=== PATIENT | female | born 1995 | race Caucasian/White ===

== ENCOUNTER 2022-03-20 15:09 | Outpatient (CLI) | payer BC, SELFPAY ==
--- NOTE | 2022-03-20 15:00 | CRLHL7_ITS ---
For Patients: As a result of the Century Cures Act, medical imaging exams and procedure reports are released immediately into your electronic medical record. You may view this report before your referring provider. If you have questions, please contact your health care provider. INDICATION: +Covid in . f/u growth. 31w6d COMPARISON: none TECHNIQUE: Real time rush scale imaging of the fetus was performed. FINDINGS: Sonographic imaging demonstrates a single living intrauterine gestation. Fetus demonstrates a regular cardiac rate of 157 beats per minute. Fetus has a vertex position. The placenta lies anteriorly. Amniotic fluid volume appears normal and there is a single deepest vertical pocket: 6.0 cm. The estimated weight is 1832gm which lies at the 35th %. BPD 50th percentile. HC 52nd percentile. AC 59th percentile. FL 8th percentile. The HC/AC ratio measures 1.07 range (0.96-1.14). IMPRESSION: Sonographic gestational age 32 weeks 0 days and sonographic due date 05/15/2022. Good correlation with dates. Estimated weight 35th percentile. Abdominal circumference 59th percentile. Dictated by Aniceto Barraza MD @ 03/21/2022 10:38:32 AM (Electronically Signed)
== END 2022-03-20 15:10 | disposition home or self-care (01) ==
LOC: US 15:10
PROVIDERS: Visit Provider Advanced Practice Midwife
DX: O98.513 Other viral diseases complicating pregnancy, third trimester (principal); U07.1 COVID-19; Z3A.32 32 weeks gestation of pregnancy
CPT/HCPCS: 76816

== ENCOUNTER 2022-04-16 14:11 | Outpatient (CLI) | payer BC, SELFPAY ==
--- NOTE | 2022-04-16 14:00 | CRLHL7_ITS ---
For Patients: As a result of the Century Cures Act, medical imaging exams and procedure reports are released immediately into your electronic medical record. You may view this report before your referring provider. If you have questions, please contact your health care provider. INDICATION: Third trimester scan, evaluate growth. COMPARISON: 03/1922 TECHNIQUE: Real time rush scale imaging of the fetus was performed as well as color Doppler and spectral Doppler analysis of the umbilical artery. FINDINGS: Sonographic imaging demonstrates a single living intrauterine gestation. Fetus demonstrates a regular cardiac rate of 154 beats per minute. Fetus has a vertex position. The placenta lies anteriorly. Amniotic fluid volume appears normal and there is a single deepest vertical pocket: 4.8 cm. The estimated weight is 2639gm which lies at the 37th %. On the prior OB ultrasound exam dated 03/20/2022 the estimated weight was at the 35th%. BPD 24th percentile. HC 43rd percentile. AC 61st percentile. FL 9th percentile. The HC/AC ratio measures 1.02 range (0.93-1.10). IMPRESSION: Sonographic gestational age 35 weeks 2 days and sonographic due date 05/19/2022. Good correlation with dates. Normal interval growth. Estimated weight 37th percentile. Abdominal circumference 61st percentile. Dictated by Aniceto Barraza MD @ 04/17/2022 9:23:45 AM (Electronically Signed)
== END 2022-04-16 14:12 | disposition home or self-care (01) ==
LOC: US 14:12
PROVIDERS: Visit Provider Registered Nurse
DX: Z34.93 Encounter for supervision of normal pregnancy, unspecified, third trimester (principal); Z3A.35 35 weeks gestation of pregnancy
CPT/HCPCS: 76816

== ENCOUNTER 2022-04-16 16:43 | Outpatient (CLI) | payer BC, SELFPAY ==
[2022-04-18 08:20] LABS: Strep B DNA Probe POSITIVE (Negative)
== END 2022-04-16 16:44 | disposition home or self-care (01) ==
PROVIDERS: Visit Provider Obstetrics & Gynecology
DX: Z34.93 Encounter for supervision of normal pregnancy, unspecified, third trimester (principal)
CPT/HCPCS: 87081; 87653

== ENCOUNTER 2022-04-19 02:01 | Outpatient (CLI) | payer BC, SELFPAY ==
[2022-04-19 02:21] VITALS: BP 116/72; PULSE 90
[2022-04-19 02:22] VITALS: PULSE 85; O2SAT 98
[2022-04-19] MEDS: NIFEdipine 10 MG CAPSULE PO (05:54)
--- NOTE | 2022-04-19 07:28 | PC.OBNST ---
NST Note NST Note Start: 04/19/22 02:04 Freq: ONCE Status: Active Protocol: Document 04/19/22 07:06 JENNIFERSergio (Rec: 04/19/22 07:27 JENNIFERSergio [id number]) NST Note 2 Para (# of births) 1 EDC 05/16/22 Patient Presented with Complaint(s) of Contractions/cramping,Nausea and vomiting Reactive Yes Appropriate for Gestational Age Yes RADHA Lai Date 04/19/22 Reactive Yes Appropriate for Gestational Age Yes RADHA Mcdonald Date 04/19/22 OB NST charge Yes Complete NST Note via Write Note Yes The provider's electronic signature indicates the NST is reactive/appropriate for gestational age. *Note to provider: If an addendum is required, open the patient's chart and click on the note under the Nurse/Allied Health tab.
--- NOTE | 2022-04-19 11:05 | PC.SOCIAL ---
Called [facility] CPS intake on 04/19/22 and completed an verbal report. On 04/19/22 faxed [facility] CPS intake a written CPS report for neglect due to positive THC lab completed on 04/19/22 for Sadie Mart.
== END 2022-04-19 06:00 ==
LOC: OB OUT 02:02 → OB 05:41
PROVIDERS: Visit Provider Advanced Practice Midwife
DX: O47.03 False labor before 37 completed weeks of gestation, third trimester (principal)
CPT/HCPCS: 59025; 80306; 99213; A9270

== ENCOUNTER 2022-05-09 07:50 | Inpatient (IN) | payer BC, SELFPAY ==
[2022-05-09] VITALS (141 sets, daily range): BP systolic 102–134; BP diastolic 53–89; PULSE 64–116; RESP 16; TEMP 36.4–36.9; O2SAT 91–100; BMI 29.7
--- NOTE | 2022-05-09 08:25 | P.OBHP_ITS ---
OB - H&P: HPI Labor/Induction History of Present Illness Time Seen by Provider: 08:27 Date Seen: 05/09/22 Chief complaint: Elective Induction/Pit Narrative: SUBJECTIVE: Sadie is being admitted to Labor and Delivery for elective induction of labor. She is a 26 year old G 2 P 1001 woman at 39 Weeks, 0 Days gestation by LMP consistent with 1st trimester ultrasound, LE 05/16/2022. Her full history and physical was completed by Bere Nichols MD on 04/26/2022. Please see this for details. OB PROBLEM LIST: Spouse: Antoine, Son: Олег. Baby: Girl 1. Varicella non-immune: Recommend immunization. 2. Closely spaced : last delivery by LTCS 03/29/2021 3. Previous cesearean section. Desires TOLAC * Chance of successful 58% * Primary LTCS for NRFHT, arrest of dilation and thick meconium stained fluid: transferred to [facility] from a [facility]. * OP note scanned: double layer uterine closure * TOLAC consent given to the patient on 02/02/22. * TOLAC consent signed: 04/16/2022 * USN for EFW at 36wks: 04/16/2022: Vtx, SDP: 4.8cm. EFW: 2639gm, 5#13oz = 37%. BPD 24%, HC 45%, AC 61%, FL 9%. * She desires 39 week induction of labor 4. THC user + in NOB labs, denies smoking since start of . Is taking THC gu mmies for nausea occasionally +THC 04/19/22 5. Anxiety/Depression/PTSD Sertraline 75 mg, may want to stop in 3rd trimester, recommended against Not currently seeing a therapist 6. Covid in in September 2021 and again 02/05/22. 32wk Growth US-EFW 35%. BPD 50%, HC 52%, AC 59%, FL 8% 36wk Growth- 04/16/2022: Vtx, SDP: 4.8cm. EFW: 2639gm, 5#13oz = 37%. BPD 24%, HC 45%, AC 61%, FL 9%. 7. Hx of PP pre-eclampsia after her 1st delivery. Is taking baby ASA. Flu: last fall 2020 Covid: vaccinated, not boosted. Plans soon Labs: Blood Type: O+ Ab screen: negative Hgb: 1.4 Plts: 276 Rubella: Immune RPR: Non-reactive Hep B: non reactive HIV: Negative Gc/c: negative Urine: no growth Hep C: negative UDS: THC positive Varicella: non-immune: immunization recommended. Last Pap smear: Unsure/no record. Pap smear at 6 week exam. US: 12/28 Normal Anatomy Scan 10/05/2021 CRL 1.65, SIUP, FHR 167 OBJECTIVE: Vitals per EMR Psychiatric: Alert and oriented x3 HEENT: Normocephalic, atraumatic Neck: Supple without adenopathy or thyromegaly Lungs: Clear to auscultation bilaterally Heart: Regular rate and rhythm, no murmur, rub or gallop Abdomen: Soft, nontender, and gravid Extremities: No edema or erythema Pelvic per nursing: SVE: 2 cm/50 %/-2 /ant/soft. Valdes score: 7 Membrane status: Intact presentation: Vertex FHT: Baseline 130s, moderate variability, Decelerations: absent, Accelerations: present, Contractions: 1 every 20+ minutes. Category 1, reactive. [place]: Sporadic, every 20-30 minutes ASSESSMENT: [age] yo G 1 P 0 woman at 39, 0/7 weeks' gestation admitted for elective IOL, TOLAC. PLAN: 1. Admit to Labor and delivery. 2. Start Pitocin per induction protocol. 3. GBS positive: Ampicillin for GBS prophylaxis start now. 4. AROM 2+ hours after ampicillin has been started Meds Home Medications and Allergies Home Medications Medication Instructions Recorded Confirmed Type aspirin 81 mg tablet,delayed 81 mg PO QDAY 02/28/22 05/04/22 History release ferrous sulfate 325 mg (65 mg 325 mg PO QDAY 02/28/22 05/04/22 History iron) tablet prenat.vits,lux,[id number] 1 tab PO QDAY 02/28/22 05/04/22 History Allergies Allergy/AdvReac Type Severity Reaction Status Date / Time metoclopramide [From Reglan] AdvReac Intermediate Anxiety Verified 05/09/22 08:03 OB - H&P: Exam Physical Exam: Vital signs: Temp Pulse BP Pulse Ox 98.1 F 84 133/81 98 09/07/22 08:06 05/09/22 08:06 05/09/22 08:06 05/09/22 08:25
[2022-05-09 08:30] LABS: Amphetamine Screen Urine Negative (Negative); Barbiturate Screen Urine Negative (Negative); Benzodiazepines Screen Urine Negative (Negative); Cannabinoid Screen Urine Negative (Negative); Cocaine Screen Urine Negative (Negative); Methadone Screen Urine Negative (Negative); Methamphetamines Screen Urine Negative (Negative); Opiate Screen Urine Negative (Negative); Oxycodone Screen Urine Negative (Negative); Phencyclidine Screen Urine Negative (Negative); Tricyclic Antidepressant Urine Negative (Negative)
[2022-05-09] MEDS: LACTATED RINGERS 1000 ML 1,000 ML 125 ML IV (09:05)
[2022-05-09 09:23] LABS: Basophils Absolute Auto 0.01 K/uL (0.00-0.30); Basophils Percent Auto 0.1 % (0.0-3.0); Eosinophils Absolute Auto 0.05 K/uL (0.00-0.50); Eosinophils Percent Auto 0.5 % (0.0-7.0); Hematocrit 31.7 % (33.0-51.0); Hemoglobin* 10.8 gm/dL (12.0-16.0); Immature Granulocytes Abs Auto 0.02 K/uL (0.00-0.30); Lymphocytes Absolute Auto 2.37 K/uL (0.90-2.90); Lymphocytes Percent Auto 25.5 % (20-44); Mean Corpuscular HGB Conc 34 gm/dL (32-36); Mean Corpuscular Hemoglobin 30 pg (26-34); Mean Corpuscular Volume 89 fL (80-100); Monocytes Percent Auto 6.1 % (0.0-11.0); Neutrophils Absolute Auto 6.28 K/uL (1.7-7.0); Neutrophils Percent Auto 67.6 % (42.0-72.0); Platelet Count* 148 K/uL (140-440); Red Blood Count 3.56 m/uL (4.00-5.20)
[2022-05-09] MEDS: AMPICILLIN 2 GM in 0.9 % SODIUM CHLORIDE Mini-bag 100 ML IVPB (09:23)
[2022-05-09 09:25] LABS: Slide Review Reflex No
[2022-05-09] MEDS: OXYTOCIN 30 unit/500 ML in NS 30 UNIT/500 ML BAG IVPB ×3 (09:29→10:57)
--- NOTE | 2022-05-09 12:58 | P.OBPN_ITS ---
Pain Control Time Seen by Provider: 12:25 Date Seen: 05/09/22 Comments: Subjective: The patient is tolerating contractions well rating her pain 4/10. Pitocin: 5 milliunits/minute. Verbal consent obtained for artificial rupture membranes. Vital signs: Per electronic medical record. EFM: Baseline 130s, positive accelerations, negative decelerations, moderate variability, reactive. Category 1. [place]: Contractions every 3-5 minutes. After AROM every 2 minutes. SVE: 3 cm/90 %/0. AROM: Clear fluid at 12:26 p.m. Assessment: 26-year-old 2 para 1 at 39 weeks 0 days gestation undergoing induction of labor, elective, TOLAC. Plan: 1. Continue Pitocin per labor induction protocol. 2. Considering epidural for labor analgesia
[2022-05-09] MEDS: AMPICILLIN 1 GM in 0.9 % SODIUM CHLORIDE Mini-bag 100 ML IVPB ×2 (13:37→17:33)
[2022-05-09] MEDS: LACTATED RINGERS 1000 ML 1,000 ML 1125 ML IV ×2 (14:12→15:14)
[2022-05-09] MEDS: LIDOCAINE 2% (PF) 5 ML VIAL EPIDURAL (14:14)
[2022-05-09] MEDS: ROPIVACAINE 0.2% 100 ml 100 ML 10 MG EPIDURAL (14:15)
--- NOTE | 2022-05-09 14:20 | P.ANBPRC_ITS ---
[facility] Medical History (Updated 04/26/22 @ 13:47 by Bere Hernandez MD) Anxiety and depression PTSD (post-traumatic stress disorder) Surgical History (Updated 04/26/22 @ 13:06 by Bere Hernandez MD) History of cholecystectomy (09/21/19) History of low transverse section (03/29/21) Family History (Updated 04/26/22 @ 13:47 by Bere Hernandez MD) Mother Alcohol abuse Drug abuse Depression Maternal Grandmother Ovarian cancer Social History (Updated 04/26/22 @ 13:45 by Bere Hernandez MD) Narrative: Cis-gender, heterosexual, woman Relationship status: Long-term monogamous relationship. 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 Quit 2018. E-cigarettes: No Alcohol: None during Illicit/recreational drugs: Smoked marijuana prior to . Used THC sporadically in the 1st trimester for nausea in her 2nd . Safety concerns at home or work: No Dietary restriction(s): None Exercise: No. Smoking Status: Former smoker Meds Home Medications and Allergies Home Medications Medication Instructions Recorded Confirmed Type aspirin 81 mg tablet,delayed 81 mg PO QDAY 02/28/22 05/09/22 History release ferrous sulfate 325 mg (65 mg 325 mg PO QDAY 02/28/22 05/09/22 History iron) tablet prenat.vits,lux,[id number] 1 tab PO QDAY 02/28/22 05/09/22 History Allergies Allergy/AdvReac Type Severity Reaction Status Date / Time metoclopramide [From Reglan] AdvReac Intermediate Anxiety Verified 05/09/22 08:03 Results Labs Labs: Laboratory Results - last 24 hr 05/09/22 05/09/22 05/09/22 08:09 09:10 09:10 WBC 9.30 RBC 3.56 L Hgb 10.8 L Hct 31.7 L MCV 89 MCH 30 MCHC 34 RDW Coeff of Gisel 13.0 Plt Count 148 Neut % (Auto) 67.6 Lymph % (Auto) 25.5 [place] % (Auto) 6.1 Eos % (Auto) 0.5 Baso % (Auto) 0.1 Neut # (Auto) 6.28 Lymph # (Auto) 2.37 [place] # (Auto) 0.60 Eos # (Auto) 0.05 Baso # (Auto) 0.01 Abs Immat Gran (auto) 0.02 Urine Opiates Screen Negative Ur Oxycodone Screen Negative Urine Methadone Screen Negative Ur Propoxyphene Screen Negative Ur Barbiturates Screen Negative U Tricyclic Antidepress Negative Ur Phencyclidine Scrn Negative Ur Amphetamines Screen Negative U Methamphetamines Scrn Negative U Benzodiazepines Scrn Negative Urine Cocaine Screen Negative U Marijuana (THC) Screen Negative Blood Type O Positive Antibody Screen NEGATIVE Crossmatch (AHG) See Detail Vital Signs Vital Signs: Last Vital Signs Temp 98.1 F 05/09/22 12:28 Pulse 90 05/09/22 14:19 BP 108/59 L 05/09/22 14:19 Pulse Ox 100 05/09/22 14:20 Weight: 69.1 kg Height: 152.4 cm Anesthesia Procedures Epidural Insertion Patient Location: OB Start Time: 14:00 Stop Time: 14:30 Start Date: 05/09/22 Stop Date: 05/09/22 Reason for Block: procedure for pain Patient Position: sitting Performed By: Varinder Causey Preanesthetic Checklist: IV checked, risks and benefits discussed, surgical consent, monitors and equipment checked, pre-op evaluation, timeout performed and anesthesia consent Prep: chlorhexidine gluconate Monitoring: blood pressure monitoring, continuous pulse oximetry and heart rate Approach: midline Vertebral Space: lumbar (1-5) Epidural Technique: ELMER saline Needle Type: Tuohy needle Injection Technique: continuous catheter Needle gauge: 17 Needle Length (cm): 10 cm Needle Insertion Depth (cm): 5 Catheter Type: multi-orifice Catheter at skin depth (cm): 10 Test Dose Result: negative and lidocaine 1.5% with epinephrine 1 to 200,000 Intrathecal Performed By: Varinder Causey
[2022-05-09] MEDS: PHENYLEPHRINE 100 MCG/ML SYRINGE IVP ×3 (14:21→14:32)
[2022-05-09] MEDS: LIDOCAINE 1% MDV 20 ML INJECTION (21:16)
--- NOTE | 2022-05-09 21:52 | PM.OBPRCVD ---
Procedure Delivery date: 05/09/22 Procedure Done: Global Procedure Details: Sadie is a 26 year-old G 2 P 1001 now 2 admitted on 05/09/2022 at 39 weeks 0 days gestation for elective induction of labor.. Cervical exam on admission was 2cm/50 % effaced/-3 station with membranes intact in vertex presentation. Contractions were every 8-20 minutes. heart rate demonstrated baseline 140s bpm with moderate variability, positive accelerations, negative decelerations; a category 1 tracing. AROM occurred at 12:06 p.m. on 05/09/2022 with clear fluid. Labor Analgesia: Epidural Pitocin: Yes, maximum dose 8 milliunits/minute Labor onset: 05/09/2022 at 2:00 p.m.. Complete: 05/09/2022 at 8:34 p.m.. Pushin05/09/2022 at 8:46 p.m.. heart tones during second stage were: Category 2: Late decelerations with most contractions in the last 20 minutes of pushing, moderate variability between contractions. At 9:25 p.m. a viable female infant delivered in vertex direct OA presentation over first-degree right periurethral laceration via spontaneous vaginal delivery. The was placed on maternal abdomen. Cord was clamped and cut after a 60+second delay. Nose and mouth were bulb suctioned. weight pending. 9 at 1 minute and 9 at 5 minutes. Shoulder dystocia: No. Nuchal cord: No Placenta delivered spontaneously complete at 9:33 p.m. with a 3 vessel cord. No evidence of uterine atony after delivery. Utero tonics after delivery: Pitocin. Laceration(s): Right 1st degree periurethral. Repaired using 4-0 Vicryl suture in a running manner. Blood loss: 50 mL. Blood loss measurement type: Quantitative Sponge and needles counts are correct. Specimen: None Mother and infant were stable after delivery. Infant's name: Akil or Alivia Watts The patient is planning on [breast/bottle] feeding. Events: Labor Induction and Covid Infection in Induction method: AROM Delivery monitor: external FHT Route of delivery: Laceration description: Periurethral - 1st Degree Delivery repair: Vicryl Anesthesia type: Epidural Disposition: floor
[2022-05-09] MEDS: IBUPROFEN 600 MG TABLET PO (23:58)
[2022-05-10] MEDS: ACETAMINOPHEN 500 MG TABLET 1000 MG PO ×3 (02:39→19:39)
[2022-05-10 03:47] VITALS: BP 118/76; PULSE 84; RESP 16; TEMP 36.7; O2SAT 97
[2022-05-10 07:36] LABS: Hemoglobin* 10.7 gm/dL (12.0-16.0)
[2022-05-10] MEDS: IBUPROFEN 600 MG TABLET PO ×2 (07:37→15:39)
[2022-05-10 08:15] VITALS: BP 129/88; PULSE 76; RESP 16; TEMP 36.7; O2SAT 97
[2022-05-10] MEDS: SERTRALINE 50 MG TABLET 75 MG PO (09:50)
[2022-05-10] MEDS: DOCUSATE SODIUM 100 MG CAPSULE PO (09:51)
[2022-05-10 11:10] VITALS: BP 124/81; PULSE 78; RESP 16; TEMP 36.4; O2SAT 97
[2022-05-10 15:45] VITALS: BP 129/84; PULSE 74; RESP 16; TEMP 36.5; O2SAT 97
--- NOTE | 2022-05-10 16:16 | PC.SOCIAL ---
Phone call to [facility] intake. Provided information on previous report from 04/19/22 on the positive drug screen for THC for pt. Informed dope and fabric worker that urine screens are negative for both mom and baby today. Informed dope and fabric worker that meconium test was performed and the results are pending. box storage worker stated that they will pass the information along and if the meconium is positive then they would like the information reported.
--- NOTE | 2022-05-10 19:02 | P.DS_ITS ---
DS: Providers Provider Time Seen by Provider: 08:30 Date Seen: 05/10/22 Date of admission: 05/09/22 07:50 Primary care physician: Not a Local Provider Admitting Clinician: Bere Hernandez MD Consults: 05/09/22 08:09 Consult to Elevator Supervisor [CONS] Routine Comment: Reason for Consult:: Substance Abuse Screening Attending Physician on discharge: Prachi Jay CNM Date of Discharge: 05/10/22 DS: Diagnosis Discharge Diagnosis (1) Lactating mother: Status: Acute (2) (vaginal after ): Status: Acute Exam Const: Vital Signs, click to edit/add: Vital Signs - 24 hr 05/09/22 19:04 05/09/22 19:09 05/09/22 19:14 Temperature Pulse Rate 77 Pulse Rate [Blood Pressure Cuff] Respiratory Rate Blood Pressure 108/53 L Blood Pressure [Le ft Arm] Pulse Oximetry 98 98 98 Oxygen Delivery Me od 05/09/22 19:19 05/09/22 19:20 05/09/22 19:24 Temperature Pulse Rate 77 Pulse Rate [Blood Pressure Cuff] Respiratory Rate Blood Pressure 129/73 Blood Pressure [Le ft Arm] Pulse [facility]ximetry 98 98 [facility] 19:29 05/09/22 19:33 05/09/22 19:34 Temperature Pulse Rate 80 Pulse Rate [Blood Pressure Cuff] Respiratory Rate Blood Pressure 129/89 Blood Pressure [Le ft Arm] Pulse Oximetry 98 98 Oxygen Delivery Ok thod 05/09/22 19:39 05/09/22 19:49 05/09/22 19:53 Temperature Pulse Rate 75 Pulse Rate [Blood Pressure Cuff] Respiratory Rate Blood Pressure 117/56 L Blood Pressure [Le ft Arm] Pulse Oximetry 98 98 Oxygen Delivery Me thod 05/09/22 19:58 05/09/22 20:03 05/09/22 20:08 Temperature Pulse Rate 81 Pulse Rate [Blood Pressure Cuff] Respiratory Rate Blood Pressure 115/57 L Blood Pressure [Le ft Arm] Pulse Oximetry 98 98 99 Oxygen Delivery Me thod 05/09/22 20:13 05/09/22 20:18 05/09/22 20:23 Temperature Pulse Rate 76 Pulse Rate [Blood Pressure Cuff] Respiratory Rate Blood Pressure 112/63 Blood Pressure [Le ft Arm] Pulse Oximetry 98 99 98 Oxygen Delivery Ok thod 05/09/22 20:28 05/09/22 20:34 05/09/22 20:34 Temperature Pulse Rate 99 Pulse Rate [Blood Pressure Cuff] Respiratory Rate Blood Pressure 115/76 Blood Pressure [Le ft Arm] Pulse Oximetry 98 98 Oxygen Delivery Ok thod 05/09/22 20:39 05/09/22 20:48 05/09/22 21:06 Temperature Pulse Rate 84 78 Pulse Rate [Blood Pressure Cuff] Respiratory Rate Blood Pressure 117/58 L 118/63 Blood Pressure [Le ft Arm] Pulse Oximetry 98 Oxygen Delivery Ok thod 05/09/22 21:18 05/09/22 21:33 05/09/22 21:54 Temperature Pulse Rate 77 93 Pulse Rate [Blood Pressure Cuff] Respiratory Rate Blood Pressure 130/60 128/62 133/86 Blood Pressure [Le ft Arm] Pulse Oximetry Oxygen Delivery Ok thod 05/09/22 21:54 05/09/22 22:03 05/09/22 22:18 Temperature Pulse Rate 95 88 81 Pulse Rate [Blood Pressure Cuff] Respiratory Rate Blood Pressure 132/69 130/73 Blood Pressure [Le ft Arm] Pulse Oximetry Oxygen Delivery Ok thod 05/09/22 22:33 05/09/22 22:48 05/09/22 23:04 Temperature Pulse Rate 77 72 Pulse Rate [Blood Pressure Cuff] Respiratory Rate Blood Pressure 126/75 131/61 132/70 Blood Pressure [Le ft Arm] Pulse Oximetry Oxygen Delivery Ok thod 05/09/22 23:04 05/09/22 23:18 05/09/22 23:33 Temperature Pulse Rate 72 76 83 Pulse Rate [Blood Pressure Cuff] Respiratory Rate Blood Pressure 134/66 132/65 Blood Pressure [Le ft Arm] Pulse Oximetry Oxygen Delivery Ok thod 05/09/22 19:16 05/09/22 20:07 05/09/22 21:45 Temperature 98.3 F 98.5 F 98.3 F Pulse Rate Pulse Rate [Blood Pressure Cuff] Respiratory Rate 16 16 Blood Pressure Blood Pressure [Le ft Arm] Pulse Oximetry Oxygen Delivery Ok thod 05/09/22 22:00 05/09/22 22:15 05/09/22 22:30 Temperature Pulse Rate Pulse Rate [Blood Pressure Cuff] Respiratory Rate 16 16 16 Blood Pressure Blood Pressure [Le ft Arm] Pulse Oximetry Oxygen Delivery Ok thod 05/09/22 22:45 05/09/22 23:00 05/09/22 23:15 Temperature Pulse Rate Pulse Rate [Blood Pressure Cuff] Respiratory Rate 16 16 16 Blood Pressure Blood Pressure [Le ft Arm] Pulse Oximetry Oxygen Delivery Me thod 05/09/22 23:30 05/10/22 03:47 05/10/22 08:15 Temperature 98.2 F 98.1 F 98.1 F Pulse Rate Pulse Rate [Blood Pressure Cuff] 84 76 Respiratory Rate 16 16 16 Blood Pressure Blood Pressure [Le ft Arm] 118/76 129/88 Pulse Oximetry 97 97 Oxygen Delivery Me thod Room Air Room Air 05/10/22 11:10 05/10/22 15:45 Temperature 97.6 F 97.7 F Pulse Rate Pulse Rate [Blood Pressure Cuff] 78 74 Respiratory Rate 16 16 Blood Pressure Blood Pressure [Le ft Arm] 124/81 129/84 Pulse Oximetry 97 97 Oxygen Delivery Me thod Room Air Room Air Documenting provider has reviewed patient's vital signs: yes Common normals: no apparent distress, oriented x3, healthy appearing, alert and well nourished General appearance: cooperative, well kempt and well developed Orientation/consciousness: Yes awake, Yes oriented to person, Yes oriented to place and Yes oriented to time HENMT: Common normals: normocephalic and external nose normal Head and scalp: normocephalic Nose: external nose normal Eye: General eye: normal appearance of both eyes Neck & C-Spine: Common normals: full ROM and supple General: normal visual inspection Cervical spine: cervical ROM normal Chest: Common normals: inspection of chest normal and palpation of chest normal Chest: symmetrical chest wall rise Resp: Common normals: normal respiratory effort, no retractions, no use of accessory muscles and clear to auscultation bilaterally Effort & inspection: able to speak in complete sentences Auscultation: clear to auscultation bilaterally Cardio: Common normals: regular rate and regular rhythm Rate: regular rate Rhythm: regular rhythm GI: Common normals: Normal to inspection, nondistended, normoactive bowel sounds present and soft to palpation Inspection: normal to inspection Auscultation: normoactive bowel sounds Palpation: soft and tender : Bimanual exam- vagina & uterus: other (Involuting) Uterus: U/2 and firm Lochia: small Uterus palpation: uterus tender Back & Pelvis: Common normals: thoracic and lumbar spine normal to inspection and no thoracic nor lumbar tenderness Thoracic spine/upper back: normal to inspection and thoracic ROM normal Lumbar spine/lower back: normal to inspection and lumbar ROM normal Extremity: Common normals: normal to inspection and full ROM General: normal exam except as noted; no edema Neuro: Common normals: oriented x3 Sensorium/orientation: awake, alert, oriented to person, oriented to place and oriented to time Speech: speech normal Psych: Common normals: mental status grossly normal, thought process normal and speech normal Appearance: grossly normal and well kempt Attitude: calm and engaged Activity/motor behavior: appropriate eye contact Speech: normal speech Thought process: normal thought process Thought content: normal thought content Attention/concentration: attention grossly intact Memory/cognition: memory grossly intact Insight: insight good Judgement: judgment good Skin: Common normals: no rashes or lesions noted General skin exam: no rashes or lesions noted OB - DS: Summary Hospital Course Hospital Course: The patient is a 26 year old G 2 now P 2 at 39 weeks gestation that was admitted to the Center on 05/09/22 for IOL. She had an uncomplicated delivery. She delivered a viable female infant. She is breast feeding. the patient has done well. Peripartum Data Infant delivery method: Laceration description: Periurethral - 1st Degree (4.0 Vicryl) complications: none Gender: Female Infant Discharge Plan: Home Status at Discharge Functional status at discharge: independent ambulation Overall status at discharge: patient is progressing back to baseline Time Spent with Patient Time attestation: Total time spent providing and/or coordinating discharge services: Time spent: Less than 30 minutes Discharge Plan Discharge Disposition: Home, Self-Care Date of Admission: 05/09/22 07:50 Attending Provider on Discharge: Prachi Jay Primary Care Provider: Provider,Not a Local Condition: Stable Anticipated Discharge Date/Time: 05/11/22 21:59 Discharge Medications: New docusate sodium 100 mg Capsule 100 mg PO BID PRN (Reason: constipation) 60 Days Qty: 100 0RF ibuprofen 600 mg Tablet 600 mg PO Q6H PRN14 Days Qty: 30 0RF sertraline 50 mg Tablet 75 mg PO DAILY 365 Days Qty: 90 3RF acetaminophen 500 mg Tablet 1,000 mg PO Q6H PRNQty: 0 0RF Continued prenat.vits,lux,[id number] Tablet 1 tab PO QDAY ferrous sulfate 325 mg (65 mg iron) tablet 325 mg PO QDAY Discontinued aspirin 81 mg tablet,delayed release (DR/EC) 81 mg PO QDAY Discharge Orders: Discharge Order (Routine); Ordered 05/10/22 Ordered By: Prachi Jay Patient Education: Vaginal Delivery (DC) Activity Restrictions/Additional Instructions: Discharge instructions were reviewed with the patient including signs and symptoms of infection and home going medications. Lifting Restrictions: None Off Work or School for 6 weeks. Nothing vaginally for 6 weeks: no tampons or intercourse. Symptoms to report to doctor: -Bleeding that saturates more than one pad per hour ?-Passing clots larger than the size of a golf ball ?-Pain not relieved by prescribed medication ?-Fever above 100.4 degrees Fahrenheit ?-A foul vaginal odor ?-Difficulty in emotions, mood and functions ?-Thoughts of hurting yourself and/or ?-Painful, reddened area in your breast ?-Any drainage, redness or tenderness in your IV/epidural site ?-Severe headache that doesn't improve after taking medications ?-Changes in vision, including temporary loss of vision, blurred vision, and/or light sensitivity ?-Upper abdominal pain (usually under ribs on the right side) ?-Decrease in urination or painful, frequent urinating ?-Chest pain ?-Shortness of breath ?-Tenderness or pain with redness and/swelling in the calf(s) of your leg 2 week visit: discuss control options, screen for anxiety/depression, review care and feeding concerns. 6 week visit for a physical exam. consultation services are available to all mothers and babies for the first year after delivery.? To make an appointment, please call [phone]. Activity Level: Activity as Tolerated Activity Detail: Nothing vaginally for 6 weeks. Discharge Diet: Regular Follow Up Appointments: [facility] [Provider Group] Forms: MyHealth Info Instructions
[2022-05-10 19:25] LABS: SARS PCR* Negative SARS-CoV-2 (Negative)
[2022-05-11 00:43] VITALS: BP 119/72; PULSE 74; RESP 16; TEMP 36.5; O2SAT 97
[2022-05-11] MEDS: IBUPROFEN 600 MG TABLET PO ×2 (02:03→07:50)
[2022-05-11] MEDS: DOCUSATE SODIUM 100 MG CAPSULE PO (07:50)
[2022-05-11] MEDS: SERTRALINE 50 MG TABLET 75 MG PO (07:50)
[2022-05-11 07:54] VITALS: BP 125/84; PULSE 82; RESP 16; TEMP 36.4; O2SAT 97
--- NOTE | 2022-05-11 08:42 | PM.OBDSVD1 ---
DS: Providers Provider Date Seen: 05/11/22 Date of admission: 05/09/22 07:50 Primary care physician: Not a Local Provider Admitting Clinician: Bere Hernandez MD Consults: 05/09/22 08:09 Consult to Registered Nurse Bone Marrow Transplant [CONS] Routine Comment: Reason for Consult:: Substance Abuse Screening Attending Physician on discharge: Bere Hernandez MD Date of Discharge: 05/11/22 Exam Const: Vital Signs, click to edit/add: Vital Signs - 24 hr 05/10/22 11:10 05/10/22 15:45 05/11/22 00:43 Temperature 97.6 F 97.7 F 97.7 F Pulse Rate [Blood Pressure Cuff] 78 74 74 Respiratory Rate 16 16 16 Blood Pressure [Le ft Arm] 124/81 129/84 119/72 Pulse Oximetry 97 97 97 Oxygen Delivery Me thod Room Air Room Air Room Air 05/11/22 07:54 Temperature 97.6 F Pulse Rate [Blood Pressure Cuff] 82 Respiratory Rate 16 Blood Pressure [Le ft Arm] 125/84 Pulse Oximetry 97 Oxygen Delivery Me thod Room Air Documenting provider has reviewed patient's vital signs: yes Common normals: no apparent distress, average body habitus, oriented x3, no limitations, healthy appearing, alert and well nourished HENMT: Common normals: normocephalic, hearing grossly normal bilaterally, external ears normal and external nose normal Head and scalp: normocephalic Face and sinus: normal facial exam Nose: external nose normal External ear: external ears normal Eye: General eye: normal appearance of both eyes Neck & C-Spine: Common normals: full ROM, supple and no JVD General: normal visual inspection Resp: Common normals: normal respiratory effort, no retractions, no use of accessory muscles and clear to auscultation bilaterally Auscultation: clear to auscultation bilaterally Cardio: Common normals: no JVD, regular rate, regular rhythm, S1 normal heart sound, S2 normal heart sound, no gallops, no clicks, no murmurs and no rub Rate: regular rate Rhythm: regular rhythm Heart sounds: S1 normal and S2 normal GI: Common normals: soft to palpation and non-tender Palpation: soft : Uterus: U/2 Lochia: small Extremity: Common normals: full ROM Neuro: Common normals: oriented x3 Sensorium/orientation: alert Psych: Common normals: mental status grossly normal and thought process normal Thought process: normal thought process OB - DS: Summary Hospital Course Hospital Course: The patient is a 26 year old G 2 P 2 at 39.1 weeks gestation that was admitted to the [facility] on 05/09/22 for IOL and TOLAC. She had an uncomplicated vaginal delivery. She delivered a viable female . The patient feels well.? The pain is well controlled with current medications.? She has no new complaints.? Urinary output is adequate and she is voiding without difficulty.? Has a good appetite, is tolerating a general diet, is passing flatus, and has had a bowel movement.? Has?small amount of rubra lochia.? She is ambulating well.?She is breast feeding and denies complications or concerns. the patient has done well. She restarted her Zoloft yesterday and is requesting a dose decrease. She had a lot of jaw clenching. She states that she has had a reaction like this previously when initiating. I will reduce her Zoloft to 50mg and she knows to reach out if she is not doing well on this dose. Peripartum Data delivery method: Vaginal Laceration description: Perineal - 1st Degree Episiotomy description: None complications: none Gender: Female Discharge Plan: Home Status at Discharge Functional status at discharge: independent ambulation Overall status at discharge: patient is progressing back to baseline Time Spent with Patient Time attestation: Total time spent providing and/or coordinating discharge services: Discharge Plan Discharge Disposition: Home, Self-Care Date of Admission: 05/09/22 07:50 Attending Provider on Discharge: Prachi Jay Primary Care Provider: Provider,Not a Local Condition: Stable Anticipated Discharge Date/Time: 05/11/22 21:59 Discharge Medications: New docusate sodium 100 mg Capsule 100 mg PO BID PRN (Reason: constipation) 60 Days Qty: 100 0RF ibuprofen 600 mg Tablet 600 mg PO Q6H PRN14 Days Qty: 30 0RF acetaminophen 500 mg Tablet 1,000 mg PO Q6H PRNQty: 0 0RF sertraline 50 mg Tablet 50 mg PO DAILY Qty: 90 3RF Continued prenat.vits,lux,[id number] Tablet 1 tab PO QDAY ferrous sulfate 325 mg (65 mg iron) tablet 325 mg PO QDAY Discontinued aspirin 81 mg tablet,delayed release (DR/EC) 81 mg PO QDAY Discharge Orders: Discharge Order (Routine); Ordered 05/10/22 Ordered By: Prachi Jay Patient Education: Vaginal Delivery (DC) Activity Restrictions/Additional Instructions: Discharge instructions were reviewed with the patient including signs and symptoms of infection and home going medications. Lifting Restrictions: None Off Work or School for 6 weeks. Nothing vaginally for 6 weeks: no tampons or intercourse. Symptoms to report to doctor: -Bleeding that saturates more than one pad per hour ?-Passing clots larger than the size of a golf ball ?-Pain not relieved by prescribed medication ?-Fever above 100.4 degrees Fahrenheit ?-A foul vaginal odor ?-Difficulty in emotions, mood and functions ?-Thoughts of hurting yourself and/or ?-Painful, reddened area in your breast ?-Any drainage, redness or tenderness in your IV/epidural site ?-Severe headache that doesn't improve after taking medications ?-Changes in vision, including temporary loss of vision, blurred vision, and/or light sensitivity ?-Upper abdominal pain (usually under ribs on the right side) ?-Decrease in urination or painful, frequent urinating ?-Chest pain ?-Shortness of breath ?-Tenderness or pain with redness and/swelling in the calf(s) of your leg 2 week visit: discuss control options, screen for anxiety/depression, review infant care and feeding concerns. 6 week visit for a physical exam. consultation services are available to all mothers and babies for the first year after delivery.? To make an appointment, please call [phone]. Activity Level: No Restrictions and Activity as Tolerated Activity Detail: Nothing vaginally for 6 weeks. Discharge Diet: Regular Follow Up Appointments: [facility] [Provider Group] Forms: MyHealth Info Instructions
--- NOTE | 2022-06-07 14:58 | PC.SOCIAL ---
Phone call to [facility] CPS. Completed a verbal report and completed a written CPS report. Faxed written report to [phone]. Reported meconium test results for , Reyna Mendenhall, which were positive for THC. Provided a copy of the meconium test results.
== END 2022-05-11 11:31 | disposition home or self-care (01) | DRG 560 ==
PROVIDERS: Admitting Provider Obstetrics & Gynecology; Visit Provider Obstetrics & Gynecology
DX: O34.211 Maternal care for low transverse scar from previous cesarean delivery (principal); O70.0 First degree perineal laceration during delivery; O99.824 Streptococcus B carrier state complicating childbirth; F12.90 Cannabis use, unspecified, uncomplicated; O99.344 Other mental disorders complicating childbirth; F41.8 Other specified anxiety disorders; F43.10 Post-traumatic stress disorder, unspecified; Z3A.39 39 weeks gestation of pregnancy; Z37.0 Single live birth
CPT/HCPCS: 1967; 36415; 80306; 85018; 85025; 86850; 86900; 86901; 86922; 87635; A9270; J0290; J2370; J2795; J7120

== ENCOUNTER 2022-06-19 16:09 | Outpatient (CLI) | payer BC, SELFPAY ==
--- OUTSIDE RECORDS SUMMARY | 2022-06-19 16:12 | XMS_ITS | Clinical Summary ---
:1995 Author Organization [facility] Address [address] [place] [address] Care Team Providers Name Role Phone Francisca Cunningham PA-C Primary Care Provider Source Comments You are receiving this document as you are listed as the primary care provider,follow-up provider, or the patient has been referred to you for consultation.This is in compliance with the Medicare and Medicaid EHR Incentive Program,which states Providers who transition their patient to another setting of careor provider of care or refers their patient to another provider of care shouldprovide summarycare record for each transition of care or referral. [facility] Allergies No known active allergies Medications Medication Sig Dispensed Refills Start Date End Date Status traZODone (DESYREL) 50 Take 1-2 Tablets 180 Tablet 3 9 Active MG tabletIndications: by mouth daily Chronic insomnia at bedtime. acetaminophen (TYLENOL) Take 325-650 mg 0 Active 325 MG tablet by mouth every 4 hours as needed for Pain. ALPRAZolam (XANAX) 0.5 Take 1 Tablet by 20 Tablet 0 03/11/2020 Active MG tablet mouth every 6 hours as needed for Anxiety. sertraline (ZOLOFT) 50 Take 1 Tablet by 30 Tablet 5 08/19/2020 Active MG tablet mouth daily. Vit-DSS-Fe 0 Active Cbn-FA ( AD OR) Active Problems Problem Noted Date ASHLEE (generalized anxiety disorder) 06/24/2019 Resolved Problems Problem Noted Date Resolved Date Careplan: [employer] 09/08/2020 11/25/2020 Overview: This patient is enrolled in the [facility] Program. The program provides patients with support, education, referrals and resources during their . Reason for enrollment: +THC, resources Next urine drug screen: 28w For more information, please contact Janis Pyle, Healthy Beginnings Specialist, at [phone]. Encounter for supervision of normal first in first 08/31/2020 11/22/2020 trimester Anxiety disorder affecting , antepartum 08/31/2020 11/22/2020 Nausea and vomiting in 08/31/2020 021 Nausea & vomiting 07/19/2019 08/31/2020 Epigastric pain 07/19/2019 08/31/2020 Immunizations Name Administration Dates Next Due 9vHPV (Gardasil 9) 01/24/2016, 09/30/2015, 07/21/2015 Influenza IIV4 (Quadrivalent) 0.5mL 08/31/2020 (17096) Influenza, Unspecified Formulation 06/10/2019, 05/24/2017, 1 09/08/2015 MCV4 (Menactra) 07/21/2015, 04/24/2012 Tdap 04/24/2012 Varicella 02/14/2016, 01/13/2016 Family History Medical History Relation Name Comments Bipolar Disorder Mother Cancer, Lung Maternal Grandmother Cancer, Ovary Maternal Grandmother Bipolar Disorder Sister Cancer, Ovary Sister Relation Name Status Comments Father Alive Mother Alive Maternal Grandfather Alive Maternal Grandmother Sister Social History Tobacco Use Types Packs/Day Years Used Date Smoking Tobacco: Former Cigarettes Quit : 02/16/2020 Smokeless Tobacco: Never Alcohol Use Standard Drinks/Week Comments Not Currently 0 (1 standard drink = 0.6 oz pure alcoho l) 1-2 drinks a month Sex Assigned at Date Recorded Not on file Last Filed Vital Signs Vital Sign Reading Time Taken Comments Blood Pressure 118/70 08/31/2020 2:43 PM TELEVISION PRODUCTION CLERK Pulse 80 11/10/2019 9:09 AM CDT Temperature 36.7 ??C (98.1 ??F) 08/03/2019 1:00 PM TELEVISION PRODUCTION CLERK Respiratory Rate 16 08/20/2019 11:06 AM TELEVISION PRODUCTION CLERK Oxygen Saturation 98% 07/10/2019 10:00 AM TELEVISION PRODUCTION CLERK Inhaled Oxygen Concentration - - Weight 66.2 kg (146 lb) 08/31/2020 2:43 PM TELEVISION PRODUCTION CLERK Height 152.4 cm (5') 08/31/2020 2:43 PM TELEVISION PRODUCTION CLERK Body Mass Index 28.51 08/31/2020 2:43 PM TELEVISION PRODUCTION CLERK Plan of Treatment Health Maintenance Due Date Last Done Comments Hep C Screening (Preventive 1995 Services) HepB (1) 1995 COVID-19 Vaccine (#1) 1995 Adult Preventive Visit 04/07/2021 04/07/2019 Influenza (#1) 2022 08/31/2020, 06/10/2019, 05/24/2017, Additional history exists Pap 08/31/2023 08/31/2020, 08/08/2017 (Completed) DTaP/Tdap/Td (3 - Tdap) 03/31/2031 03/31/2021, 04/24/2012, 04/24/2012 Zoster/Shingles (1 of 2) 2046 MCV4 Aged Out 07/21/2015, 04/24/2012 No longer eligible based on patient 's age to complete this topic HPV Vaccine Completed 01/24/2016, 09/30/2015, 07/21/2015 Varicella Completed 02/14/2016, 01/13/2016 HIV Screening (Preventive Completed 08/31/2020 Services) HepA Aged Out No longer eligib le based on patient 's age to complete this topic Hib Aged Out No longer eligib le based on patient 's age to complete this topic IPV (Polio) Aged Out No longer eligib le based on patient 's age to complete this topic Pneumococcal Aged Out No longer eligib le based on patient 's age to complete this topic Insurance Payer Benefit Plan / Subscriber ID Effective Dates Phone Addre ss Type Group BCBS BCBS PMAP BLUE [id number] 2019-Present [address] [address] [place] [id number] Sadie Mart Personal/Family Self [address] (Home) [place] [id number] Care Teams Final Canoe Inspector Relationship Specialty Start Date End Date Francisca Cunningham PA-C PCP - General Physician Civil Litigation Attorney 10/05/201884 [place], [place] [id number]
--- OUTSIDE RECORDS SUMMARY | 2022-06-19 16:12 | XMS_ITS | Encounter Summary ---
:1995 Author [facility] Address [address] [address] Care Team Providers Name Role Phone Francisca Cunningham PA-C Primary Care Provider Reason for Visit Reason Comments Félix Fairbanks Revisit Encounter Details Date Type Department Care Team Description 11/25/2020 Telephone [place] [address] [facility] [place] Obg8 [employer] Obstetrics/Gynecolog y Revisit [address] [facility] [place] [address] Social History Tobacco Use Types Packs/Day Years Used Date Smoking Tobacco: Former Cigarettes Quit : 02/16/2020 Smokeless Tobacco: Never Alcohol Use Standard Drinks/Week Comments Not Currently 0 (1 standard drink = 0.6 oz pure alcoho l) 1-2 drinks a month Sex Assigned at Date Recorded Not on file documented as of this encounter Nursing Notes Jennifer Pyle - 11/25/2020 11:56 AM CDT Félix Fairbanks called the pt for a 2nd trimester check in. Pt shares that she is doing well. Rere decided to transfer her call to the [facility] in [place]. Inquired about hermood. Pt shares that it is stable and that she has no immediate mental health needs. All questions answered. Will be closing HB referral as pt has transferred care. documented in this encounter Plan of Treatment Not on filedocumented as of this encounter Visit Diagnoses Not on filedocumented in this encounter Care Teams Poker Supervisor Relationship Specialty Start Date End Date Francisca Cunningham PA-C PCP - General Physician Customer Service Cashier 10/05/201884 [place], [place] [id number] documented as of this encounter
--- OUTSIDE RECORDS SUMMARY | 2022-06-19 16:12 | XMS_ITS | Encounter Summary ---
:1995 Author Organization [facility] Address [address] [address] Care Team Providers Name Role Phone Francisca Cunningham PA-C Primary Care Provider Reason for Visit Reason Comments Clinician Finder Team Encounter Details Date Type Department Care Team Description 10/05/[address] [facility] [address] [facility] Pcp, Clinician Finder Team Family Medicine Assignment [address] [facility] [place] [address] [phone] Social History Tobacco Use Types Packs/Day Years Used Date Smoking Tobacco: Former Cigarettes Quit : 02/16/2020 Smokeless Tobacco: Never Alcohol Use Standard Drinks/Week Comments Not Currently 0 (1 standard drink = 0.6 oz pure alcoho l) 1-2 drinks a month Sex Assigned at Date Recorded Not on file documented as of this encounter Plan of Treatment Not on filedocumented as of this encounter Visit Diagnoses Not on filedocumented in this encounter Care Teams Director Of Partnerships Relationship Specialty Start Date End Date Francisca Cunningham PA-C PCP - General Physician Microsoft Developer 10/05/20 [address] [place] [address] documented as of this encounter
--- OUTSIDE RECORDS SUMMARY | 2022-06-19 16:12 | XMS_ITS | Encounter Summary ---
:1995 Author Organization [facility] Address [address] [facility] [place] [address] Care Team Providers Name Role Phone Francisca Cunningham PA-C Primary Care Provider Reason for Visit Reason Comments Concerns Encounter Details Date Type Department Care Team Description 09/14/2021 Telephone Careline Unassigned, Provider Concerns [address] [place], [place] [address] [address] [place] [address] Social History Tobacco Use Types Packs/Day Years Used Date Smoking Tobacco: Former Cigarettes Quit : 02/16/2020 Smokeless Tobacco: Never Alcohol Use Standard Drinks/Week Comments Not Currently 0 (1 standard drink = 0.6 oz pure alcoho l) 1-2 drinks a month Sex Assigned at Date Recorded Not on file documented as of this encounter Nursing Notes Lisa Young - 09/14/2021 4:44 PM CST Verified patient identity using three identifiers: Yes Caller's relationship to patient: Self Do you get your primary care at a HP or PN clinic: PN Are you calling about a related concern: Yes [facility] Select Member: No Transferred pt to PN [facility] NELER OUTSOLE documented in this encounter Plan of Treatment Not on filedocumented as of this encounter Visit Diagnoses Not on filedocumented in this encounter Care Teams Nutrition Services Aide Relationship Specialty Start Date End Date Francisca Cunningham PA-C PCP - General Physician Document Examiner 10/05/20 [address] [place] [address] documented as of this encounter
--- OUTSIDE RECORDS SUMMARY | 2022-06-19 16:12 | XMS_ITS | Encounter Summary ---
:1995 [facility] Address [address] [place] [address] Care Team Providers Name Role Phone Needs Pcp, Assignment Primary Care Provider Encounter Details Date Type Department Care Team Description 08/31/2020 Lab Visit [facility] Screening for diabetes estela tus; [address] Encounter for blood typing; [place] [address] screening for isoi mmunization; [phone] Screening for b lood disease; Screening exami nation for venereal disease; Screening exami nation for rubella; Encounter for s upervision of normal first in first trimester; Encounter for d rug screening Social History Tobacco Use Types Packs/Day Years Used Date Smoking Tobacco: Former Cigarettes Quit : 02/16/2020 Smokeless Tobacco: Never Alcohol Use Standard Drinks/Week Comments Not Currently 0 (1 standard drink = 0.6 oz pure alcoho l) 1-2 drinks a month Sex Assigned at Date Recorded Not on file documented as of this encounter Plan of Treatment Not on filedocumented as of this encounter Procedures Procedure Name Priority Date/Time Associated Diagnosis Comme nts RUBELLA IMMUNE Routine 08/31/2020 3:27 Screening examination R esults for this STATUS, IGG PM PROOFREADER for rubella procedure are i n the results section. CBC AND DIFFERENTIAL Routine 08/31/2020 3:27 Screening for blo od Results for this PANEL PM PROOFREADER disease procedure are i n the results section. THC (MARIJUANA) Routine 08/31/2020 3:27 Encounter for drug Res ults for this METAB CONFIRM, URINE PM PROOFREADER screening procedu re are in the results section. URINE CULTURE Routine 08/31/2020 3:27 Encounter for Results fo r this PM PROOFREADER supervision of normal proced ure are in first in the resul ts first trimester section. ANTIBODY SCREEN Routine 08/31/2020 3:27 screening fo r Results for this PM PROOFREADER isoimmunization procedure ar e in the results section. TREPONEMA SCREEN Routine 08/31/2020 3:27 Screening examination Results for this PM PROOFREADER for venereal disease procedu re are in the results section. BLOOD TYPE Routine 08/31/2020 3:27 Encounter for blood Resul ts for this PM PROOFREADER typing procedure are i n the results section. RAPID DRUG PANEL, Routine 08/31/2020 3:27 Encounter for drug R esults for this URINE (WITH PM PROOFREADER screening procedure are i n CONFIRMATION) the results section. HIV 1/2 AG/AB 4TH Routine 08/31/2020 3:27 Screening examinatio n Results for this GEN PM PROOFREADER for venereal disease procedu re are in the results section. COMPLETE BLOOD Routine 08/31/2020 3:27 Screening for blood Res ults for this COUNT-W/DIFF PM PROOFREADER disease procedure are i n the results section. UA MICRO IF Routine 08/31/2020 3:27 Encounter for Results for this PM PROOFREADER supervision of normal proced ure are in first in the resul ts first trimester section. HBSAG (HEPATITIS B Routine 08/31/2020 3:27 Screening examinati on Results for this SURFACE AG) PM PROOFREADER for venereal disease procedu re are in the results section. HGB A1C Routine 08/31/2020 3:27 Screening for diabetes Re sults for this PM PROOFREADER mellitus procedure are i n the results section. documented in this encounter Results (ABNORMAL) THC (Marijuana) Metab Confirm, Urine (08/31/2020 3:27 PM PROOFREADER) [facility] Method Time Signature THC Metab Confirmed Not Detected 09/05/2020 [facility] (Cutoff 15 Positive (A) 10:44 AM HOSPITAL ng/mL) PROOFREADER Specimen Anatomical Collection Method Collection Time Receive d Time (Source) Location / / Volume Laterality Urine Non-blood 08/31/2020 3:27 PM 0 3:27 Collection / PROOFREADER PM PROOFREADER Unknown Narrative [facility] - 09/05/2020 10:[address] Analysis by Gas Chromatography/Mass Spectrometry (GC/MS). This test was developed and its performance characteristics validated by [facility]. It has not been cleared nor approved by the FDA. The absence of expected drug(s) and/or d rug metabolite(s) may indicate non- compliance, inappropriate timing of specimen collection relative to drug administration, poor drug absorption, diluted/adultera stanley urine or limitations of testing. The concentration must be greater than or equal to the cutoff concentration to be reported as positive. For medical purposes only: not valid for forensic, legal, or employment use. Jerica Vides MD LAB_1 Performing Organization Address City/State/ZIP Code Phon e Number [facility] [address] [place] [address] (ABNORMAL) Complete Blood Count-W/Diff (08/31/2020 3:27 PM PROOFREADER) [facility] gist Method Time Signature WBC 12.5 (H) 3.5 - 10.5 08/31/2020 [facility] x10(9)/L 3:46 PM [facility] LAB[facility] RBC 4.00 3.90 - 08/31/2020 [facility] 5.03 3:46 PM [facility] x10(12)/L Hemoglobin 12.4 12.0 - 08/31/2020 [facility] 15.5 g/dL 3:46 PM [facility] HCT 35.6 34.9 - 08/31/2020 [facility] 44.5 % 3:46 PM [facility] MCV 89.0 80.0 - 08/31/2020 [facility] 100.0 fL 3:46 PM [facility] MCH 31.0 27.6 - 08/31/2020 [facility] 33.3 pg 3:46 PM [facility] MCHC 34.8 31.5 - 08/31/2020 [facility] 35.2 g/dL 3:46 PM [facility] RDW 12.6 11.9 - 08/31/2020 [facility] 15.5 % 3:46 PM [facility] Platelets 268 150 - 450 08/31/2020 [facility] x10(9)/L 3:46 PM [facility] Neutrophil 8.9 (H) 1.7 - 7.0 08/31/2020 [facility] Absolute 10(9)/L 3:46 PM [facility] Lymphocyte 2.7 1.0 - 4.8 08/31/2020 [facility] Absolute 10(9)/L 3:46 PM [facility] Monocytes 0.8 0.2 - 0.9 08/31/2020 [facility] Absolute 10(9)/L 3:46 PM [facility] Eosinophil 0.1 0.0 - 0.5 08/31/2020 [facility] Absolute 10(9)/L 3:46 PM [facility] Basophil 0.0 0.0 - 0.3 08/31/2020 [facility] Absolute 10(9)/L 3:46 PM [facility] Immature Gran % 0.1 0.0 - 0.5 08/31/2020 [facility] % 3:46 PM [facility] Specimen Anatomical Collection Method / Collection Time Recei denisse Time (Source) Location / Volume Laterality Blood Venipuncture / 08/31/2020 3:27 08/31/2020 3:27 Unknown PM PROOFREADER PM PROOFREADER Jeriac Vides MD LAB_1 Performing Organization Address City/State/ZIP Code Phon e Number [facility] [address] [place] [address] [phone] (ABNORMAL) Drugs of Abuse Screen, Urine, w/ conf (08/31/2020 3:27 PM PROOFREADER) [facility] Method Time Signature Amphetamines Not Detected Not 08/31/2020 [facility] Screen Detected 11:06 PM LABORATORY PROOFREADER Barbiturates Not Detected Not 08/31/2020 [facility] Screen Detected 11:06 PM LABORATORY PROOFREADER Benzodiazepines Not Detected Not 08/31/2020 [facility] Screen Detected 11:06 PM LABORATORY PROOFREADER Buprenorphine Not Detected Not 08/31/2020 [facility] Screen Detected 11:06 PM LABORATORY PROOFREADER Cocaine Metabolite Not Detected Not 08/31/[address] Screen Detected 11:06 PM LABORATORY PROOFREADER Methadone Screen Not Detected Not 08/31/2020 [facility] Detected 11:06 PM LABORATORY PROOFREADER Opiates Screen Not Detected Not 08/31/2020 [facility] Detected 11:06 PM LABORATORY PROOFREADER Oxycodone Screen Not Detected Not 08/31/2020 [facility] Detected 11:06 PM LABORATORY PROOFREADER Phencyclidine Not Detected Not 08/31/2020 [facility] (PCP) Screen Detected 11:06 PM LABORATORY PROOFREADER THC (Marijuana) Presumptive Not 08/31/2020 [facility] Metab Screen Positive (A) Detected 11:06 PM LABORATORY PROOFREADER Creatinine, Urine, 60 >20 mg/dL 08/31/2020 [facility] Random 11:06 PM LABORATORY PROOFREADER Specimen Anatomical Collection Method Collection Time Receive d Time (Source) Location / / Volume Laterality Urine Non-blood 08/31/2020 3:27 PM 0 3:27 Collection / PROOFREADER PM PROOFREADER Unknown Narrative [facility] - 08/31/2020 11:06 PM PROOFREADER The absence of expected drug(s) and/or d rug metabolite(s) may indicate non-compliance, inappropriate timing of specimen collection relative to drug administration, poor drug absorption, di luted/adulterated urine or limitations of testing. The concentration must be great er than or equal to the cutoff concentration to be reported as positive. For medical purposes only: not valid for forensic, legal, or employment use. Jerica Vides MD LAB_1 Performing Organization Address City/[facility]/ZIP [facility] e Number [facility] [address] [place] [address] Urine Culture (08/31/2020 3:27 PM PROOFREADER) [facility] Method [place] Signature Urine Culture Urogenital 09/01/2020 [facility] 7:23 PM [facility] Specimen Anatomical Collection Method Collection Time Receive d Time (Source) Location / / Volume Laterality Urine URINE SPECIMEN Non-blood 08/31/2020 3:27 PM 020 3:27 COLLECTION, CLEAN Collection / PROOFREADER PM PROOFREADER CATCH / Unknown Unknown Jerica Vides MD LAB_1 Performing Organization Address [facility] e Number [address] [address] Urinalysis Routine(Micro If Pos) (08/31/2020 3:27 PM PROOFREADER) [facility] Method Time Signature Urine Color Straw Straw-Yellow 08/31/2020 [facility] 3:44 PM [facility] Urine Clarity Clear Clear 08/31/2020 [facility] 3:44 PM [facility] LAB[facility] Specific 1.015 1.005 - 08/31/2020 [facility] [place], 1.030 3:44 PM [facility] LABORATORY Urine PH Urine 7.5 5.0 - 8.0 08/31/2020 [facility] 3:44 PM [facility] Protein, Negative Neg/Trace 08/31/2020 [facility] Urine Qual 3:44 PM [facility] LAB[facility] (mg/dL) Glucose Urine Negative Negative 08/31/2020 [facility] Qual (mg/dL) 3:44 PM [facility] Ketones, Negative Negative 08/31/2020 [facility] Urine (mg/dL) 3:44 PM [facility] Urobilinogen, 0.2 <2.0 08/31/2020 [facility] Urine (EU/dL) 3:44 PM [facility] Bilirubin Negative Negative 08/31/2020 [facility] Urine 3:44 PM [facility] Blood, Urine Negative Neg/Trace 08/31/2020 [facility] 3:44 PM [facility] Nitrite Urine Negative Negative 08/31/2020 [facility] 3:44 PM [facility] Leukocyte Negative Negative 08/31/2020 [facility] Est. 3:44 PM [facility] LAB[facility] Urine Source Clean Catch 08/31/2020 [facility] 3:44 PM [facility] Specimen Anatomical Collection Method Collection Time Receive d Time (Source) Location / / Volume Laterality Urine URINE SPECIMEN Non-blood 08/31/2020 3:27 PM 020 3:27 COLLECTION, CLEAN Collection / PROOFREADER PM PROOFREADER CATCH / Unknown Unknown Jerica Vides MD LAB_1 Performing Organization Address City/[facility] Phon e Number [facility] [address] [place] [address] Rubella Immune Status, IgG (08/31/2020 3:27 PM PROOFREADER) P athologist Signature Rubella Units 4.09 09/01/2020 [facility] 10:15 AM [facility] Comment: The magnitude of the measured r esult, above the cutoff, is not indicative of the amount of antibody present. Rubella Intepretation Immune Immune 09/01/2020 10: 15 AM PROOFREADER [facility] Specimen Anatomical Collection Method / Collection Time Recei denisse Time (Source) Location / Volume Laterality Blood Venipuncture / 08/31/2020 3:27 08/31/2020 3:27 Unknown PM PROOFREADER PM PROOFREADER Jerica Vides MD LAB_1 Performing Organization Address City/[facility]/ZIP [facility] Phon e Number [facility] [address] [place] [address] Treponema Screen (08/31/2020 3:27 PM PROOFREADER) [facility] Method Time Signature Treponema Screen 0.028 {s_co_ratio 08/31/2020 [facility] Result } 10:21 PM LABORATORY PROOFREADER Treponema Screen Non Non 08/31/2020 [facility] Interpretation Reactive Reactive 10:21 PM LABORATORY PROOFREADER Specimen Anatomical Collection Method / Collection Time Recei denisse Time (Source) Location / Volume Laterality Blood Venipuncture / 08/31/2020 3:27 08/31/2020 3:27 Unknown PM PROOFREADER PM PROOFREADER Jerica Vides MD LAB_1 Performing Organization Address [facility] Phon e Number [facility] [address] [place] [address] HIV 1/2 Ag/Ab 4th Generation (08/31/2020 3:27 PM PROOFREADER) [facility] Signature HIV 1/2 Negative Negative 08/31/2020 [facility] Antigen/Antib (Non (Non 10:16 PM LABORATORY noah (4th Reactive) Reactive) PROOFREADER generation) Comment: HIV-1 p24 Antigen and HIV-1/HIV -2 Antibody not detected Specimen Anatomical Collection Method / Collection Time Recei denisse Time (Source) Location / Volume Laterality Blood Venipuncture / 08/31/2020 3:27 08/31/2020 3:27 Unknown PM PROOFREADER PM PROOFREADER Jerica Vides MD LAB_1 Performing Organization Address [facility] Phon e Number [facility] [address] [place] [address] HEP B SURFACE ANTIGEN, NO REFLEX (08/31/2020 3:27 PM PROOFREADER) [facility] Signature Hepatitis B Negative Negative 08/31/2020 [facility] Surface (Non (Non 10:18 PM LABORATORY Antigen Reactive) Reactive) PROOFREADER Specimen Anatomical Collection Method / Collection Time Recei denisse Time (Source) Location / Volume Laterality Blood Venipuncture / 08/31/2020 3:27 08/31/2020 3:27 Unknown PM PROOFREADER PM PROOFREADER Jerica Vides MD LAB_1 Performing Organization Address [facility] Phon e Number [facility] [address] [place] [address] Antibody Screen (08/31/2020 3:27 PM PROOFREADER) Patholo gist Method Time Signature Antibody Screen Negative 08/31/2020 [facility] Interpretation 10:35 PM [facility] BLOOD BANK Specimen Anatomical Collection Method / Collection Time Recei denisse Time (Source) Location / Volume Laterality Blood Venipuncture / 08/31/2020 3:27 08/31/2020 3:27 Unknown PM PROOFREADER PM PROOFREADER Jerica Vides MD LAB_1 Performing Organization Address [facility] Phon e Number [facility] [address] [place] [address] Blood Group & RH (Blood Type) (08/31/2020 3:27 PM PROOFREADER) P athologist Signature ABO O 08/31/2020 [facility] 10:29 PM PROOF[facility]ER BLOOD BANK RH Positive 08/31/2020 [facility] 10:29 PM [facility]OOF[facility]ER BLOOD BANK Specimen Anatomical Collection Method / Collection Time Recei denisse Time (Source) Location / Volume Laterality Blood Venipuncture / 08/31/2020 3:27 08/31/2020 3:27 Unknown PM PROOFREADER PM PROOFREADER Jerica Vides MD LAB_1 Performing Organization Address [facility] Phon e Number [facility] [address] [place] [address] HGB A1C (08/31/2020 3:27 PM PROOFREADER) [facility] Method Time Signature Hemoglobin A1C 5.3 <=5.6 % 09/01/2020 [facility] 8:14 AM PROOFREADER CENTRAL [facility] Specimen Anatomical Collection Method / Collection Time Recei denisse Time (Source) Location / Volume Laterality Blood Venipuncture / 08/31/2020 3:27 08/31/2020 3:27 Unknown PM PROOFREADER PM PROOFREADER Jerica Vides MD LAB_1 Performing Organization Address [facility] Phon e Number [facility] [address] [address] documented in this encounter Visit Diagnoses Diagnosis Screening for diabetes mellitus Encounter for blood typing screening for isoimmunization Screening for blood disease Screening for unspecified disorder of bl ood and blood-forming organs Screening examination for venereal disea se Screening examination for rubella Encounter for supervision of normal firs t in first trimester Supervision of normal first Encounter for drug screening documented in this encounter Care Teams Ammonia Still Operator Relationship Specialty Start Date End Date Needs Pcp, Assignment PCP - General 07/12/20 10/04/20 [place], [place] [id number] documented as of this encounter
--- OUTSIDE RECORDS SUMMARY | 2022-06-19 16:12 | XMS_ITS | Encounter Summary ---
:1995 Author Organization [facility] Address [address] [place] [address] Care Team Providers Name Role Phone Francisca Cunningham PA-C Primary Care Provider Reason for Visit Reason Comments COVID Encounter Details Date Type Department Care Team Description 09/14/2021 Telephone [place] 1515 Jerica Vides MD COVID Obstetrics/Gynecolog y 1515 [facility] [address] [facility] [address] [place] [address] [place] [address] [phone] (Wo rk) Social History Tobacco Use Types Packs/Day Years Used Date Smoking Tobacco: Former Cigarettes Quit : 02/16/2020 Smokeless Tobacco: Never Alcohol Use Standard Drinks/Week Comments Not Currently 0 (1 standard drink = 0.6 oz pure alcoho l) 1-2 drinks a month Sex Assigned at Date Recorded Not on file documented as of this encounter Nursing Notes Raven Echevarria RN - 09/14/2021 4:59 PM CST Pt calling at ~5 wks GA, just had a positive COVID-19 test and wondering what to do. Reviewed self-care, isolation, hand washing and cleaning. Reviewed warning signs of severe COVID and of concerns, and pt agrees to call or seek care if these occur. Patient verbalizes understanding and has no further questions. E PACKER documented in this encounter Plan of Treatment Not on filedocumented as of this encounter Visit Diagnoses Not on filedocumented in this encounter Care Teams Radio Adjuster Relationship Specialty Start Date End Date Francisca Cunningham PA-C PCP - General Physician Plastic Tile Layer 10/05/[address] [place] [address] documented as of this encounter
--- OUTSIDE RECORDS SUMMARY | 2022-06-19 16:12 | XMS_ITS | Encounter Summary ---
:[address] [facility] [facility] Address [address] [address] Care Team Providers Name Role Phone Needs Pcp, Assignment Primary Care Provider Reason for Visit Reason Comments [facility] Attempted Call Encounter Details Date Type Department Care Team Description 09/08/2020 Telephone [facility] Obstetrics/Gynecolog y Attempted Call [facility] [facility] [place] [address] Social History Tobacco Use Types Packs/Day Years Used Date Smoking Tobacco: Former Cigarettes Quit : 02/16/2020 Smokeless Tobacco: Never Alcohol Use Standard Drinks/Week Comments Not Currently 0 (1 standard drink = 0.6 oz pure alcoho l) 1-2 drinks a month Sex Assigned at Date Recorded Not on file documented as of this encounter Nursing Notes Jennifer Pyle - 09/08/2020 10:28 AM CST Received a [facility] referral from Dr. Vides due to a +THC urine drug screen. Notes indicate that the pt was a regular marijuana user until 1 week before NOB visit. Left general message asking for a call back to [phone]. Will reach out again if no call back is received. MAKER MACHINE documented in this encounter Plan of Treatment Not on filedocumented as of this encounter Visit Diagnoses Not on filedocumented in this encounter Care Teams Ux Visual Designer Relationship Specialty Start Date End Date Needs Pcp, Assignment PCP - General 07/12/20 10/04/20 [place] [address] documented as of this encounter
--- OUTSIDE RECORDS SUMMARY | 2022-06-19 16:12 | XMS_ITS | Encounter Summary ---
:1995 Author Organization [facility] Address [address] [place] [address] Care Team Providers Name Role Phone Needs Pcp, Assignment Primary Care Provider Reason for Visit Reason Comments [facility] Attempted Call Encounter Details Date Type Department Care Team Description 09/12/[address] [facility] Obstetrics/Gynecolog y Attempted Call [facility] [facility] [place], [place] [address] Social History Tobacco Use Types Packs/Day Years Used Date Smoking Tobacco: Former Cigarettes Quit : 02/16/2020 Smokeless Tobacco: Never Alcohol Use Standard Drinks/Week Comments Not Currently 0 (1 standard drink = 0.6 oz pure alcoho l) 1-2 drinks a month Sex Assigned at Date Recorded Not on file documented as of this encounter Nursing Notes Jennifer Pyle - 09/12/2020 10:31 AM CST 2nd attempt to connect with pt for [facility] [employer]. Pt answered but states she is at work right now and cannot stay on the phone. Asks if [facility] can call her tomorrow after 11:30 for intake.Will reach out as requested tomorrow. 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
--- OUTSIDE RECORDS SUMMARY | 2022-06-19 16:12 | XMS_ITS | Encounter Summary ---
:1995 Author Organization Formerly [facility] Address [address], [place] [address] Care Team Providers Name Role Phone Francisca Cunningham PA-C Primary Care Provider Reason for Visit Reason Onset Date Comments No Show 10/18/2020 Encounter Details Date Type Department Care Team Description 10/18/2020 Phone Visit [facility] Ed Ramirez E ncounters for [facility] sara VAUGHN administrative [address] [place] [address] purposes (Primary Dx) [address] [place], [place] [phone] Social History Tobacco Use Types Packs/Day Years Used Date Smoking Tobacco: Former Cigarettes Quit : 02/16/2020 Smokeless Tobacco: Never Alcohol Use Standard Drinks/Week Comments Not Currently 0 (1 standard drink = 0.6 oz pure alcoho l) 1-2 drinks a month Sex Assigned at Date Recorded Not on file documented as of this encounter Progress Notes Ed Ramirez MD - 10/18/2020 8:25 AM CST Patient no-show for clinic visit. Called on phone x2 with no answer. Did leave voicemail to call back to complete visit, or reschedule, if needed. Ed Ramirez MD CTOR [employer]ICAL REVIEW documented in this encounter Plan of Treatment Not on filedocumented as of this encounter Visit Diagnoses Diagnosis Encounters for administrative purposes - Primary Encounters for unspecified administrativ e purpose documented in this encounter Care Teams Equipment Installation Professional Relationship Specialty Start Date End Date Francisca Cunningham PA-C PCP - General Physician Accounting Administrator 10/05/[address] [place] [id number] documented as of this encounter
--- OUTSIDE RECORDS SUMMARY | 2022-06-19 16:12 | XMS_ITS | Encounter Summary ---
:1995 Author Organization [facility] Address [address], [place] [address] Care Team Providers Name Role Phone Francisca Cunningham PA-C Primary Care Provider Reason for Visit Reason Comments Clinician Finder Team Encounter Details Date Type Department Care Team Description 10/05/2020 Telephone [facility] 3850 Francisca Cunningham Cli nician Finder Team Family Medicine NIKHIL [address] [place] [address] [place] [address] [phone] Social History Tobacco Use Types Packs/Day Years [...] on filedocumented in this encounter Care Teams Website Programmer Relationship Specialty Start Date End Date Francisca Cunningham PA-C PCP - General Physician Mangle Catcher 10/05/[address] [id number] documented as of this encounter
--- OUTSIDE RECORDS SUMMARY | 2022-06-19 16:12 | XMS_ITS | Encounter Summary ---
:1995 Author Organization [facility] Address [address] [address] Care Team Providers Name Role Phone Needs Pcp, Assignment Primary Care Provider Encounter Details Date Type Department Care Team Description 09/06/2020 Notes/Orders Yusef [address], [place] Obg8 Obstetrics/Gynecolog y 1515 [facility] . [place] [address] Social History Tobacco Use Types Packs/Day Years [...] on filedocumented in this encounter Care Teams Presiding Judge Relationship Specialty Start Date End Date Needs Pcp, Assignment PCP - General 07/12/20 10/04/20 [place] [address] documented as of this encounter
--- OUTSIDE RECORDS SUMMARY | 2022-06-19 16:12 | XMS_ITS | Clinical Summary ---
:1995 Demographics Address [address] [place] [address] Home Phone Phone Preferred Language Japanese Marital Status Unknown Sabianist Affiliation Does not wish to list Race White Ethnic Group Not or Author Organization [facility] [place] [address] Care Team Providers Name Role Phone Pcp, No Primary Care Provider Unavailable Allergies Active Allergy Reactions Severity Noted Date Comments Metoclopramide Hives 01/17/2022 Medications Medication Sig Dispensed Refills Start Date End Date Status sertraline (ZOLOFT) 50 Take 75 mg by 0 08/02/2020 Active mg tablet mouth once daily. aspirin chewable 81 mg Chew 81 mg by 0 Active chewable tablet mouth once daily. PNV no.95/ferrous Take by mouth. 0 Active fum/folic ac ( ORAL) Active Problems Comments Yes No additional problems on file Social History Tobacco Use Types Packs/Day Years Used Date Former Smoker Smokeless Tobacco: Never Used Alcohol Use Standard Drinks/Week Comments Yes 0 (1 standard drink = 0.6 oz pure alcoho l) 1-2 per month Alcohol Habits Answer Date Recorded How often do you have a drink containing alcohol? Not asked How many drinks containing alcohol do you have on a Not aske d typical day when you are drinking? How often do you have six or more drinks on one occasion? No t asked Comment: 1-2 per month 09/16/2019 Comments Yes Sex Assigned at Date Recorded Not on file Obstetrics History Para Term AB IAB SAB Ectopic Multiple Living Live Births 1 Date Outcome GA Total Labor/2nd/3rd Weight Sex Delivery Anes PTL Leslee A 1 A5 Name Clin Labor Current Last Filed Vital Signs Vital Sign Reading Time Taken Comments Blood Pressure 115/71 01/17/2022 12:37 PM CDT Pulse 85 01/17/2022 12:37 PM CDT Temperature 36.7 ??C (98 ??F) 01/17/2022 11:04 AM CDT Respiratory Rate 16 01/17/2022 11:04 AM CDT Oxygen Saturation 99% 01/17/2022 12:37 PM CDT Inhaled Oxygen Concentration - - Weight 66.7 kg (147 lb) 01/17/2022 11:46 AM CDT Height 152.4 cm (5') 01/17/2022 11:46 AM CDT Body Mass Index 28.71 01/17/2022 11:46 AM CDT Plan of Treatment Health Maintenance Due Date Last Done Comments HPV series for age 9-26 (1 - 2-dose 2007 series) Tdap 2007 Depression screening for age 12+ 2008 BMI (ht and wt on same day) for age 18+ 2014 Tetanus booster 2016 Pap test for age 21-65 2017 COVID-19 vaccine series (3 - Booster for 03/17/2021 021, 12/23/2020 Moderna series) Influenza for age 9-49 05/03/2022 Hepatitis C screening for age 18-79 Completed 11/01/2020 Results Not on filefrom Last 3 Months Insurance Payer Benefit Plan / Subscriber ID Effective Dates Phone Addre ss Type Group [place] [employer] [id number] 2019-Present [address] [address] [place] [address] MEDICA MEDICA CHOICE [id number] 2019-Present [address] [address] [place] [address] [employer] [place] [place] [employer] [id number] 2019-Present [address] [address] [place] [address] [address]) [place] [address] [address] Personal/Family Self 1995 [address]) [place] [id number] Advance Directives Latest Code Status on File Code Status Date Activated Date Inactivated Comments Full Code 09/18/2019 7:09 AM 09/18/2019 1:25 PM Code Status Discussion: Not Discussed Care Teams Artificial Limb Fitter Relationship Specialty Start Date End Date Pcp, No PCP - General 12/13/20 .
--- OUTSIDE RECORDS SUMMARY | 2022-06-19 16:12 | XMS_ITS | Encounter Summary ---
:1995 Author Organization [facility] Address [address] [place] [address] Care Team Providers Name Role Phone Needs Pcp, Assignment Primary Care Provider Reason for Referral Consult/Transfer Care (Routine) - Closed Specialty Diagnoses / Procedures Referred By Contact Refer red To Contact Diagnoses Drug use affecting in first trimester Jerica Vides MD [address] [facility] [address] [place] [address] Referral ID Status Reason Start Date Expiration Date Visits Requ ested Visits Authorized [id number] Closed 09/06/2020 12/06/2021 1 1 Scheduling Instructions If scheduling assistance is needed, imtiaz fagan inquire with the medical office staff upon exiting your appointment or contact the ordering clinic for recommended locations. This recommended service/s may not be co haley by your insurance coverage. To find out your specific benefit coverage, please c all the number on your insurance card. SITION OPERATOR Encounter Details Date Type Department Care Team Description 09/06/2020 Notes/Orders Yusef [address] Jerica Vides, Drug use affecting Obstetrics/Gynecolog y in first [address] trimester (Primary Dx) [place] [address] [place] [phone] Social History Tobacco Use Types Packs/Day Years Used Date Smoking Tobacco: Former Cigarettes Quit : 02/16/2020 Smokeless Tobacco: Never Alcohol Use Standard Drinks/Week Comments Not Currently 0 (1 standard drink = 0.6 oz pure alcoho l) 1-2 drinks a month Sex Assigned at Date Recorded Not on file documented as of this encounter Plan of Treatment Scheduled Referrals Name Type Priority Associated Diagnoses Order S chedule [facility] Order Referral Routine Drug use affecti ng Ordered: 09/06/2020 in first trimester documented as of this encounter Visit Diagnoses Diagnosis Drug use affecting in first tr imester - Primary documented in this encounter Care Teams Packing Machine Pilot Can Router Relationship Specialty Start Date End Date Needs Pcp, Assignment PCP - General 07/12/20 10/04/20 [place] [address] documented as of this encounter
--- OUTSIDE RECORDS SUMMARY | 2022-06-19 16:12 | XMS_ITS | Encounter Summary ---
:1995 Author Organization [facility] Address [address] [place] [address] Care Team Providers Name Role Phone Needs Pcp, Assignment Primary Care Provider Reason for Visit Reason Comments [facility] New Visit Encounter Details Date Type Department Care Team Description 09/13/2020 Telephone Elim Ira [address], [place] Obg8 [facility] New Obstetrics/Gynecolog y Visit 1515 [facility] [place] [address] Social History Tobacco Use Types Packs/Day Years Used Date Smoking Tobacco: Former Cigarettes Quit : 02/16/2020 Smokeless Tobacco: Never Alcohol Use Standard Drinks/Week Comments Not Currently 0 (1 standard drink = 0.6 oz pure alcoho l) 1-2 drinks a month Sex Assigned at Date Recorded Not on file documented as of this encounter Nursing Notes Jennifer Pyle - 09/13/2020 3:24 PM CST Called pt again for intake with [facility] as requested. Pt is 14w. Explained role of [facility] and she welcomes the additional support. The following was discussed: 1. +THC Urine Drug Screen: Pt was anticipating this result as she was a regular marijuana user priorto . Last use was roughly one month ago now. Has not had any difficulty with abstinence at this time but does note she feels her anxiety may be higher as a result of her cessation. Will occasionally think about using THC if experiencing a panic attack but does not act on this. Encouraged continued abstinence during due to no known safe amount. Reviewed restesting in clinic and at L&D. Made pt aware of CPS involvement if positive at time of delivery. In discussing THC, pt shares that she is taking CBD. Reviewed that ultimately CBD is not FDA regulated and actual content of the product may differ from what is reported. For this reason, it is preferable to avoid CBD during . Pt verbalizes understanding. All THC related questions answered. 2. Mental Health: Pt shares that she as a history of depression, anxiety, and panic attacks. She is followed by both therapy and psychiatry. Discussed mood disorders and encouraged pt to reach out as needed for additional support. Also discussed that there are specific intensive outpatient programs should she ever want more support. She also shares that her parent, Antoine, suffersfrom depression. He is also working on his own mental health. Pt would like to received IOP information, [facility] Sending PSI, PPSM, IOP resources. Both having support for moms and dads. Encouraged pt to reschedule with her therapist. She states she was planning on calling today. 3. Resources: Pt shares that she has no emergent financial needs. Is currently living with her parents while an apartment for her and FOB is being renovated. This has been in the works for over one year and she does not know when she will move. Pt is insured through a [facility] PMAP. No barriers to care identified. Pt does have questions about support persons at delivery, touring the hospital. This was discussed with the pt but cautioned her that guidelines are dependent on the current status of the pandemic and very well may change before delivery. Pt was given direct number to reach [facility] for any future unmet needs. She is agreeable to ongoing contact. Next planned check in will be later in 2nd trimester, sooner if needed. TECHNICIAN documented in this encounter Plan of Treatment Not on filedocumented as of this encounter Visit Diagnoses Not on filedocumented in this encounter Care Teams Supervisor Mold Yard Relationship Specialty Start Date End Date Needs Pcp, Assignment PCP - General 07/12/20 10/04/20 [place] [address] documented as of this encounter
--- OUTSIDE RECORDS SUMMARY | 2022-06-19 16:12 | XMS_ITS | Encounter Summary ---
:1995 [facility] Address [address] [place] [address] Care Team Providers Name Role Phone Needs Pcp, Assignment Primary Care Provider Reason for Visit Procedure/Equipment (Routine) - Incomplete Specialty Diagnoses / Procedures Referred By Contact Refer red To Contact Diagnoses Absent menses Jerica Vides MD Procedures US OB < 14 Weeks Single US OB <14 Weeks W EV Single 1515 [facility] [address] [place] [address] Referral ID Status Reason Start Date Expiration Date Visits V isits Requested Authorized [id number] Incomplete 08/11/2020 11/10/2021 1 1 Encounter Details Date Type Department Care Team Description 08/31/2020 Ancillary Procedure Grace Ultrasgenna d Jerica Vides, Absent menses [address] [place] [address] 1515 [facility] [phone] [facility] [address] [place], [place] [address] Social History Tobacco Use Types [...] Name Priority Date/Time Associated Diagnosis Comme nts US OB < 14 WEEKS Routine 08/31/2020 10:07 AM Absent menses Res ults for this SINGLE PATROL MOTHER procedure are i n the results section. documented in this encounter Results US OB < 14 Weeks Single (08/31/2020 10:07 AM PATROL MOTHER) Anatomical Region Laterality Modality Pelvis Ultrasound Specimen (Source) Anatomical Collection Method Collection Time Re ceived Time Location / / Volume Laterality 08/31/2020 9:52 AM PATROL MOTHER Impressions 08/31/2020 10:11 AM PATROL MOTHER COMPARISON: None. TECHNIQUE: ??Transabdominal imaging was performed. ?? FINDINGS: ?? Gestational sac: Unremarkable. [place]-rump length measures 4.4 cm, corre sponding to 11w1d gestational age. ?? LE . ?? Embryonic/ cardiac activity is iden tified with heart rate 167 bpm. ?? Right Ovary: Measures 2.3 x 1.4 x 1.3 cm and appears unremarkable. Left Ovary: Measures 2.2 x 0.8 x 1.0 cm and appears unremarkable. ?? No suspicious adnexal masses. Free Fluid: No significant free fluid. GA by LMP: ??10w4d GA by Prior US: ??n/a GA by today's US: ??11w1d LE by today's US: IMPRESSION: Single live intrauterine ges tation measuring 11 weeks 1 day by crown-rump length. Procedure Note James Farrell MD - 08/31/2020Forma tting of this note might be different from the original. IMPRESSION COMPARISON: None. TECHNIQUE: Transabdominal imaging was pe rformed. FINDINGS: Gestational sac: Unremarkable. [place]-rump length measures 4.4 cm, corre sponding to 11w1d gestational age. LE . Embryonic/ cardiac activity is iden tified with heart rate 167 bpm. Right Ovary: Measures 2.3 x 1.4 x 1.3 cm and appears unremarkable. Left Ovary: Measures 2.2 x 0.8 x 1.0 cm and appears unremarkable. No suspicious adnexal masses. Free Fluid: No significant free fluid. GA by LMP: 10w4d GA by Prior US: n/a GA by today's US: 11w1d LE by today's US: IMPRESSION: Single live intrauterine ges tation measuring 11 weeks 1 day by crown-rump length. Jerica Vdies MD [facility] documented in this encounter Visit Diagnoses Diagnosis Absent menses Absence of menstruation documented in this encounter Care Teams Pressroom Worker Relationship Specialty Start Date End Date Needs Pcp, Assignment PCP - General 07/12/20 10/04/20 [place] [address] documented as of this encounter
--- OUTSIDE RECORDS SUMMARY | 2022-06-19 16:13 | XMS_ITS | Encounter Summary ---
:1995 Author [facility] Address [address], [place] [address] Care Team Providers Name Role Phone Nasrin Houser MD Primary Care Provider Reason for Visit Reason Comments RESULTS, TEST Encounter Details Date Type Department Care Team Description 12/04/2019 Telephone Nasrin Candelaria MD RESULTS, TEST [address] [place] [address] [place] [address] [phone] (Wo rk) Social History Tobacco Use Types Packs/Day Years Used Date Smoking Tobacco: Never Smokeless Tobacco: Never Alcohol Use Standard Drinks/Week Comments Yes 0 (1 standard drink = 0.6 oz pure alcoho l) 1-2 drinks a month Sex Assigned at Date Recorded Not on file documented as of this encounter Nursing Notes Mildred Domingo MA - 12/08/2019 12:58 PM CDT Pt has been informed of the message from Dr Houser Mildred Domingo MA - 12/07/2019 10:11 AM CDT LMTC Nasrin Kevin MD - 12/07/2019 10:06 AM CDT Attempted to call patient back with the results but got voicemail. Faxed over results show a WBC of 14.6 with 58.8% granulocytes, 37.4% lymphocytes, and 3.8% monocytes (read to me the by the nurse who is in clinic). This is only a mild elevation in WBC. Phone note from the weekend shows that she was on steroids recently, which could have caused the elevation in WBC. I would like to have the WBC repeated in about 2 weeks. I will put in a future dated order for this. Please let the patient know that she should make a lab appt to come in and have this drawn sometime after 12/21/2019. Nasrin Houser MD 10:09 AM 12/07/2019 Roxanne Maki, RN - 12/07/2019 9:30 AM CDT Clinician Action: FYI Clinician Next Step: Route to [facility] to follow up Specific Request(s): 1. Shilpa with [facility] returning call from clinic to report that she was unable to locatedany CBC results for pt. She is having coworker, Nalini, check as [facility] However, if clinic doesn't receive results by the end of the day PCP should assume that they do not have results. Forwarded to Padroni in error. Will forward to [place]. Kb Duffy - 12/07/2019 8:59 AM CDT Shilpa from [place] has Questions? Pearl Crabtree RN - 12/04/2019 4:52 PM CDT Clinician Action: Input needed regarding lab results Clinician Next Step: Route to [facility] to follow up and Patient IS expecting a call back fromcare team Specific Request(s): 1. Per pt, Dr Chino Baeza, Orthopoedist, rodrigo labs yesterday and noted WBC to be slightly elevated. Results were faxed to clinic; please review. Sergo Freeman - 12/04/2019 4:46 PM CDT Test Results (Advise caller/patient can view test results in [employer], if enrolled) What test are you calling about? Labs from 12/03/2019 Primary Recreational Resort Manager: Nasrin Houser MD Who ordered the test? (include first & last name) Nasrin Houser MD When and where was the test done? [facility] Additional comments (related to the above concern): If a prescription is needed, patient would like it filled at the pharmacy listed in Meds & Orders. (Verify the pharmacy patient would like to use for this request is highlighted in blue in PharmacySelection under Meds & Orders) Is it okay to leave a detailed message on your voicemail? Yes (Advise caller that the PN call back number will end with [phone] or unknown) Please route to: Triage Pool documented in this encounter Plan of Treatment Not on filedocumented as of this encounter Visit Diagnoses Diagnosis Leukocytosis, unspecified type (HRC) - P rimary documented in this encounter Care Teams Computer Recycling Worker Relationship Specialty Start Date End Date Nasrin Houser MD PCP - General Internal Medicine 06/12/19 07/11/20 [address] [place] [address] documented as of this encounter
--- OUTSIDE RECORDS SUMMARY | 2022-06-19 16:13 | XMS_ITS | Encounter Summary ---
:1995 Author [facility] Address [address], [place] [address] Care Team Providers Name Role Nasrin Vinson MD Primary Care Provider Reason for Visit Reason Comments Preop Exam Dr Aranda 09/18/2019 Encounter Details Date Type Department Care Team Description 09/09/2019 Pre-Op Visit Nasrin Burnett Preoperativ e Nilesh Casillas MD examination (Primary [address]) [place] [address] [place] [address] [phone] Social History Tobacco Use Types Packs/Day Years Used Date Smoking Tobacco: Never Smokeless Tobacco: Never Alcohol Use Standard Drinks/Week Comments Yes 0 (1 standard drink = 0.6 oz pure alcoho l) 1-2 drinks a month Sex Assigned at Date Recorded Not on file documented as of this encounter Last Filed Vital Signs Vital Sign Reading Time Taken Comments Blood Pressure 112/70 09/09/2019 11:21 AM TOWER AIR TRAFFIC CONTROL SPECIALIST Pulse - - Temperature - - Respiratory Rate - - Oxygen Saturation - - Inhaled Oxygen Concentration - - Weight 67.3 kg (148 lb 6.4 oz) 09/09/2019 11:21 AM TOWER AIR TRAFFIC CONTROL SPECIALIST Height 155 cm (5' 1.02) 09/09/2019 11:21 AM TOWER AIR TRAFFIC CONTROL SPECIALIST Body Mass Index 28.02 09/09/2019 11:21 AM TOWER AIR TRAFFIC CONTROL SPECIALIST documented in this encounter Patient Instructions Patient InstructionsNasrin Houser MD - 09/09/2019 11:30 AM CST It is ok to take your control pill the morning of the surgery with a sip of water. Nasrin Houser MD 11:43 AM 09/09/2019 R AIR TRAFFIC CONTROL SPECIALIST documented in this encounter OR Notes H&P - Nasrin Houser MD - 09/09/2019 11:30 AM CST PREOPERATIVE ASSESSMENT Date of Service: 09/09/2019 Date of : 1995 Age: 24 y.o. Sex: female Preoperative Evaluation completed by: Nasrin Houser MD Primary care physician: Nasrin Houser MD [phone] CHIEF COMPLAINT Pre-Operative Evaluation ANTICIPATED PROCEDURE Chief Complaint Patient presents with ??? Preop Exam Dr Aranda 09/18/2019 laparoscopic cholecystectomy HISTORY OF PRESENT ILLNESS Sadie Mart is a 24 y.o. female with a hx of recurrent abdominal pain, nausea, and vomiting with recent HIDA scan showing low ejection fraction who presents for pre-op for lap jordyn. She has continued to have abdominal pain in the epigastric region daily. She is having bloating and nausea as well. She is optimistic that the surgery will fix these problems. She continues to have significant issues with anxiety and depression. She does not want to take anything for this right now as she is concerned that starting a new medication could cause her to be morenauseated. She was on duloxetine when this started. If her abdominal issues resolve with the surgery, she would like to consider going back on duloxetine. She is starting therapy at [facility] on Saturday. Risk Factors/Review of Systems: (Please see flowsheets for details) Cardiovascular risks negative except for: Renal risks negative except for: Neuro risks negative except for: GI risks negative except for: Pulmonary risks negative except for: Endocrine/Nutrition risks negative except for: Hematologic Disease risks negative except for: Musculoskeletal/Skin risks negative except for: Mental Health risks negative except for: Code Status: , Other risk factors negative except for: Complete review of systems is otherwise negative. Patient Active Problem List Diagnosis ??? ASHLEE (generalized anxiety disorder) ? ? Nausea & vomiting ??? Epigastric pain No past medical history on file. No past surgical history on file. Family History Problem Relation Age of Onset ??? Bipolar Disorder Mother ??? Cancer, Ovary Sister ??? Bipolar Disorder Sister ??? Cancer, Ovary Maternal Grandmother Social History Tobacco Use ??? Smoking status: Never Smoker ??? Smokeless tobacco: Never Used Substance Use Topics ??? Alcohol use: Yes Comment: 1-2 drinks a month Current Outpatient Medications Medication Sig Dispense Refill ??? Levonorgestrel-Ethinyl Estrad (AUBRA EQ) 0.1-20 MG-MCG tablet Take 1 Tablet by mouth daily. Confirmed with previous care team patient has been taking Aubra EQ oral control 84 Tablet 3 ??? omeprazole (PRILOSEC) 40 MG capsule Take 1 Capsule by mouth daily for 180 days. Take 1 hour before a meal. (Patient not taking: Reported on 09/01/2019) 90 Capsule 1 ??? ondansetron (ZOFRAN-ODT) 4 MG disintegrating tablet Take 1 Tablet by mouth every 8 hours as needed. 30 Tablet 1 ??? traZODone (DESYREL) 50 MG tablet Take 1-2 Tablets by mouth daily at bedtime. 180 Tablet 3 No current facility-administered medications for this visit. No Known Allergies PHYSICAL EXAMINATION BP: 112/70 (09/09/19 112) Height: 155 cm (5' 1.02) (09/09/19 112) Weight: 67.3 kg (148 lb 6.4 oz) (09/09/19 112) BMI (Calculated): 28.08 (09/09/19 112) General Appearance: Normal HEENT: Normal Neck: Normal Lungs: Normal Heart: Normal Abdomen: Normal Extremities: Normal Skin: Normal Neurologic: Normal TEST RESULTS AND DATE EKG done: No Labs done: Yes UPT - negative Last CBC w/differential result: Lab Results Component Value Date/Time WBC 7.4 09/09/2019 11:52 AM RBC 4.31 09/09/2019 11:52 AM HGB 12.9 09/09/2019 11:52 AM HCT 38.6 09/09/2019 11:52 AM MCV 89.6 09/09/2019 11:52 AM MCH 29.9 09/09/2019 11:52 AM MCHC 33.4 09/09/2019 11:52 AM PLTS 251 09/09/2019 11:52 AM RDW 12.4 09/09/2019 11:52 AM PMN 4.3 09/09/2019 11:52 AM LYMA 2.2 09/09/2019 11:52 AM MONOA 0.7 09/09/2019 11:52 AM EOSA 0.1 09/09/2019 11:52 AM BASA 0.0 09/09/2019 11:52 AM ASSESSMENT 1. Preoperative Assessment: This patient has been examined by me today and has been found to be a suitable candidate for surgery: Yes 2. Chronic abdominal pain with biliary dyskinesis - cholecystectomy for attempted cure. 3. Anxiety and depression - starting counseling Saturday. Will reconsider duloxetine when she follows up with me in 1 month. RECOMMENDATIONS AND PLAN Day of surgery testing: none Medication recommendations including insulin / diabetes: no adjustments needed. Additional screening recommended: no Consult (Cardiology/other): no Additional test results attached: none Recommend RT assessment post op for Oxygenation and ventilation monitoring: no Other: no - Do not eat anything after midnight the evening before your surgery. - It is OK to drink water or Gatorade up to 4 hours before your surgery. - You may take medicines before surgery with a small sip of water ABOVE RECOMMENDATIONS WERE REVIEWED WITH PATIENT: yes Nasrin Houser MD 09/09/2019 R AIR TRAFFIC CONTROL SPECIALIST documented in this encounter Plan of Treatment Not on filedocumented as of this encounter Results Test Screen Urine (09/09/2019 12:00 PM TOWER AIR TRAFFIC CONTROL SPECIALIST) P athologist Signature HCG, Urine Negative Negative 09/09/2019 [facility] 12:00 PM TOWER AIR TRAFFIC CONTROL SPECIALIST [facility] ([facility]) Specimen Anatomical Collection Method Collection Time Receive d Time (Source) Location / / Volume Laterality Urine URINE SPECIMEN Non-blood 09/09/2019 12:00 0 COLLECTION, CLEAN Collection / PM TOWER AIR TRAFFIC CONTROL SPECIALIST 12:[address] CATCH / Unknown Unknown Nasrin Houser MD LAB_1 Performing Organization Address City/State/ZIP Code Phon e Number [facility] ([facility]) [address] [place] [phone] documented in this encounter Visit Diagnoses Diagnosis Preoperative examination - Primary Preoperative examination, unspecified documented in this encounter Care Teams Copy Editor Relationship Specialty Start Date End Date Nasrin Houser MD PCP - General Internal Medicine 06/12/19 07/11/[address] [place] [address] documented as of this encounter
--- OUTSIDE RECORDS SUMMARY | 2022-06-19 16:13 | XMS_ITS | Encounter Summary ---
:1995 Author Organization [facility] Address [address] [address] Care Team Providers Name Role Phone Foster Marin MD Primary Care Provider Reason for Visit Reason Onset Date Comments Refill 02/09/2020 levonorgestrel-ethin yl estrad (AUBRA EQ) 0.1-20 MG-MCG tablet Encounter Details Date Type Department Care Team Description 02/09/2020 Refill Foster Candelaria, Refill [address] MD ([place] [address] [address] (AUBRA EQ) 0.1-20 [place] [address] MG-MCG tablet) [phone] (Wo rk) Social History Tobacco Use Types Packs/Day Years Used Date Smoking Tobacco: Never Smokeless Tobacco: Never Alcohol Use Standard Drinks/Week Comments Yes 0 (1 standard drink = 0.6 oz pure alcoho l) 1-2 drinks a month Sex Assigned at Date Recorded Not on file documented as of this encounter Nursing Notes Yandy John RN - 02/11/2020 11:40 AM CDT Further Assistance Needed on Refill from Clinician RN reviewed. Signed order needed. Medication previously signed by Viv Cunningham PA-C. Last qualifying visit: 11/10/2019 (with FOSTER MARIN) Next scheduled visit: None Review pended order for accuracy and sign if appropriate and Close encounter Requested Prescriptions Pending Prescriptions Disp Refills ??? levonorgestrel-ethinyl estrad (AUBRA EQ) 0.1-20 MG-MCG tablet 84 Tablet 2 Sig: Take 1 Tablet by mouth daily. Interface, Out Surescripts Prov Query - 02/09/2020 1:39 PM CDT levonorgestrel-ethinyl estrad (AUBRA EQ) 0.1-20 MG-MCG tablet Medication started: 04/07/2019 Last ordered by VIV CUNNINGHAM J: 07/06/2019 (218 days ago) QTY: 84, Refills: 3, Sig: take 1 tabletby mouth daily. confirmed with previous care team patient has been taking aubra eq oral control (unchanged) -> The patient is requesting a renewal from a different pharmacy. -> Unable to determine if patient is due for a renewal, please review. -> Refill x 9 months (until due for an office visit) -> Calculate the quantity and number of refills manually. Last qualifying visit: 11/10/2019 (with FOSTER MARIN) Next scheduled visit: None SBP: 120 mm Hg on 11/10/2019 DBP: 80 mm Hg on 11/10/2019 Powered by [employer], Reference: [id number], 02/09/2020 1:39:15 PM CDT, Pool: PN REFILL WIZARD ADMIN ([id number]) documented in this encounter Plan of Treatment Not on filedocumented as of this encounter Visit Diagnoses Diagnosis control counseling General counseling for initiation of oth er contraceptive measures OCP (oral contraceptive pills) initiatio n General counseling for prescription of o ral contraceptives documented in this encounter Care Teams Elementary Reading Specialist Relationship Specialty Start Date End Date Foster Marin MD PCP - General Internal Medicine 06/12/19 07/11/20 [address] [place] [address] documented as of this encounter
--- OUTSIDE RECORDS SUMMARY | 2022-06-19 16:13 | XMS_ITS | Encounter Summary ---
:1995 Author Organization [facility] Address [address], [place] [address] Care Team Providers Name Role Phone Nasrin Houser MD Primary Care Provider Reason for Visit Reason Comments Routine Post-op Call Encounter Details Date Type Department Care Team Description 09/21/2019 Telephone [place] [address] General Carmen Baker R outine Post-op Call Surgery RN [address] [facility] [place] [address] Social History Tobacco Use Types Packs/Day Years Used Date Smoking Tobacco: Never Smokeless Tobacco: Never Alcohol Use Standard Drinks/Week Comments Yes 0 (1 standard drink = 0.6 oz pure alcoho l) 1-2 drinks a month Sex Assigned at Date Recorded Not on file documented as of this encounter Nursing Notes Carmen Baker, RN - 09/21/2019 9:28 AM CST Post-Operative General Surgery Phone Calls Date of Surgery: 09-18-19 Type of Surgery: Laparoscopic cholecystectomy. w/ICG Other: reminded of post op visit in message left along with # [phone] if questions or concerns. ARYNGOLOGY SURGEON documented in this encounter Plan of Treatment Not on filedocumented as of this encounter Visit Diagnoses Not on filedocumented in this encounter Care Teams Mass Spec Relationship Specialty Start Date End Date Nasrin Houser MD PCP - General Internal Medicine 06/12/19 07/11/20 [address] [place] [address] documented as of this encounter
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
--- OUTSIDE RECORDS SUMMARY | 2022-06-19 16:13 | XMS_ITS | Encounter Summary ---
:1995 Author Organization [facility] Address [address], [place] [address] Care Team Providers Name Role Phone Nasrin Houser MD Primary Care Provider Reason for Visit Reason Comments Medication Questions Encounter Details Date Type Department Care Team Description 11/04/2019 Nurse Triage [place] [facility] Nasrin Houser, Medication Questions [address] [place] [address] [address] [phone] [place] [id number] Social History Tobacco Use Types Packs/Day Years Used Date Smoking Tobacco: Never Smokeless Tobacco: Never Alcohol Use Standard Drinks/Week Comments Yes 0 (1 standard drink = 0.6 oz pure alcoho l) 1-2 drinks a month Sex Assigned at Date Recorded Not on file documented as of this encounter Nursing Notes Minoo Hill RN - 11/04/2019 11:43 AM CST Pt calling, recently started buspirone TID for anxiety and depression, feels that the medication hasworsened her sx, is having a lot of racing thoughts and intermittent panic attacks. Pt has fleeting thoughts of making everything go away, has no intent to harm herself or others. Pt hyperventilates during panic attacks, is able to calm herself down by counting things or stretching, panic attacks last for up to 2 hours, pt was vomiting yesterday due to her panic. Pt has no current panic sx, just feels anxious in general. Pt agreeable to an appt today in the clinic. Pt given phone numbers for 4 different crisis/mental health lines. Problem list reviewed as related to this call. Reason for Disposition ??? Patient sounds very upset or troubled to the triager Protocols used: ANXIETY AND PANIC REDAKU-LPOIZ-EZ BLAST EQUIPMENT OPERATOR Bere Lawler - 11/04/2019 11:33 AM CST Medications - Med Change / Question Is this a medication change or a general question? Med Question What is your question or concern? Pt has questions about her medication. Please advise. What is the name and dose of the medication? busPIRone (BUSPAR) 5 MG tablet How often do you take it? daily Who prescribed it? Nasrin Houser MD If a prescription is needed, patient would [...] or unknown) Please route to: Triage Pool BLAST EQUIPMENT OPERATOR documented in this encounter Plan of Treatment Not on filedocumented as of this encounter Visit Diagnoses Not on filedocumented in this encounter Care Teams Floor Steward/Stewardess Relationship Specialty Start Date End Date Nasrin Houser MD PCP - General Internal Medicine 06/12/19 07/11/20 [address] [place] [address] documented as of this encounter
--- OUTSIDE RECORDS SUMMARY | 2022-06-19 16:13 | XMS_ITS | Encounter Summary ---
:1995 Author Organization [employer] Address [address] [address] Care Team Providers Name Role Phone Nasrin Houser MD Primary Care Provider Reason for Visit Reason Comments FOLLOW-UP, TEST RESULTS Encounter Details Date Type Department Care Team Description 12/07/2019 Telephone Chel Amador, FOLLOW -UP, TEST RESULTS Medicine [address] [place] [address] [place] [phone] Social History Tobacco Use Types Packs/Day Years Used Date Smoking Tobacco: Never Smokeless Tobacco: Never Alcohol Use Standard Drinks/Week Comments Yes 0 (1 standard drink = 0.6 oz pure alcoho l) 1-2 drinks a month Sex Assigned at Date Recorded Not on file documented as of this encounter Nursing Notes Anne Mayen LPN - 12/07/2019 12:33 PM CDT CBC results received from [facility]. Dr. Tijerina reports that the WBC is slightly elevated and could have been caused by the recent prednisone use. She would like to have the patient repeat a CBC with diff in 2 weeks. The patient was informed. She stated she consulted with her PCP and they stated the same thing. Theyhave placed orders for her to repeat the CBC in 2 weeks. She will follow up with her PCP at this time and will call if any questions. FYI sent to provider. documented in this encounter Plan of Treatment Not on filedocumented as of this encounter Visit Diagnoses Diagnosis Leukocytosis, unspecified type (HRC) - P rimary documented in this encounter Care Teams Service Order Dispatcher Relationship Specialty Start Date End Date Nasrin Houser MD PCP - General Internal Medicine 06/12/19 07/11/20 [address] [place] [address] documented as of this encounter
--- OUTSIDE RECORDS SUMMARY | 2022-06-19 16:13 | XMS_ITS | Encounter Summary ---
:1995 Author Organization [facility] Address [address], [place] [address] Care Team Providers Name Role Phone Nasrin Houser MD Primary Care Provider Reason for Visit Reason Comments Other Encounter Details Date Type Department Care Team Description 02/09/2020 Telephone Nasrin Candelaria MD Other [address] [place] [address] [place] [address] [phone] (Wo rk) Social History Tobacco Use Types [...] on filedocumented in this encounter Care Teams Color Straining Bag Washer Relationship Specialty Start Date End Date Nasrin Houser MD PCP - General Internal Medicine 06/12/19 07/11/[address] [place] [address] documented as of this encounter
--- OUTSIDE RECORDS SUMMARY | 2022-06-19 16:13 | XMS_ITS | Encounter Summary ---
:1995 Author Organization [facility] Address [address] [address] Care Team Providers Name Role Phone Nasrin Houser MD Primary Care Provider Encounter Details Date Type Department Care Team Description 11/24/2019 [facility] Ed Vasquez MD [address] [place] [address], [place] [address] [address] [place], [place] [address] [phone] Social History Tobacco Use Types Packs/Day Years Used Date Smoking Tobacco: Never Smokeless Tobacco: Never Alcohol Use Standard Drinks/Week Comments Yes 0 (1 standard drink = 0.6 oz pure alcoho l) 1-2 drinks a month Sex Assigned at Date Recorded Not on file documented as of this encounter Nursing Notes Stephy Sher LPN - 11/25/2019 11:07 AM CDT Noted. Closing encounter. Stephy Sher LPN Ed Ramirez MD - 11/25/2019 9:53 AM CDT I reached out to patient and have set up telemedicine intake appointment for today (11/25/2019) at 4:10pm. Routed to nursing for FYI. Ed Ramirez MD Nela Alonso RN - 11/24/2019 3:22 PM CDT Received message that patient had called to inform us that she had contact with someone who is beingtested for Covid-19 within the past 2 weeks and has an in person appt with provider tomorrow. Wants to know if there is another means to do the appt because it already got postponed once due to her being scheduled with a therapist rather than psychiatry. She feels like it is really important to speak with provider, wonders about meeting via face time. Patient denies any symptoms herself. Routing to provider for recommendations. Nela Alonso RN documented in this encounter Plan of Treatment Not on filedocumented as of this encounter Visit Diagnoses Not on filedocumented in this encounter Care Teams Master Merchandiser Relationship Specialty Start Date End Date Nasrin Houser MD PCP - General Internal Medicine 06/12/19 07/11/20 [address], [place] [address] documented as of this encounter
--- OUTSIDE RECORDS SUMMARY | 2022-06-19 16:13 | XMS_ITS | Encounter Summary ---
:1995 Author Organization [facility] Address [address], [place] [address] Care Team Providers Name Role Phone Needs Pcp, Assignment Primary Care Provider Reason for Visit Reason Comments James /sertraline question Encounter Details Date Type Department Care Team Description 08/08/2020 Replaced by [facility] Abel Ramirez MD [address] (/sertraline [address] [place] [address] stion) [address] [address] [place], [place] [address] [phone] Social History Tobacco Use Types Packs/Day Years Used Date Smoking Tobacco: Never Smokeless Tobacco: Never Alcohol Use Standard Drinks/Week Comments Yes 0 (1 standard drink = 0.6 oz pure alcoho l) 1-2 drinks a month Sex Assigned at Date Recorded Not on file documented as of this encounter Nursing Notes Trudy Walker RN - 08/09/2020 1:34 PM CST Called patient and reviewed MD recommendation. She expressed understanding and would only use if shehas a severe panic attack. States she flushed the hydroxyzine a long time ago. Patient expressed understanding and gratitude for prompt response. Trudy Walker RN TECHNICIAN Ed Ramirez MD - 08/09/2020 12:52 PM CST Xanax is typically not a first-line choice for panic attacks in . It is associated with possibly slightly higher chances of negative effects on the fetus. However, this is more related to regular use of Xanax, not rare use. If she does have a severe panic attack, consider taking half tablet of Xanax. Hydroxyzine is contraindicated in early . Ed Ramirez MD TECHNICIAN Nela Alonso RN - 08/09/2020 8:54 AM CST Called patient back and advised of providers response. She expressed an understanding and will discuss more at upcoming appt 08/19/20. Patient said she hasn't necessarily been having panic attacks lately but wants to know if using Xanax if she did have a panic attack would be advised. Patient states the Hydroxyzine RX was used very infrequently because it makes her too sedated and tired. Routing to provider for recommendations re: use of Xanax. Nela Alonso RN TECHNICIAN Ed Ramirez MD - 08/09/2020 8:21 AM CST The use of various psychotropic medications in is made on a case by case basis weighing the different risks and benefits. Of importance, there is also potential risks of untreated depression and anxiety in . From the data we have, sertraline is actually considered one of the safest medications to take in to help manage mood and anxiety. It is likely the most common antidepressant taken in . From the data we have, it does not appear that sertraline increases risk of miscarriage or defects. It is possible the antidepressants in general can be associated with a small increased chance of premature her lower weight, but this is minimal. Antidepressants can also slightly increased chance of the baby will have some mild withdrawal symptoms after , which is transient. This can include some altered sleep, more crying, and low bit hard time feeding. This is not life thre atening and his time limited. Overall, I would recommend continuing Zoloft at this time, particularly given her report that anxiety has been ???bad.?? She can also schedule follow-up visit to discuss these matters more in depth. Ed Ramirez MD TECHNICIAN Trudy Walker RN - 08/09/2020 8:04 AM CST Patient is concerned that sertraline is not safe in . Stopped med on Saturday and anxiety is bad. Patient is wondering if there is a safer alternative. Routed to provider for recommendation. Trudy Walker RN TECHNICIAN Darien Tenorio - 08/08/2020 4:30 PM CST Medications - Med Change / Question Is this a medication change or a general question? Med Question What is your question or concern? IS THE SERTRALINE SAFE TO TAKE DURING ? STOPPED TAKING THIS ON Saturday08/05/2020, ANXIETY ISBAD, IS THERE A SAFE ALTERNATIVE TO TAKE DURING IF IT IS NOT SAFE. Name and Dose of current medication: SERTRALINE 50MG TABLET How often do you take it? ONCE DAILY Who prescribed it? Ed Ramirez MD Is it okay to leave a detailed message on your voicemail? Yes For this medication, patient would like it filled at the pharmacy listed in Meds & Orders. [[facility]: Verify the pharmacy patient would like to use for this request is highlighted in blue in Pharmacy Selection under Meds & Orders] Darien Tenorio TECHNICIAN documented in this encounter Plan of Treatment Not on filedocumented as of this encounter Visit Diagnoses Not on filedocumented in this encounter Care Teams Software Testing Specialist Relationship Specialty Start Date End Date Needs Pcp, Assignment PCP - General 07/12/20 10/04/20 [place] [address] documented as of this encounter
--- OUTSIDE RECORDS SUMMARY | 2022-06-19 16:13 | XMS_ITS | Encounter Summary ---
:1995 Author Organization [facility] Address [address] [address] Care Team Providers Name Role Phone Nasrin Houser MD Primary Care Provider Encounter Details Date Type Department Care Team Description 06/30/2020 [facility] Abel Ramirez MD PTSD (post-traumatic stress disorder); [address] ASHLEE (generalized anxiety disorder); [facility] d episode of recurrent major depressive disorder (HRC) [address] [address] [place], [place] [address] [phone] Social History Tobacco Use Types Packs/Day Years Used Date Smoking Tobacco: Never Smokeless Tobacco: Never Alcohol Use Standard Drinks/Week Comments Yes 0 (1 standard drink = 0.6 oz pure alcoho l) 1-2 drinks a month Sex Assigned at Date Recorded Not on file documented as of this encounter Progress Notes Ed Ramierz MD - 06/30/2020 8:25 AM CDT PSYCHIATRY CLINIC PROGRESS NOTE (SCHEDULED TELEPHONE VISIT) CARE TEAM: PCP- Nasrin Houser MD Therapist- Patria Ko PsyD Date of initial diagnostic assessment is 11/25/2019. INTERIM HISTORY Last seen on 03/25/2020 at which time Effexor XR was increased to 150 mg daily. The patient reports good treatment adherence. History was provided by the patient who was a good historian. Since last visit: Patient reports that she has been ???really struggling?? over the last month. Reports that she broke up with her boyfriend last week and this has caused significant distress. She is still living with him and he has been a ???friend?? , but she will be moving out soon to stay with her sister. However, her sister currently is COVID-19 and has 4 more days of quarantine. She states she has been feeling more depressed. She has a has a lot of ongoing anxiety, although has not had much panic attacks lately. She does feel like her pain level is better lately. She stopped taking Effexor XR approximately 2 months ago because she was feeling sick after she increase in dose. She has continued taking Xanax asneeded, but is only taking it a few times the last couple weeks. She states she has been feeling tearful. Acknowledges having some fluctuating passive suicidal thoughts, but denies any active plan or intent. She does feel safe at this time. Is currently feeling supported by her ex-boyfriend. She has continued working and has work today. RECENT SUBSTANCE USE: Alcohol - occasional Tobacco - occasional Caffeine - none Opioids - none Cannabis - daily Other Illicit Drugs - none ?? CURRENT SOCIAL HISTORY: Financial Support - working at a [employer] Children - none Living Situation - Live with boyfriend, his aunt also lives in the [facility]. ?? MEDICAL ROS: A 10 point review [...] 0.5 mg as needed for acute anxiety. 03/25/2020: Increased Effexor XR to 150 mg daily. However, patient later stopped taking Effexor XR because it was making her feel ???sick.?? 06/30/2020: Started Zoloft 50 mg daily. PAST PSYCH MED TRIALS 1. Cymbalta (nausea) 2. Hydroxyzine 3. Trazodone 4. BuSpar (felt like it caused suicidal ideation) 5. Celexa (weight gain) 6. Ativan (ineffective) 7. Effexor XR (made her feel sick at 150 mg daily dose) MEDICAL / SURGICAL HISTORY Neurologic Hx - none No past medical history on file. ALLERGY No Known Allergies MEDICATIONS Current Outpatient Medications Medication Sig Dispense Refill ??? acetaminophen (TYLENOL) 325 MG tablet Take 325-650 mg by mouth every 4 hours as needed for Pain. ??? ALPRAZolam (XANAX) 0.5 MG tablet Take 1 Tablet by mouth every 6 hours as needed for Anxiety. 20 Tablet 0 ??? cyclobenzaprine (FLEXERIL) 10 MG tablet Take [...] Apply topically daily. 60 g 11 ??? levonorgestrel-ethinyl estrad (AUBRA EQ) 0.1-20 MG-MCG tablet Take 1 Tablet by mouth daily. 84 Tablet 2 ??? ondansetron (ZOFRAN-ODT) 4 MG disintegrating tablet Take 1 Tablet by mouth every 8 hours as needed. 30 Tablet 1 ??? predniSONE (DELTASONE) 10 MG tablet ??? traZODone (DESYREL) 50 MG tablet Take 1-2 Tablets by mouth daily at bedtime. 180 Tablet 3 ??? venlafaxine (EFFEXORXR) 150 MG 24 hour release capsule Take 1 Capsule by mouth daily. 30 Capsule3 No current facility-administered medications for this visit. MENTAL STATUS EXAM Behavior: cooperative, engaged Speech: normal in rate and loudness Language: intact Mood: depressed Thought process: logical and goal-directed Thought content: without delusions or hallucinations. Does report fluctuating passive suicidal thoughts, but denies any active plan or intent. Insight: intact Judgement: intact Orientation x3: intact Attention: intact Memory: intact, although no formal testing done Other aspects of MSE were unable to be obtained due to limitations of a phone visit LABS and DATA PHQ9 TODAY = not completed today DIAGNOSIS 1. Major depressive disorder, recurrent, mild 2. Generalized anxiety disorder 3. Posttraumatic stress disorder ASSESSMENT TODAY: Patient with history of depression, anxiety, and trauma who presents for follow-up visit. Reports overall increased problems with depressive symptoms in recent weeks in the context of increased stressors, primarily related to break- up with boyfriend. She also did not tolerate recent increase inEffexor XR dose because it made her feel ???sick?? , so she stopped taking it approximately 2 monthsago. She is feeling more down and having a hard time functioning. Does report having some passive suicidal thoughts, but denies any active plan or intent. She does feel safe at this time. Does feel supported by her ex- boyfriend, who she is still living with. She also plans to move in with her sister in approximately 4 days. Did discuss with her that if suicidal thoughts worsen, or she starts to feel unsafe, that she can call 911 or go to the emergency room. She agreed to the plan. She also elected to start trial of Zoloft to help target depression and anxiety symptoms. She is planning to continue with therapy. PLAN 1) PSYCHOTROPIC MEDICATIONS: - Start Zoloft 25 mg daily x4 days, then increase to 50 mg daily - Continue Xanax 0.5 mg every 6 hours as needed for panic attack (use on a limited basis) ?? 2) THERAPY: Continue ?? 3) NEXT DUE: Labs- none EKG- none Rating Scales- none 4) REFERRALS: none ?? 5) RTC: 2 weeks TREATMENT RISK STATEMENT: The risks, benefits, [...] made today. This visit was conducted via telephone. Location of clinician clinic. Location of patient home. Billing based on: Complexity 15 minutes spent on the phone with the patient, with greater than 50% in counseling and coordination of care. PROVIDER: Ed Ramirez MD documented in this encounter Plan of Treatment Not on filedocumented as of this encounter Visit Diagnoses Diagnosis PTSD (post-traumatic stress disorder) (H RC) Posttraumatic stress disorder ASHLEE (generalized anxiety disorder) (HRC) Generalized anxiety disorder Mild episode of recurrent major depressi ve disorder (HRC) documented in this encounter Care Teams Customs Consultant Relationship Specialty Start Date End Date Nasrin Houser MD PCP - General Internal Medicine 06/12/19 07/11/20 [address], [place] [address] documented as of this encounter
--- OUTSIDE RECORDS SUMMARY | 2022-06-19 16:13 | XMS_ITS | Encounter Summary ---
:1995 [facility] Address [address] [place] [address] Care Team Providers Name Role Nasrin Vinson MD Primary Care Provider Reason for Visit Reason Comments Post-Op Check Encounter Details Date Type Department Care Team Description 10/01/2019 Office Visit [facility] [address], S/P lapar oscopic General Surgery cholecystectomy (Primary [address]) [place] [address] [place] [phone] [address] Social History Tobacco Use Types Packs/Day Years Used Date Smoking Tobacco: Never Smokeless Tobacco: Never Alcohol Use Standard Drinks/Week Comments Yes 0 (1 standard drink = 0.6 oz pure alcoho l) 1-2 drinks a month Sex Assigned at Date Recorded Not on file documented as of this encounter Progress Notes Bang Dodson MD - 10/01/2019 9:00 AM CST No c/o. Pain on the right abdomen, similar to pain prior to surgery. No postprandial pain or nausea like she had prior to surgery. [place] PO. Normal bowel function. No fevers or nausea. On exam her abdomen is soft, NT/ND. Wound: healing well without erythema. A/P: s/p single site lap jordyn, doing well. No lifting >20 pounds for 2 more weeks. RUQ pain, would give this some time yet and see if it resolves. Other activities as tolerated. Follow up with me as needed. Bang Dodson MD 9:37 AM 10/01/2019 TRUCTION MANAGEMENT ASSISTANT documented in this encounter Plan of Treatment Not on filedocumented as of this encounter Visit Diagnoses Diagnosis S/P laparoscopic cholecystectomy - Prima ry Other postprocedural status documented in this encounter Care Teams Coffee Taster Relationship Specialty Start Date End Date Nasrin Houser MD PCP - General Internal Medicine 06/12/19 07/11/20 [address], [place] [address] documented as of this encounter
--- OUTSIDE RECORDS SUMMARY | 2022-06-19 16:13 | XMS_ITS | Encounter Summary ---
:1995 Author Organization [facility] Address [address] [facility] [place] [address] Care Team Providers Name Role Phone Nasrin Houser MD Primary Care Provider Reason for Visit Reason Comments DEPRESSION ANXIETY Encounter Details Date Type Department Care Team Description 11/04/2019 Office Visit [place] [facility] Bere Nicole, ASHLEE ( generalized anxiety disorder) (Primary Dx); Medicine DO Screen for STD (sexually transmitted dis ease) [address] [place] [address] [place], [place] [phone] (Wo rk) Social History Tobacco Use Types Packs/Day Years Used Date Smoking Tobacco: Never Smokeless Tobacco: Never Alcohol Use Standard Drinks/Week Comments Yes 0 (1 standard drink = 0.6 oz pure alcoho l) 1-2 drinks a month Sex Assigned at Date Recorded Not on file documented as of this encounter Last Filed Vital Signs Vital Sign Reading Time Taken Comments Blood Pressure 138/88 11/04/2019 2:51 PM RESEARCH BIOSTATISTICIAN Pulse 114 11/04/2019 2:51 PM RESEARCH BIOSTATISTICIAN Temperature - - Respiratory Rate - - Oxygen Saturation - - Inhaled Oxygen Concentration - - Weight 71.2 kg (157 lb) 11/04/2019 2:51 PM RESEARCH BIOSTATISTICIAN Height - - Body Mass Index 29.64 09/09/2019 11:21 AM RESEARCH BIOSTATISTICIAN documented in this encounter Progress Notes Bere Nicole, DO - 11/04/2019 2:45 PM CST Subjective: Chief Complaint Patient presents with ??? DEPRESSION ??? ANXIETY Sadie Mart is here today for anxiety. She says she has been having increased racing thoughts and panic attacks. Did have some throughts briefly for suicidal thoughts. It went by quickly and she does not feel thisway now. She says the racing thoughts are the worse. Most of it have to do with her relationship. Trying to be in the moment more but still hard. Beginning of the month she was started on buspirone. Depression is present but right now the anxiety is worse. She has not been working because of a back injury. She does like to walk - not much lately. Not sleeping well. Family is very supportive.. She is 1 of 11. She is very close with them and her Boyfriends. She is in a good relationship. She does like to do crafts when her anxiety is worse. She has some breathing tools to help in panic episodes. Reviewed patient Past medical history, medications, allergies and Social/Family history. Updated in [employer]. Pertinent ROS as above. Objective: BP 138/88 (BP Location: Right Arm, BP Cuff Size: Large) Pulse (!) 114 Wt 157 lb (71.2 kg) BMI 29.64 kg/m?? Physical Exam Nursing note and vitals reviewed. Constitutional: Oriented to person, place, and time. Appears well-developed and well-nourished. No distress. HENT: Head: Normocephalic and atraumatic. Eyes: EOM are normal. Pupils are equal, round, and reactive to light. Cardiovascular: Normal rate, regular rhythm, normal heart sounds and intact distal pulses. Pulmonary/Chest: Effort normal and breath sounds normal. Neurological: Alert and oriented to person, place, and time. Skin: Skin is warm and dry. Not diaphoretic. Psychiatric: Normal mood and affect. Behavior is normal. Assessment/Plan: 1. ASHLEE (generalized anxiety disorder) Patient was given some hydroxyzine to use for acute panic epsides while her medication starts to kick in. She has planned follow up with her PCP and they can address if there is a need to increase or change her meds further. She does have resources for crisis help if needed. - hydrOXYzine pamoate (VISTARIL) 25 MG capsule; Take 1 Capsule by mouth three times a day as needed for Anxiety. Dispense: 30 Capsule; Refill: 0 2. Screen for STD (sexually transmitted disease) - Chlamydia and GC, Urine STD; Future Bere Nicole DO documented in this encounter Plan of Treatment Not on filedocumented as of this encounter Results Chlamydia and GC, Urine STD (11/04/2019 3:20 PM RESEARCH BIOSTATISTICIAN) [facility] Method Time Signature Chlamydia Not Not 11/05/2019 [facility] Trachomatis Detected Detected 2:38 PM RESEARCH BIOSTATISTICIAN [facility] STD N. gonorrhoeae Not Not 11/05/2019 [facility] STD Detected Detected 2:38 PM RESEARCH BIOSTATISTICIAN [facility] Specimen Anatomical Collection Method Collection Time Receive d Time (Source) Location / / Volume Laterality Urine STD (Urine Non-blood 11/04/2019 3:20 PM 11/03 4:23 for STD) Collection / RESEARCH BIOSTATISTICIAN PM RESEARCH BIOSTATISTICIAN Unknown Narrative [facility] - 11/05/2019 2:38 PM RESEARCH BIOSTATISTICIAN Test performed by Molecular Detection Urine Volume submitted was greater than 30 ml. Excess collection volume may decrease test sensitivity. Bere Nicole DO LAB_1 Performing Organization Address City/State/ZIP Code Phon e Number [facility] [address] [place] [address] [phone] documented in this encounter Visit Diagnoses Diagnosis ASHLEE (generalized anxiety disorder) - Ale rm Generalized anxiety disorder Screen for STD (sexually transmitted dis ease) Screening examination for venereal disea se documented in this encounter Care Teams Rental Clerk Tool And Equipment Relationship Specialty Start Date End Date Nasrin Houser MD PCP - General Internal Medicine 06/12/19 07/11/[address] [place] [address] [id number] documented as of this encounter
--- OUTSIDE RECORDS SUMMARY | 2022-06-19 16:13 | XMS_ITS | Encounter Summary ---
:1995 Author Organization [employer] Address [address] [place] [address] Care Team Providers Name Role Phone Nasrin Houser MD Primary Care Provider Reason for Visit Reason Onset Date Comments Phone Visit 12/05/2019 Encounter Details Date Type Department Care Team Description 12/05/2019 [facility], unspecified headache type (Primary Dx); [place] Leukocytosis, unspecified ty pe [address] [place], [place] [address] Social History Tobacco Use Types Packs/Day Years Used Date Smoking Tobacco: Never Smokeless Tobacco: Never Alcohol Use Standard Drinks/Week Comments Yes 0 (1 standard drink = 0.6 oz pure alcoho l) 1-2 drinks a month Sex Assigned at Date Recorded Not on file documented as of this encounter Progress Notes Chel Garnett MD - 12/05/2019 8:00 AM CDT Subjective: Today's visit with Sadie Mart was conducted as a scheduled telephone visit. She had labs done yesterday by her ortho MD. They called and told her her WBC was slightly elevated,she does not know the exact number. The blood work was done at [place]. She has had a BROWNE the past 5 days which is usually for her, mild. Has been having a lot of med changes recently with her antidepressants. Having her usual allergy sx of runny nose and sneezing, flonase helps this. 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 No f/s/c, cough, body aches, n/v. Objective: Health Maintenance Due Topic Date Due ??? HIV Screening (Preventive Services) 2012 BP Readings from Last 1 Encounters: 11/10/19 120/80 Assessment/Plan: Sadie was seen today for phone visit. Diagnoses and all orders for this visit: Acute nonintractable headache, unspecified headache type Leukocytosis, unspecified type (HRC) Was told mild over the phone Discussed that an isolated headache is unlikely to be indicative of covid. In terms of her white blood cell count, I will have my department of mathematics chair obtain the lab results on Saturday and will make a plan from there, will likely recheck in a few weeks but I will update patient when I get the results. She was on steroids few weeks ago which could be because of the elevation. 15 total time spent on the phone with the patient, with 10 in counseling and coordination of care. This phone visit is a scheduled telephone visit. documented in this encounter Plan of Treatment Not on filedocumented as of this encounter Visit Diagnoses Diagnosis Acute nonintractable headache, unspecifi ed headache type - Primary Leukocytosis, unspecified type (HRC) documented in this encounter Care Teams Brine Tank Operator Relationship Specialty Start Date End Date Nasrin Houser MD PCP - General Internal Medicine 06/12/19 07/11/20 [address] [place] [address] documented as of this encounter
--- OUTSIDE RECORDS SUMMARY | 2022-06-19 16:13 | XMS_ITS | Encounter Summary ---
:1995 Author Organization [facility] Address [address] [place] [address] Care Team Providers Name Role Phone Francisca Cunningham PA-C Primary Care Provider Reason for Referral Procedure/Equipment (Routine) - Incomplete Specialty Diagnoses / Procedures Referred By Contact Refer red To Contact Diagnoses Absent mensJerica Rizo MD Procedures US OB < 14 Weeks Single US OB <14 Weeks W EV Single [address] [facility] [address] [place] [address] Referral ID Status Reason Start Date Expiration Date Visits V isits Requested Authorized [id number] Incomplete 08/11/2020 11/10/2021 1 1 OON SANDER Encounter Details Date Type Department Care Team Description 08/11/2020 Notes/Orders [place] [address] Jerica Vides, David wood (Primary Obstetrics/Gynecolog y MD Dx) [address] [facility] . [address] [place] [address] [facility] [address] [place] [address] Social History Tobacco Use Types Packs/Day Years Used Date Smoking Tobacco: Never Smokeless Tobacco: Never Alcohol Use Standard Drinks/Week Comments Yes 0 (1 standard drink = 0.6 oz pure alcoho l) 1-2 drinks a month Sex Assigned at Date Recorded Not on file documented as of this encounter Plan of Treatment Not on filedocumented as of this encounter Results US OB < 14 Weeks Single (08/31/2020 10:07 AM BALLOON SANDER) Anatomical Region Laterality Modality Pelvis Ultrasound Specimen (Source) Anatomical Collection Method Collection Time Re ceived Time Location / / Volume Laterality 08/31/2020 9:52 AM BALLOON SANDER Impressions 08/31/2020 10:11 AM BALLOON SANDER COMPARISON: None. TECHNIQUE: ??Transabdominal imaging was performed. ?? FINDINGS: ?? Gestational sac: Unremarkable. Parchment-rump length measures 4.4 cm, corre sponding to [...] was pe rformed. FINDINGS: Gestational sac: Unremarkable. Parchment-rump length measures 4.4 cm, corre sponding to [...] weeks 1 day by crown-rump length. Jerica Vides MD RAD US documented in this encounter Visit Diagnoses Diagnosis Absent menses - Primary Absence of menstruation Absent menses Absence of menstruation documented in this encounter Care Teams Roaster Helper Relationship Specialty Start Date End Date Francisca Cunningham PAAnanthC PCP - General Physician Mva Reactor Operator Head 10/05/20 [address], [place] [address] documented as of this encounter
--- OUTSIDE RECORDS SUMMARY | 2022-06-19 16:13 | XMS_ITS | Encounter Summary ---
:1995 Author Organization [facility] Address [address], [place] [address] Care Team Providers Name Role Nasrin Vinson MD Primary Care Provider Reason for Visit Reason Comments MEDICATION CHECK Encounter Details Date Type Department Care Team Description 11/10/2019 Office Visit Nasrin Burnett, ASHLEE (gen eralized anxiety disorder) (Primary Dx); Medicine MD [address] [place] [address] [place] [address] [phone] Social History Tobacco Use Types Packs/Day Years Used Date Smoking Tobacco: Never Smokeless Tobacco: Never Alcohol Use Standard Drinks/Week Comments Yes 0 (1 standard drink = 0.6 oz pure alcoho l) 1-2 drinks a month Sex Assigned at Date Recorded Not on file documented as of this encounter Last Filed Vital Signs Vital Sign Reading Time Taken Comments Blood Pressure 120/80 11/10/2019 9:09 AM CDT Pulse 80 11/10/2019 9:09 AM CDT Temperature - - Respiratory Rate - - Oxygen Saturation - - Inhaled Oxygen Concentration - - Weight 71.6 kg (157 lb 12.8 oz) 11/10/2019 9:09 AM CDT Height - - Body Mass Index 29.79 09/09/2019 11:21 AM UNDERWRITING SUPPORT SPECIALIST documented in this encounter Patient Instructions Patient InstructionsNasrin Houser MD - 11/10/2019 9:00 AM CDT Start taking the citalopram daily and follow up with psychiatry in 2 weeks. Use the cream twice a day for 2 weeks. Nasrin Houser MD 9:31 AM 11/10/2019 documented in this encounter Progress Notes Nasrin Houser MD - 11/10/2019 9:00 AM CDT Chief Complaint Patient presents with ??? MEDICATION CHECK SUBJECTIVE: Sadie Mart is a 24 y.o. female with a hx of ASHLEE who presents for f/u. At our last visit on 10/13,we started buspirone for her anxiety. She had been on duloxetine in the past but had significant nausea, so it was stopped. She ended up having a lap jordyn for biliary dyskinesia. Her nausea and abdominal pain has totally resolved. She does not feel that the Buspar has helped at all with her anxiety. She called in to the nurse line a few days after starting the Buspar because she felt suicidal. She was seen by a family med physician in [place] and was prescribed hydroxyzine for anxiety. She finds this makes her too sleepy. She is wondering if there is something else she can take for panic attacks. She does have an upcoming appt with Psychiatry on 11/24. She has been off work for almost 2 months. Initially for her lap jordyn and subsequently injured her back at work. She has been going to [facility] for the back issue and is supposed to be having an MRI. She was given Flexeril and [place] for this. PHQ-9 = 22 and ASHLEE-7 = 18 today. ROS: no nausea or abdominal pain. No current suicidal ideation. She has noticed some dry scaly skin on her neck (putting lotion on without improvement) OBJECTIVE: Vital Signs: BP 120/80 (BP Location: Right Arm, BP Cuff Size: Regular) Pulse 80 Wt 71.6 kg (157 lb 12.8 oz) BMI 29.79 kg/m?? Gen: pleasant F, NAD Skin: on the anterior neck, there is hyperpigmentation with fine scale in an irregular distribution CV: RRR, no m/r/g Psych: full range of affect, thought processes are not tangential ASSESSMENT AND PLAN: Sadie was seen today for medication check. Diagnoses and all orders for this visit: ASHLEE (generalized anxiety disorder) - discussed at length with Sadie and her significant other. She was hoping for a medication for the panic attacks. She states that she is having these every day. I advised her that I am not comfortable trying benzodiazepines due to the addictive potential of these me dications. She is open to a trial of citalopram. She has f/u with Psychiatry scheduled in a little over 2 weeks. - citalopram (CELEXA) 10 MG tablet; Take 1 Tablet by mouth daily. Tinea versicolor - on anterior neck. Advised to use ketoconazole twice a day for 2 weeks. - ketoconazole (NIZORAL) 2 % cream; Apply topically daily. Follow up - with Psychiatry for her ASHLEE as above Nasrin Houser MD 12:38 PM 11/10/2019 documented in this encounter Plan of Treatment Not on filedocumented as of this encounter Visit Diagnoses Diagnosis ASHLEE (generalized anxiety disorder) - [facility] Generalized anxiety disorder Tinea versicolor Pityriasis versicolor documented in this encounter Care Teams Street Light Lamp Cleaner Relationship Specialty Start Date End Date Nasrin Houser MD PCP - General Internal Medicine 06/12/19 07/11/20 [address] [place], [place] [address] documented as of this encounter
--- OUTSIDE RECORDS SUMMARY | 2022-06-19 16:13 | XMS_ITS | Encounter Summary ---
:1995 Author Organization [facility] Address [address] [place] [address] Care Team Providers Name Role Phone Nasrin Houser MD Primary Care Provider Reason for Visit Reason Comments RESULTS, TEST Encounter Details Date Type Department Care Team Description 06/10/2020 Nurse Triage Careline Unknown, RESULTS, TEST [address] Physician [place], [place] [address] [phone] [place], [place] [id number] Social History Tobacco Use Types Packs/Day Years Used Date Smoking Tobacco: Never Smokeless Tobacco: Never Alcohol Use Standard Drinks/Week Comments Yes 0 (1 standard drink = 0.6 oz pure alcoho l) 1-2 drinks a month Sex Assigned at Date Recorded Not on file documented as of this encounter Nursing Notes Yandy Orozco RN - 06/10/2020 7:56 PM CDT Verified patient identity: Yes Situation/Background (brief explanation of current symptoms/situation): Pt states she took two tests today. One was positive and one was negative. LMP 1.5 months ago. She took the first test at 3pm and took the second test at 5PM. PMH: Patient Active Problem List Diagnosis ??? ASHLEE (generalized anxiety disorder) ? ? Nausea & vomiting ??? Epigastric pain MEDICATIONS: Current Outpatient Medications Medication Sig Dispense Refill [...] No current facility-administered medications for this visit. ALLERGIES: Patient has no known allergies. HOME TREATMENT: When its early in , use the first morning urine to perform the test, when the HCG hormone in the urine is most concentrated. If you test in the afternoon, the urine may be diluted and unable to detect the HCG. Try another test with your first morning urine t omorrow. If positive, contact your clinic. Pt agrees with this plan. Yandy Orozco RN Reason for Disposition ??? Health Information question, no triage required and triager able to answer question Protocols used: INFORMATION ONLY CALL - NO [id number] Jolynn Cardenas - 06/10/2020 6:19 PM CDT Verified patient identity using three identifiers: Yes Caller's relationship to patient: Self At which care system or clinic is the patient normally seen? [facility] Clinics Symptoms Describe the reason for call/symptoms (include location and duration if applicable): Pt has taken two different tests and results were different. Pt is wondering where to go from here. Plan:The current callback time to speak with a nurse is 1 hour. If your symptoms change or worsen, or if you have not received a call back in the stated timeframe, please call us back documented in this encounter Plan of Treatment Not on filedocumented as of this encounter Visit Diagnoses Not on filedocumented in this encounter Care Teams Nurse Recruiter Relationship Specialty Start Date End Date Nasrin Houser MD PCP - General Internal Medicine 06/12/19 07/11/20 [address] [place] [address] documented as of this encounter
--- OUTSIDE RECORDS SUMMARY | 2022-06-19 16:13 | XMS_ITS | Encounter Summary ---
:1995 Author Organization [facility] Address [address] [place] [address] Care Team Providers Name Role Phone Nasrin Houser MD Primary Care Provider Reason for Visit Reason Comments LAB RESULTS Encounter Details Date Type Department Care Team Description 12/04/2019 Telephone Careline Unknown, Physician LAB RESULTS [address] [place], [place] [address] [place] [address] [phone] (Wo rk) Social History Tobacco Use Types Packs/Day Years Used Date Smoking Tobacco: Never Smokeless Tobacco: Never Alcohol Use Standard Drinks/Week Comments Yes 0 (1 standard drink = 0.6 oz pure alcoho l) 1-2 drinks a month Sex Assigned at Date Recorded Not on file documented as of this encounter Nursing Notes Jennifer Gruber RN - 12/05/2019 3:17 PM CDT Patient/medicare coordinator request: Input needed lab results Specific Request: pt called to say WBC 14.6 Clinician route to Flag for care team/Care team pool as patient is expecting a call back. Verified patient identity : Yes Situation/Background (brief explanation of current symptoms/situation): Pt states WBC 14.6 Reviewed with patient pertinent medical history(as it related to the call): Yes Reviewed with patient pertinent medications (as they relate to call): Yes Reviewed with patient pertinent allergies (as they relate to call.) Pt just wanted to update chart that was WBC 14.6. Pt asked if that changes whether she can work tomorrow Went over MD notes with pt. Advised pt to call her employer and ask if they want her to work. From MD notes, not covid 19. Pt verbalized understanding The Careline is open 25/03. Call back with any questions or concerns. Eleonora Gomez - 12/05/2019 10:15 AM CDT Patient spoke to a Careline nurse yesterday and is having concerns about her white blood cell count and how it may be related to COVID-19. She would like to speak to a nurse again regarding her lab results and questions. Cindy Solis RN - 12/04/2019 7:35 PM CDT Verified patient identity using three identifiers: Yes Situation/Background (brief explanation of current symptoms/situation): Patient calling and reports she had some blood drawn yesterday by her orthopedic doctor due to her elevated white blood cell count. Patient was seen by Chino BLAIR at [facility] provider. Patient reports a headache aria runny nose for the last couple of days. 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 Patient reports a headache on the top left side. Also reports a runny nose which she believes is allergies. Patient reports normally having seasonal allergies. Headache is mild. Patient declines to discuss. EMR reviewed and RN able to see the note regarding WBC but not able to see the results. RN advised itis the providers role to interpet lab results and make recommendations. Patient advised her provider[facility] Dr[facility]. 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 RN unsure if patient qualifies to be tested for COVID 19. Reviewed with patient pertinent medical history(as it related to the call): Yes Reviewed with patient pertinent medications (as they relate to call): Yes Reviewed with patient pertinent allergies (as they relate to call). Initial Screening: Patient information Best Number to contact patient: [phone] Assessment: Current Symptoms: other runny nose and a headache Onset: Four or five days ago Progression: Stayed the same. Severe/Stat Evaluation for the following symptoms: ??? Severe dyspnea or cyanosis ??? Severe wheezing or severe stridor ??? Excessive drooling/unable to swallow liquids or secretions ??? Acting confused or disoriented ??? Chest pain not associated with coughing or taking a deep breath ??? 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 Home isolation guidelines: Patient should be advised to self-quarantine in their homes until: *At least 3 days (72 hrs) have passed since resolution of fever without the use of fever-reducing medications, AND * They have improvement in respiratory symptoms (e.g. cough, shortness of breath) * AND at least 7 days have passed since symptoms first appeared. * Remind patients to call us back if symptoms worsen! * Household and intimate contacts of these individuals should limit their activities in public for 14 days after incorporating precautions in the home, and monitor for symptoms. Disposition: Within 24 hours Video Visit The next priority is to relieve your discomfort while watching for any worsening symptoms. Because COVID-19 is a viral infection, an antibiotic won't soothe or treat the virus. The following advice mayhelp reduce some of your symptoms. For a fever or a sore throat: * Use acetaminophen to help relieve pain and to reduce any fever. * Follow the package instructions and avoid stomach upset by taking with food or milk. * For adults - Over the counter throat lozenges or antiseptic sprays can also provide pain relief (this is not recommended for children). * For younger children and babies - Acetaminophen can reduce aches and pains. Honey for children ages 1 yr and older can help soothe coughs as well. For a bothersome cough: For older children and adults: * A cough expectorant will thin mucus in your chest to make it easier to cough up. * It's important to allow your body to cough up mucus to get better. * Use over the counter cough medications that contains guaifenesin. A common brand is Mucinex??. * Use a cough suppressant only when you need a rest or break from your cough. Use an over the counter cough medication which contains dextromethorphan such as Delsym ??.) For younger children and babies: * The FDA recommends no over the counter cough and cold medications for children ages 4 yrs old and under. A simple bulb syringe and saline nasal spray can be used to clear stuffy noses. Plenty of liquids and rest also help children feel better. For sinus congestion or pain: * Use acetaminophen to help relieve pain and to reduce any fever. * Follow the package instructions and avoid stomach upset by taking with food or milk. For Adults: (not recommend for children) * Take an expectorant where guaifenesin is the only active ingredient for 3 days. * Follow package instructions to thin mucus and promote drainage. A common brand is Mucinex??. Avoid multi-symptom versions (those with letters) like Mucinex DM??.) General: * Get plenty of rest * Stay hydrated - While you're sick, it's important to stay hydrated. Drinking water can help to thin mucus and reduce congestion. * For adults and adolescents - A general rule of thumb is to drink 8 eight ounce glasses of water per day and look for your urine to be clear to light yellow - dark yellow means drink more water. 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 RN advised patient she should do a video visit with a provider in the next 24 hours. Patient verbalized understanding and agreed with the plan. Advised patient/caller to call back CareLine if there are further questions, concerns, or to be seenif symptoms change or worsen. The CareLine is available 25/03. Cindy Solis RN 12/04/2019, 7:57 PM Radha Perdomo - 12/04/2019 7:07 PM CDT Verified patient identity using three identifiers: Yes Caller's relationship to patient: Self At which care system or clinic is the patient normally seen? [facility] Test Results Caller is requesting: Laboratory Name of test: WBC - low count Facility where test was performed[facility] Date test was done: 12/03/19 Any current symptoms that you would like to speak to a nurse about? No pt states she called her clinic to talk to her doctor, needs to know if she shouldn't go to work tomorrow, starts her shift at 8amand is requesting a call back from a careline nurse. Plan: The current call back time to speak with a nurse is 2hrs. If your symptoms change or worsen orif you have not received a callback in the stated timeframe, please call us back. documented in this encounter Plan of Treatment Not on filedocumented as of this encounter Visit Diagnoses Not on filedocumented in this encounter Care Teams Equal Opportunity Officer Relationship Specialty Start Date End Date Nasrin Houser MD PCP - General Internal Medicine 06/12/19 07/11/20 [address] [place], [place] [address] documented as of this encounter
--- OUTSIDE RECORDS SUMMARY | 2022-06-19 16:13 | XMS_ITS | Encounter Summary ---
:1995 Author Organization [facility] Address [address] [place] [address] Care Team Providers Name Role Phone Nasrin Houser MD Primary Care Provider Reason for Visit Reason Onset Date Comments James 03/11/2020 Refill 03/11/2020 Encounter Details Date Type Department Care Team Description 03/11/2020 Refill [facility] Ed Vasquez MD Jose; [facility] Psychiatry [address] [place] [address] [place] [address], [place] [address] [address] [place], [place] [phone] Social History Tobacco Use Types Packs/Day Years Used Date Smoking Tobacco: Never Smokeless Tobacco: Never Alcohol Use Standard Drinks/Week Comments Yes 0 (1 standard drink = 0.6 oz pure alcoho l) 1-2 drinks a month Sex Assigned at Date Recorded Not on file documented as of this encounter Nursing Notes Ed Ramirez MD - 03/11/2020 4:32 PM CDT Refill approved. Ed Ramirez MD Cheri Horn RN - 03/11/2020 2:58 PM CDT Per [facility] Alprazolam 0.5mg #20 was last filled 01/04/20. Future appt is scheduled. Request is within appropriate time parameters. Prescription prepared for Dr. Ramirez to send electronically Cheri Horn, RN documented in this encounter Plan of Treatment Not on filedocumented as of this encounter Visit Diagnoses Not on filedocumented in this encounter Care Teams Media Services Director Relationship Specialty Start Date End Date Nasrin Houser MD PCP - General Internal Medicine 06/12/19 07/11/20 [address] [place] [address] documented as of this encounter
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
--- OUTSIDE RECORDS SUMMARY | 2022-06-19 16:13 | XMS_ITS | Encounter Summary ---
:1995 Author Organization [facility] Address [address], [place] [address] Care Team Providers Name Role Phone Needs Pcp, Assignment Primary Care Provider Encounter Details Date Type Department Care Team Description 08/19/2020 Phone Visit [facility] Abel Ramirez MD PTSD (post-traumatic stress disorder); [facility] [address] ASHLEE (generalized anxiety disorder); [facility] d episode of recurrent major depressive disorder (HRC) [address] [address] [place], [place] [address] [phone] Social History Tobacco Use Types Packs/Day Years Used Date Smoking Tobacco: Never Smokeless Tobacco: Never Alcohol Use Standard Drinks/Week Comments Yes 0 (1 standard drink = 0.6 oz pure alcoho l) 1-2 drinks a month Sex Assigned at Date Recorded Not on file documented as of this encounter Progress Notes Ed Ramirez MD - 08/19/2020 8:25 AM CST PSYCHIATRY CLINIC PROGRESS NOTE (SCHEDULED TELEPHONE VISIT) CARE TEAM: PCP- Assignment Needs PCP Therapist- Patria Ko PsyD Date of initial diagnostic assessment is 11/25/2019. INTERIM HISTORY Last seen on 07/11/2020 at which time no changes were made. The patient reports good treatment adherence. History was provided by the patient who was a good historian. Since last visit: - Patient previously contacted Clinic stating that she was . Discussed the considerations ofthe use of Zoloft and Xanax in the setting of . She elected to continue with Zoloft. - Reports she is about 9 weeks now. Trying to work things out with her boyfriend, who is the father of the baby. Feeling okay about the situation. Having some morning sickness and feeling really tired. - Still living with parents, which is a source of good support. - Still can feel anxious. It fluctuates. Thinks possibly overall a little bit better lately. Has had a couple panic attack in the last month. - Trying to use more coping skills. - Has stopped smoking marijuana. - Mood has been mostly good, Can have some fluctuating depressive symptoms. At times can feel overwhelmed and start have negative thinking. - Has not seen her therapist for a little while. Has not set up IOP yet. - Taking Zoloft consistently and denies any side effects. RECENT SUBSTANCE USE: Alcohol - occasional Tobacco - occasional Caffeine - none Opioids - none Cannabis - none Other Illicit Drugs - none ?? 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 MEDICAL ROS: A 10 point review [...] ??? predniSONE (DELTASONE) 10 MG tablet ??? sertraline (ZOLOFT) 50 MG tablet Start 25 mg (1/2 tab) x 4 days, then increase to 50 mg (1 tab) daily 30 Tablet 3 ??? traZODone (DESYREL) 50 MG tablet Take 1-2 Tablets by mouth daily at bedtime. 180 Tablet 3 No current facility-administered medications for this visit. MENTAL STATUS EXAM Behavior: cooperative, engaged Speech: normal in rate and loudness Language: intact Mood: good Thought process: logical and goal-directed Thought content: without delusions or hallucinations. Denies any recent suicidal ideation. Insight: intact Judgement: intact Orientation x3: intact [...] who presents for follow-up visit. Reports overall improvement in mood and anxiety symptoms in recent months in the context of moving in with her parents and starting Zoloft. She does still have some challenges with depression and anxiety, but symptoms have been more manageable. She has not had any recent suicidal ideation. She is currently 9 weeks . We have discussed the risks and benefits of continuing Zoloft in the setting of . She has elected to continue on Zoloft. Taking Zoloft consistently and denies any side effects. Will not make any medication changes today. PLAN 1) PSYCHOTROPIC MEDICATIONS: - Continue Zoloft 50 mg daily - Continue Xanax 0.5 mg every 6 hours as needed for panic attack (for very limited use-have discussed the considerations of its use in the setting of ) ?? 2) THERAPY: Continue ?? 3) NEXT DUE: Labs- none EKG- none Rating Scales- none 4) REFERRALS: none ?? 5) RTC: 8 weeks TREATMENT RISK STATEMENT: The risks, benefits, [...] of patient home. Billing based on: Complexity 11 minutes spent on the phone with the patient, with greater than 50% in counseling and coordination of care. PROVIDER: Ed Ramirez MD URING MACHINE TENDER documented in this encounter Plan of Treatment Not on filedocumented as of this encounter Visit Diagnoses Diagnosis PTSD (post-traumatic stress disorder) (H RC) Posttraumatic stress disorder ASHLEE (generalized anxiety disorder) (HRC) Generalized anxiety disorder Mild episode of recurrent major depressi ve disorder (HRC) documented in this encounter Care Teams Teen Counselor Relationship Specialty Start Date End Date Needs Pcp, Assignment PCP - General 07/12/20 10/04/20 [place] [address] documented as of this encounter
--- OUTSIDE RECORDS SUMMARY | 2022-06-19 16:13 | XMS_ITS | Encounter Summary ---
:1995 [facility] Address [address], [place] [address] Care Team Providers Name Role Phone Nasrin Houser MD Primary Care Provider Reason for Visit Reason Comments Follow-up depression Return To Work Encounter Details Date Type Department Care Team Description 10/13/2019 Office Visit Nasrin Burnett ASHLEE (genera lized anxiety disorder) (Primary Dx); Nilesh Casillas MD Status post cholecystectomy [address] [place] [address] [address] [address] [phone] Social History Tobacco Use Types Packs/Day Years Used Date Smoking Tobacco: Never Smokeless Tobacco: Never Alcohol Use Standard Drinks/Week Comments Yes 0 (1 standard drink = 0.6 oz pure alcoho l) 1-2 drinks a month Sex Assigned at Date Recorded Not on file documented as of this encounter Last Filed Vital Signs Vital Sign Reading Time Taken Comments Blood Pressure 118/72 10/13/2019 10:01 AM FLATWARE MAKER Pulse 80 10/13/2019 10:01 AM FLATWARE MAKER Temperature - - Respiratory Rate - - Oxygen Saturation - - Inhaled Oxygen Concentration - - Weight 68 kg (150 lb) 10/13/2019 10:01 AM FLATWARE MAKER Height - - Body Mass Index 28.32 09/09/2019 11:21 AM FLATWARE MAKER documented in this encounter Progress Notes Nasrin Houser MD - 10/13/2019 10:00 AM CST Chief Complaint Patient presents with ??? Follow-up depression ??? Return To Work SUBJECTIVE: Sadie Mart is a 24 y.o. female with a hx of anxiety and depression who presents for f/u after a recent laparoscopic cholecystectomy for biliary dyskinesis. She had the surgery on 09/18. Her nausea has completely resolved. 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 She also hurt her back in that incident. Her surgeon wanted her to have a 20 pound lifting restriction until 10/16. She is requesting a note lifting the 20 pound weight restriction from the surgery starting on 10/17. Now that her nausea and abdominal pain has resolved, she would like to try to address her anxiety again. We tried to start her on duloxetine last fall but she had nausea and vomiting. She has been researching medications and is wondering about trying buspirone. She does not want anything that is addictive. She does feel like her mood is a little depressed but feels the anxiety is the major problem. ROS: positive for low back pain. Denies suicidal ideation. OBJECTIVE: Vital Signs: BP 118/72 (BP Location: Right Arm, BP Cuff Size: Regular) Pulse 80 Wt 68 kg (150 lb) BMI 28.32 kg/m?? Gen: pleasant F, NAD HEENT: NCAT, no scleral icterus Chest: CTAB CV: RRR, no m/r/g Abd: +BS, soft, NT/ND, surgical sites from laparoscopy healing well with just mild erythema and no induration Psych: normal range of affect today (actually quite a bright affect), thought processes are organized ASSESSMENT AND PLAN: Sadie was seen today for follow-up and return to work. Diagnoses and all orders for this visit: ASHLEE (generalized anxiety disorder) - she does have some depressive symptoms as well. She would like to try Buspar, which is certainly reasonable. We discussed trying this and returning in 3 weeks to let me know how things are going. If the anxiety is improved but she has persistent depressive symptoms, we discussed trying buproprion for depression with the Buspar. Can also increase the Buspar dose ifnecessary. - busPIRone (BUSPAR) 5 MG tablet; Take 1 Tablet by mouth three times a day. Status post cholecystectomy - has had complete resolution of her nausea since the surgery. Gave her a letter that she should no longer have a lifting restriction related to the surgery as of 10/17/2019.She is currently on lifting restrictions related to the current work-related back injury and will beseeing TCO for this. Follow up - 3 weeks for f/u of anxiety and depression. Nasrin Houser MD 10:36 AM 10/13/2019 WARE MAKER documented in this encounter Plan of Treatment Not on filedocumented as of this encounter Visit Diagnoses Diagnosis ASHLEE (generalized anxiety disorder) - Ale rm Generalized anxiety disorder Status post cholecystectomy Other acquired absence of organ documented in this encounter Care Teams Sonography Technician Relationship Specialty Start Date End Date Nasrin Houser MD PCP - General Internal Medicine 06/12/19 07/11/[address] [place] [id number] documented as of this encounter
--- OUTSIDE RECORDS SUMMARY | 2022-06-19 16:13 | XMS_ITS | Encounter Summary ---
:1995 Author Organization [facility] Address [address], [place] [address] Care Team Providers Name Role Phone Nasrin Houser MD Primary Care Provider Reason for Visit Reason Comments Post-Op Problem REMOVAL, REMOVE, SUTURES, NOS Encounter Details Date Type Department Care Team Description 09/20/2019 Nurse Triage [facility] Nasrin Houser, Post-Op Problem; [address] [facility] REMOVAL, REMOVE, [address], [place] [address] [place] [address] [phone] Social History Tobacco Use Types Packs/Day Years Used Date Smoking Tobacco: Never Smokeless Tobacco: Never Alcohol Use Standard Drinks/Week Comments Yes 0 (1 standard drink = 0.6 oz pure alcoho l) 1-2 drinks a month Sex Assigned at Date Recorded Not on file documented as of this encounter Nursing Notes Trang Cruz RN - 09/20/2019 11:19 AM CST Pt called and said she had her a laparoscopic cholecystectomy using icg fluorescence imaging system on 09/18/19, by Bang Dodson MD. Pt wanted to know if she should pull off the steri-strips or let them fall off on their own. Nurse advised not to pull the steri-strips off. No fever, no redness or drainage at incision site, no increased pain. Pt said she did not have paperwork discussing the steri-strips. Reviewed when to call back. Reason for Disposition ??? Skin tape (e.g., Steri-strips) removal, questions about Protocols used: POST-OP INCISION [id number] MANAGER documented in this encounter Plan of Treatment Not on filedocumented as of this encounter Visit Diagnoses Not on filedocumented in this encounter Care Teams Top Edge Beveler Relationship Specialty Start Date End Date Nasrin Houser MD PCP - General Internal Medicine 06/12/19 07/11/20 [address] [place] [address] documented as of this encounter
--- OUTSIDE RECORDS SUMMARY | 2022-06-19 16:13 | XMS_ITS | Encounter Summary ---
:1995 Author Organization [facility] Address [address] [place] [id number] Care Team Providers Name Role Nasrin Vinson MD Primary Care Provider Reason for Visit Reason Comments COVID Screening Encounter Details Date Type Department Care Team Description 12/30/2019 [facility] Scre[facility] [address] [address] [address] [place] [id number] [phone] Social History Tobacco Use Types Packs/Day Years Used Date Smoking Tobacco: Never Smokeless Tobacco: Never Alcohol Use Standard Drinks/Week Comments Yes 0 (1 standard drink = 0.6 oz pure alcoho l) 1-2 drinks a month Sex Assigned at Date Recorded Not on file documented as of this encounter Nursing Notes Misael Jules - 12/30/2019 4:07 PM CDT Initial Screening: Patient information Best number to contact patient: [phone] In the last 14 days have you had close contact with a person known to have COVID-19 or been instructed to self-isolate? No Does patient have respiratory symptoms (e.g., fever greater than 100, cough, shortness of breath, sore throat, new loss of smell, or new loss of taste)? No - follow normal workflow documented in this encounter Plan of Treatment Not on filedocumented as of this encounter Visit Diagnoses Not on filedocumented in this encounter Care Teams Bonbon Cream Warmer Relationship Specialty Start Date End Date Nasrin Houser MD PCP - General Internal Medicine 06/12/19 07/11/20 [address] [place] [address] documented as of this encounter
--- OUTSIDE RECORDS SUMMARY | 2022-06-19 16:13 | XMS_ITS | Encounter Summary ---
:1995 Author Organization [facility] Address [address] [address] Care Team Providers Name Role Phone Nasrin Houser MD Primary Care Provider Encounter Details Date Type Department Care Team Description 12/15/2019 Orders Only Initial Department Provider, [address] JOSE MIGUEL RICE MD [place], [place] [address] Interface provider [phone] [place] [id number] Social History Tobacco Use Types Packs/Day Years [...] Name Priority Date/Time Associated Diagnosis Comme nts LABORATORY REPORT 12/15/2019 Results fo r this procedure are in the resu lts section. documented in this encounter Results LABORATORY REPORT (12/15/2019) Narrative This result has an attachment that is no t available. Interface Provider DUMMY/OTHER/AR documented in this encounter Visit Diagnoses Not on filedocumented in this encounter Care Teams Pharmacist Helper Relationship Specialty Start Date End Date Nasrin Houser MD PCP - General Internal Medicine 06/12/19 07/11/20 [address] [place] [id number] documented as of this encounter
--- OUTSIDE RECORDS SUMMARY | 2022-06-19 16:13 | XMS_ITS | Encounter Summary ---
:1995 Author Organization [facility] Address [address] [address] Care Team Providers Name Role Phone Nasrin Houser MD Primary Care Provider Encounter Details Date Type Department Care Team Description 03/25/2020 [facility] Abel Ramirez MD ASHLEE (generalized anxiety disorder) (Prim agus Dx); [facility] [address] [place] [address] PTSD (post-traumatic stress disorder); [facility] [place], [place] Rec urrent major depressive disorder, in partial remission ([facility]) [address] [address] [place], [place] [address] [phone] Social History Tobacco Use Types Packs/Day Years Used Date Smoking Tobacco: Never Smokeless Tobacco: Never Alcohol Use Standard Drinks/Week Comments Yes 0 (1 standard drink = 0.6 oz pure alcoho l) 1-2 drinks a month Sex Assigned at Date Recorded Not on file documented as of this encounter Progress Notes Ed Ramirez MD - 03/25/2020 2:25 PM CDT PSYCHIATRY CLINIC PROGRESS NOTE (TELEMEDICINE / VIDEO SESSION) CARE TEAM: PCP- Nasrin Houser MD Therapist- Patria Ko PsyD Date of initial diagnostic assessment is 11/25/2019. INTERIM HISTORY Last seen on 01/04/2020 at which time Ativan was discontinued, Xanax as needed was started, Celexa was discontinued, and Effexor XR 75 mg daily was started. The patient reports good treatment adherence.History was provided by the patient who was a good historian. Since last visit: - Reports she has been feeling a lot better. Not feeling depressed. - However, still having a lot anxiety, which feels about the same. Has a lot difficulty leaving her home. - Ongoing trauma related symptoms. Has a lot of ???fear?? and concerns about her safety. - Sleeping better lately. - Having some ongoing pain issues. Will be starting a new physical therapy program. - Has found Xanax more beneficial for panic attacks compared to Ativan. Still having some panic attacks (1-2x a week), but overall this is better. They have decreased in severity and intensity. - Has continued in therapy, but unfortunately missed a couple appointments. 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 Feels it is going well. - Taking Effexor XR consistently and denies any side effects. RECENT SUBSTANCE USE: Alcohol - occasional Tobacco - occasional Caffeine - none Opioids - none Cannabis - daily Other Illicit Drugs - none ?? 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 ?? MEDICAL ROS: A 10 point review [...] Increased Effexor XR to 150 mg daily. PAST PSYCH MED TRIALS 1. [...] needed for Anxiety. 20 Tablet 0 ??? citalopram (CELEXA) 20 MG tablet Take [...] bedtime. 180 Tablet 3 ??? venlafaxine (EFFEXORXR) 37.5 MG 24 hour release capsule Take 37.5 mg (1 cap) x 4 days, THEN increase to 75 mg (2 caps) daily 60 Capsule 2 No current facility-administered medications for this visit. MENTAL STATUS EXAM Appearance: alert, casually groomed Behavior: cooperative, engaged Speech: normal in rate and loudness Language: intact Psychomotor: normal Mood: anxious Affect: neutral Thought process: logical and goal-directed Thought content: without delusions, hallucinations or suicidal ideation Insight: intact Judgement: intact Orientation x3: intact Attention: intact Memory: intact, although no formal testing done Gait and Station: seated LABS and DATA PHQ9 TODAY = not completed today DIAGNOSIS 1. Major depressive disorder, recurrent, in partial remission 2. Generalized anxiety disorder 3. Posttraumatic stress disorder ASSESSMENT TODAY: Patient with history of depression, anxiety, and trauma who presents for telemedicine follow-up visit. Reports overall improvement in mood and sleep since last clinic visit in the context of recent medication changes and starting a new job. However, still experiencing a lot of problems with anxiety and trauma related symptoms. She has had less panic attacks and feels that Xanax has been more beneficial compared to Ativan. Taking Effexor XR consistently and denies any side effects. Given her report of ongoing problems with anxiety and good tolerability to her medication, recommended increasing Effexor XR dose to further target symptoms. She agreed to the plan. She plans to continue with therapy. PLAN 1) PSYCHOTROPIC MEDICATIONS: - Increase Effexor XR to 150 mg daily - Continue Xanax 0.5 mg every 6 hours as needed for panic attack (use on a limited basis) ?? 2) THERAPY: Continue ?? 3) NEXT DUE: Labs- none EKG- none Rating Scales- none 4) REFERRALS: none ?? 5) RTC: 6 weeks TREATMENT RISK STATEMENT: The risks, benefits, [...] based on: Complexity PROVIDER: Ed Ramirez MD documented in this encounter Plan of Treatment Not on filedocumented as of this encounter Visit Diagnoses Diagnosis ASHLEE (generalized anxiety disorder) ([facility]) - Primary Generalized anxiety disorder PTSD (post-traumatic stress disorder) (H RC) Posttraumatic stress disorder Recurrent major depressive disorder, in partial remission ([facility]) documented in this encounter Care Teams Mold Dresser Relationship Specialty Start Date End Date Nasrin Houser MD PCP - General Internal Medicine 06/12/19 07/11/20 [address] [place] [address] documented as of this encounter
--- OUTSIDE RECORDS SUMMARY | 2022-06-19 16:13 | XMS_ITS | Encounter Summary ---
:1995 Author Organization [facility] Address [address], [place] [address] Care Team Providers Name Role Phone Nasrin Houser MD Primary Care Provider Encounter Details Date Type Department Care Team Description 07/11/2020 [facility] Abel Ramirez MD PTSD (post-traumatic stress disorder); [address] ASHLEE (generalized anxiety disorder); [facility] d episode of recurrent major depressive disorder ([facility]) [address] [address] [place], [place] [address] [phone] Social History Tobacco Use Types Packs/Day Years Used Date Smoking Tobacco: Never Smokeless Tobacco: Never Alcohol Use Standard Drinks/Week Comments Yes 0 (1 standard drink = 0.6 oz pure alcoho l) 1-2 drinks a month Sex Assigned at Date Recorded Not on file documented as of this encounter Progress Notes Ed Ramirez MD - 07/11/2020 4:05 PM CST PSYCHIATRY CLINIC PROGRESS NOTE (SCHEDULED TELEPHONE VISIT) CARE TEAM: PCP- Nasrin Houser MD Therapist- Patria Ko PsyD Date of initial diagnostic assessment is 11/25/2019. INTERIM HISTORY Last seen on 06/30/2020 at which time Zoloft was started with plan to titrate dose to 50 mg daily. The patient reports good treatment adherence. History was provided by the patient who was a good historian. Since last visit: - She moved in with her parents. - She is not talking with her ex-boyfriend. - Has noticed improvement in overall mood. I'm feeling more happy. Does struggle with feeling alone and some depressive symptoms, but not having any recent suicidal thoughts. - Still having anxiety. Can have intrusive thoughts. - Trying to use more coping skills. - Has continued in therapy. She is planning to look into an IOP. Will call insurance to look into options. - Taking Zoloft consistently and denies any side effects. Rarely using Xanax as needed. RECENT SUBSTANCE USE: Alcohol - occasional Tobacco [...] in rate and loudness Language: intact Mood: ???better?? Thought process: logical and goal-directed Thought content: [...] overall improvement in mood and anxiety symptoms since last clinic visit in the context of moving in with her parents, no longer talking to her ex-boyfriend, and starting Zoloft. She does still have some remaining challenges with depression and anxiety, but symptoms have been more manageable. She has not had any recent suicidal ideation. Taking Zoloft consistently and denies any side effects. Given she has only been on Zoloft for last couple of weeks, she elected to continue on current dose for now and give it time to hopefully have more effect. PLAN 1) PSYCHOTROPIC MEDICATIONS: - Continue Zoloft [...] coordination of care. PROVIDER: Ed Ramirez MD [employer] documented in this encounter Plan of Treatment Not on filedocumented as of this encounter Visit Diagnoses Diagnosis PTSD (post-traumatic stress disorder) (H RC) Posttraumatic stress disorder ASHLEE (generalized anxiety disorder) ([facility]) Generalized anxiety disorder Mild episode of recurrent major depressi ve disorder ([facility]) documented in this encounter Care Teams Manager Compensation Relationship Specialty Start Date End Date Nasrin Houser MD PCP - General Internal Medicine 06/12/19 07/11/20 [address] [place] [address] documented as of this encounter
--- OUTSIDE RECORDS SUMMARY | 2022-06-19 16:13 | XMS_ITS | Encounter Summary ---
:1995 Author Organization [facility] Address [address] [place] [address] Care Team Providers Name Role Phone Nasrin Houser MD Primary Care Provider Reason for Visit Reason Comments Post-Op Problem Encounter Details Date Type Department Care Team Description 09/26/2019 Nurse Triage Careline Unassigned, Provider Post-Op Problem [address] [place] [address] [address] [place] [address] Social History Tobacco Use Types Packs/Day Years Used Date Smoking Tobacco: Never Smokeless Tobacco: Never Alcohol Use Standard Drinks/Week Comments Yes 0 (1 standard drink = 0.6 oz pure alcoho l) 1-2 drinks a month Sex Assigned at Date Recorded Not on file documented as of this encounter Nursing Notes Selene Torre RN - 09/26/2019 12:18 PM CST Reason for Disposition ??? [1] MILD-MODERATE post-op pain (e.g., pain scale 1-7) AND [2] not controlled with pain medications Protocols used: POST-OP SYMPTOMS AND [id number] COMPLIANCE OFFICER Selene Torre RN - 09/26/2019 12:02 PM CST Verified patient identity using three identifiers: Yes Situation/Background (brief explanation of current symptoms/situation): Pt is 8 days post-op status Laparoscopic Cholecystectomy, on 09/18/19, per Dr Dodson, at [facility]. Pt c/o I still have a lot of pain, presently a 5/10, located RUQ. 2 hrs ago her pain was a 7/10. Pain radiates from RUQ, where her Gall Bladder was located straight thru to her back, (similar to the pain she had prior to the surgery) Before today pt still had Oxycodone, and took her last dose of Oxycodone at 10:30 AM and that took her pain down to a 3/10 and she had been taking either Ibuprofen 600 mg or 1000 mg of Tylenol q 6 hr while on the Oxycodone.. Also c/o ongoing BROWNE, now it is a 3/10, located right side of head a nd c/o nausea that has been helped by Anton. Reviewed with patient pertinent medical history(as it related to the call): Yes healthy otherwise Reviewed with patient pertinent medications (as they relate to call):yes has been taking Ibuprofen 600 mg q 6-8 hrs last taken at 10 AM, And has been alternating with Tylenol 1000 mg q 6 hrs, so she istaking one or the other q 3 hrs prn pain. Reviewed with patient pertinent allergies (as they relate to call).Patient has no known allergies. Pharmacy: [facility] Plan: Gladys GARCIA advised pt that the on-call surgeon will be called for his recommendation, howeveradvised pt it is unlikely that she will be able to get a RF over the phone, and pt stated she is notnecessarily looking for a RF< just what else she can do for her sxs. Gladys GARCIA consulted with Dr Gurrola. He is not able to RF narcotic over the phone, (and this has already been told to pt by Gladys GARCIA, to which pt has stated that she was just looking for what else she could be doing). Dr Gurrola offered to talk with pt, therefore Gladys GARCIA got pt on the line and did a warm transfer of pt to Dr Gurrola. Katie Lainez - 09/26/2019 11:59 AM CST Verified patient identity using three identifiers: Yes Caller's relationship to patient: Self At which care system or clinic is the patient normally seen? [facility] ([facility]) Clinics Symptoms Describe the reason for call/symptoms (include location and duration if applicable): Pt states she had her gallbladder removed on 09/18, is now having sharp right sided abdominal pain, soreness -- states it feels like it did prior to surgery Plan:Caller transferred directly to CareLine nurse. COMPLIANCE OFFICER documented in this encounter Plan of Treatment Not on filedocumented as of this encounter Visit Diagnoses Not on filedocumented in this encounter Care Teams Mill Operator Relationship Specialty Start Date End Date Nasrin Houser MD PCP - General Internal Medicine 06/12/19 07/11/[address] [place] [address] documented as of this encounter
--- OUTSIDE RECORDS SUMMARY | 2022-06-19 16:13 | XMS_ITS | Encounter Summary ---
:1995 Author [facility] Address [address], [place] [address] Care Team Providers Name Role Phone Nasrin Houser MD Primary Care Provider Reason for Visit Reason Comments Post-Op Problem Encounter Details Date Type Department Care Team Description 09/26/2019 Telephone [facility] Nasrin Houser MD Post-Op Problem [address] [facility] [address] [place] [address] [place] [address] [phone] Social History Tobacco Use Types Packs/Day Years Used Date Smoking Tobacco: Never Smokeless Tobacco: Never Alcohol Use Standard Drinks/Week Comments Yes 0 (1 standard drink = 0.6 oz pure alcoho l) 1-2 drinks a month Sex Assigned at Date Recorded Not on file documented as of this encounter Nursing Notes Ninfa Arambula, RN - 09/26/2019 11:49 AM CST Pt calling, had gall bladder removed 09/18 & is calling to see what to take for pain, warm transferred to [facility]. IC LICENSED PRACTICAL NURSE documented in this encounter Plan of Treatment Not on filedocumented as of this encounter Visit Diagnoses Not on filedocumented in this encounter Care Teams Coach Driver Relationship Specialty Start Date End Date Nasrin Houser MD PCP - General Internal Medicine 06/12/19 07/11/20 [address] [place] [address] documented as of this encounter
--- OUTSIDE RECORDS SUMMARY | 2022-06-19 16:13 | XMS_ITS | Encounter Summary ---
:1995 Author Organization [facility] Address [address] [place] [address] Care Team Providers Name Role Phone Nasrin Houser MD Primary Care Provider Encounter Details Date Type Department Care Team Description 11/04/2019 [facility] examination in [facility] survey (Primary Dx); [address] Screen for STD (sexually tra nsmitted disease) [place] [address] Social History Tobacco Use Types Packs/Day Years [...] Name Priority Date/Time Associated Diagnosis Comme nts CONTAINER TEST Routine 11/04/2019 3:20 PM Health examination R esults for this KNOT BORER in population survey procedu re are in the results section. CHLAMYDIA & GC, Routine 11/04/2019 3:20 PM Screen for STD Resu lts for this URINE (14 YEARS AND KNOT BORER (sexually procedur e are in OLDER) transmitted disease) the res ults section. documented in this encounter Results Chlamydia and GC, Urine STD (11/04/2019 3:20 PM KNOT BORER) [facility] Method Time Signature Chlamydia Not Not 11/05/2019 [facility] Trachomatis Detected Detected 2:38 PM [facility] C[facility]AL [facility] STD N. gonorrhoeae Not Not 11/05/2019 [facility] STD Detected Detected 2:38 PM [facility] Specimen Anatomical Collection Method Collection Time Receive d Time (Source) Location / / Volume Laterality Urine STD (Urine Non-blood 11/04/2019 3:20 PM 11/03 4:23 for STD) Collection / KNOT BORER PM KNOT BORER Unknown Narrative [facility] - 11/05/2019 2:38 PM KNOT BORER Test performed by Molecular Detection Urine Volume submitted was greater than 30 ml. Excess collection volume may decrease test sensitivity. Bere Nicole DO LAB_1 Performing Organization Address City/[facility]/ZIP Code Phon e Number [facility] [address] [address] CONTAINER TEST (11/04/2019 3:20 PM KNOT BORER) athologist Signature Container Done 11/04/2019 [facility] Given 5:01 PM [facility] Specimen Anatomical Collection Method Collection Time Receive d Time (Source) Location / / Volume Laterality Other Specimen 11/04/2019 3:20 PM 020 3:55 Type KNOT BORER PM KNOT BORER Bere Nicole LAB_1 Performing Organization Address City/[facility]/ZIP Code Phon e Number [facility] [address] [place], [place] [address] documented in this encounter Visit Diagnoses Diagnosis Health examination in population survey - Primary Screen for STD (sexually transmitted dis ease) Screening examination for venereal disea se documented in this encounter Care Teams Dermatology Physician Relationship Specialty Start Date End Date Nasrin Houser MD PCP - General Internal Medicine 06/12/19 07/11/20 [address] [place], [place] [id number] documented as of this encounter
--- OUTSIDE RECORDS SUMMARY | 2022-06-19 16:13 | XMS_ITS | Encounter Summary ---
:1995 Author Organization [facility] Address [address] [place] [address] Care Team Providers Name Role Phone Nasrin Houser MD Primary Care Provider Reason for Visit Reason Comments ERRONEOUS ENTRY Encounter Details Date Type Department Care Team Description 12/05/2019 Telephone Careline Unknown, Physician ERRONEOUS ENTRY [address] [place], [place] [address] [place] [address] [phone] (Wo rk) Social History Tobacco Use Types [...] on filedocumented in this encounter Care Teams Modern Greek Studies Professor Relationship Specialty Start Date End Date Nasrin Houser MD PCP - General Internal Medicine 06/12/19 07/11/[address] [id number] documented as of this encounter
--- OUTSIDE RECORDS SUMMARY | 2022-06-19 16:13 | XMS_ITS | Encounter Summary ---
:1996 [facility] Address [address], [place] [address] Care Team Providers Name Role Phone Francisca Cunningham PA-C Primary Care Provider Reason for Visit Reason Comments VAGINAL BLEEDING Possibly Encounter Details Date Type Department Care Team Description 08/05/2020 Telephone [facility] Pcp, VAGINAL BLEEDING [address] Assignment (Possibly ) [address] [address] [facility] [phone] [place], [place] [address] Social History Tobacco Use Types Packs/Day Years Used Date Smoking Tobacco: Never Smokeless Tobacco: Never Alcohol Use Standard Drinks/Week Comments Yes 0 (1 standard drink = 0.6 oz pure alcoho l) 1-2 drinks a month Sex Assigned at Date Recorded Not on file documented as of this encounter Nursing Notes Maya Novoa - 08/05/2020 7:27 AM CST SIT MANAGER documented in this encounter Plan of Treatment Not on filedocumented as of this encounter Visit Diagnoses Not on filedocumented in this encounter Care Teams Schedule Analyst Relationship Specialty Start Date End Date Francisca Cunningham PA-C PCP - General Physician Motor Equipment Sergeant 10/05/[address] [id number] documented as of this encounter
--- OUTSIDE RECORDS SUMMARY | 2022-06-19 16:13 | XMS_ITS | Encounter Summary ---
:1996 Author Organization [facility] Address [address], [place] [address] Care Team Providers Name Role Phone Nasrin Houser MD Primary Care Provider Encounter Details Date Type Department Care Team Description 09/09/2019 Lab Visit [facility] Preoperative examination [address] [place] [address] Social History Tobacco Use Types Packs/Day Years [...] Name Priority Date/Time Associated Diagnosis Comme nts TEST Routine 09/09/2019 12:00 Preoperative Results f or this (URINE) PM ORNAMENTAL METAL ERECTOR APPRENTICE examination procedure are i n the results section. CBC AND DIFFERENTIAL Routine 09/09/2019 11:52 Preoperative Res ults for this PANEL AM ORNAMENTAL METAL ERECTOR APPRENTICE examination procedure are i n the results section. COMPLETE BLOOD Routine 09/09/2019 11:52 Preoperative Results f or this COUNT-W/DIFF AM ORNAMENTAL METAL ERECTOR APPRENTICE examination procedure are i n the results section. documented in this encounter Results Test Screen Urine (09/09/2019 12:00 PM ORNAMENTAL METAL ERECTOR APPRENTICE) P athologist Signature HCG, Urine Negative Negative 09/09/2019 [facility] 12:00 PM ORNAMENTAL METAL ERECTOR APPRENTICE LAB[facility]ORY ([facility]) Specimen Anatomical Collection Method Collection Time Receive d Time (Source) Location / / Volume Laterality Urine URINE SPECIMEN Non-blood 09/09/2019 12:00 0 COLLECTION, CLEAN Collection / PM ORNAMENTAL METAL ERECTOR APPRENTICE 12:[address] CATCH / Unknown Unknown Nasrin Houser MD LAB_1 Performing Organization Address City/State/ZIP Code Phon e Number [facility] ([facility]) [address] [phone] Complete Blood Count-W/Diff (09/09/2019 11:52 AM ORNAMENTAL METAL ERECTOR APPRENTICE) P athologist Signature WBC 7.4 3.5 - 10.5 09/09/2019 [facility] x10(9)/L 11:57 AM ORNAMENTAL METAL ERECTOR APPRENTICE LABORATORY (PN) RBC 4.31 3.90 - 09/09/2019 [facility] 5.03 11:57 AM ORNAMENTAL METAL ERECTOR APPRENTICE LABORATORY (PN) x10(12)/L Hemoglobin 12.9 12.0 - 09/09/2019 [facility] 15.5 g/dL 11:57 AM ORNAMENTAL METAL ERECTOR APPRENTICE LAB[facility]ORY (PN) HCT 38.6 34.9 - 09/09/2019 [facility] 44.5 % 11:57 AM ORNAMENTAL METAL ERECTOR APPRENTICE [facility] (PN) MCV 89.6 80.0 - 09/09/2019 [facility] 100.0 fL 11:57 AM ORNAMENTAL METAL ERECTOR APPRENTICE LAB[facility]ORY (PN) MCH 29.9 27.6 - 09/09/2019 [facility] 33.3 pg 11:57 AM ORNAMENTAL METAL ERECTOR APPRENTICE LAB[facility]ORY (PN) MCHC 33.4 31.5 - 09/09/2019 [facility] 35.2 g/dL 11:57 AM ORNAMENTAL METAL ERECTOR APPRENTICE LABOR[facility]ORY (PN) RDW 12.4 11.9 - 09/09/2019 [facility] 15.5 % 11:57 AM ORNAMENTAL METAL ERECTOR APPRENTICE LAB[facility]ORY (PN) Platelets 251 150 - 450 09/09/2019 [facility] x10(9)/L 11:57 AM ORNAMENTAL METAL ERECTOR APPRENTICE LAB[facility]ORY (PN) Neutrophil 4.3 1.7 - 7.0 09/09/2019 [facility] Absolute 10(9)/L 11:57 AM ORNAMENTAL METAL ERECTOR APPRENTICE LABOR[facility]ORY (PN) Lymphocyte 2.2 1.0 - 4.8 09/09/2019 [facility] Absolute 10(9)/L 11:57 AM ORNAMENTAL METAL ERECTOR APPRENTICE LAB[facility]ORY (PN) Monocytes 0.7 0.2 - 0.9 09/09/2019 [facility] Absolute 10(9)/L 11:57 AM ORNAMENTAL METAL ERECTOR APPRENTICE LAB[facility]ORY (PN) Eosinophil 0.1 0.0 - 0.5 09/09/2019 [facility] Absolute 10(9)/L 11:57 AM ORNAMENTAL METAL ERECTOR APPRENTICE LAB[facility]ORY (PN) Basophil 0.0 0.0 - 0.3 09/09/2019 [facility] Absolute 10(9)/L 11:57 AM ORNAMENTAL METAL ERECTOR APPRENTICE LAB[facility]ORY (PN) Specimen Anatomical Collection Method / Collection Time Recei denisse Time (Source) Location / Volume Laterality Blood Venipuncture / 09/09/2019 11:52 0 Unknown AM ORNAMENTAL METAL ERECTOR APPRENTICE 11:52 AM ORNAMENTAL METAL ERECTOR APPRENTICE Nasrin Houser MD LAB_1 Performing Organization Address City/State/ZIP Code Phon e Number [facility] ([place]) [address] [phone] documented in this encounter Visit Diagnoses Diagnosis Preoperative examination Preoperative examination, unspecified documented in this encounter Care Teams Entry Specialist Relationship Specialty Start Date End Date Nasrin Houser MD PCP - General Internal Medicine 06/12/19 07/11/[address] [place] [address] documented as of this encounter
--- OUTSIDE RECORDS SUMMARY | 2022-06-19 16:13 | XMS_ITS | Encounter Summary ---
:1995 Author Organization [facility] Address [address] [address] Care Team Providers Name Role Phone Nasrin Houser MD Primary Care Provider Encounter Details Date Type Department Care Team Description 12/12/2019 Orders Only Initial Department Provider, [address] JOSE MIGUEL RICE MD [place], [place] [address] Interface provider [phone] [place] [address] Social History Tobacco Use Types Packs/Day Years [...] Date/Time Associated Diagnosis Comme nts LABORATORY REPORT 12/12/2019 Results fo r this procedure are in the resu lts section. documented in this encounter Results LABORATORY REPORT (12/12/2019) Narrative This result has an attachment that is no t available. Interface Provider DUMMY/OTHER/AR documented in this encounter Visit Diagnoses Not on filedocumented in this encounter Care Teams Attache Relationship Specialty Start Date End Date Nasrin Houser MD PCP - General Internal Medicine 06/12/19 07/11/20 [address] [place] [id number] documented as of this encounter
--- OUTSIDE RECORDS SUMMARY | 2022-06-19 16:13 | XMS_ITS | Encounter Summary ---
:1995 Author Organization [facility] Address [address] [place] [address] Care Team Providers Name Role Phone Needs Pcp, Assignment Primary Care Provider Reason for Visit Reason Comments INITIAL VISIT Encounter Details Date Type Department Care Team Description 08/31/2020 Initial [place] [address]15 Jerica Vides INITIAL Obstetrics/Gynecolog MD Gaurav VISIT y 1515 [facility] [address] [place] [phone] Social History Tobacco Use Types Packs/Day Years [...] Comments Blood Pressure 118/70 08/31/2020 2:43 PM HEAD STILL OPERATOR Pulse - - Temperature - - Respiratory Rate - - Oxygen Saturation - - Inhaled Oxygen Concentration - - Weight 66.2 kg (146 lb) 08/31/2020 2:43 PM HEAD STILL OPERATOR Height 152.4 cm (5') 08/31/2020 2:43 PM HEAD STILL OPERATOR Body Mass Index 28.51 08/31/2020 2:43 PM HEAD STILL OPERATOR documented in this encounter Progress Notes Jerica Vides MD - 08/31/2020 2:30 PM CST New OB visit Chief Complaint: new OB visit HISTORY OF PRESENT ILLNESS:New OB visit. Patient's last menstrual period was 06/18/2020 (exact date).. 25 y.o. at 11w1d presents for NOB visit. Unplanned but father of the baby and her excited. She has an extensive history of anxiety depression and does have a psychiatrist and a therapist. She is now on Zoloft 50 mg daily and is using trazodone and Xanax on occasion. Past Medical History: Past Medical History: Diagnosis Date ??? Depression (HRC) Past Surgical History: Past Surgical History: Procedure Laterality Date ??? LAP CHOLECYSTECTOMY 09/18/2019 ??? WISDOM TEETH EXTRACTION Family History Problem Relation Age of Onset ??? Bipolar Disorder Mother ??? Cancer, Ovary Sister ??? Bipolar Disorder Sister ??? Cancer, Ovary Maternal Grandmother ??? Cancer, Lung Maternal Grandmother OB History Para Term AB Living 1 0 0 0 0 0 SAB TAB Ectopic Multiple Live Births 0 0 0 0 0 # Outcome Date GA Lbr Filemon/2nd Weight Sex Delivery Anes PTL Lv 1 Current Current Medications: Outpatient Medications Prior to Visit Medication Sig Dispense Refill ??? acetaminophen (TYLENOL) 325 MG tablet Take 325-650 mg by mouth every 4 hours as needed for Pain. ??? ALPRAZolam (XANAX) 0.5 MG tablet Take 1 Tablet by mouth every 6 hours as needed for Anxiety. 20 Tablet 0 ??? Vit-DSS-Fe Cbn-FA ( AD OR) ??? sertraline (ZOLOFT) 50 MG tablet Take 1 Tablet by mouth daily. 30 Tablet 5 ??? traZODone (DESYREL) 50 MG tablet Take 1-2 Tablets by mouth daily at bedtime. 180 Tablet 3 ??? cyclobenzaprine (FLEXERIL) 10 MG [...] 1 ??? predniSONE (DELTASONE) 10 MG tablet No facility-administered medications prior to visit. 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 She was using marijuana up until 1 week ago. Review of Systems: Breast tenderness With the exception of any items noted above, the remainder of the complete ROS is negative. Please Epic also. OBJECTIVE: BP 118/70 (BP Location: Right Arm, BP Cuff Size: Regular) Ht 5' (1.524 m) Wt 146 lb (66.2 kg) LMP 06/18/2020 (Exact Date) No BMI 28.51 kg/m?? Vital Signs: Vital Signs taken today were reviewed on the flowsheet in Epic General: Patient is alert and oriented x 3 with appropriate mood and affect. NAD. HEENT: Head is normocephalic. Oral mucosa is pink and moist. Neck: Supple, with no thyromegaly appreciated. Heart: regular rate and rhythm Lungs: Clear to auscultation bilaterally Breasts: Symmetric with no masses, skin dimpling, nipple discharge,erythema,or adenopathy appreciated. Abdomen: Soft, non-tender, with no masses appreciated : External genitalia, urethral meatus, perineum appear normal. Speculum exam showed normal vaginalepithelium and cervix. Pap and STD probe collected. Labs: labs ordered, Pap and STD Ob ultrasound today FINDINGS: Gestational sac: Unremarkable. ?? Streetman-rump length measures 4.4 cm, corresponding to 11w1d gestational age. ?? LE . ?? Embryonic/ cardiac activity is identified with heart rate 167 bpm. ?? Right Ovary: Measures 2.3 x 1.4 x 1.3 cm and appears unremarkable. ?? Left Ovary: Measures 2.2 x 0.8 x 1.0 cm and appears unremarkable. ?? No suspicious adnexal masses. ?? Free Fluid: No significant free fluid. ?? GA by LMP: 10w4d GA by Prior US: n/a GA by today's US: 11w1d LE by today's US: ?? IMPRESSION: Single live intrauterine gestation measuring 11 weeks 1 day by crown-rump length ASSESSMENT: 25 y.o. at 11w1d , Estimated Date of Delivery: 03/21/21, new OB visit ICD-10-CM 1. Encounter for supervision of normal first in first trimester Z34.01 Urinalysis Routine(Micro If Pos) Urine Culture 2. Anxiety disorder affecting , antepartum O99.340 F41.9 3. Nausea and vomiting in O21.9 4. Screening for diabetes mellitus Z13.1 HGB A1C 5. Encounter for blood typing Z01.83 Blood Group & RH (Blood Type) 6. screening for isoimmunization Z36.5 Antibody Screen 7. Screening for blood disease Z13.0 HEMOGRAM/PLTS/DIFF 8. Screening examination for venereal disease Z11.3 HEP B SURFACE ANTIGEN, NO REFLEX HIV 1/2 Ag/Ab 4th Generation Treponema Screen CHLAMYDIA & GC 9. Screening examination for rubella Z11.59 Rubella Immune Status, IgG 10. Encounter for drug screening Z02.83 Drugs of Abuse Screen, Urine, w/ conf 11. Screening for malignant neoplasm of cervix Z12.4 Scr Pap Smer; Obtain Prep&Convy-Lab PAP Test PLAN: Reviewed provider guidelines which include counseling on genetic screening, diet and nutrition, physical and sexual activity, childbirth classes, labor and delivery coverage, seat belt use, breast-feeding, and schedule of appointments. She states she is able to discontinue marijuana without diffi culty. Discussed increasing her Zoloft as her a PDS was 17 today. She will talk with her psychiatrist regarding this. Recommend vitamin B6 and Unisom for nausea. labs ordered. Will follow up in 4 weeks and as needed. Please see Epic episode also. All questions answered. Total time 30 minutes, counseling time 20 minutes STILL OPERATOR documented in this encounter Plan of Treatment Not on filedocumented as of this encounter Procedures Procedure Name Priority Date/Time Associated Diagnosis Comme nts PAP TEST Routine 08/31/2020 3:27 PM Screening for Results for this HEAD STILL OPERATOR malignant neoplasm procedure are in of cervix the results section. CHLAMYDIA & GC (14 Routine 08/31/2020 3:27 PM Screening Res ults for this YEARS AND OLDER) HEAD STILL OPERATOR examination for procedur e are in venereal disease the results section. documented in this encounter Results CHLAMYDIA & GC (08/31/2020 3:27 PM HEAD STILL OPERATOR) [facility] Method Time Signature Chlamydia Not Not 09/01/2020 [facility] Trachomatis Detected Detected 12:14 PM CENTRAL LAB STD HEAD STILL OPERATOR N. gonorrhoeae Not Not 09/01/2020 [facility] STD Detected Detected 12:14 PM CENTRAL LAB HEAD STILL OPERATOR Specimen Anatomical Collection Method Collection Time Receive d Time (Source) Location / / Volume Laterality Swab STD ENTIRE ENDOCERVIX Non-blood 08/31/2020 3:27 PM 08/04 4:29 / Unknown Collection / HEAD STILL OPERATOR PM HEAD STILL OPERATOR Unknown Narrative [facility] - 09/01/2020 12:14 PM HEAD STILL OPERATOR Test performed by Molecular Detection Jerica Vides MD LAB_1 Performing Organization Address City/State/ZIP Code Phon e Number [facility] [address] [place] [id number] PAP Test (08/31/2020 3:27 PM HEAD STILL OPERATOR) Component Value Ref Test Analysis Performed At [facility] Range Method Time Signature Case Report Pap ? Case: [id number] ? 09/05/2020 [facility] Authorizing Provider: ??Phill on, Jerica Nolasco MD ?Collected: ? 08/31/2020 1527 ? 2:39 PM LABORAT ORY Ordering Location: ? [facility] [place] [address] ?Received: ?08/31/2020 1629 ? HEAD STILL OPERATOR ? Obstetrics/Gynecology ? First Screen: ? Maryann Gomez, CT ? (ASCP) ? Specimen: ?Pap Test, Rou kirstie, Cervix/Endocervix ? Pap Specimen Satisfactory for 09/05/2020 [facility] Adequacy evaluation, 2:39 PM LABORATORY endocervical/brown HEAD STILL OPERATOR sformation zone component present. Pap Negative for 09/05/2020 [facility] Electr onically Interpretation intraepithelial 2:39 PM LABORATOR Y signed by lesion or HEAD STILL OPERATOR Juany Gomez D, CT ( CP) on ([facility]). 09/05/2020 a t 2:39 PM Pap Disclaimer The Pap test is a 09/05/2020 METHOD IST screening test 2:39 PM LABORATORY designed to aid HEAD STILL OPERATOR in the detection of cervical cancer and its precursor lesions. It is not a diagnostic procedure and should not be used as the sole means of detecting cervical cancer. Both false-positive and false-negative results may occur. Gross The specimen is 09/05/2020 [facility] Description received in 2:39 PM LABORATORY [employer] fixative HEAD STILL OPERATOR and properly labeled. 1 Pap-stained [employer] slide is prepared. Embedded Images 09/05/2020 [facility] 2:39 PM LABORATORY HEAD STILL OPERATOR Specimen Anatomical Collection Method Collection Time Receive d Time (Source) Location / / Volume Laterality Other Specimen ENTIRE ENDOCERVIX 08/31/2020 3:27 PM 4:29 Type / Unknown HEAD STILL OPERATOR PM HEAD STILL OPERATOR Comment: LMP: Patient's last menstrual p eriod was 06/18/2020 (exact date). Jerica Vides MD LAB PATHOLOGY Performing Organization Address City/State/ZIP Code Phon e Number [facility] [address] [place] [address] (ABNORMAL) Drugs of Abuse Screen, Urine, w/ conf (08/31/2020 3:27 PM HEAD STILL OPERATOR) [facility] Method Time Signature Amphetamines Not Detected Not 08/31/2020 [facility] Screen Detected 11:06 PM LABORATORY HEAD STILL OPERATOR Barbiturates Not Detected Not 08/31/2020 [facility] Screen Detected 11:06 PM LABORATORY HEAD STILL OPERATOR Benzodiazepines Not Detected Not 08/31/2020 [facility] Screen Detected 11:06 PM LABORATORY HEAD STILL OPERATOR Buprenorphine Not Detected Not 08/31/2020 [facility] Screen Detected 11:06 PM LABORATORY HEAD STILL OPERATOR Cocaine Metabolite Not Detected Not 08/31/[address] Screen Detected 11:06 PM LABORATORY HEAD STILL OPERATOR Methadone Screen Not Detected Not 08/31/2020 [facility] Detected 11:06 PM LABORATORY HEAD STILL OPERATOR Opiates Screen Not Detected Not 08/31/2020 [facility] Detected 11:06 PM LABORATORY HEAD STILL OPERATOR Oxycodone Screen Not Detected Not 08/31/2020 [facility] Detected 11:06 PM LABORATORY HEAD STILL OPERATOR Phencyclidine Not Detected Not 08/31/2020 [facility] (PCP) Screen Detected 11:06 PM LABORATORY HEAD STILL OPERATOR THC (Marijuana) Presumptive Not 08/31/2020 [facility] Metab Screen Positive (A) Detected 11:06 PM LABORATORY HEAD STILL OPERATOR Creatinine, Urine, 60 >20 mg/dL 08/31/2020 [facility] Random 11:06 PM LABORATORY HEAD STILL OPERATOR Specimen Anatomical Collection Method Collection Time Receive d Time (Source) Location / / Volume Laterality Urine Non-blood 08/31/2020 3:27 PM 0 3:27 Collection / HEAD STILL OPERATOR PM HEAD STILL OPERATOR Unknown Narrative [facility] - 08/31/2020 11:06 PM HEAD STILL OPERATOR The absence of expected drug(s) and/or d [...] Organization Address City/State/ZIP Code Phon e Number [facility] [address] [place] [address] Urine Culture (08/31/2020 3:27 PM HEAD STILL OPERATOR) [facility] Method Time Signature Urine Culture Urogenital 09/01/2020 [facility] 7:23 PM HEAD STILL OPERATOR HOSPITAL Specimen Anatomical Collection Method Collection Time Receive d Time (Source) Location / / Volume Laterality Urine URINE SPECIMEN Non-blood 08/31/2020 3:27 PM 020 3:27 COLLECTION, CLEAN Collection / HEAD STILL OPERATOR PM HEAD STILL OPERATOR CATCH / Unknown Unknown Jerica Vides MD LAB_1 Performing Organization Address City/[facility] Phon e Number [address] [address] Urinalysis Routine(Micro If Pos) (08/31/2020 3:27 PM HEAD STILL OPERATOR) [facility] gist Method Time Signature Urine Color Straw Straw-Yellow 08/31/2020 [place] 3:44 PM HEAD STILL OPERATOR LABORATORY Urine Clarity Clear Clear 08/31/2020 [place] 3:44 PM HEAD STILL OPERATOR LABORATORY Specific 1.015 1.005 - 08/31/2020 [place], 1.030 3:44 PM HEAD STILL OPERATOR LABORATORY Urine PH Urine 7.5 5.0 - 8.0 08/31/2020 [place] 3:44 PM HEAD STILL OPERATOR LABORATORY Protein, Negative Neg/Trace 08/31/2020 [place] Urine Qual 3:44 PM HEAD STILL OPERATOR LABORATORY (mg/dL) Glucose Urine Negative Negative 08/31/2020 [place] Qual (mg/dL) 3:44 PM HEAD STILL OPERATOR LABORATORY Ketones, Negative Negative 08/31/2020 [place] Urine (mg/dL) 3:44 PM HEAD STILL OPERATOR LABORATORY Urobilinogen, 0.2 <2.0 08/31/2020 [place] Urine (EU/dL) 3:44 PM HEAD STILL OPERATOR LABORATORY Bilirubin Negative Negative 08/31/2020 [place] Urine 3:44 PM HEAD STILL OPERATOR LABORATORY Blood, Urine Negative Neg/Trace 08/31/2020 [place] 3:44 PM HEAD STILL OPERATOR LABORATORY Nitrite Urine Negative Negative 08/31/2020 [place] 3:44 PM HEAD STILL OPERATOR LABORATORY Leukocyte Negative Negative 08/31/2020 [place] Est. 3:44 PM HEAD STILL OPERATOR LABORATORY Urine Source Clean Catch 08/31/2020 [place] 3:44 PM HEAD STILL OPERATOR LABORATORY Specimen Anatomical Collection Method Collection Time Receive d Time (Source) Location / / Volume Laterality Urine URINE SPECIMEN Non-blood 08/31/2020 3:27 PM 020 3:27 COLLECTION, CLEAN Collection / HEAD STILL OPERATOR PM HEAD STILL OPERATOR CATCH / Unknown Unknown Jerica Vides MD LAB_1 Performing Organization Address [facility] Phon e Number [facility] [address] [place] [phone] Rubella Immune Status, IgG (08/31/2020 3:27 PM HEAD STILL OPERATOR) athologist Signature Rubella Units 4.09 09/01/2020 [facility] 10:15 AM HEAD STILL OPERATOR LABORATORY Comment: The magnitude of the measured r esult, above the cutoff, is not indicative of the amount of antibody present. Rubella Intepretation Immune Immune 09/01/2020 10: 15 AM HEAD STILL OPERATOR [facility] Specimen Anatomical Collection Method / Collection Time Recei denisse Time (Source) Location / Volume Laterality Blood Venipuncture / 08/31/2020 3:27 08/31/2020 3:27 Unknown PM HEAD STILL OPERATOR PM HEAD STILL OPERATOR Jerica Vides MD LAB_1 Performing Organization Address City/[facility] Phon e Number [facility] [address] [place] [address] Treponema Screen (08/31/2020 3:27 PM HEAD STILL OPERATOR) [facility] gist Method Time Signature Treponema Screen 0.028 {s_co_ratio 08/31/2020 [facility] Result } 10:21 PM LABORATORY HEAD STILL OPERATOR Treponema Screen Non Non 08/31/2020 [facility] Interpretation Reactive Reactive 10:21 PM LABORATORY HEAD STILL OPERATOR Specimen Anatomical Collection Method / Collection Time Recei denisse Time (Source) Location / Volume Laterality Blood Venipuncture / 08/31/2020 3:27 08/31/2020 3:27 Unknown PM HEAD STILL OPERATOR PM HEAD STILL OPERATOR Jerica Vides MD LAB_1 Performing Organization Address [facility] Phon e Number [facility] [address] [place] [address] HIV 1/2 Ag/Ab 4th Generation (08/31/2020 3:27 PM HEAD STILL OPERATOR) [facility] Method Time Signature HIV 1/2 Negative Negative 08/31/2020 [facility] Antigen/Antib (Non (Non 10:16 PM LABORATORY noah (4th Reactive) Reactive) HEAD STILL OPERATOR generation) Comment: HIV-1 p24 Antigen and HIV-1/HIV -2 Antibody not detected Specimen Anatomical Collection Method / Collection Time Recei denisse Time (Source) Location / Volume Laterality Blood Venipuncture / 08/31/2020 3:27 08/31/2020 3:27 Unknown PM HEAD STILL OPERATOR PM HEAD STILL OPERATOR Jerica Vides MD LAB_1 Performing Organization Address [facility] Phon e Number [facility] [address] [place] [address] HEP B SURFACE ANTIGEN, NO REFLEX (08/31/2020 3:27 PM HEAD STILL OPERATOR) [facility] Method Time Signature Hepatitis B Negative Negative 08/31/2020 [facility] Surface (Non (Non 10:18 PM LABORATORY Antigen Reactive) Reactive) HEAD STILL OPERATOR Specimen Anatomical Collection Method / Collection Time Recei denisse Time (Source) Location / Volume Laterality Blood Venipuncture / 08/31/2020 3:27 08/31/2020 3:27 Unknown PM HEAD STILL OPERATOR PM HEAD STILL OPERATOR Jerica Vides MD LAB_1 Performing Organization Address [facility] Phon e Number [facility] [address] [place] [address] Antibody Screen (08/31/2020 3:27 PM HEAD STILL OPERATOR) [facility] Method [place] Signature Antibody Screen Negative 08/31/2020 [facility] Interpretation 10:35 PM HEAD STILL OPERATOR BLOOD BANK Specimen Anatomical Collection Method / Collection Time Recei denisse Time (Source) Location / Volume Laterality Blood Venipuncture / 08/31/2020 3:27 08/31/2020 3:27 Unknown PM HEAD STILL OPERATOR PM HEAD STILL OPERATOR Jerica Vides MD LAB_1 Performing Organization Address [facility]/ZIP Code Phon e Number [facility] [address] [place] [address] Blood Group & RH (Blood Type) (08/31/2020 3:27 PM HEAD STILL OPERATOR) P athologist Signature ABO O 08/31/2020 [facility] 10:29 PM HEAD STILL OPERATOR BLOOD BANK RH Positive 08/31/2020 [facility] 10:29 PM HEAD STILL OPERATOR BLOOD BANK Specimen Anatomical Collection Method / Collection Time Recei denisse Time (Source) Location / Volume Laterality Blood Venipuncture / 08/31/2020 3:27 08/31/2020 3:27 Unknown PM HEAD STILL OPERATOR PM HEAD STILL OPERATOR Jerica Vides MD LAB_1 Performing Organization Address [facility] Phon e Number [facility] [address] [place] [address] HGB A1C (08/31/2020 3:27 PM HEAD STILL OPERATOR) [facility] Method Time Signature Hemoglobin A1C 5.3 <=5.6 % 09/01/2020 [employer] 8:14 AM HEAD STILL OPERATOR CENTRAL LAB Specimen Anatomical Collection Method / Collection Time Recei denisse Time (Source) Location / Volume Laterality Blood Venipuncture / 08/31/2020 3:27 08/31/2020 3:27 Unknown PM HEAD STILL OPERATOR PM HEAD STILL OPERATOR Jerica Vides MD LAB_1 Performing Organization Address [facility] Phon e Number [employer] CENTRAL LAB [address] [phone] documented in this encounter Visit Diagnoses Diagnosis Encounter for supervision of normal firs t in first trimester - Primary Supervision of normal first Anxiety disorder affecting , an tepartum (HRC) Nausea and vomiting in Unspecified vomiting of , unspe cified as to episode of care Screening for diabetes mellitus Encounter for blood typing screening for isoimmunization Screening for blood disease Screening for unspecified disorder of bl ood and blood-forming organs Screening examination for venereal disea se Screening examination for rubella Encounter for drug screening Screening for malignant neoplasm of cerv ix Screening for malignant neoplasm of the cervix documented in this encounter Care Teams [employer] Relationship Specialty Start Date End Date Needs Pcp, Assignment PCP - General 07/12/20 10/04/20 [place] [address] documented as of this encounter
--- OUTSIDE RECORDS SUMMARY | 2022-06-19 16:13 | XMS_ITS | Encounter Summary ---
:1995 Author Organization [facility] Address [address] [address] Care Team Providers Name Role Phone Nasirn Houser MD Primary Care Provider Encounter Details Date Type Department Care Team Description 04/29/2020 Partner ED Initial Department [facility] [address] MD 04/25/2020 [place], [place] [address] Interface [phone] [place] [address] Social History Tobacco Use Types Packs/Day Years [...] on filedocumented in this encounter Care Teams News Photographer Relationship Specialty Start Date End Date Nasrin Houser MD PCP - General Internal Medicine 06/12/19 07/11/20 [address] [place] [id number] documented as of this encounter
--- OUTSIDE RECORDS SUMMARY | 2022-06-19 16:13 | XMS_ITS | Encounter Summary ---
:1995 Author Organization [facility] Address [address] [place] [id number] Care Team Providers Name Role Phone Nasrin Houser MD Primary Care Provider Reason for Visit Reason Comments James Medication Questions Encounter Details Date Type Department Care Team Description 12/03/2019 Telephone [facility] Abel Ramirez MD Jose; Medication [facility] [address] [place] [address] DR Questions [facility] [place], [place] [id number] [place] [address] [phone] Social History Tobacco Use Types Packs/Day Years Used Date Smoking Tobacco: Never Smokeless Tobacco: Never Alcohol Use Standard Drinks/Week Comments Yes 0 (1 standard drink = 0.6 oz pure alcoho l) 1-2 drinks a month Sex Assigned at Date Recorded Not on file documented as of this encounter Nursing Notes Dasia Desouza LPN - 12/08/2019 10:33 AM CDT Spoke with pt. Provider recommendations given. Discussed relaxation and meditation techniques. Use of ice packs, deep breathing. She understands it will take time to determine efficacy of increase in Citalopram. Pt will limit her alcohol intake. Pt will call clinic back with any questions or concerns. Dasia Desouza LPN Ed Ramirez MD - 12/08/2019 10:09 AM CDT I recommend patient try to limit alcohol usage as alcohol as it has a propensity to exacerbate overall anxiety symptoms. Although alcohol can momentarily have a ???calming effect?? , once alcohol starts to leave the body it can cause a rebound anxiety. If patient experiences an anxiety attack after drinking alcohol, recommend first trying to use behavioral interventions, such as slow paced breathing,ice packs to the face, going for a walk, etc to help manage symptoms. If she has consumed only minimal alcohol, then it is probably okay to take Ativan, as long as it is from the alcohol consumption by approximately 90 minutes. Of note, there are not too many available as needed medications used for acute anxiety. There is gabapentin, but I would recommend just being prescribed one medication be used as needed for anxiety (currently Ativan). As reminder for patient, the increased dose of Celexa is meant to be the main medication to help with overall anxiety symptoms. It was just increased on 11/25/2019, so it still can takeanother couple weeks or so to have full affect. There is also still room to increase the dose further, if needed. Ed Ramirez MD Cheri Horn RN - 12/07/2019 2:36 PM CDT Spoke with pt, she was agreeable to trying to increase the lorazepam to see if the higher dose wouldbe more effective. However, pt states she will drink 1-2 glasses of wine in the evenings, not all the time but with consistency. She is aware that she should not drink and take the lorazepam, but she says that evenings can be more difficult and if she has had wine and then the anxiety starts she does not know what to do. Pt has tried hydroxyzine in the past, feels it is somewhat helpful but it causesher to be very tired and she can not use it during the day at all because it puts her to sleep. Willroute to Dr. Ramirez to consult, will then call back. Ok to leave a detailed message. Cheri Horn RN Opal Mccrary - 12/07/2019 11:50 AM CDT Returning nurse Michelle's call. Please call again. Ok to leave a detailed message on voicemail. Michelle Singh RN - 12/07/2019 9:10 AM CDT Left message x2 to call back RN in clinic Michelle Singh RN Michelle Singh RN - 12/04/2019 2:05 PM CDT Left message to call back RN in clinic- if RN not available, clinic assist please ask pt if OK to leave detailed message with recommendation on voicemail when RN calls back Michelle Singh RN Opal Mccrary - 12/04/2019 1:06 PM CDT Returning nurse Michelle's call. Please call again. Michelle Singh RN - 12/04/2019 8:52 AM CDT Left message x2 to call back RN in clinic Michelle Singh RN Nela Alonso RN - 12/03/2019 2:45 PM CDT Left message for a return call to discuss providers recommendations. Nela Alonso RN Ed Ramirez MD - 12/03/2019 2:33 PM CDT If she did not notice any effect with taking one tablet of Ativan 0.5 mg, then I recommend she try doubling up the dose to Ativan 1 mg (I.e. 2 tablets) to see if that has effect for anxiety/panic symptoms. If that dose is found to be helpful, then we can update her prescription to Ativan 1 mg tab every 6 hours as needed for anxiety, once she is due for refill. Ed Ramirez MD Nela Alonso RN - 12/03/2019 1:55 PM CDT PLAN 11/25/19 office visit note: ?? 1) PSYCHOTROPIC MEDICATIONS: - Increase Celexa to 20 mg daily - Start Ativan 0.5 mg Q6H prn anxiety (15 tab per month) Called patient back, she said she had a significant anxiety attack yesterday and she tried taking the Lorazepam 0.5 MG and it didn't do anything. Asked her if it took the edge off and she said it didn't feel like she had taken anything. Routing to provider for recommendations. Nela Alonso RN Raven Page - 12/03/2019 1:25 PM CDT Patient returned call. Yanira Marcial RN - 12/03/2019 1:04 PM CDT RN called and left message for patient to call back re: needing recommendations as to what next stepis, as the recently prescribed Ativan is not working for her panic attacks. Per providers notes from last clinic appointment dated 11/25/19: TODAY: Patient with history of depression, anxiety, and trauma seen for telemedicine psychiatric intake. Patient reports ongoing challenges with with mental health symptoms that have felt more problematic since the Summer in the context of moving to the [facility] and being closer to the [...] Also encouraged her to continue with therapy. Prescribed medications per EMR: 1. Citalopram 20 m tab daily 2. Lorazepam 0.5 m tab q6h PRN anxiety Last appt: 11/25/19 RTC: 01/2020 Yanira Marcial RN Valdez Lange - 12/03/2019 12:06 PM CDT Medications - Med Change / Question Name of medication(s): LORazepam (ATIVAN) 0.5 MG tablet What is your question or concern? Patient states that it didn't work for panic attack, so she would like to know what to do. Is it okay to leave a detailed message on your voicemail? Yes [Access Rn: If the pt is calling after 3:30pm, was the caller reminded that their call may not be returned until the following day: Yes] If a prescription is needed, may we fill it at a [facility] pharmacy? No: [facility] [Access Rn: Please add the requested pharmacy to 'Meds & Orders' ] Is there anything else I can help you with today? no Valdez Lange documented in this encounter Plan of Treatment Not on filedocumented as of this encounter Visit Diagnoses Not on filedocumented in this encounter Care Teams Optical Instrument Assembler Relationship Specialty Start Date End Date Nasrin Houser MD PCP - General Internal Medicine 06/12/19 07/11/20 [address] [place] [address] documented as of this encounter
--- OUTSIDE RECORDS SUMMARY | 2022-06-19 16:14 | XMS_ITS | Encounter Summary ---
:1995 [facility] Address [address] [place] [address] Care Team Providers Name Role Phone Nasrin Houser MD Primary Care Provider Encounter Details Date Type Department Care Team Description 07/10/2019 Lab Visit [facility] Nausea and vomiting, intract ability of vomiting not specified, unspecified vomiting type; [id number] [facility] Epigastric pain [place], [place] [id number] Social History Tobacco Use Types Packs/Day Years Used Date Smoking Tobacco: Never Smokeless Tobacco: Never Alcohol Use Standard Drinks/Week Comments Not Currently 3 (1 standard drink = 0.6 oz pure alcoho l) rare Sex Assigned at Date Recorded Not on file documented as of this encounter Plan of Treatment Not on filedocumented as of this encounter Procedures Procedure Name Priority Date/Time Associated Diagnosis Comme nts H. PYLORI ANTIGEN, Routine 07/09/2019 8:32 AM Nausea and vomit ing, Results for this STOOL [facility] intractability of procedure are in vomiting not specified, the results unspecified vomiting section . type Epigastric pain documented in this encounter Results H. Pylori Antigen, Stool (07/09/2019 8:32 AM [facility]) [facility] Method Time Signature H Pylori Ag, Negative Negative 07/13/[address] [facility] [address] 2:19 PM [facility] Specimen Anatomical Collection Method Collection Time Receive d Time (Source) Location / / Volume Laterality Stool 07/09/2019 8:32 AM 9 8:32 [facility] AM [facility] Sherry Anders PA-C LAB_1 Performing Organization Address City/State/ZIP Code Phon e Number [facility] [address] [place] [address] documented in this encounter Visit Diagnoses Diagnosis Nausea and vomiting, intractability of v omiting not specified, unspecified vomiting type Epigastric pain Abdominal pain, epigastric documented in this encounter Care Teams Publications Inspector Relationship Specialty Start Date End Date Nasrin Houser MD PCP - General Internal Medicine 06/12/19 07/11/20 [address] [place] [id number] documented as of this encounter
--- OUTSIDE RECORDS SUMMARY | 2022-06-19 16:14 | XMS_ITS | Encounter Summary ---
:1995 Author Organization [facility] Address [address], [place] [address] Care Team Providers Name Role Phone Nasrin Houser MD Primary Care Provider Reason for Visit Reason Comments CONSULT Nausea/Vomiting; Epigastric Pain Consult/Transfer Care (Routine) - Closed Specialty Diagnoses / Procedures Referred By Contact Refer red To Contact Diagnoses Nausea and vomiting, intractability of vomiting not specified, unspecified vomiting type Epigastric pain Sherry Anders, PAAntonio [address] [place] [address] Referral ID Status Reason Start Date Expiration Date Visits Requ ested Visits Authorized [id number] Closed 07/08/2019 10/06/2020 1 1 Encounter Details Date Type Department Care Team Description 07/16/2019 Office Visit Kaitlin Church L, Nausea an d vomiting, intractability of vomiting not specified, unspecified vomiting type (Primary Dx); Gastroenterology ELDER COUNSELOR, FENCE MANUFACTURE SUPERVISOR Epigastric pain [id number] [facility] [address] [place] [address] [facility] [phone] [place], [place] [id number] Social History Tobacco Use Types Packs/Day Years Used Date Smoking Tobacco: Never Smokeless Tobacco: Never Alcohol Use Standard Drinks/Week Comments Yes 0 (1 standard drink = 0.6 oz pure alcoho l) 1-2 drinks a month Sex Assigned at Date Recorded Not on file documented as of this encounter Last Filed Vital Signs Vital Sign Reading Time Taken Comments Blood Pressure 116/72 07/16/2019 2:10 PM DENTAL LABORATORY TECHNICIAN APPRENTICE Pulse 87 07/16/2019 2:10 PM DENTAL LABORATORY TECHNICIAN APPRENTICE Temperature - - Respiratory Rate 16 07/16/2019 2:10 PM DENTAL LABORATORY TECHNICIAN APPRENTICE Oxygen Saturation - - Inhaled Oxygen Concentration - - Weight 66.2 kg (146 lb) 07/16/2019 2:10 PM DENTAL LABORATORY TECHNICIAN APPRENTICE Height - - Body Mass Index 28.51 07/10/2019 8:45 AM DENTAL LABORATORY TECHNICIAN APPRENTICE documented in this encounter Patient Instructions Patient InstructionsKaitlin Abraham APRN, CNP - 07/16/2019 2:10 PM DENTAL LABORATORY TECHNICIAN APPRENTICE Today you were evaluated for nausea and vomiting and abdominal pain. It is suspected the abdominal pain may be due to abdominal wall pain as the Carnett's sign was positive, which makes the pain more likely to be musculoskeletal. You are to restart the Omeprazole 20 mg twice daily for one month and then decrease to Omeprazole 20 mg daily. Start eating a low fat, low residue, BRAT-like (Bananas, Rice,Applesauce, [place]) and advance diet as tolerated. You can continue to take the Reglan as needed withmeals up to three times a day. You will call with an update in one week. You will return to the GI clinic in one month. Plan: 1. Start taking the Omeprazole 20 mg twice daily for one month and then decrease to Omeprazole 20 mgdaily. 2. Eat a low fat, low residue, BRAT type diet, and advance as tolerated. 3. Continue the Reglan three times daily with meals as needed. 4. Call with an update in one week. 5. Follow up in the GI Clinic in one month. AL LABORATORY TECHNICIAN APPRENTICE documented in this encounter Progress Notes Kaitlin Abraham APRN, CNP - 07/16/2019 2:10 PM CST GI Clinic Progress Note Name: Sadie Mart CSN: [id number] : 1995 Date of Visit: 07/16/19 REASON FOR VISIT: Nausea/Vomiting; Epigastric Pain HISTORY OF PRESENT ILLNESS: Sadie Mart is a 24 y.o. female referred to the GI clinic by Sherry Anders PA-C for the above complaint. States her symptoms started about 2 weeks ago after a Nexplanon implant was placed for control. Her symptoms then worsened when she was started on Cymbalta. Symptoms have been ongoing and on Saturday she went to the emergency department and was started on Reglan 10 mg 4 times a day. She has found the Reglan has helped decrease the vomiting, although she still feels nauseous. She has no history of eating disorder or diabetes mellitus. Epigastric pain is described as a stabbing pain located on the right side of the rib, can radiate slightly, is intermittent but can be constant, worse with movement, and rated a 5-6/10. Appetite has been decreased, weight has been stable. Per chart check she has lost about 1 lb. Vomiting tends to occur 30-40 minutes after eating. No complaints of abdominal pain. No change in bowel habit. She takes NSAIDs only as needed. She is a nonsmoker. She drinks 1 glass of wine a month. No previous abdominal surgeries. Pleases note: - EGD (07/10/19) completed for nausea with vomiting. Per report, normal esophagus. Nonbleeding erosive gastropathy. Normal examined duodenum. Biopsies were negative for H pylori but noted changes suggestive of mild reactive gastropathy. She was advised to start Prilosec 20 mg daily and discontinue any a spirin. - Labs (07/08/19) CBC, lipase, H pylori antigen, and LFT were all normal. - 07/03/19 She was last seen in clinic for an evaluation of ongoing issues with nausea, vomiting, abdominal pain. It was noted the vomiting had been occurring every 5-10 minutes during of 4 hour period of time. Usually occurs about 40 minutes after eating. No nocturnal emesis when she took trazodone and went to bed. Symptoms did not wake her during the night. Nausea was constant. She was drinking a lot of water, Gatorade, Sprite without difficulty. Had been able to have bland foods such as crackers and applesauce without emesis. She felt like there was fullness in her upper abdomen and pressure after eating. - 07/06/19 Nexplanon removed without difficulty - 07/01/19 Continued to have nausea and vomiting, only able to tolerate applesauce and Jai crackers. Up to 5 episodes of vomiting per day, able to keep liquids down. Zofran ineffective, hydroxyzine made her too drowsy. Urine testing and UPT were negative. CT scan with stone protocol was negative for stones. It was recommended the Nexplanon implant be removed, to see if it was the cause of symptoms. - 06/26/19 Seen at ED in [place], [place], through [facility]. Notes indicate approximately 1 week of vomiting, 5-6 emesis per day with new epigastric pain. Small amount of blood in emesis. No fevers, chills,chest pain, dyspnea, urinary or vaginal symptoms. RUQ US was normal. Cymbalta was stopped. - 06/26/19 sent [employer] message indicating new symptoms of significant abdominal pain starting 06/25/19 that was periumbilical and severe. Advised to go to ER because of significance of pain. - 06/24/19: Follow up with Dr. Houser. Note reviewed in Epic. CBC, LFTs, BMP were normal. Cymbalta dose was adjusted. - 06/24/19: [facility] due to 5-7 days of vomiting, hot flashes, feeling more emotional. She had hadunprotected intercourse after Nexplanon was placed. testing was negative. She was given Zofran which was not helpful. - 06/12/19: Saw Dr. Houser in to discuss Mental Health. Duloxetine was started. She had some nausea and upset stomach with starting the medication but then felt better after several days, symptoms returned with increasing the dose. - 06/10/19:Nexplanon was placed in clinic for control. Current medications, allergies, medical problems, family and social histories reviewed and updated as indicated. O: Review of Systems - Negative except as given in the HPI. PMH: History reviewed. No pertinent past medical history. PSH: History reviewed. No pertinent surgical history. Outpatient Meds: Outpatient Medications Prior to Visit Medication Sig Dispense Refill ??? diphenhydrAMINE (BENADRYL) 25 MG capsule Take 25 mg by mouth every 6 hours as needed for Itching. ??? hydrOXYzine pamoate (VISTARIL) 25 MG capsule 0 ??? Levonorgestrel-Ethinyl Estrad (AUBRA EQ) 0.1-20 MG-MCG tablet Take 1 Tablet by mouth daily. Confirmed with previous care team patient has been taking Aubra EQ oral control 84 Tablet 3 ??? traZODone (DESYREL) 50 MG tablet Take 1-2 Tablets by mouth daily at bedtime. 180 Tablet 3 ??? metoclopramide (REGLAN) 5 MG tablet Take 10 mg by mouth 4 times daily before meals and at bedtime. ??? omeprazole (PRILOSEC) 20 MG capsule Take 1 hour before a meal. Take twice daily x 1 week then once daily 30 Capsule 0 ??? prochlorperazine (COMPAZINE) 10 MG tablet Take 1 Tablet by mouth every 6 hours as needed for Nausea or Vomiting. 30 Tablet 0 Facility-Administered Medications Prior to Visit Medication Dose Route Frequency Provider Last Rate Last Dose ??? benzocaine (HURRICAINE) 20 % oral spray 1 Each 1 [place] Mouth/Throat PRSusy Solis MD 1 Each at109/09/18 0934 ??? fentaNYL (SUBLIMAZE) injection 25-100 mcg 25-100 mcg Intravenous PRSusy Solis MD 100 mcg at 07/10/19 0935 ??? midazolam (VERSED) injection 0.5-2 mg 0.5-2 mg Intravenous PRSusy Solis MD 2 mg at 07/10/19 0935 ??? ondansetron (ZOFRAN) injection 4 mg 4 mg Intravenous Q6H PRSusy Solis MD 4 mg at 07/10/19 0938 ??? sodium chloride 0.9% injection 10-60 mL 10-60 mL Intravenous PRSusy Solis MD 10 mL at 07/10/19 0936 Family History Problem Relation Age of Onset ??? Bipolar Disorder Mother ??? Cancer, Ovary Sister ??? Bipolar Disorder Sister ??? Cancer, Ovary Maternal Grandmother Social History Tobacco Use ??? Smoking status: Never Smoker ??? Smokeless tobacco: Never Used Substance Use Topics ??? Alcohol use: Yes Comment: 1-2 drinks a month ??? Drug use: Not on file PE: Vitals: 07/16/19 1410 BP: 116/72 Pulse: 87 Resp: 16 Weight: 146 lb (66.2 kg) General appearance: alert, cooperative, no distress, appears stated age, Eyes: conjunctivae/corneas clear. Abdomen: soft, non-tender; bowel sounds normal; Skin: Warm, dry and Neurologic: Grossly normal LABS: Lab Results Component Value Date WBC 8.0 07/08/2019 Hemoglobin 12.5 07/08/2019 HCT 37.2 07/08/2019 MCV 88.8 07/08/2019 Platelets 262 07/08/2019 Lab Results Component Value Date Alkaline Phosphatase 54 07/08/2019 Bilirubin, Total 0.3 07/08/2019 Bilirubin, Direct 0.1 07/08/2019 Protein, Total 6.7 07/08/2019 Albumin 4.0 07/08/2019 AST (SGOT) 15 07/08/2019 ALT (SGPT) 14 07/08/2019 Lab Results Component Value Date Sodium 140 06/24/2019 Potassium 4.2 06/24/2019 Chloride 109 06/24/2019 CO2 22 06/24/2019 Lab Results Component Value Date Creatinine 0.80 06/24/2019 IMAGING 07/03/19 CT ever. Under Abd Pelvis WO IV Cont Stone COMPARISON: None.?? TECHNIQUE: Images were obtained through the abdomen and pelvis without contrast using a renal stone protocol.?? FINDINGS:?? LUNG BASES: Unremarkable.?? LIVER: Unremarkable.?? GALLBLADDER AND BILIARY TREE: Unremarkable. No intrahepatic or extrahepatic biliary ductal dilation.?? PANCREAS: Unremarkable.?? SPLEEN: Unremarkable.?? ADRENALS: Unremarkable.?? KIDNEYS AND URETERS: There are a few punctate calyceal tip calcifications measuring less than 1 mm. No jordan stone. No hydronephrosis.?? VESSELS: No abdominal aortic aneurysm.?? BOWEL: Unremarkable. No inflammatory changes or obstruction. Normal appendix.?? BLADDER: Unremarkable.?? REPRODUCTIVE ORGANS: No pelvic masses. ?? MESENTERY/PERITONEUM: No enlarged mesenteric lymph nodes. No ascites or free air. No focal fluid collection. ?? RETROPERITONEUM: No adenopathy. ?? ABDOMINAL WALL/SOFT TISSUES: Unremarkable.?? BONES: Unremarkable.?? IMPRESSON: There are a few punctate calyceal tip calcifications measuring less than 1 mm without jordan stone identified. No hydronephrosis or hydroureter. No ureteral or bladder stone. 06/26/19 US Abd Limited RUQ - [facility] INDICATION: Vomiting TECHNIQUE: Ultrasound abdomen limited. Sonographic images of the right upper quadrant were obtained using rush-scale and color Doppler images. COMPARISON: FINDINGS: Liver: Normal in size and echotexture. No masses. No intrahepatic biliary dilatation. Gallbladder: No stones or sludge. Normal wall thickness. No pericholecystic fluid. Common bile duct: 2 mm. Pancreas: Head unremarkable. Body and tail not visualized Right kidney: 10.3 x 3.9 x 4.1 cm. Normal echotexture and cortex. No masses, stones, or hydronephrosis. Vasculature: Proximal abdominal aorta and IVC are normal. IMPRESSION: No gallstones or biliary dilatation. IMPRESSION/PLAN 24-year-old female seen in clinic today for further evaluation regarding ongoing nausea vomiting, and epigastric pain. Symptoms started a few weeks after having a Nexplanon implant for control, and worsened after she was started on Cymbalta. Implant was removed on the , Cymbalta has also beenstopped. She has noticed some improvement with vomiting with use of Reglan. She is still eating a BRAT like diet. RUQ US, Abd Stone Protocol CT, and CBC, lipase, H pylori antigen, and LFT were all normal. EGD noted nonerosive gastropathy and was otherwise normal. Vomiting usually occurs 30-40 minutes after eating, epigastric pain is located on the right side, can radiate slightly, described as stabbing, is intermittent, but can be constant, rated a 5-6/10, and can be worse with movement. Weight has been stable. No change in bowel habit. No melena or hematochezia. Intermittent hematemesis with long episodes of emesis Nausea/Vomiting Suspect may be hormonal and medication induced or due to onset occurring shortly after receiving Nexplanon implant for control, or and worsening with start of Cymbalta. She is finding some reliefwith Reglan. 1. Will have her increase omeprazole 20 mg 2 twice daily for 1 month, then will decreased to omeprazole 20 mg daily. 2. She can continue the Reglan 3 times daily with meals as needed. She is aware of the adverse effects that can be caused by Reglan and was advised to stop the medication should any of these occur. 3. She was advised to eat a low-fat, low residue, BRAT type diet and advance as tolerated. 4. She is to call with an update in 1 week. Epigastric pain Differential diagnosis could include muscle strain, abdominal wall pain, or GERD. 1. Suspected may be musculoskeletal in nature as Carnett sign was positive. This was discussed and if no improvement may consider a referral to Physical Medicine and Rehabilitation. 2. For now, Sadie will continue to monitor symptoms to see if they improve with use of omeprazole, Reglan (decreased vomiting), and with improved diet intake. PLAN: 1. Start taking the Omeprazole 20 mg twice daily for one month and then decrease to Omeprazole 20 mgdaily. 2. Eat a low fat, low residue, BRAT type diet, and advance as tolerated. 3. Continue the Reglan three times daily with meals as needed. 4. Call with an update in one week. 5. Follow up in the GI Clinic in one month. Patient is agreeable to the plan of care, and is aware to contact the GI Clinic or their primary provider if symptoms change or worsen significantly. Treatment plan and follow up discussed with the patient and documented in the AVS. Total time spent with patient was 25 minutes, of which 20 minutes were spent consulting patient on condition, treatment, and plan of care. AL LABORATORY TECHNICIAN APPRENTICE documented in this encounter Plan of Treatment Not on filedocumented as of this encounter Visit Diagnoses Diagnosis Nausea and vomiting, intractability of v omiting not specified, unspecified vomiting type - Primary Epigastric pain Abdominal pain, epigastric documented in this encounter Care Teams Metal Cleaner Relationship Specialty Start Date End Date Nasrin Houser MD PCP - General Internal Medicine 06/12/19 07/11/20 [address] [place] [address] documented as of this encounter
--- OUTSIDE RECORDS SUMMARY | 2022-06-19 16:14 | XMS_ITS | Encounter Summary ---
:1995 Author Organization [facility] Address [address] [place] [address] Care Team Providers Name Role Phone Nasrin Houser MD Primary Care Provider Reason for Visit Reason Comments CONSULT epigastric pain Consult/Transfer Care (Routine) - Closed Specialty Diagnoses / Procedures Referred By Contact Refer red To Contact Diagnoses Nausea and vomiting, intractability of vomiting not specified, unspecified vomiting type Epigastric pain Kaitlin Abraham L, DRIVE IN THEATER ATTENDANT, MATLAB DEVELOPER [address] [place] [address] Referral ID Status Reason Start Date Expiration Date Visits Requ ested Visits Authorized [id number] Closed 08/20/2019 11/18/2020 1 1 Encounter Details Date Type Department Care Team Description 09/01/2019 Office Visit Yusef [facility] [facility] Bang Dodson B iliary dyskinesia Surgery (Primary Dx) [address] [place] [address] [address] [phone] [place], [place] [address] Social History Tobacco Use Types Packs/Day Years Used Date Smoking Tobacco: Never Smokeless Tobacco: Never Alcohol Use Standard Drinks/Week Comments Yes 0 (1 standard drink = 0.6 oz pure alcoho l) 1-2 drinks a month Sex Assigned at Date Recorded Not on file documented as of this encounter Last Filed Vital Signs Vital Sign Reading Time Taken Comments Blood Pressure 119/85 09/01/2019 9:28 AM PROCESS AREA SUPERVISOR Pulse 82 09/01/2019 9:28 AM PROCESS AREA SUPERVISOR Temperature - - Respiratory Rate - - Oxygen Saturation - - Inhaled Oxygen Concentration - - Weight 65.8 kg (145 lb) 09/01/2019 9:28 AM PROCESS AREA SUPERVISOR Height 152.4 cm (5') 09/01/2019 9:28 AM PROCESS AREA SUPERVISOR Body Mass Index 28.32 09/01/2019 9:28 AM PROCESS AREA SUPERVISOR documented in this encounter Patient Instructions Patient InstructionsCarmen Baker RN - 09/01/2019 9:40 AM CST BEFORE SURGERY: Reviewed and gave the patient [facility] surgical packet. 1. Stop Aspirin and Ibuprofen products 5 days before surgery. 2. Instructed about 2 separate showers with Hibiclens: pm, then am. 3. Follow the surgical packet for eating and drinking instructions. Reviewed and gave patient postoperative instructions for Laparoscopic Cholecystectomy. Reviewed lifting restrictions, wound care and when to call the surgeon's office (phone numbers provided) [phone]. Patient verbalized understanding. ESS AREA SUPERVISOR documented in this encounter Progress Notes Bang Dodson MD - 09/01/2019 9:40 AM CST Chief Complaint Patient presents with ??? CONSULT epigastric pain History obtained from: Patient HPI: 24 yo female with abd pain. Has had this a few months. RUQ. Associated with nausea. Worse aftereating a big meal. No fevers. Location: RUQ Quality: sharp Severity: severe Duration: months Timing: chronic Context: out of the blue Modifying factors: eating a big meal hurts Associated signs and/or symptoms: nausea, back pain Comorbid conditions: none Review of Systems - CV: no CP Resp: no SOB GI: n ochange in bowels Heme: no bleeding tendencies or easy bruising. Remainder of complete ROS negative other than HPI and above. 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 Levonorgestrel-Ethinyl Estrad [...] daily at bedtime. 180 Tablet 3 ??? meclizine (ANTIVERT) 25 MG tablet Take 25 mg by mouth three times a day as needed. 0 No facility-administered medications prior to visit. History reviewed. No pertinent past medical history. Physical Exam: Vitals: 09/01/19 0928 BP: 119/85 Pulse: 82 Weight: 145 lb (08909 g) Head: normocephalic and atraumatic. Eyes: PERRL. EOMI. No icterus. Neck: Neck is soft, Trachea midline. Mouth: Oropharynx is moist and pink. Neuro: Cranial Nerves II-XII grossly intact. Motor and sensation are grossly intact. Psych: A&Ox3 Skin: No jaundice or rash. CV: RRR Lungs: CTAB GI: Normal Abdomen: Soft, nontender, nondisteded. Musculoskeletal: normal Lymphatic: normal Extremities: No cyanosis or edema. Special Education Preschool Teacher: Labs: LFT's normal Imaging: RUQ US normal. HIDA showed a low EF and she had reproduction of symptoms with injection of CCK. Old Records: Previous visit to PCP, history, medications and allergies reviewed prior to seeing the patient. ASSESSMENT: Sadie Mart is a 24 y.o. female with New Problem: Biliary dyskinesia Established Problem: none Medical problems contributing to surgical risk: none Patient Active Problem List Diagnosis ??? ASHLEE (generalized anxiety disorder) ? ? Nausea & vomiting ??? Epigastric pain PLAN: New Problem: I talked to her about doing a single site lap jordyn in the OR as a same day surgery with a general anesthesia. She should plan to be off work for 4-5 days. No lifting >20 pounds for 4 weeks. Other activities as tolerated. The risks, benefits and alternatives, including bleeding, infection, chronic diarrhea, bile duct leak, bile duct injury, ongoing pain and retained stone were explained to the patient. She understands and wishes to proceed. She can schedule at her convenience. Established Problem: Bang Dodson MD 9:56 AM 09/01/2019 ESS AREA SUPERVISOR documented in this encounter Plan of Treatment Scheduled Referrals Name Type Priority Associated Diagnoses Order S chedule Surgery Referral Routine Nausea and vomiting, Ordered : 08/20/2019 Consult-Adults intractability of vomiting not specified, unspecified vomiting type Epigastric pain documented as of this encounter Visit Diagnoses Diagnosis Biliary dyskinesia - Primary Other specified disorder of gallbladder documented in this encounter Care Teams Ruby On Rails Software Developer Relationship Specialty Start Date End Date Nasrin Houser MD PCP - General Internal Medicine 06/12/19 07/11/20 [address] [place], [place] [address] documented as of this encounter
--- OUTSIDE RECORDS SUMMARY | 2022-06-19 16:14 | XMS_ITS | Encounter Summary ---
:1995 Author [facility] Address [address], [place] [address] Care Team Providers Name Role Phone Nasrin Houser MD Primary Care Provider Reason for Visit Reason Comments VERTIGO Encounter Details Date Type Department Care Team Description 08/21/2019 Nurse Triage [place] [facility] Nasrin Houser MD V[facility]IG[facility] [address] [place] [address] [place] [address] [phone] (Wo rk) Social History Tobacco Use Types Packs/Day Years Used Date Smoking Tobacco: Never Smokeless Tobacco: Never Alcohol Use Standard Drinks/Week Comments Yes 0 (1 standard drink = 0.6 oz pure alcoho l) 1-2 drinks a month Sex Assigned at Date Recorded Not on file documented as of this encounter Nursing Notes Sabra Thomson RN - 08/21/2019 10:14 AM CST Spoke with pt. Pt at work now. The last 2 days anytime moves have to stop and get balance. Some nausea. Sx worse when laying in bed. Spinning sensation, no headache, vomiting. She has fallen a few times but doesn't feel like right now she is unable to stand/walk without support. Pt declined to be evaluated sooner stating unable to leave work. She will have someone drive her to after work or soonerif sx do worsen. Problem list reviewed as related to this call. Reason for Disposition ??? Spinning or tilting sensation (vertigo) present now Protocols used: [id number] 400 DEVELOPER Latoya Gibson - 08/21/2019 9:25 AM CST Symptoms Describe your symptoms (if pain, include location): Vertigo When did they start? Few days ago Additional comments (related to the above concern): If a prescription is needed, patient would like it filled at the pharmacy listed in Meds & Orders. (Verify the pharmacy patient would like to use for this request is highlighted in blue in PharmacySelection under Meds & Orders) Is it okay to leave a detailed message on your voicemail? No (Advise caller that the PN call back number will end with [phone] or unknown) For urgent symptoms: Please route and transfer to: Triage Pool (high priority) For routine symptoms: Please route to: Triage Pool (only transfer if caller insists) 400 DEVELOPER documented in this encounter Plan of Treatment Not on filedocumented as of this encounter Visit Diagnoses Not on filedocumented in this encounter Care Teams Director Summer Sessions Relationship Specialty Start Date End Date Nasrin Houser MD PCP - General Internal Medicine 06/12/19 07/11/20 [address] [place] [address] documented as of this encounter
--- OUTSIDE RECORDS SUMMARY | 2022-06-19 16:14 | XMS_ITS | Encounter Summary ---
:1995 Author Organization [facility] Address [address] [address] Care Team Providers Name Role Phone Nasrin Houser MD Primary Care Provider Reason for Referral Consult/Transfer Care (Routine) - Closed Specialty Diagnoses / Procedures Referred By Contact Refer red To Contact Diagnoses Nausea and vomiting, intractability of vomiting not specified, unspecified vomiting type Epigastric pain Kaitlin Abraham APRN, CNP [address] [place] [address] Referral ID Status Reason Start Date Expiration Date Visits Requ ested Visits Authorized [id number] Closed 08/20/2019 11/18/2020 1 1 Scheduling Instructions Your provider has recommended an appoint ment with [facility]. You may call [phone] to schedule your a ppointment. If you do not schedule an appointment within the next 1 to 3 busin days, we will call you to help arrange your appointment. We suggest you call [employer] about your coverage and benefits for this appointme nt. [facility] Reason for Visit Reason Comments Follow-up N/V; Epigastric Pain Encounter Details Date Type Department Care Team Description 08/20/2019 Office Visit Kaitlin Church, Nausea an d vomiting, intractability of vomiting not specified, unspecified vomiting type (Primary Dx); Gastroenterology [facility]ACE[facility] WILKINS Epigastric pain [address] [place] [address] [facility] [phone] [place] [address] Social History Tobacco Use Types Packs/Day Years Used Date Smoking Tobacco: Never Smokeless Tobacco: Never Alcohol Use Standard Drinks/Week Comments Yes 0 (1 standard drink = 0.6 oz pure alcoho l) 1-2 drinks a month Sex Assigned at Date Recorded Not on file documented as of this encounter Last Filed Vital Signs Vital Sign Reading Time Taken Comments Blood Pressure 126/75 08/20/2019 11:06 AM [facility] Pulse 89 08/20/2019 11:06 AM [facility] Temperature - - Respiratory Rate 16 08/20/2019 11:06 AM [facility] Oxygen Saturation - - Inhaled Oxygen Concentration - - Weight 67.1 kg (148 lb) 08/20/2019 11:06 AM [facility] Height - - Body Mass Index 28.9 07/10/2019 8:45 AM [facility] documented in this encounter Patient Instructions Patient InstructionsKaitlin Abraham APRN, CNP - 08/20/2019 11:10 AM [facility] Today you were seen to discuss the results of the HIDA scan and ongoing symptoms of N/V and epigastric pain, which typically occurs after eating. A referral has been sent to General Surgery as you would like to discuss a possible cholecystectomy. You will follow up as needed. Plan: 1. A referral has been sent to General Surgery. The department will call to schedule the appointment. 2. You will follow up in the GI Clinic as needed. [facility] documented in this encounter Progress Notes Kaitlin Abraham APRN, CNP - 08/20/2019 11:10 AM CST GI Clinic Progress Note Name: Sadie Mart CSN: [id number] : 1995 Date of Visit: 08/20/19 REASON FOR VISIT: N/V; Epigastric Pain HISTORY OF PRESENT ILLNESS: Sadie Mart is a 24 y.o. female seen in clinic today for follow-up regarding the above complaint.She notes she was seen in the [facility] ER on 07/31/2019, for an exacerbation of RUQ abdominal pain. It was suspected she may have biliary dyskinesia and she was to follow up with her primary for further evaluation. She followed up with her PCP on 08/03/19. HIDA scan was ordered and results noted an EF of 26. She follows up in clinic today to discuss these results. Sadie states she her appetite is still decreased, weight has been stable. She has only vomited oncesince last seen in clinic. She is currently working on the FODMAP diet. Reglan seems to be effectivein decreasing the nausea. No current complaints of epigastric pain, which is more likely recur aftereating. No change in bowel habit. Please note: - HIDA Scan (08/03/19) noted slightly decreased gallbladder ejection fraction of 26%. - Labs (07/31/19) CBC, BMP, LFT, Lipase, and CRP were all normal. - EGD (07/10/19) completed for nausea with [...] such as crackers and applesauce without emesis. ??She felt like there was fullness in her upper abdomen and pressure after eating. - 07/06/19?Nexplanon removed without difficulty - 07/01/19??Continued to have nausea and vomiting, only able to tolerate applesauce and Jai crackers. ??Up to 5 episodes of vomiting per day, able to keep liquids down. Zofran ineffective, hydroxyzine made her too drowsy.??Urine testing and UPT were negative. ??CT scan with stone protocol was negative for stones. It was recommended the Nexplanon implant be removed, to see if it was the cause of symptoms. - 06/26/19?Seen at ED in [place],??[place], through [facility].?Notes indicate approximately 1 week of vomiting, 5-6 emesis per day with new epigastric pain. ??Small amount of blood in emesis. ??No fevers, chills, chest pain, dyspnea, urinary or vaginal symptoms. ??RUQ US was normal. Cymbalta was stopped. - 06/26/19 sent [employer] message indicating new symptoms of significant abdominal pain starting 06/25/19??that was periumbilical and severe. ??Advised to go to ER because of significance of pain. - 06/24/19: Follow up with Dr. Houser. Note reviewed in [facility]. CBC, LFTs, BMP were normal. Cymbalta dose was adjusted. - 06/24/19: [facility]??due to 5-7 days of vomiting, hot flashes, feeling more emotional. ??She had had unprotected intercourse after Nexplanon was placed. testing was negative. She was givenZofran which was not helpful.?? - 06/12/19: ??Saw Dr. Houser in IM??to discuss Mental Health. ??Duloxetine was started. ??She had some nausea and upset stomach with starting the medication but then felt better after several days, symptoms returned with increasing the dose. - 06/10/19:Nexplanon was placed??in clinic for control. Current medications, allergies, medical problems, family and social histories reviewed and updated as indicated. O: Review of Systems - Negative except as given in the HPI. PMH: No past medical history on file. PSH: No past surgical history on file. Outpatient Meds: Outpatient Medications Prior to Visit Medication Sig Dispense Refill ??? Levonorgestrel-Ethinyl Estrad (AUBRA EQ) 0.1-20 MG-MCG tablet Take 1 Tablet by mouth daily. Confirmed with previous care team patient has been taking Aubra EQ oral control 84 Tablet 3 ??? omeprazole (PRILOSEC) 40 MG capsule Take 1 Capsule by mouth daily for 180 days. Take 1 hour before a meal. 90 Capsule 1 ??? ondansetron (ZOFRAN-ODT) 4 MG disintegrating tablet Take 1 Tablet by mouth every 8 hours as needed. 30 Tablet 1 ??? traZODone (DESYREL) 50 MG tablet Take 1-2 Tablets by mouth daily at bedtime. 180 Tablet 3 No facility-administered medications prior to visit. Family History Problem Relation Age of Onset ??? Bipolar Disorder Mother ??? Cancer, Ovary Sister ??? Bipolar Disorder Sister ??? Cancer, Ovary Maternal Grandmother Social History Tobacco Use ??? Smoking status: Never Smoker ??? Smokeless tobacco: Never Used Substance Use Topics ??? Alcohol use: Yes Comment: 1-2 drinks a month ??? Drug use: Never PE: Vitals: 08/20/19 1106 BP: 126/75 Pulse: 89 Resp: 16 Weight: 148 lb (67.1 kg) General appearance: alert, cooperative, no distress, [...] Component Value Date Creatinine 0.80 06/24/2019 IMAGING 08/06/19 NM Hepatobiliary With Ejection Fraction COMPARISON: None.?? TECHNIQUE: Following the administration of 7.4 mCi mCi technetium 99m mebrofenin a hepatobiliary scan with gallbladder ejection fraction was performed. ?? FINDINGS: There is prompt visualization of the liver and bile ducts. There is normal gallbladder filling and excretion into the small bowel. Following the administration of 1.3 mcg Kinevac IV over a slow infusion of 30 minutes gallbladder ejection fraction is calculated at 26%, with normal being greater than 35%. ?? IMPRESSION: Slightly decreased gallbladder ejection fraction of 26%. 07/03/19 CT Abd Pelvis WO IV Cont Stone COMPARISON: ??None.?? TECHNIQUE: ??Images were obtained through the abdomen and pelvis [...] ABDOMINAL WALL/SOFT TISSUES: Unremarkable.?? BONES: Unremarkable.?? IMPRESSON: ?? There are a few punctate calyceal tip calcifications measuring less than 1 mm without jordan stone identified. No hydronephrosis or hydroureter. No ureteral or bladder stone. ?? 06/26/19 US Abd Limited RUQ - [facility] [...] normal. IMPRESSION: No gallstones or biliary dilatation. ?? IMPRESSION/PLAN Reviewed prior workup including labs, CT scan, right upper quadrant ultrasound RUQ US, EGD, and HIDAscan results. It was initially thought nausea vomiting was due to her control but symptoms have not improved since this was stopped. She also had a positive Carnett sign which could make the epigastric pain musculoskeletal in nature. Nausea/Vomiting, Etiology Unknown 1. She will continue the omeprazole 20 mg daily. 2. She is to continue the Reglan 3 times daily with meals as needed. She is aware of the adverse effects that can be caused by Reglan and was advised to stop the medication should any of these occur. 3. She is to continue to eat a low-fat diet. Epigastric pain Differential diagnosis could include but is not limited to abdominal wall pain, GERD, or gallbladderdysfunction. 1. Per patient request she will have a referral sent to general surgery to discuss her symptoms and HIDA scan results to see if cholecystectomy is recommended. PLAN: 1. A referral has been sent to General Surgery. The department will call to schedule the appointment. 2. You will follow up in the GI Clinic as needed. Patient is agreeable to the plan of care, and is aware to contact the GI Clinic or their primary provider if symptoms change or worsen significantly. Treatment plan and follow up discussed with the patient and documented in the AVS. Total time spent with patient was 25 minutes, of which 20 minutes were spent consulting patient on condition, treatment, and plan of care. [facility] documented in this encounter Plan of Treatment [...] epigastric documented in this encounter Care Teams Blanket Folder Relationship Specialty Start Date End Date Nasrin Houser MD PCP - General Internal Medicine 06/12/19 07/11/20 [address]39 [address], [place] [id number] documented as of this encounter
--- OUTSIDE RECORDS SUMMARY | 2022-06-19 16:14 | XMS_ITS | Encounter Summary ---
:1995 [facility] Address [address] [address] Care Team Providers Name Role Phone Nasrin Houser MD Primary Care Provider Encounter Details Date Type Department Care Team Description 08/28/2019 Notes/Orders [facility] [place] [address] [facility] [address] [place] [address] [place] [address] [phone] Social History Tobacco Use Types Packs/Day Years Used Date Smoking Tobacco: Never Smokeless Tobacco: Never Alcohol Use Standard Drinks/Week Comments Yes 0 (1 standard drink = 0.6 oz pure alcoho l) 1-2 drinks a month Sex Assigned at Date Recorded Not on file documented as of this encounter Progress Notes Travis Smith PT - 08/28/2019 11:59 PM CST [facility] Physical Therapy Discharge Summary Sadie Mart has not attended therapy since last documented visit. There are no further visits scheduled at this time and Sadie is currently considered discharged from therapy. Unable to assess current level of function and goals due to unplanned discharge. PT - Discharge Total Visits: 1 Reason for discharge: Patient has not been consistent with attendance and/or failed to schedule appointments as planned. Please see previous visit documentation of status at last treatment. Travis Smith PT LEAD documented in this encounter Plan of Treatment Not on filedocumented as of this encounter Visit Diagnoses Not on filedocumented in this encounter Care Teams Nuclear Reactor Operator Relationship Specialty Start Date End Date Nasrin Houser MD PCP - General Internal Medicine 06/12/19 07/11/201884 IM[place], [place] [id number] documented as of this encounter
--- OUTSIDE RECORDS SUMMARY | 2022-06-19 16:14 | XMS_ITS | Encounter Summary ---
:1995 Author Organization Formerly [facility], later [facility] Address [address] [address] Care Team Providers Name Role Phone Nasrin Houser MD Primary Care Provider Reason for Referral (Routine) - Closed Specialty Diagnoses / Procedures Referred By Contact Refer red To Contact Diagnoses Nausea and vomiting, intractability of vomiting not specified, unspecified vomiting type Epigastric pain Sherry Anders PA-C Procedures EGD [address] [place] [address] Referral ID Status Reason Start Date Expiration Date Visits Requ ested Visits Authorized [id number] Closed 07/08/2019 10/06/2020 1 1 T PULLER Reason for Visit (Routine) - Closed Specialty Diagnoses / Procedures Referred By Contact Refer red To Contact Diagnoses Nausea and vomiting, intractability of vomiting not specified, unspecified vomiting type Epigastric pain Sherry Anders PA-C Procedures EGD [address] [place] [address] Referral ID Status Reason Start Date Expiration Date Visits Requ ested Visits Authorized [id number] Closed 07/08/2019 10/06/2020 1 1 Encounter Details Date Type Department Care Team Description [facility] Nausea and vom iting, intractability of vomiting not specified, unspecified vomiting type (Primary Dx); Encounter Gastroenterology MD Epigastric pain Endoscopy Procedures [address] [address] [place] [address] [place] [address] Social History Tobacco Use Types Packs/Day Years Used Date Smoking Tobacco: Never Smokeless Tobacco: Never Alcohol Use Standard Drinks/Week Comments Not Currently 3 (1 standard drink = 0.6 oz pure alcoho l) rare Sex Assigned at Date Recorded Not on file documented as of this encounter Last Filed Vital Signs Vital Sign Reading Time Taken Comments Blood Pressure 94/79 07/10/2019 10:00 AM PLANT PULLER Pulse 69 07/10/2019 10:00 AM PLANT PULLER Temperature - - Respiratory Rate 16 07/10/2019 10:00 AM PLANT PULLER Oxygen Saturation 98% 07/10/2019 10:00 AM PLANT PULLER Inhaled Oxygen Concentration - - Weight 64.9 kg (143 lb) 07/10/2019 8:45 AM PLANT PULLER Height 152.4 cm (5') 07/10/2019 8:45 AM PLANT PULLER Body Mass Index 27.93 07/10/2019 8:45 AM PLANT PULLER documented in this encounter Medications at Time of Discharge Medication Sig Dispensed Refills Start Date End Date hydrOXYzine pamoate 0 06/26/201908/03 (VISTARIL) 25 MG capsule Levonorgestrel-Ethinyl Take 1 Tablet by 84 Tablet 3 019 02/09/2020 Estrad (AUBRA EQ) 0.1-20 mouth daily. MG-MCG tabletIndications: Confirmed with control counseling, previous care team OCP (oral contraceptive patient has been pills) initiation taking Aubra EQ oral control omeprazole (PRILOSEC) 20 Take 1 hour before 30 Capsule 0 01/201907/16/2019 MG capsule a meal. Take twice daily x 1 week then once daily prochlorperazine Take 1 Tablet by 30 Tablet 0 07/01/2019 (COMPAZINE) 10 MG mouth every 6 tabletIndications: hours as needed Intractable vomiting with for Nausea or nausea, unspecified Vomiting. vomiting type traZODone (DESYREL) 50 MG Take 1-2 Tablets 180 Tablet 3 05/201908/25/2019 tablet by mouth daily at bedtime. documented as of this encounter Progress Notes Laron Deluca RN - 07/10/2019 9:20 AM CST Pt states she had test on 07/01/19 and changed birthcontrol. Pt verbalized she has stoppedsexual activity and is not be . T PULLER Komal Aiken RN - 07/10/2019 9:20 AM CST Vitals charted per department protocol.Patient tolerated procedure. Oxygen used for the procedure 2-5 liters T PULLER Marie Guy RN - 07/10/2019 9:20 AM CST Patient alert, oriented. Denies pain at this time. Tolerating liquids. Discussed discharge teaching.Patient/family given handouts. Verbalized understanding. T PULLER documented in this encounter Procedure Notes Susy Toussaint MD - 07/10/2019 9:10 AM CST Patient Name: Sadie Mart Procedure Date: 07/10/2019 9:10 AM Date of : 1995 Admit Type: Outpatient Age: 24 Note Status: Finalized Attending MD: Susy Toussaint MD Procedure: Upper GI endoscopy Indications: Nausea with vomiting Providers: Susy Toussaint MD, Komal Aiken RN Referring MD: Sherry Anders MD Medicines: Midazolam 2 mg IV, Fentanyl 100 micrograms IV, Benzocaine spray Complications: No immediate complications. Estimated blood loss: Minimal. Procedure: After obtaining informed consent, the endoscope was passed under direct vision. Throughout the procedure, the patient's blood pressure, pulse, and oxygen saturations were monitored continuously. The flexible [id number] was introduced through the mouth, and advanced to the second part of duodenum. The upper GI endoscopy was accomplished without difficulty. The patient tolerated the procedure well. Findings: The esophagus was normal. A few dispersed, 2 mm non-bleeding erosions were found in the gastric antrum. There were no stigmata of recent bleeding. Biopsies were taken with a cold forceps for histology. Verification of patient identification for the specimen was done by the physician and nurse using the patient's name and date. Estimated blood loss was minimal. The exam of the stomach was otherwise normal. The examined duodenum was normal. Moderate Sedation: Moderate (conscious) sedation was administered by the endoscopy nurse and supervised by the endoscopist. The following parameters were monitored: oxygen saturation, heart rate, blood pressure, and response to care. Total physician intraservice time was 12 minutes. Impression: - Normal esophagus. - Non-bleeding erosive gastropathy. Biopsied. - Normal examined duodenum. Recommendation: - Await pathology results. - Use Prilosec (omeprazole) 20 mg PO daily. - Return to GI clinic as previously scheduled. - Discontinue aspirin and NSAIDs. Procedure Code(s): --- Professional --- 41007, Esophagogastroduodenoscopy, flexible, transoral; with biopsy, single or multiple G0500, Moderate sedation services provided by the same physician or other qualified health rn progressive care unit performing a gastrointestinal endoscopic service that sedation supports, requiring the presence of an independent trained observer to assist in the monitoring of the patient's level of consciousness and physiological status; initial 15 minutes of intra-service time; patient age 5 years or older (additional time may be reported with 42456, as appropriate) Diagnosis Code(s): --- Professional --- R11.2, Nausea with vomiting, unspecified K31.89, Other diseases of stomach and duodenum CPT copyright 2018 [employer]. All rights reserved. The codes documented in this report are preliminary and upon sequins stringer review may be revised to meet current compliance requirements. Susy Toussaint MD 07/10/2019 9:33:23 AM This document has been electronically signed. Number of Addenda: 0 Note Initiated On: 07/10/2019 9:10 AM Endoscopy Report T PULLER documented in this encounter Plan of Treatment Not on filedocumented as of this encounter Procedures Procedure Name Priority Date/Time Associated Comments Diagnosis SURGICAL PATHOLOGY, GI Routine 07/10/2019 Nausea and Resul ts for 9:30 AM PLANT PULLER vomiting, this intractability of procedure are vomiting not in the specified, results unspecified section. vomiting type ENDO ESOPHAGOGASTRODUODENOSCOPY Routine 07/10/2019 Nausea an d Results for (EGD) 9:10 AM PLANT PULLER vomiting, this intractability of procedure are vomiting not in the specified, results unspecified section. vomiting type Epigastric pain documented in this encounter Results Surgical Path - GI (07/10/2019 9:30 AM PLANT PULLER) Component Value Ref Test Analysis Performed At [facility] gist Range Method Time Signature Case Report Surgical Pathology ?Case: [id number] ? 07/17/2019 [facility] Authorizing Provider: ??Susy Esparza MD ? Collected: ? 07/10/2019 09:30 AM ? 4:22 PM LABORA TORDominic Ordering Location: ? [place] ? Received: ?07/10/2019 05:01 PM ? PLANT PULLER ? Gastroenterology Endoscopy ? Procedures ? Pathologist: ? Adrián Wilde, JAMEL ? Specimen: ?Stomach, antr um ? FINAL A. Stomach, antrum, biopsy: 07/17/2019 M ETHODIST Electronically DIAGNOSIS ?? Negative for Helicobacter pylori 4:22 PM LABORATORY signed by Andry, ?? Changes suggestive of mild reactive gastropathy PLANT PULLER JAMEL Sampson on 07/17/2019 at 4:22 PM Gross A. The specimen is received in formalin and labeled with the patient's name and Stomach, antrum.?? The specimen consists of multiple araujo-white irregular soft tissue fragments, averaging 0.3 cm.?? The 07/17/2019 [facility] Description specimen was collected and p laced in formalin at 9:30 AM, 07/10/2019. The specimen is filtered and entirely submitted in one cassette. KG 4:22 PM LABORATORY PLANT PULLER The specimen is fixed in for gianna for a minimum of 6 hours, and not longer than 72 hours. Clinical Other (type-in)[nausea/vomiting 07/17/20 19 [facility] Information 4:22 PM LABORATORY PLANT PULLER Microscopic Microscopic 07/17/2019 [facility] Description examination is 4:22 PM LABORATORY performed. PLANT PULLER Embedded 07/17/2019 [facility] Images 4:22 PM LABORATORY PLANT PULLER Specimen Anatomical Collection Method Collection Time Receive d Time (Source) Location / / Volume Laterality Tissue (Stomach, 07/10/2019 9:30 AM 07/10 5:01 antrum) PLANT PULLER PM PLANT PULLER Susy Toussaint MD LAB PATHOLOGY Performing Organization Address City/State/ZIP Code Phon e Number [facility] [address] [place] [address] EGD (07/10/2019 9:10 AM PLANT PULLER) Specimen (Source) Anatomical Collection Method Collection Time Re ceived Time Location / / Volume Laterality 07/10/2019 9:10 AM PLANT PULLER Narrative GI ([facility]) - 07/10/2019 9:10 AM PLANT PULLER Patient Name: Sadie Mart Procedure Date: 07/10/2019 9:10 AM Date of : 1995 Admit Type: Outpatient Age: 24 Note Status: Finalized Attending MD: Susy Toussaint MD Procedure: ? Upper GI endos copy Indications: ? Nausea with vom iting Providers: ? Susy Toussaint MD, Komal Aiken RN Referring MD: ?Sherry kim MD Medicines: ? Midazolam 2 mg IV, Fentanyl 100 ? microgram s IV, Benzocaine spray Complications: ? No immediate com plications. Estimated ? blood los s: Minimal. Procedure: ? After obtainin g informed consent, the ? endoscope was passed under direct ? vision. T hroughout the procedure, the ? patient's blood pressure, pulse, and ? oxygen sa turations were monitored ? continuou sly. The flexible ? [id number] -[id number] was introduced through ? the mouth , and advanced to the second ? part of d uodenum. The upper GI ? endoscopy was accomplished without ? difficult y. The patient tolerated the ? procedure well. Findings: ? The esophagus was normal. ? A few dispersed, 2 mm non-bleedin g erosions were ? found in the gastric antrum. Ther e were no stigmata ? of recent bleeding. Biopsies were taken with a cold ? forceps for histology. Verificati on of patient ? identification for the specimen w as done by the ? physician and nurse using the yeni cedeno's name and ? date. Estimated blood loss was minimal. ? The exam of the stomach was other mcclure normal. ? The examined duodenum was normal. Moderate Sedation: ? Moderate (conscious) sedation was administered by the ? endoscopy nurse and supervised by the endoscopist. ? The following parameters were mon itored: oxygen ? saturation, heart rate, blood pre ssure, and response ? to care. Total physician intraser vice time was 12 ? minutes. Impression: ?- Normal esoph vinod. ? - Non-ble eding erosive gastropathy. ? Biopsied. ? - Normal examined duodenum. Recommendation: ?- Await patholog y results. ? - Use Ale losec (omeprazole) 20 mg PO ? daily. ? - Return to GI clinic as previously ? scheduled . ? - Discont inue aspirin and NSAIDs. Procedure Code(s): ?? --- Professional - -- ? 10573, Es ophagogastroduodenoscopy, ? flexible, transoral; with biopsy, ? single or multiple ? G0500, Mo derate sedation services ? provided by the same physician or ? other [facility] ? professio nal performing a ? gastroint estinal endoscopic service ? that fernanda tion supports, requiring the ? presence of an independent trained ? observer to assist in the monitoring ? of the laverne gill's level of ? conscious ness and physiological ? status; i nitial 15 minutes of ? intra-ser vice time; patient age 5 ? years or older (additional time may ? be report ed with 22469, as ? appropria te) Diagnosis Code(s): ?? --- Professional - -- ? R11.2, Na usea with vomiting, ? unspecifi ed ? K31.89, O ther diseases of stomach and ? duodenum CPT copyright 2018 [employer]. All rights reserved. The codes documented in this report are preliminary and upon sequins stringer review may be revised to meet current compliance requirements. Susy Toussaint MD 07/10/2019 9:33:23 AM This document has been electronically si gned. Number of Addenda: 0 Note Initiated On: 07/10/2019 9:10 AM ? Endoscopy Report Procedure Note Susy Toussaint MD - 07/10/2019 Patient Name: Sadie Matr Procedure Date: 07/10/2019 9:10 AM Date of : 1995 Admit Type: Outpatient Age: 24 Note Status: Finalized Attending MD: Susy Toussaint MD Procedure: Upper GI endoscopy Indications: Nausea with vomiting Providers: Susy Toussaint MD, Komal murillo RN Referring MD: Sherry Anders MD Medicines: Midazolam 2 mg IV, Fentanyl 1 00 micrograms IV, Benzocaine spray Complications: No immediate complication s. Estimated blood loss: Minimal. Procedure: After obtaining informed cons ent, the endoscope was passed under direct vision. Throughout the procedure, the patient's blood pressure, pulse, and oxygen saturations were monitored continuously. The flexible [id number] was introduced through the mouth, and advanced to the second part of duodenum. The upper GI endoscopy was accomplished without difficulty. The patient tolerated the procedure well. Findings: The esophagus was normal. A few dispersed, 2 mm non-bleeding eros ions were found in the gastric antrum. There were no stigmata of recent bleeding. Biopsies were taken with a cold forceps for histology. Verification of patient identification for the specimen was don e by the physician and nurse using the patient's name and date. Estimated blood loss was mi nimal. The exam of the stomach was otherwise n ormal. The examined duodenum was normal. Moderate Sedation: Moderate (conscious) sedation was admin istered by the endoscopy nurse and supervised by the e ndoscopist. The following parameters were monitored : oxygen saturation, heart rate, blood pressure, and response to care. Total physician intraservice t carol was 12 minutes. Impression: - Normal esophagus. - Non-bleeding erosive gastropathy. Biopsied. - Normal examined duodenum. Recommendation: - Await pathology result s. - Use Prilosec (omeprazole) 20 mg PO daily. - Return to GI clinic as previously scheduled. - Discontinue aspirin and NSAIDs. Procedure Code(s): --- Professional --- 71611, Esophagogastroduodenoscopy, flexible, transoral; with biopsy, single or multiple G0500, Moderate sedation services provided by the same physician or other qualified health rn progressive care unit performing a gastrointestinal endoscopic service that sedation supports, requiring the presence of an independent trained observer to assist in the monitoring of the patient's level of consciousness and physiological status; initial 15 minutes of intra-service time; patient age 5 years or older (additional time may be reported with 65349, as appropriate) Diagnosis Code(s): --- Professional --- R11.2, Nausea with vomiting, unspecified K31.89, Other diseases of stomach and duodenum CPT copyright 2018 [employer]. All rights reserved. The codes documented in this report are preliminary and upon sequins stringer review may be revised to meet current compliance requirements. Susy Toussaint MD 07/10/2019 9:33:23 AM This document has been electronically si gned. Number of Addenda: 0 Note Initiated On: 07/10/2019 9:10 AM Endoscopy Report Sherry Anders PA-C PN GI PROCEDURE ORDERABLES Performing Organization Address City/State/ZIP Code Phon e Number [facility] ([facility]) [facility] ([facility]) [place], [place] documented in this encounter Visit Diagnoses Diagnosis Nausea and vomiting, intractability of v omiting not specified, unspecified vomiting type - Primary Epigastric pain Abdominal pain, epigastric documented in this encounter Administered Medications Inactive Administered Medications - up to 3 most recent administrations Medication Order MAR Action Action Date Dose Rate Site benzocaine (HURRICAINE) 20 % oral Given 07/10/2019 9:34 AM PLANT PULLER 1 Each spray 1 Each 1 Each (1 [place]), Mouth/Throat, PRN, Pain, Starting on Sat07/10/19 at 0742, Hazardous waste disposal required. fentaNYL (SUBLIMAZE) injection 25-100 mc g Given 07/10/2019 9:35 AM PLANT PULLER 100 mcg 25-100 mcg, Intravenous, PRN, Pain, moderate sedation, Starting on Sat07/10/19 at 0742, Until Sat07/31/19 at 0204, Administer in 25-100 mcg increments as directed by endoscopy procedure MD up to a total of 200 mcg midazolam (VERSED) injection 0.5-2 mg Given 07/10/2019 9:35 AM PLANT PULLER 2 mg 0.5-2 mg, Intravenous, PRN, Sedation, Starting on Sat07/10/19 at 0742, Until Sat07/31/19 at 0204, Administer in 0.5 - 2 mg increments as directed by endoscopy procedure MD up to a total of 6 mg ondansetron (ZOFRAN) injection 4 mg Given 07/10/2019 9:38 AM PLANT PULLER 4 mg 4 mg, Intravenous, Q6H PRN, Nausea, Vomiting, Starting on Sat07/10/19 at 0938, Until Sat07/31/19 at 0204 sodium chloride 0.9% injection 10-60 mL Given 07/10/2019 9:36 AM PLANT PULLER 10 mL 10-60 mL, Intravenous, PRN, Line Patency, Line Care, Starting on Sat07/10/19 at 0742, Until Sat07/31/19 at 0204 documented in this encounter Care Teams Animal Shelter Manager Relationship Specialty Start Date End Date Nasrin Houser MD PCP - General Internal Medicine 06/12/19 07/11/20 [address] [place] [address] documented as of this encounter
--- OUTSIDE RECORDS SUMMARY | 2022-06-19 16:14 | XMS_ITS | Encounter Summary ---
:1995 Author Organization Formerly [facility] Address [address] [address] Care Team Providers Name Role Phone Nasrin Houser MD Primary Care Provider Encounter Details Date Type Department Care Team Description 07/16/2019 Notes/Orders [place] Kaitlin Abraham, FACILITY MANAGER, Gastroenterology [facility] [address] [place] [address] [facility] [place] [phone] (Wo rk) Social History Tobacco Use Types [...] on filedocumented in this encounter Care Teams Route Salesman And Driver Relationship Specialty Start Date End Date Nasrin Houser MD PCP - General Internal Medicine 06/12/19 07/11/20 [address] [place] [id number] documented as of this encounter
--- OUTSIDE RECORDS SUMMARY | 2022-06-19 16:14 | XMS_ITS | Encounter Summary ---
:1995 Author Organization [facility] Address [address] [place] [address] Care Team Providers Name Role Phone Nasrin Houser MD Primary Care Provider Reason for Visit Reason Comments Prior Authorization Request DOS 09/18/19 Encounter Details Date Type Department Care Team Description 09/01/2019 Telephone [place] [address] [facility] P rior Authorization Surgery MD Request (DOS 09/18/19) [address] [place] [address] [address] [phone] [place], [place] [address] Social History Tobacco Use Types Packs/Day Years Used Date Smoking Tobacco: Never Smokeless Tobacco: Never Alcohol Use Standard Drinks/Week Comments Yes 0 (1 standard drink = 0.6 oz pure alcoho l) 1-2 drinks a month Sex Assigned at Date Recorded Not on file documented as of this encounter Nursing Notes Nathalie Izquierdo MA - 09/01/2019 1:40 PM CST Prior Authorization Results Prior Authorization Needed No Denied/Approved N/A Reference Number [id number] Notes No PA required per automated system Ana Luisa Uribe - 09/01/2019 12:21 PM CST Prior Authorization What prior authorization is needed? 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
--- OUTSIDE RECORDS SUMMARY | 2022-06-19 16:14 | XMS_ITS | Encounter Summary ---
:1995 Author Organization [facility] Address [address], [place] [address] Care Team Providers Name Role Phone Nasrin Houser MD Primary Care Provider Reason for Referral Procedure/Equipment (Routine) - Incomplete Specialty Diagnoses / Procedures Referred By Contact Refer red To Contact Diagnoses Epigastric pain Rey Foley MD Procedures NM Hepatobiliary With Ejection Fraction [address] [place] [address] Referral ID Status Reason Start Date Expiration Date Visits V isits Requested Authorized [id number] Incomplete 08/03/2019 11/01/2020 6 6 CLUB ASSEMBLER Reason for Visit Auth/Cert Specialty Diagnoses / Procedures Referred By Contact Refer red To Contact Referral ID Status Reason Start Date Expiration Date Visits Requ ested Visits Authorized [id number] 1 1 Encounter Details Date Type Department Care Team Description 08/06/2019 Hospital Encounter Catholic Rey Maldonado sea and vomiting, intractability of vomiting not specified, unspecified vomiting type (Primary Dx); Nilesh Miller MD Epigastric pain [address] [facility] [address] [place] [address] [phone] Social History Tobacco Use Types Packs/Day Years Used Date Smoking Tobacco: Never Smokeless Tobacco: Never Alcohol Use Standard Drinks/Week Comments Yes 0 (1 standard drink = 0.6 oz pure alcoho l) 1-2 drinks a month Sex Assigned at Date Recorded Not on file documented as of this encounter Last Filed Vital Signs Vital Sign Reading Time Taken Comments Blood Pressure - - Pulse - - Temperature - - Respiratory Rate - - Oxygen Saturation - - Inhaled Oxygen Concentration - - Weight 66.4 kg (146 lb 6.2 oz) 08/06/2019 2:00 PM GOLF CLUB ASSEMBLER Height - - Body Mass Index 28.59 07/10/2019 8:45 AM GOLF CLUB ASSEMBLER documented in this encounter Medications at Time of Discharge Medication Sig Dispensed Refills Start Date End Date Levonorgestrel-Ethinyl Take 1 Tablet by 84 Tablet 3 019 02/09/2020 Estrad (AUBRA EQ) 0.1-20 mouth daily. MG-MCG tabletIndications: Confirmed with control counseling, previous care team OCP (oral contraceptive patient has been pills) initiation taking Aubra EQ oral control omeprazole (PRILOSEC) 40 Take 1 Capsule by 90 Capsule 1 10/201809/09/2019 MG capsuleIndications: mouth daily for 180 Epigastric pain days. Take 1 hour before a meal. ondansetron (ZOFRAN-ODT) Take 1 Tablet by 30 Tablet 1 08/0308/31/2020 4 MG disintegrating mouth every 8 hours tabletIndications: as needed. Non-intractable vomiting with nausea, unspecified vomiting type traZODone (DESYREL) 50 MG Take 1-2 Tablets by 180 Tablet 3 1 08/25/2019 tablet mouth daily at bedtime. documented as of this encounter Plan of Treatment Not on filedocumented as of this encounter Procedures Procedure Name Priority Date/Time Associated Comments Diagnosis NM HEPATOBILIARY WITH Routine 08/06/2019 3:36 PM Epigastric pa in Results for this EJECTION FRACTION GOLF [employer] ASSEMBLER procedure are in the results section. documented in this encounter Results NM Hepatobiliary With Ejection Fraction (08/06/2019 3:36 PM GOLF CLUB ASSEMBLER) Anatomical Region Laterality Modality Abdomen Nuclear Medicine Specimen (Source) Anatomical Collection Method Collection Time Re ceived Time Location / / Volume Laterality 08/06/2019 1:40 PM GOLF CLUB ASSEMBLER Impressions 08/06/2019 3:44 PM GOLF CLUB ASSEMBLER COMPARISON: ??None. TECHNIQUE: Following the administration of 7.4 mCi mCi technetium 99m mebrofenin a hepatobiliary scan with gallbladder ejection fraction was performed. FINDINGS: There is prompt visualization of the liver and bile ducts. There is normal gallbladder filling and excretion into the small bowel. Following the administration of 1.3 mcg Kinevac IV over a slo w infusion of 30 minutes gallbladder eje ction fraction is calculated at 26%, with normal being greater than 35%. IMPRESSION: ??Slightly decreased gallbla dder ejection fraction of 26%. Procedure Note Vargas Tsai MD - 08/06/2019 IMPRESSION COMPARISON: None. TECHNIQUE: Following the administration of 7.4 mCi mCi technetium 99m mebrofenin a hepatobiliary scan with gallbladder ejection fraction was performed. FINDINGS: There is prompt visualization of the liver and bile ducts. There is normal gallbladder filling and excretion into the small bowel. Following the administration of 1.3 mcg Kinevac IV over a slow infusion of 30 minutes gallbladder ejection fraction is calculated at 26%, with normal being greater than 35%. IMPRESSION: Slightly decreased gallbladd er ejection fraction of 26%. Rey Foley MD RAD NM documented in this encounter Visit Diagnoses Diagnosis Nausea and vomiting, intractability of v omiting not specified, unspecified vomiting type - Primary Epigastric pain Abdominal pain, epigastric documented in this encounter Administered Medications Inactive Administered Medications - up to 3 most recent administrations Medication Order MAR Action Action Date Dose Rate Site sincalide (KINEVAC) 1.3 mcg in Started 08/06/2019 1:52 PM GOLF [employer]UB ASSEMBLER 1.3 mcg sodium chloride 0.9 % 100 mL IVPB 1.3 mcg (rounded from 1.328 mcg = 0.02 mcg/kg ? 66.4 kg), Intravenous, Administer over 30 Minutes, ONCE, On Jen 08/06/19 at 1430, For 1 dose, Radiology sodium chloride 0.9% injection 30 mL Given 08/06/2019 1:55 PM GOLF [employer]UB ASSEMBLER 30 mL 30 mL, Intravenous, ONCE, On Jen 08/06/19 at 1430, For 1 dose, For line care., Radiology technetium TC-99M mebrofenin Given 08/06/2019 1:55 PM GOLF CLUB ASSEMBLER 7.4 mi llicuries (CHOLETEC) injection kit 7.4 millicurie 7.4 millicurie, Intravenous, ONCE, On Jen 08/06/19 at 1430, For 1 dose, Radiology documented in this encounter Care Teams Vision Rehabilitation Therapist Relationship Specialty Start Date End Date Nasrin Houser MD PCP - General Internal Medicine 06/12/19 07/11/20 [address] [place] [address] documented as of this encounter
--- OUTSIDE RECORDS SUMMARY | 2022-06-19 16:14 | XMS_ITS | Encounter Summary ---
:1995 [facility] Address [address] [address] Care Team Providers Name Role Phone Nasrin Houser MD Primary Care Provider Reason for Referral Therapies (Routine) - Closed Specialty Diagnoses / Procedures Referred By Contact Refer red To Contact Diagnoses Benign paroxysmal positional vertigo, unspecified laterality Nasrin Houser MD [address] [place] [address] Referral ID Status Reason Start Date Expiration Date Visits Requ ested Visits Authorized [id number] Closed 08/25/2019 10/24/2019 1 1 Scheduling Instructions Your provider has recommended an appoint ment with [facility]. You may call [phone] to schedule your a ppointment. If you do not schedule an appointment within the next 1 to 3 busin ess days, we will call you to help arrange your appointment. We suggest you call [employer] about your coverage and benefits for this appointme nt. RPILLAR TRACTOR OPERATOR Reason for Visit Reason Comments VERTIGO Encounter Details Date Type Department Care Team Description 08/25/2019 Office Visit Nasrin Burnett, Benign p aroxysmal positional vertigo, unspecified laterality (Primary Dx); Medicine Chronic insomnia; [address] Epigastric pain; [address] [address] ASHLEE (generalized anxiety disorder) [phone] Social History Tobacco Use Types Packs/Day Years Used Date Smoking Tobacco: Never Smokeless Tobacco: Never Alcohol Use Standard Drinks/Week Comments Yes 0 (1 standard drink = 0.6 oz pure alcoho l) 1-2 drinks a month Sex Assigned at Date Recorded Not on file documented as of this encounter Last Filed Vital Signs Vital Sign Reading Time Taken Comments Blood Pressure 120/81 08/25/2019 10:24 AM CATERPILLAR TRACTOR OPERATOR Pulse 88 08/25/2019 10:24 AM CATERPILLAR TRACTOR OPERATOR Temperature - - Respiratory Rate - - Oxygen Saturation - - Inhaled Oxygen Concentration - - Weight 66.1 kg (145 lb 12.8 oz) 08/25/2019 10:24 AM CATERPILLAR TRACTOR OPERATOR Height - - Body Mass Index 28.47 07/10/2019 8:45 AM CATERPILLAR TRACTOR OPERATOR documented in this encounter Progress Notes Nasrin Houser MD - 08/25/2019 10:30 AM CST Chief Complaint Patient presents with ??? VERTIGO SUBJECTIVE: Sadie Mart is a 24 y.o. female with a history of epigastric pain, nausea, and vomiting over the past several months who presents with new onset vertigo for the past week. Started 1 week ago with a brief episode of room spinning after turning over in bed. She had vomiting every day last week and then started to develop more severe room spinning dizziness. She was seen at a clinic in [place] and given an rx for meclizine which is somewhat helpful. She is still having the dizziness when she moves her head quickly. ROS: no recent URI symptoms. Continues to have daily epigastric pain whenever she eats. Decreased appetite. Some mild headaches. Continues to be depressed and anxious but is nervous about starting medication when she is still having her abdominal symptoms. OBJECTIVE: Vital Signs: BP 120/81 Pulse 88 Wt 66.1 kg (145 lb 12.8 oz) BMI 28.47 kg/m?? Gen: pleasant F, NAD HEENT: NCAT, PERRL, sclera anicteric, EOMI without nystagmus, nasal turbinates without significant erythema/edema, TMs clear with brisk LR bilaterally Chest: CTAB CV: RRR, no m/r/g ASSESSMENT AND PLAN: Sadie was seen today for vertigo. Diagnoses and all orders for this visit: Benign paroxysmal positional vertigo, unspecified laterality - her symptoms are stereotypical for BPPV. She is having some relief with meclizine. Discussed the etiology of this issue and how we manage it. I am referring her to physical therapy for evaluation and treatment. - Physical Therapy Chronic insomnia - requesting refills of trazodone, which were provided. - traZODone (DESYREL) 50 MG tablet; Take 1-2 Tablets by mouth daily at bedtime. Epigastric pain - this has been going on for several months, and she has had extensive workup. She did have a HIDA scan with a mildly decreased gallbladder ejection fraction. 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 She recently followed up with GI and wanted to see surgery to discuss possible cholecystectomy. She has an appt with them coming up. Generalized anxiety disorder - she is not currently on anything because she thought that the duloxetine that she was previously started on may have been the etiology of her epigastric pain. She would like to discuss trying medication again after she has achieved control of the epigastric pain. Follow up - with me after her surgery appt Nasrin Houser MD 10:55 AM 08/25/2019 RPILLAR TRACTOR OPERATOR documented in this encounter Plan of Treatment Scheduled Referrals Name Type Priority Associated Diagnoses Order S [facility] Physical Therapy Referral Routine Benign paroxysmal positi onal Ordered: 08/25/2019 vertigo, unspecified laterality documented as of this encounter Visit Diagnoses Diagnosis Benign paroxysmal positional vertigo, un specified laterality - Primary Chronic insomnia Insomnia, unspecified Epigastric pain Abdominal pain, epigastric ASHLEE (generalized anxiety disorder) Generalized anxiety disorder documented in this encounter Care Teams Optical Advisor Relationship Specialty Start Date End Date Nasrin Houser MD PCP - General Internal Medicine 06/12/19 07/11/20 [address] [place] [address] documented as of this encounter
--- OUTSIDE RECORDS SUMMARY | 2022-06-19 16:14 | XMS_ITS | Encounter Summary ---
:1995 Author Organization [facility] Address [address], [place] [address] Care Team Providers Name Role Phone Nasrin Houser MD Primary Care Provider Reason for Referral Procedure/Equipment (Routine) - Incomplete Specialty Diagnoses / Procedures Referred By Contact Refer red To Contact Diagnoses Epigastric pain Mark Foley MD Procedures NM Hepatobiliary With Ejection Fraction [address] [place] [address] Referral ID Status Reason Start Date Expiration Date Visits V isits Requested Authorized [id number] Incomplete 08/03/2019 11/01/2020 6 6 RICT MANAGER PRIMARY CARE SALES Reason for Visit Reason Comments Follow-up ER visit- abd pain Encounter Details Date Type Department Care Team Description 08/03/2019 Office Visit [facility] Mark Foley, Non-intra ctable vomiting with nausea, unspecified vomiting type (Primary Dx); Medicine Epigastric pain; [address] (generalized anxiety disorder) [address] [address] [phone] Social History Tobacco Use Types Packs/Day Years Used Date Smoking Tobacco: Never Smokeless Tobacco: Never Alcohol Use Standard Drinks/Week Comments Yes 0 (1 standard drink = 0.6 oz pure alcoho l) 1-2 drinks a month Sex Assigned at Date Recorded Not on file documented as of this encounter Last Filed Vital Signs Vital Sign Reading Time Taken Comments Blood Pressure 102/52 08/03/2019 1:00 PM DISTRICT MANAGER PRIMARY CARE SALES Pulse 96 08/03/2019 1:00 PM DISTRICT MANAGER PRIMARY CARE SALES Temperature 36.7 ??C (98.1 ??F) 08/03/2019 1:00 PM DISTRICT MANAGER PRIMARY CARE SALES Respiratory Rate - - Oxygen Saturation - - Inhaled Oxygen Concentration - - Weight 67.1 kg (148 lb) 08/03/2019 1:00 PM DISTRICT MANAGER PRIMARY CARE SALES Height - - Body Mass Index 28.9 07/10/2019 8:45 AM DISTRICT MANAGER PRIMARY CARE SALES documented in this encounter Progress Notes Mark Foley MD - 08/03/2019 1:00 PM DISTRICT MANAGER PRIMARY CARE SALES Addended by: MARK FOLEY on: 08/04/2019 04:43 PM Modules accepted: Orders RICT MANAGER PRIMARY CARE SALES Mark Foley MD - 08/03/2019 1:00 PM CST Subjective Chief Complaint Patient presents with ??? Follow-up ER visit- abd pain Sadie Mart is a 24 y.o. female under the regular care of Nasrin Houser MD. SH: Single. 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 Steady BF. FH: Bipolar disorder in her mother and sister. Ovarian cancer in her sister and MGMA. Type of visit & current concerns Scheduled ER follow-up. Seen at [facility] on 07/31/19, 3 days ago, for nonspecific abdominal pain. At that time, her symptoms had been ongoing for 1.5 months. She is under the regular care of Nasrin Houser MD, and has had 3 encounters with her PCP throughout the month of June. The patient has followed with specialists in the past but the etiology of her abdominal pain is not entirely clear. Symptoms started after she had a Nexplanon implant placed for control on 06/10/19. Symptoms were sent with the initiation of Cymbalta therapy on 06/12/19. After a month of symptoms, her Nexplanon was removed on 07/06/19. 06/26/19 RUQ U/S normal. 07/03/19 CT abdomen and pelvis: There are a few punctate calyceal tip calcifications measuring less than 1 mm without jordan stone identified. No hydronephrosis or hydroureter. No ureteral or bladder stone. - EGD (07/10/19) completed for nausea with vomiting. Per report, normal esophagus. Nonbleeding erosive gastropathy. Normal examined duodenum. Biopsies were negative for H pylori but noted changes suggestive of mild reactive gastropathy. She was advised to start Prilosec 20 mg daily and discontinue any aspirin. For her abdominal pain, the patient was seen in consultation by gastroenterology Kaitlin Abraham APRN, MACEY on 07/16/19. 07/31/19 ED visit at [facility] with extensive laboratory workup which was again negative. The ED provider asked the patient to follow up with primary care to get a HIDA scan ordered. The current working diagnosis is biliary dyskinesia, suspected as all the lab testing has come back negative. In the meanwhile, she is unable to work in full capacity. 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 This causes acute worsening of her abdominal pain. She has previously received work restrictions by provider here at the [facility] and they ran out on 07/31/19. She does not have a form available but we updated her most recent form which was amended by this provider. Sadie reports that she is currently managed with Reglan, omeprazole, and hydroxyzine. PMH/PSH/SH/FH - reviewed in [facility] # Anxiety on Vistaril 25 mg tablets 1-2 every 8 hours as needed off duloxetine 30 mg q.day # contraceptive management. Health Maintenance Reviewed Review of Systems As noted above. Appetite has been diminished. Weight is stable. Vomiting tends to occur 30-40 minutes after eating. No change in bowel habits. Rare alcohol use. No previous abdominal surgeries. Medications & Allergies - reviewed and reconciled in [facility] Current Outpatient Medications Medication Sig ??? Levonorgestrel-Ethinyl Estrad (AUBRA EQ) 0.1-20 MG-MCG tablet Take 1 Tablet by mouth daily. Confirmed with previous care team patient has been taking Aubra EQ oral control ??? omeprazole (PRILOSEC) 20 MG capsule Take 1 Capsule by mouth two times a day for 180 days. Take 1hour before a meal. ??? ondansetron (ZOFRAN-ODT) 4 MG disintegrating tablet Take 1 Tablet by mouth every 8 hours as needed. ??? traZODone (DESYREL) 50 MG tablet Take 1-2 Tablets by mouth daily at bedtime. Objective Vital Signs: BP 102/52 (BP Location: Right Arm, BP Cuff Size: Large) Pulse 96 Temp 36.7 ??C (98.1 ??F) (Oral) Wt 67.1 kg (148 lb) BMI 28.90 kg/m?? General appearance: Pleasant female, alert, in NAD. HEENT: PERRLA, EOMI, no conjunctival injection. Ear canals, TMs, & oropharynx clear. Neck: No JVD, LAD, thyromegaly, or bruit. Heart: RRR, S1, S2, no MRG. Lungs: CTA B/L, no rales, rhonchi, wheezing Abdomen: Soft, moderate right upper quadrant tenderness without HSM or palpable masses. Lower Extremities: No edema or deformity. Palpable DP/PT pulses. Neuro: CN II-XII intact. No focal motor or sensory deficit. DTRs symmetric. Psychiatric: Alert & oriented with normal affect and insight. Skin: No abnormal rashes or suspicious lesions for skin cancer. Labs/Imaging - none Assessment (ICD-10-CM) & Orders ICD-10-CM 1. Non-intractable vomiting with nausea, unspecified vomiting type R11.2 ondansetron (ZOFRAN-ODT) 4 MG disintegrating tablet 2. Epigastric pain R10.13 NM Hepatobiliary With Ejection Fraction omeprazole (PRILOSEC) 20 MG capsule 3. ASHLEE (generalized anxiety disorder) F41.1 Discussion & Plan Sadie is a 24-year-old female, seen today for an ER follow-up for abdominal pain. She was seen at [facility] on 07/31/19, 3 days ago By that time she has had symptoms for 1.5 months which started after Nexplanon implantation on 06/10/19. After being seen by multiple providers including gastroenterology subspecialty consultation the Nexplanon has been removed on 07/06/19. The previous working diagnosis so far has been hormonal side effect and possibly adverse effect of the Cymbalta therapy initiated in June by her PCP. Her most recent provider entertained a diagnosis of biliary dyskinesia. The patient's workup so far has been unrevealing which is apparently often the case with biliary dyskinesia. A HIDA scan may provide additional information. This was ordered today. Work excuse and restrictions extended. I wrote her a separate letter for light duty. Medications refilled. Physical exam - findings noted above. Her weight has been stable. Chronic conditions # Anxiety # Contraceptive management # PMI ^ Counseling for all vaccinations administered today. Benefits and risks discussed. Sadie was agreeable with the plan of care. After Visit Summary provided. Follow-up PRN in clinic for acute problems Mark Foley MD Internal Medicine, [facility] [place] RICT MANAGER PRIMARY CARE SALES documented in this encounter Nursing Notes Dia Richard MA - 08/03/2019 1:00 PM CST OMEPRAZOLE 20mg is denied for BID dosing. Dosing desired can be achieved with a higher strength tab/cap while still meeting the quantity limit guidelines. Plan covers 30/30 days. To Appeal 1. Click Appeal under the more button on the toolbar 2. Enter any relevant/helpful information in the Note to Payer box 3. Click Accept To change medication 1. Click Change Med under the more button on the toolbar 2. Order new medication 3. Click ePA Assistance Quick Action to document 4. Select Provider Changed Med option 5. Route to: your site DA If you want the patient to Pay [id number]-uf-Dckgyu 1. Click ePA Assistance Quick Action to document 2. Select Out of Pocket option 3. Route to: your site ELAYNE Richard MA RICT MANAGER PRIMARY CARE SALES documented in this encounter Plan of Treatment Not on filedocumented as of this encounter Results NM Hepatobiliary With Ejection Fraction (08/06/2019 3:36 PM DISTRICT MANAGER PRIMARY CARE SALES) Anatomical Region Laterality Modality Abdomen Nuclear Medicine Specimen (Source) Anatomical Collection Method Collection Time Re ceived Time Location / / Volume Laterality 08/06/2019 1:40 PM DISTRICT MANAGER PRIMARY CARE SALES Impressions 08/06/2019 3:44 PM DISTRICT MANAGER PRIMARY CARE SALES COMPARISON: ??None. TECHNIQUE: Following the administration of [...] decreased gallbladd er ejection fraction of 26%. Mark Foley MD RAD NM documented in this encounter Visit Diagnoses Diagnosis Non-intractable vomiting with nausea, un specified vomiting type - Primary Epigastric pain Abdominal pain, epigastric ASHLEE (generalized anxiety disorder) Generalized anxiety disorder Nausea and vomiting, intractability of v omiting not specified, unspecified vomiting type - Primary Epigastric pain Abdominal pain, epigastric documented in this encounter Care Teams Dolly Pusher Relationship Specialty Start Date End Date Nasrin Houser MD PCP - General Internal Medicine 06/12/19 07/11/20 [address] [place] [address] documented as of this encounter
--- OUTSIDE RECORDS SUMMARY | 2022-06-19 16:14 | XMS_ITS | Encounter Summary ---
:1996 Author Organization [facility] Address [address], [place] [address] Care Team Providers Name Role Phone Nasrin Houser MD Primary Care Provider Reason for Visit Reason Comments ABNORMAL, TEST RESULT Encounter Details Date Type Department Care Team Description 08/07/2019 Telephone [place] Nasrin Shine, ABNORMAL, TEST RESULT [address] [place] [address] [address] [phone] [address] [id number] Social History Tobacco Use Types Packs/Day Years Used Date Smoking Tobacco: Never Smokeless Tobacco: Never Alcohol Use Standard Drinks/Week Comments Yes 0 (1 standard drink = 0.6 oz pure alcoho l) 1-2 drinks a month Sex Assigned at Date Recorded Not on file documented as of this encounter Nursing Notes Nasrin Houser MD - 08/07/2019 9:31 AM CST Called patient to discuss results of HIDA scan. This showed slightly diminished GB ejection fraction. Advised that she follow up with GI to discuss management. May eventually need cholecystectomy but there is no guarantee that this will cure her symptoms. She asked what she should be using for pain. Advised continuing omeprazole and Tylenol for abdominal pain. Both NSAIDs (due to risk of PUD/gastritis) and opiates (due to risk of constipation) can cause increased abdominal pain so I would not adviseeither of these. Nasrin Houser MD 9:34 AM 08/07/2019 ADJUSTER documented in this encounter Plan of Treatment Not on filedocumented as of this encounter Visit Diagnoses Not on filedocumented in this encounter Care Teams Skoog Machine Operator Relationship Specialty Start Date End Date Nasrin Houser MD PCP - General Internal Medicine 06/12/19 07/11/20 [address] [place] [address] documented as of this encounter
--- OUTSIDE RECORDS SUMMARY | 2022-06-19 16:14 | XMS_ITS | Encounter Summary ---
:1995 Author Organization [facility] Address [address], [place] [address] Care Team Providers Name Role Phone Nasrin Houser MD Primary Care Provider Reason for Visit Reason Comments Symptoms 1 week f/u Encounter Details Date Type Department Care Team Description 07/23/2019 [facility]phone [facility] [address], Symptoms (1 week f/u) Gastroenterology SHADOWGRAPH SCALE OPERATOR, [place] [address] [place] [phone] (Wo rk) Social History Tobacco Use Types Packs/Day Years Used Date Smoking Tobacco: Never Smokeless Tobacco: Never Alcohol Use Standard Drinks/Week Comments Yes 0 (1 standard drink = 0.6 oz pure alcoho l) 1-2 drinks a month Sex Assigned at Date Recorded Not on file documented as of this encounter Nursing Notes Antoinette Seymour RN - 08/05/2019 8:45 AM CST Spoke with patient, she is disappointed she has not been called back sooner. She has her HIDA schedule for tomorrow and was warm transferred to gi schedulers to make a f/u appointment with a new provider. ULTANT DIETITIAN Kaitlin Abraham, MACEY WILKINS - 08/05/2019 7:12 AM CST 1. See that Sadie was seen by ER, and then a follow up was completed with PCP. Working diagnosis was noted to be biliary dyskinesia. 2. HIDA scan has been ordered. 3. If pain continues, and HIDA scan normal, she may need to follow up in the GI Clinic for further evaluation. Suspect pain could be functional or musculoskeletal. Electronically signed by Kaitlin Abraham, SHADOWGRAPH SCALE OPERATOR, SURGICAL PHYSICIAN ASSISTANT at 08/05/2019 7:16 AM CONSULTANT DIETITIAN Yaritza Arredondo RN - 07/31/2019 4:52 PM CST Pt calling again states she was hoping to hear back before end of the day. Pt became tearful and frustrated as she has not heard back. Classified Copy Control Clerk attempted to comfort patient and advised pt again to be seen in UC/ER if symptoms continue/worsen over weekend. ULTANT DIETITIAN Simi Williamson RN - 07/31/2019 9:00 AM CST Pt calling, states that her doctor's note for work has ran out. She needs to go back to work but sheis not able to as she is in so much pain. States that she is looking for further input from CONTRACT MANAGER. States that she is not sure if she needs to start physical therapy or what she should be doing to helpwith the pain. Pt was notified that TH CONTRACT MANAGER was REAGAN and will be checking her notes today. Advised to be seen in UC/ER if her symptoms continue through the weekend and she does not hear back from GI nurses before the end of the day. Stated understanding but very frustrated that she has not heard back from provider. Ashkan Flaherty RN - 07/29/2019 11:17 AM CST Patient calling again. Informed of message below, verbalized understanding. Is currently on the FODMAP diet. 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 Patient adamant to receive further input/thoughts from Dara Abraham on Zeyad upon her return to office. ULTANT DIETITIAN Alonzo Higginbotham MD - 07/28/2019 12:35 PM CST I have reviewed her chart. It is clear that her case is complex. I suspect that there is not a magicpill that will help with her situation. I am afraid that without knowing her getting involved may push us in the wrong direction. I can offer a low FODMAPs diet to see if that helps, if she has not already tried that. I know that there is also concern that this could be musculoskeletal in origin. I recommend to stop any core exercises that she may be doing. I hope that helps until CONTRACT MANAGER Mayankcarmen can comment further. She may have further thoughts. Thanks. ULTANT DIETITIAN Anayeli Tellez RN - 07/28/2019 9:31 AM CST Pt calling back again; again voicing her frustration with lack of communication from GI provider. Pt states her pain prevents her from performing her job duties and she does not have any time off ora note with any restrictions. Pt has vomited 3x/day for past two days. Denies fever, but states she feels light-headed. Pain located in upper abdomen, slightly to the right. Lying down, heat, and Tylenol reduce pain slightly. Pt states pain last night was 8/10 and currently 5/10; pain increase throughout day. Pt looking for recommendations for plan of care. Routing to on-call provider per pt's request to have response and Dara Abraham, who is out of office until 07/31, as FYI. Please review and advise, thankyou. Zeenat Sharma RN - 07/24/2019 9:55 AM CST Pt called, very frustrated that she hasn't heard back from anyone yet regarding her ongoing pain. States she can't continue like this as it is affecting not only her job but her life. Asking this be made high priority for when you return to office on Saturday. ULTANT DIETITIAN Marie Guy RN - 07/23/2019 10:21 AM CST Pt calling with one week update following clinic visit 07/16. States her vomiting has improved. For the last couple of days she is only vomiting 2x/day, down from 5x. She is taking her Reglan BID, omeprazole, and following recommended low fat, low residue diet. 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 Pt said it was dicussed at OV that PT may be recommended for her if pain continues. Please advise. ULTANT DIETITIAN documented in this encounter Plan of Treatment Not on filedocumented as of this encounter Visit Diagnoses Not on filedocumented in this encounter Care Teams Tire Sorter Relationship Specialty Start Date End Date Nasrin Houser MD PCP - General Internal Medicine 06/12/19 07/11/20 [address] [place] [address] documented as of this encounter
--- OUTSIDE RECORDS SUMMARY | 2022-06-19 16:14 | XMS_ITS | Encounter Summary ---
:1995 Author Organization [facility] Address [address], [place] [address] Care Team Providers Name Role Phone Nasrin Houser MD Primary Care Provider Reason for Visit Reason Comments Vestibular Therapies (Routine) - Closed Specialty Diagnoses / Procedures Referred By Contact Refer red To Contact Diagnoses Benign paroxysmal positional vertigo, unspecified laterality Nasrin Houser MD [address] [place] [address] Referral ID Status Reason Start Date Expiration Date Visits Requ ested Visits Authorized [id number] Closed 08/25/2019 10/24/2019 1 1 Encounter Details Date Type Department Care Team Description 08/28/2019 Office Visit [facility] Nasrin Houser MD [address] [place] [address] Dizziness ([place] [address] [place], [place] [id number] Dx) Therapy [address] [place], [place] [phone] Social History Tobacco Use Types Packs/Day Years Used Date Smoking Tobacco: Never Smokeless Tobacco: Never Alcohol Use Standard Drinks/Week Comments Yes 0 (1 standard drink = 0.6 oz pure alcoho l) 1-2 drinks a month Sex Assigned at Date Recorded Not on file documented as of this encounter Progress Notes Travis Smith, PT - 08/28/2019 11:30 AM CST [facility] Physical Therapy - Vestibular Evaluation/Plan of Care Initial Certification Period: 08/28/2019 to 10/12/19 Referring Provider: Nasrin Houser Visit Diagnosis: 1. Dizziness Precautions: None Orders: Evaluate and treat Onset/Referral Date: 08/18/19 SUBJECTIVE Reason for Visit: First onset of the dizziness was last Saturday, where she felt a little dizzy. She notes that things were really bad Saturday morning, noting she had the spins and vomited. She notes that things were really bad that entire day. Patient notes that she will have dizziness 4-5 times per day, last about one minute each time. Notesthat bending forward will seem to set off the dizziness, like picking something up from the floor. Notes that the dizziness was really bad first thing in the morning, but this has improved since being on the meclizine. Taking ~2 per day since 08/21/19. Notes that she will feel a little lightheaded when she first gets up in the morning at this point, feeling a little weak. Notes no dizziness with lying down at night. Notes that she has a history of migraines, and she has had some strong headaches with this but not what she would consider migraines. No neck pain. No history of TMJ dysfunction. Notes that she is a bit stressed, noting that the restrictions she has had at work due to the gallbladder pain, as they are pressuring her to work more, and she is not going to quit. Also limited with what she can do at home. Notes that she walks for exercise a couple times per week. History of Falls: Not asked Patient Therapy Goals: eliminate dizziness and self management of symptoms Past Medical History: Past medical history, medication, and allergies were reviewed in the electronic medical record. History pertinent to therapy includes anxiety, nausea and vomiting. Recently Experienced (Red Flags): Dizziness, Increased headaches, Loss of balance, and Sweats in themorning Previous Treatment: medications: meclizine Benefited from previous treatment: yes Pain Details: None related to dizziness Symptoms: disequilibrium (unsteady), lightheaded, nausea, spinning, vomiting, tilting, and headache Ear Symptoms: tinnitus - notes this has been more present than usual, mostly in L. 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 Does mall walking for exercise. Patient History: High Complexity: 3 or more personal factors and/or comorbidities that impact plan of care: Chronic nausea and vomiting, hx of migraines, anxiety OBJECTIVE General: Mood, orientation and behavior were appropriate. Patient was alert and oriented. Oculomotor examination: Spontaneous Nystagmus: Normal Eye Movement Range: Normal Vergence: Normal. Smooth Pursuit Eye Movement: normal Saccadic Eye Movement: dizziness: Spinning in both orientations, with patient searching for end points in vertical orientation HINTS: (3/3 positive; + LR 6.19) Negative Head Impulse/Thrust Test: saccadic correction: Slightly with thrust to R, with patient noting lightheadedness Gaze Holding Nystagmus: Impaired - perhaps slight nystagmus to R with gaze-hold to R Test of Skew: normal Vestibular ocular reflex (VOR) Cancellation: lightheaded Vestibular ocular reflex (VOR) Observed: lightheaded in horizontal motion, pain at base of neck, as well as spinning in vertical motion Static and Dynamic Visual Acuity (at 2 hz. 3 lines or more = positive): Dizziness. Cervical Artery Screen: Hypertension NO Recent Trauma - NO Acute onset of pain (unlike any other) - NO Vertebral Artery Test: Negative CROM: CROM: Within normal limits throughout, although notes some blurry vision with cervical rotation bilaterally, as well as some ringing in the ears. Balance: Sitting with Eyes Closed: Positive-reproduces symptoms, and patient does start to wobble slightly Rhomberg (arms folded across chest/heels together): Eyes open: 30 seconds. Eyes closed: 30 seconds with increased wobble. Sharpened Rhomberg (tandem stance): Eyes open: 30 seconds with increased wobble. Eyes closed: 30 seconds with increased wobble. Test Performed with Fixation Blocked: Spontaneous Nystagmus: Normal Gaze holding Nystagmus: Impaired - possible nystagmus to R Head shaking Nystagmus (3-4 hz x 10 seconds, head tilt >30 degrees, >3 beats = positive): Normal but dizziness Blow out through closed nostrils and Tullio Phenomenon: Nystagmus negative, Drift of eyes negative, dizziness Henebert's Sign (tragus pressure): Normal but dizziness Hyperventilation Test (deep breaths x 1 minute): some vertical upbeating of eyes with inhalation andexhalation, dizziness noted Positional Tests: Test performed with fixation blocked (frenzel goggles on): Right hallpike: positive for dizziness and negative nystagmus Left hallpike: positive for dizziness and negative nystagmus Right roll test: positive for dizziness and negative nystagmus Left roll test: positive for dizziness and negative nystagmus Dynamic Balance and Gait Tests: Not tested Outcome(s): PT - Vestibular Dizziness Handicap Inventroy (DHI) (0-100, 0 being best): 48 Clinical Examination: Moderate Complexity: Addressed 3 elements from body structures and functions (see above), and/or functional limitations as noted below. Today's Intervention: Physical Therapy Evaluation was completed and the patient was educated on the condition, planned therapy intervention and expectations from treatment. Neuromuscular re-education x 8 minutes: 1. Educated patient in gaze stabilization exercise, standing position, support PRN. Recommended target on wall, perform for 30 seconds. Slow head down as needed to keep target stationary and in focus. 2. Explained how meclizine can stunt vestibular system. 3. Explained importance of continuing to move head and neck normally to avoid increasing sensitivityto movement. 4. Advised daily walks for patient to help maintain activity tolerance, being that she is limited with her activities at work. Access Code: [email or web address] Exercises Standing Gaze Stabilization with Head Rotation - 2-5x daily Standing Gaze Stabilization with Head Nod - 2-5x daily Timed Code Treatment Minutes: 8 minutes Total Treatment Minutes: 50 minutes ASSESSMENT Therapist Impression/Summary: Appears to be BPPV that has resolved, with ongoing dizziness at this point. PT Clinical Presentation: Moderate Complexity: Evolving Clinical Presentation with changing clinical characteristics Clinical Decision Making: Moderate Complexity Significant Impairments: Vertigo, imbalance, dizziness Functional Limitations: difficulty with balance, difficulty with bending over, difficulty with cervical extension, difficulty with rolling and difficulty meeting work demands. Goals/Functional Outcomes: DHI score will improve by at least 18 points in 4-6 week(s). Patient will no longer have dizziness with bending in 4-6 week(s). Barriers to Goal Achievement or Learning: none Prognosis: Good PLAN Planned Intervention/Education: Canalith repositioning procedure, Education, Neuromuscular Re-education Frequency: 1 x week Duration: 45 days Discharge Plan: Patient will be discharged from therapy when goals are achieved or patient plateaus in progress. Informed Consent: Patient and/or family in agreement with the care plan. Plan for Next Treatment: Review gaze stabilization and progress as tolerated, relaxation techniques The mandrel puller is completed by the therapist and the referring clinician's electronic signature certifies medical necessity for the plan above. NARY MANAGER documented in this encounter Plan of Treatment Scheduled Referrals Name Type Priority Associated Diagnoses Order [facility] Physical Therapy Referral Routine Benign paroxysmal positi onal Ordered: 08/25/2019 vertigo, unspecified laterality documented as of this encounter Visit Diagnoses Diagnosis Dizziness - Primary Dizziness and giddiness documented in this encounter Care Teams Underwriting Director Relationship Specialty Start Date End Date Nasrin Houser MD PCP - General Internal Medicine 06/12/19 07/11/[address] [place] [address] documented as of this encounter
--- OUTSIDE RECORDS SUMMARY | 2022-06-19 16:14 | XMS_ITS | Encounter Summary ---
:1995 Author Organization [facility] Address [address], [place] [address] Care Team Providers Name Role Phone Nasrin Houser MD Primary Care Provider Reason for Visit Reason Comments ABDOMINAL PAIN Encounter Details Date Type Department Care Team Description 07/31/2019 Nurse Triage [place] [facility] Nasrin Houser MD ABDOMINAL PAIN [address] [place] [address] [place] [address] [phone] (Wo rk) Social History Tobacco Use Types Packs/Day Years Used Date Smoking Tobacco: Never Smokeless Tobacco: Never Alcohol Use Standard Drinks/Week Comments Yes 0 (1 standard drink = 0.6 oz pure alcoho l) 1-2 drinks a month Sex Assigned at Date Recorded Not on file documented as of this encounter Nursing Notes Nasrin Pineda LPN - 07/31/2019 4:53 PM CST Patient has been having severe abdominal pain for 1 week. She was in to see GI 07/16/19 for this issue. She was told to call with update in 1 week. She has left messages for GI but has not heard back. She is crying during the call due to pain. She is unable to go to work. She is getting in trouble from work regarding this. Advised she should go to ER now to be seen. She will have someone take her. Problem list reviewed as related to this call. Reason for Disposition ??? SEVERE abdominal pain (e.g., excruciating) Protocols used: ABDOMINAL PAIN - [id number] RMATION CLERK CASHIER documented in this encounter Plan of Treatment Not on filedocumented as of this encounter Visit Diagnoses Not on filedocumented in this encounter Care Teams Furnace Loader Relationship Specialty Start Date End Date Nasrin Houser MD PCP - General Internal Medicine 06/12/19 07/11/20 [address] [place] [address] documented as of this encounter
--- OUTSIDE RECORDS SUMMARY | 2022-06-19 16:14 | XMS_ITS | Encounter Summary ---
:[address] [facility] Address [address], [place] [address] Care Team Providers Name Role Phone Nasrin Houser MD Primary Care Provider Reason for Visit Reason Comments QUESTIONS, GENERAL Encounter Details Date Type Department Care Team Description 07/31/2019 Telephone Specialty Center [address], QUESTIONS, GENERAL Gastroenterology SCRUM COACH, SUPERVISOR SAWMILL [address] [facility] [place] [phone] (Wo rk) Social History Tobacco Use Types Packs/Day Years Used Date Smoking Tobacco: Never Smokeless Tobacco: Never Alcohol Use Standard Drinks/Week Comments Yes 0 (1 standard drink = 0.6 oz pure alcoho l) 1-2 drinks a month Sex Assigned at Date Recorded Not on file documented as of this encounter Nursing Notes Simi Williamson RN - 07/31/2019 8:57 AM CST Opened in error D CREW CHIEF documented in this encounter Plan of Treatment Not on filedocumented as of this encounter Visit Diagnoses Not on filedocumented in this encounter Care Teams Auto Travel Counselor Relationship Specialty Start Date End Date Nasrin Houser MD PCP - General Internal Medicine 06/12/19 07/11/20 [address] [place] [address] documented as of this encounter
--- OUTSIDE RECORDS SUMMARY | 2022-06-19 16:15 | XMS_ITS ---
:1995 External Reference #:[id number] Author Care Team Providers Name Role Phone Margoth Newell Primary Care Provider Unavailable Allergies Code Code System Name Reaction Severity Status Onset NKDA ? Medications Name Status Start Date Stop Date ? ? alprazolam 0.5 mg tablet Completed ? 021 ampicillin 1 gram intravenous solution Active ? Not available 2g loading dose, 1g every 4 hours after biotin Active ? Not available buspirone 5 mg tablet Completed ? 11/02/2020 cannabidiol (CBD) oral oil Active ? Not a vailable Take by oral route. celecoxib 200 mg capsule Completed ? 021 citalopram 10 mg tablet Completed ? 11/03/19 21 citalopram 20 mg tablet Completed ? 11/03/19 21 cyclobenzaprine 10 mg tablet Completed ? 10/2020 hydrocodone 5 mg-acetaminophen 325 mg tablet Completed ? 11/02/2020 TAKE 1 2 TABLETS BY MOUTH EVERY 4 6 HOURS NEEDED FOR PAIN. hydroxyzine pamoate 25 mg capsule Completed ? 11/02/2020 ketoconazole 2 % topical cream Completed ? 0 11/02/2020 lorazepam 0.5 mg tablet Completed ? 11/03/19 21 nitrofurantoin monohydrate/macrocrystals 100 mg capsule Complete d ? 11/02/2020 prednisone 10 mg tablet Completed ? 11/03/19 21 Active ? Not available sertraline 50 mg tablet Completed ? 11/03/19 21 trazodone 50 mg tablet Completed ? venlafaxine ER 150 mg capsule,extended release 24 hr Completed ? 11/02/2020 venlafaxine ER 37.5 mg capsule,extended release 24 hr Completed ? 11/02/2020 venlafaxine ER 75 mg capsule,extended release 24 hr Completed ? 11/02/2020 Vienva 0.1 mg-20 mcg tablet Completed ? 0310/2020 Problems Name Status Onset Date Source ? Unknown 10/11/2020 ? Procedures Date Name Performed by ? 09/02/2017 Cholecystectomy Information not avai lable 10/25/2020 US, Obstetric, 2Nd Trimester [facility] [address] [place], [place] [address] (Work [address]) 02/20/2021 US, Obstetric, 3Rd Trimester [facility] [address] [place] [address] (Work [address]) 03/27/2021 US, Obstetric, Biophysical Profile + [facility] Non-stress Test [address] [place] [address] (Work [address]) Results Lab Results Date Name Specimen Result Interpretation Description Value Range Status Address ? 02/20/2021 Streptococcus Group B ? No observation ? ? ? Ag, Vaginal recorded. 02/20/2021 CBC W/ Diff ? No observation ? ? ? [facility] recorded. Hospita l: [address] [facility] 12/13/2020 Treponema Pallidum ? No observation ? ? ? [facility] Ab, Serum recorded. Lab: [address] [facility] 12/13/2020 CBC W/ Diff ? No observation ? ? ? [facility] recorded. Hospita l: [address] [facility] 11/01/2020 CT + NG DNA, PCR, ? No observation ? ? ? Urine recorded. 11/01/2020 Treponema Pallidum ? No observation ? ? ? [facility] Ab, Serum recorded. Lab: [address] [facility] 11/01/2020 Abo Group + Rh Type, ? No observation ? ? ? [facility] Blood recorded. Hospita l: [address] [facility] 11/01/2020 HIV (1+2) Ab Screen, ? No observation ? ? ? [facility] Serum recorded. Hospita l Lab: [address] [facility] 11/01/2020 Urinalysis, Reflex ? No observation ? ? ? [facility] Culture recorded. Hospit al Lab: [address] [facility] 11/01/2020 CBC W/ Diff ? No observation ? ? ? [facility] recorded. [facility]ita [facility] Lab: [address] [facility] Past Encounters 03/29/2021 Normal ; Single Live ; Group B Streptococcus Carrier Margoth Osiris CPM, LM: [address] [place] [address], Ph. 03/27/2021 Routine Care; Gestation Period , 41 Weeks Margothcrystal Newell CPM, LM: [address] [place] [address], Ph. 03/20/2021 Routine Care; Post-term Pregna ncy of 40 to 42 Weeks Margoth Hazel, CPM, LM: [address] [place] [address], Ph. 03/13/2021 Routine Care Margoth Newell CPM, LM: [address] [place] [address], Ph. 03/07/2021 Routine Care Margoth Newell CPM, LM: [address] [place] [address], Ph. 02/20/2021 Routine Care; Normal Margoth Hazel, CPM, LM: [address] [place] [address], Ph. 02/07/2021 Routine Care; Normal Margoth Hazel, CPM, LM: [address] [place] [address], Ph. 01/19/2021 Routine Care Margoth Hazel, CPM, LM: [address] [place] [address], Ph. Social History Tobacco Smoking Status Former Smoker (1 pack per week) Note s: quit in April Vaccine List None recorded. Plan of Care Patient Instructions Give [facility] a call to schedule biophysical profile we discussed today for , March 30. Schedule your final ultrasound with [facility] to confirm baby's position prior to the Give [facility] a call to schedule yo ur lab appointment for about 30-45 minutes after your next visit with me on the January at 4:30pm check out [email or web address] for mor e info on monitoring your baby's movements Reminders Provider Appointments None recorded. ? ? Lab None recorded. ? ? Referral None recorded. ? ? Procedures None recorded. ? ? Surgeries None recorded. ? ? Imaging None recorded. ? ? Vitals 03/27/2021 02:45PM Office OB vist/image/proc Height Blood Pressure 5 ft 129/79 mm[Hg] 03/20/2021 03:00PM Office OB vist/image/proc Height Blood Pressure 5 ft 126/78 mm[Hg] 03/13/2021 04:30PM Office OB vist/image/proc Blood Pressure 118/74 mm[Hg] 03/07/2021 11:00AM Office OB vist/image/proc Height Blood Pressure 5 ft (1) 142/83 mm[Hg] (2) 132/78 mm[Hg] 02/20/2021 04:30PM Office OB vist/image/proc Height Blood Pressure 5 ft 128/73 mm[Hg] 02/07/2021 04:30PM Office OB vist/image/proc Height Blood Pressure 5 ft 122/60 mm[Hg] 01/19/2021 10:00AM Office OB vist/image/proc Height Blood Pressure 5 ft 116/65 mm[Hg] 12/13/2020 10:00AM Office OB vist/image/proc Height Weight BMI Blood Pressure 5 ft 147 lbs 28.7 kg/m2 125/64 mm[Hg] 11/02/2020 10:00AM Office OB vist/image/proc Height Weight BMI Blood Pressure 5 ft 142 lbs 27.7 kg/m2 128/72 mm[Hg] 10/11/2020 02:00PM Virtual Initial Height Weight BMI 5 ft 140 lbs 27.3 kg/m2
--- OUTSIDE RECORDS SUMMARY | 2022-06-19 16:15 | XMS_ITS | Encounter Summary ---
:1995 Author Organization [facility] Address [address], [place] [address] Care Team Providers Name Role Phone Davis Lozano MD Primary Care Provider Encounter Details Date Type Department Care Team Description 06/10/2019 Lab Visit [facility] Encounter for contraceptive [address] management, unspecified type [place] [id number] Social History Tobacco Use Types Packs/Day Years Used Date Smoking Tobacco: Never Smokeless Tobacco: Never Alcohol Use Standard Drinks/Week Comments Not Asked 3 (1 standard drink = 0.6 oz pure alcoho l) Sex Assigned at Date Recorded Not on file documented as of this encounter Plan of Treatment Not on filedocumented as of this encounter Procedures Procedure Name Priority Date/Time Associated Diagnosis Comme nts TEST STAT 06/10/2019 9:53 AM Encounter for Result s for this (URINE) CDT contraceptive procedure are in management, the results unspecified type section. documented in this encounter Results Test Screen Urine (06/10/2019 9:53 AM CDT) P athologist Signature HCG, Urine Negative Negative 06/10/2019 [facility] 9:53 AM CDT LABORATORY (PN) Specimen Anatomical Collection Method Collection Time Receive d Time (Source) Location / / Volume Laterality Urine URINE SPECIMEN Non-blood 06/10/2019 9:53 AM 019 9:53 COLLECTION, CLEAN Collection / CDT AM CDT CATCH / Unknown Unknown Davis Lozano MD LAB_1 Performing Organization Address City/State/ZIP Code Phon e Number [facility] ([facility]) [address] [place] [phone] documented in this encounter Visit Diagnoses Diagnosis Encounter for contraceptive management, unspecified type documented in this encounter Care Teams Mammalogy Teacher Relationship Specialty Start Date End Date Davis Lozano MD PCP - General Family Practice 03/23/19 06/11/[address] [place] [address] [address] documented as of this encounter
--- OUTSIDE RECORDS SUMMARY | 2022-06-19 16:15 | XMS_ITS | Encounter Summary ---
:1995 Author Organization [facility] Address [address] [place] [id number] Care Team Providers Name Role Phone [facility] Lopez Primary Care Provider Encounter Details Date Type Department Care Team Description 07/14/2019 Travel Social History Tobacco Use Types Packs/Day Years Used Date Smoking Tobacco: Never Assessed Sex Assigned at Date Recorded Not on file documented as of this encounter Plan of Treatment Not on filedocumented as of this encounter Visit Diagnoses Not on filedocumented in this encounter Care Teams Autopsy Pathologist Relationship Specialty Start Date End Date Winnie Lopez PCP - General Family Practice 07/14/19 07/06/20 documented as of this encounter
--- OUTSIDE RECORDS SUMMARY | 2022-06-19 16:15 | XMS_ITS | Encounter Summary ---
:1995 Author Organization [facility] Address [address], [place] [address] Care Team Providers Name Role Phone Nasrin Houser MD Primary Care Provider Reason for Referral Procedure/Equipment (Routine) - Closed Specialty Diagnoses / Procedures Referred By Contact Refer red To Contact Diagnoses Intractable vomiting with nausea, unspecified vomiting type Nasrin Huoser MD Procedures CT Abd Pelvis WO IV Cont Stone [address] [place] [address] Referral ID Status Reason Start Date Expiration Date Visits Requ ested Visits Authorized [id number] Closed 07/01/2019 09/29/2020 1 1 Reason for Visit Reason Comments Follow-up still vomiting, dizzy Encounter Details Date Type Department Care Team Description 07/01/2019 Office Visit Nasrin Burnett, Intracta ble vomiting Medicine MD with nausea, [address] unspecified vomiting [place] [address] [place] [address] type (Primary Dx) [phone] Social History Tobacco Use Types Packs/Day Years Used Date Smoking Tobacco: Never Smokeless Tobacco: Never Alcohol Use Standard Drinks/Week Comments Yes 3 (1 standard drink = 0.6 oz pure alcoho l) rare Sex Assigned at Date Recorded Not on file documented as of this encounter Last Filed Vital Signs Vital Sign Reading Time Taken Comments Blood Pressure 110/80 07/01/2019 3:38 PM CDT Pulse - - Temperature 36.8 ??C (98.3 ??F) 07/01/2019 3:38 PM CDT Respiratory Rate - - Oxygen Saturation - - Inhaled Oxygen Concentration - - Weight 66.2 kg (146 lb) 07/01/2019 3:38 PM CDT Height 152.4 cm (5') 07/01/2019 3:38 PM CDT Body Mass Index 28.51 07/01/2019 3:38 PM CDT documented in this encounter Patient Instructions Patient InstructionsNasrin Houser MD - 07/01/2019 3:30 PM CDT We will help you schedule the CT scan for Saturday to r/o kidney stone. Use compazine every 6 hours as needed for nausea. Nasrin Houser MD 4:39 PM 07/01/2019 documented in this encounter Progress Notes Nasrin Houser MD - 07/01/2019 3:30 PM CDT Chief Complaint Patient presents with ??? Follow-up still vomiting, dizzy SUBJECTIVE: Sadie Mart is a 24 y.o. female with a hx of ASHLEE who presents with ongoing vomiting. I initially saw her for ASHLEE on 06/12/2019. Two days prior to that, she had her Mirena removed and had a Nexplanonplaced. When I saw her, she was interested in starting a medication for her anxiety. We decided uponCymbalta because she thought it had the most favorable side effect profile. She had an episode of vomiting after she took it the following day. She had taken it on an empty stomach and thought this wasthe cause. For the first week, she took 30mg daily. After 1 week, she increased to 60mg daily. She developed nausea and vomiting after the increase in dose. I saw her in clinic on 06/24 and did labs, including a CBC, BMP, and LFTs, all of which were normal. She had persistent vomiting and went to an [facility] ED on 06/26. An abdominal US, CBC, LFTs, BMP, and lipase were done, all of which were normal. She stopped taking her Cymbalta as of that day. She has not taken it for 5 days now. She is continuingto have nausea and vomiting. She can only tolerate applesauce and cameron crackers. She had a test on 06/10 that was negative. She took a home test on 06/22 that was also negative. She has been having some RUQ and epigastric pain since 06/26 (this was why she had the ultrasound int ED). She is having up to 5 episodes of vomiting a day now. Able to keep liquids down. Zofran hasnot helped with the nausea or vomiting. Hydroxyzine causes her to be too sleepy so she can't take itwhen she needs to work. ROS: denies f/c. No hematuria/dysuria.. Had a few episodes of diarrhea at the beginning of the vomiting but that has resolved. OBJECTIVE: Vital Signs: BP 110/80 (BP Location: Right Arm, BP Cuff Size: Regular) Temp 36.8 ??C (98.3 ??F) (Oral) Ht 1.524 m (5') Wt 66.2 kg (146 lb) BMI 28.51 kg/m?? Gen: pleasant F, somewhat tearful HEENT: NCAT, no scleral icterus Chest: CTAB CV: RRR, no m/r/g Abd: +BS, soft, TTP in the epigastrium, no significant RUQ tenderness, no gisell/guarding Urine - negative UA - Last UA w/microscopic results: Lab Results Component Value Date/Time UCOL Yellow 07/01/2019 04:20 PM URAP Clear 07/01/2019 04:20 PM SPGU 1.015 07/01/2019 04:20 PM PHUR 7.0 07/01/2019 04:20 PM PROU Negative 07/01/2019 04:20 PM GLUUC Negative 07/01/2019 04:20 PM KETU Negative 07/01/2019 04:20 PM UBGQ 0.2 07/01/2019 04:20 PM BILIU Negative 07/01/2019 04:20 PM BLDU Trace 07/01/2019 04:20 PM NITRU Negative 07/01/2019 04:20 PM LEUKU Negative 07/01/2019 04:20 PM ASSESSMENT AND PLAN: Sadie was seen today for follow-up. Diagnoses and all orders for this visit: Intractable vomiting with nausea, unspecified vomiting type - she has had fairly extensive workup atthis point that has been negative. Repeat UPT today was again negative. Urine today did show trace blood. She has not had kidney stone ruled out. Will get CT stone protocol. Try compazine for nausea. If CT stone protocol is negative, my only remaining thought is that this could be from the Nexplanon. There are post marketing reports of this. - Test Screen Urine; Future - Urinalysis Routine, Micro/Culture if Pos; Future - prochlorperazine (COMPAZINE) 10 MG tablet; Take 1 Tablet by mouth every 6 hours as needed for Nausea or Vomiting. - CT Abd Pelvis WO IV Cont Stone; Future Follow up - will depend upon CT result (she wants to get this Saturday) Nasrin Houser MD 4:50 PM 07/01/2019 documented in this encounter Plan of Treatment Not on filedocumented as of this encounter Results CT Abd Pelvis WO IV Cont Stone (07/03/2019 8:26 AM CDT) Anatomical Region Laterality Modality Abdomen, Pelvis Computed Tomography Specimen (Source) Anatomical Collection Method Collection Time Re ceived Time Location / / Volume Laterality 07/03/2019 8:21 AM CDT Impressions 07/03/2019 8:43 AM CDT COMPARISON: ??None. TECHNIQUE: ??Images were obtained throug h the abdomen and pelvis without contrast using a renal stone protocol. FINDINGS: LUNG BASES: Unremarkable. LIVER: Unremarkable. GALLBLADDER AND BILIARY TREE: Unremarkab le. No intrahepatic or extrahepatic biliary ductal dilation. PANCREAS: Unremarkable. SPLEEN: Unremarkable. ADRENALS: Unremarkable. KIDNEYS AND URETERS: There are a few pun ctate calyceal tip calcifications measuring less than 1 mm. No jordan stone. No hydronephrosis. VESSELS: No abdominal aortic aneurysm. BOWEL: Unremarkable. No inflammatory brian nges or obstruction. Normal appendix. BLADDER: Unremarkable. REPRODUCTIVE ORGANS: No pelvic masses. MESENTERY/PERITONEUM: No enlarged mesent harvey lymph nodes. No ascites or free air. No focal fluid collection. RETROPERITONEUM: No adenopathy. ABDOMINAL WALL/SOFT TISSUES: Unremarkabl e. BONES: Unremarkable. IMPRESSION: ??There are a few punctate c alyceal tip calcifications measuring less than 1 mm without jordan stone identified. No hydronephrosis or hydroureter. No ureteral or bladder stone. Procedure Note Bang Helton MD - 07/03/2019Format ting of this note might be different from the original. IMPRESSION COMPARISON: None. TECHNIQUE: Images were obtained through the abdomen and pelvis without contrast using a renal stone protocol. FINDINGS: LUNG BASES: Unremarkable. LIVER: Unremarkable. GALLBLADDER AND BILIARY TREE: Unremarkab le. No intrahepatic or extrahepatic biliary ductal dilation. PANCREAS: Unremarkable. SPLEEN: Unremarkable. ADRENALS: Unremarkable. KIDNEYS AND URETERS: There are a few pun ctate calyceal tip calcifications measuring less than 1 mm. No jordan stone. No hydronephrosis. VESSELS: No abdominal aortic aneurysm. BOWEL: Unremarkable. No inflammatory brian nges or obstruction. Normal appendix. BLADDER: Unremarkable. REPRODUCTIVE ORGANS: No pelvic masses. MESENTERY/PERITONEUM: No enlarged mesent harvey lymph nodes. No ascites or free air. No focal fluid collection. RETROPERITONEUM: No adenopathy. ABDOMINAL WALL/SOFT TISSUES: Unremarkabl e. BONES: Unremarkable. IMPRESSION: There are a few punctate lux yceal tip calcifications measuring less than 1 mm without jordan stone identified. No hydronephrosis or hydroureter. No ureteral or bladder stone. Nasrin Houser MD RAD CT Urinalysis Routine, Micro/Culture if Pos (07/01/2019 4:20 PM CDT) [facility] Method Time Signature Urine Color Yellow Straw-Yellow 07/01/2019 [facility] 4:24 PM CDT LABORATORY (PN) Urine Clarity Clear Clear 07/01/2019 [facility] 4:24 PM CDT LABORATORY (PN) Specific 1.015 1.005 - 07/01/2019 [facility] [place]ier, 1.030 4:24 PM CDT LABORATORY Urine (PN) PH Urine 7.0 5.0 - 8.0 07/01/2019 [facility] 4:24 PM CDT LABORATORY (PN) Protein, Negative Neg/Trace 07/01/2019 [facility] Urine Qual 4:24 PM CDT LABORATORY (mg/dL) (PN) Glucose Urine Negative Negative 07/01/2019 [facility] Qual (mg/dL) 4:24 PM CDT LABORATORY (PN) Ketones, Negative Negative 07/01/2019 [facility] Urine (mg/dL) 4:24 PM CDT LABORATORY (PN) Urobilinogen, 0.2 <2.0 07/01/2019 [facility] Urine (EU/dL) 4:24 PM CDT LABORATORY (PN) Bilirubin Negative Negative 07/01/2019 [facility] Urine 4:24 PM CDT LABORATORY (PN) Blood, Urine Trace Neg/Trace 07/01/2019 [facility] 4:24 PM CDT LABORATORY (PN) Nitrite Urine Negative Negative 07/01/2019 [facility] 4:24 PM CDT LABORATORY (PN) Leukocyte Negative Negative 07/01/2019 [facility] Est. 4:24 PM CDT LABORATORY (PN) Specimen Anatomical Collection Method Collection Time Receive d Time (Source) Location / / Volume Laterality Urine URINE SPECIMEN Non-blood 07/01/2019 4:20 PM 019 4:20 COLLECTION, CLEAN Collection / CDT PM CDT CATCH / Unknown Unknown Nasrin Houser MD LAB_1 Performing Organization Address City/State/ZIP Code Phon e Number [facility] ([place]) [address] [place] [phone] Test Screen Urine (07/01/2019 4:20 PM CDT) P athologist Signature HCG, Urine Negative Negative 07/01/2019 [facility] 4:23 PM CDT LABORATORY (PN) Specimen Anatomical Collection Method Collection Time Receive d Time (Source) Location / / Volume Laterality Urine URINE SPECIMEN Non-blood 07/01/2019 4:20 PM 019 4:20 COLLECTION, CLEAN Collection / CDT PM CDT CATCH / Unknown Unknown Nasrin Houser MD LAB_1 Performing Organization Address City/State/ZIP Code Phon e Number [facility] ([place]) [address] [place] [phone] documented in this encounter Visit Diagnoses Diagnosis Intractable vomiting with nausea, unspec ified vomiting type - Primary Intractable vomiting with nausea, unspec ified vomiting type documented in this encounter Care Teams Stemming Machine Operator Relationship Specialty Start Date End Date Nasrin Houser MD PCP - General Internal Medicine 06/12/19 07/11/[address] [place] [address] documented as of this encounter
--- OUTSIDE RECORDS SUMMARY | 2022-06-19 16:15 | XMS_ITS | Encounter Summary ---
:1996 [facility] Address [address], [place] [address] Care Team Providers Name Role Phone Nasrin Houser MD Primary Care Provider Reason for Visit Reason Comments ABDOMINAL PAIN Encounter Details Date Type Department Care Team Description 06/26/2019 Nurse Triage [facility] Nasrin Houser MD ABDOMINAL PAIN [address] [place] [address] [place] [address] [phone] (Wo rk) Social History Tobacco Use Types Packs/Day Years Used Date Smoking Tobacco: Never Smokeless Tobacco: Never Alcohol Use Standard Drinks/Week Comments Yes 3 (1 standard drink = 0.6 oz pure alcoho l) rare Sex Assigned at Date Recorded Not on file documented as of this encounter Nursing Notes Nasrin Pineda LPN - 06/26/2019 8:42 AM CDT Patient has been having constant upper mid abdominal pain since 06/25/19. Pain rated a 5-10. Currently pain is severe. She is having hot flashes, vomiting, low back pain. No fever, difficulty breathingor swallowing. Advised to have someone taker her to the ER now. She agreed. Problem list reviewed asrelated to this call. Reason for Disposition ??? SEVERE abdominal pain (e.g., excruciating) Protocols used: ABDOMINAL PAIN - [id number] documented in this encounter Plan of Treatment Not on filedocumented as of this encounter Visit Diagnoses Not on filedocumented in this encounter Care Teams Clinical Data Analyst Relationship Specialty Start Date End Date Nasrin Houser MD PCP - General Internal Medicine 06/12/19 07/11/[address] [place] [address] [address] documented as of this encounter
--- OUTSIDE RECORDS SUMMARY | 2022-06-19 16:15 | XMS_ITS | Encounter Summary ---
:1995 Author Organization [facility] Address [address] [place] [address] Care Team Providers Name Role Phone Nasrin Houser MD Primary Care Provider Encounter Details Date Type Department Care Team Description 07/08/2019 Lab Visit [facility] Nausea and vomiting, intract ability of vomiting not specified, unspecified vomiting type; [address] Epigastric pain [place] [id number] Social History Tobacco Use Types Packs/Day Years [...] Name Priority Date/Time Associated Diagnosis Comme nts CBC AND DIFFERENTIAL Routine 07/08/2019 2:52 Nausea and vomiti ng, Results for this PANEL PM MAPPING SUPERVISOR intractability of procedure are in vomiting not the results specified, unspecified secti on. vomiting type Epigastric pain COMPLETE BLOOD Routine 07/08/2019 2:52 Nausea and vomiting, Re sults for this COUNT-W/DIFF PM MAPPING SUPERVISOR intractability of procedure are in vomiting not the results specified, unspecified secti on. vomiting type Epigastric pain LIVER PANEL(HEPATIC Routine 07/08/2019 2:52 Nausea and vomitin g, Results for this FUNCTION PANEL) PM MAPPING SUPERVISOR intractability of procedu re are in vomiting not the results specified, unspecified secti on. vomiting type Epigastric pain LIPASE Routine 07/08/2019 2:52 Nausea and vomiting, Resu lts for this PM MAPPING SUPERVISOR intractability of procedure are in vomiting not the results specified, unspecified secti on. vomiting type Epigastric pain documented in this encounter Results Complete Blood Count-W/Diff (07/08/2019 2:52 PM MAPPING SUPERVISOR) P athologist Signature WBC 8.0 3.5 - 10.5 07/08/2019 [facility] x10(9)/L 3:06 PM MAPPING SUPER[facility]OR [facility] (PN) RBC 4.19 3.90 - 07/08/2019 [facility] 5.03 3:06 PM MAPPING SUPERVISOR [facility] (PN) x10(12)/L Hemoglobin 12.5 12.0 - 07/08/2019 [facility] 15.5 g/dL 3:06 PM [facility]PING SUPER[facility] (PN) HCT 37.2 34.9 - 07/08/2019 [facility] 44.5 % 3:06 PM MAPPING SUPER[facility] (PN) MCV 88.8 80.0 - 07/08/2019 [facility] 100.0 fL 3:06 PM MAPPING SUPER[facility] (PN) MCH 29.8 27.6 - 07/08/2019 [facility] 33.3 pg 3:06 PM MAPPING SUPER[facility] (PN) MCHC 33.6 31.5 - 07/08/2019 [facility] 35.2 g/dL 3:06 PM [facility]PING SUPER[facility] (PN) RDW 12.0 11.9 - 07/08/2019 [facility] 15.5 % 3:06 PM MAPPING SUPER[facility] (PN) Platelets 262 150 - 450 07/08/2019 [facility] x10(9)/L 3:06 PM [facility]PING SUPER[facility] (PN) Neutrophil 4.7 1.7 - 7.0 07/08/2019 [facility] Absolute 10(9)/L 3:06 PM [facility]PING SUPER[facility] (PN) Lymphocyte 2.4 1.0 - 4.8 07/08/2019 [facility] Absolute 10(9)/L 3:06 PM [facility]PING SUPER[facility] (PN) Monocytes 0.7 0.2 - 0.9 07/08/2019 [facility] Absolute 10(9)/L 3:06 PM [facility]PING SUPER[facility] (PN) Eosinophil 0.2 0.0 - 0.5 07/08/2019 [facility] Absolute 10(9)/L 3:06 PM [facility]PING [facility]PER[facility] (PN) Basophil 0.0 0.0 - 0.3 07/08/2019 [facility] Absolute 10(9)/L 3:06 PM MAPPING SUPER[facility] (PN) Specimen Anatomical Collection Method / Collection Time Recei denisse Time (Source) Location / Volume Laterality Blood Venipuncture / 07/08/2019 2:52 07/08/2019 2:52 Unknown PM MAPPING SUPERVISOR PM MAPPING SUPERVISOR Sherry Anders PA-C LAB_1 Performing Organization Address City/[facility]/ZIP Code Phon e Number [facility] (PN) [address] [facility] [place] [address] Lipase (07/08/2019 2:52 PM MAPPING SUPERVISOR) P athologist Signature Lipase 10 8 - 78 U/L 07/08/2019 [facility] 5:59 PM MAPPING SUPERVISOR [facility] Specimen Anatomical Collection Method / Collection Time Recei denisse Time (Source) Location / Volume Laterality Blood Venipuncture / 07/08/2019 2:52 07/08/2019 2:52 Unknown PM MAPPING SUPERVISOR PM MAPPING SUPERVISOR Sherry Anders PA-C LAB_1 Performing Organization Address City/[facility] Code Phon e Number [facility] [id number] [place] [address] Liver Panel(Hepatic Function Panel) (07/08/2019 2:52 PM MAPPING SUPERVISOR) athologist Signature Alkaline 54 40 - 150 07/08/2019 [facility] Phosphatase U/L 5:59 PM MAPPING SUPERVISOR [facility] Bilirubin, Total 0.3 0.2 - 1.2 07/08/2019 [facility] mg/dL 5:59 PM MAPPING SUPERVISOR [facility] Bilirubin, 0.1 0.0 - 0.5 07/08/2019 [facility] Direct mg/dL 5:59 PM MAPPING SUPERVISOR [facility] AST (SGOT) 15 10 - 40 07/08/2019 [place] U/L 5:59 PM MAPPING SUPERVISOR [facility] ALT (SGPT) 14 0 - 55 U/L 07/08/2019 [facility] 5:59 PM MAPPING SUPERVISOR [facility] Protein, Total 6.7 6.4 - 8.3 07/08/2019 [place] g/dL 5:59 PM MAPPING SUPERVISOR [facility] Albumin 4.0 3.5 - 5.0 07/08/2019 [place] g/dL 5:59 PM MAPPING SUPERVISOR [facility] Specimen Anatomical Collection Method / Collection Time Recei denisse Time (Source) Location / Volume Laterality Blood Venipuncture / 07/08/2019 2:52 07/08/2019 2:52 Unknown PM MAPPING SUPERVISOR PM MAPPING SUPERVISOR Sehrry Anders PA-C LAB_1 Performing Organization Address City/State/ZIP Code Phon e Number [facility] [address] [place] [address] documented in this encounter Visit Diagnoses Diagnosis Nausea and vomiting, intractability of v omiting not specified, unspecified vomiting type Epigastric pain Abdominal pain, epigastric documented in this encounter Care Teams Building Serviceman Relationship Specialty Start Date End Date Nasrin Houser MD PCP - General Internal Medicine 06/12/19 07/11/20 [address] [place] [address] documented as of this encounter
--- OUTSIDE RECORDS SUMMARY | 2022-06-19 16:15 | XMS_ITS | Encounter Summary ---
:1995 Author Organization [facility] Address [address] [place] [address] Care Team Providers Name Role Phone Nasrin Houser MD Primary Care Provider Reason for Visit Reason Comments UPDATE per the appt [id number] 05/05/2019. Encounter Details Date Type Department Care Team Description 05/05/2019 Telephone Davis Ross UPDATE (per the appt [address] Traci Villanueva MD [id number]-Bgdrubx-38/03/201 [place] [address] [address] [phone] [place] [address] (Wo rk) Social History Tobacco Use Types Packs/Day Years Used Date Smoking Tobacco: Never Smokeless Tobacco: Never Alcohol Use Standard Drinks/Week Comments Not Asked 3 (1 standard drink = 0.6 oz pure alcoho l) Sex Assigned at Date Recorded Not on file documented as of this encounter Nursing Notes Emily Vargas LPN - 05/05/2019 1:34 PM CDT fyi Shawanda Ward - 05/05/2019 12:27 PM CDT FYI's - FYI Sadie/patient stated FYI per the appt [id number]-13/03/2019 with Davis Lozano MD. The patient stated she is taking Trazodone and per the appt today-the patient stated her boyfriend takes Seroquel--but that is wrong, it should be Clonidine. If a prescription is needed, patient would like it filled at the pharmacy listed in Meds & Orders. Yes. (Verify the pharmacy patient would like to use for this request is highlighted in blue in Pharmacy Selection under Meds & Orders) Is it okay to leave a detailed message on your voicemail? Yes. (Advise caller that the PN call back number will end with [phone] or unknown) Please route to: Triage Pool documented in this encounter Plan of Treatment Not on filedocumented as of this encounter Visit Diagnoses Not on filedocumented in this encounter Care Teams Spring Up Supervisor Relationship Specialty Start Date End Date Nasrin Houser MD PCP - General Internal Medicine 06/12/19 07/11/[address] [place] [address] [address] documented as of this encounter
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
--- OUTSIDE RECORDS SUMMARY | 2022-06-19 16:15 | XMS_ITS | Encounter Summary ---
:1995 Author Organization [facility] Address [address], [place] [address] Care Team Providers Name Role Phone Nasrin Houser MD Primary Care Provider Reason for Referral Consult/Transfer Care (Routine) - Closed Specialty Diagnoses / Procedures Referred By Contact Refer red To Contact Diagnoses Nausea and vomiting, intractability of vomiting not specified, unspecified vomiting type Epigastric pain Sherry Anders PA-C [address] [place] [address] Referral ID Status Reason Start Date Expiration Date Visits Requ ested Visits Authorized [id number] Closed 07/08/2019 10/06/2020 1 1 Scheduling Instructions Your provider has recommended an appoint ment with [facility]. You may call [phone] to nikita edule your appointment. If you do not schedule an appointment within the next 1 to 3 business days, we will call you to help arrange your appointment. We sugges t you call your health insurance company about your coverage and benefits for thi s appointment. NTORY CLERK (Routine) - Closed Specialty Diagnoses / Procedures Referred By Contact Refer red To Contact Diagnoses Nausea and vomiting, intractability of vomiting not specified, unspecified vomiting type Epigastric pain Sherry Anders PA-C Procedures EGD [address] [place] [address] Referral ID Status Reason Start Date Expiration Date Visits Requ ested Visits Authorized [id number] Closed 07/08/2019 10/06/2020 1 1 NTORY CLERK Reason for Visit Reason Comments VOMITING Encounter Details Date Type Department Care Team Description 07/08/2019 Office Visit [facility] Sherry Anders Nausea and v omiting, intractability of vomiting not specified, unspecified vomiting type (Primary Dx); Medicine NIKHIL Chavez Epigastric pain [address] [place] [address] [place] [address] [phone] Social History Tobacco Use Types Packs/Day Years Used Date Smoking Tobacco: Never Smokeless Tobacco: Never Alcohol Use Standard Drinks/Week Comments Not Currently 3 (1 standard drink = 0.6 oz pure alcoho l) rare Sex Assigned at Date Recorded Not on file documented as of this encounter Last Filed Vital Signs Vital Sign Reading Time Taken Comments Blood Pressure 110/70 07/08/2019 1:49 PM INVENTORY CLERK Pulse 81 07/08/2019 1:49 PM INVENTORY CLERK Temperature 36.8 ??C (98.2 ??F) 07/08/2019 1:52 PM INVENTORY CLERK Respiratory Rate - - Oxygen Saturation - - Inhaled Oxygen Concentration - - Weight 67.1 kg (148 lb) 07/08/2019 1:49 PM INVENTORY CLERK Height 152 cm (4' 11.84) 07/08/2019 1:49 PM INVENTORY CLERK Body Mass Index 29.06 07/08/2019 1:49 PM INVENTORY CLERK documented in this encounter Progress Notes Sherry Anders PA-C - 07/08/2019 1:40 PM CST Clinic Visit SUBJECTIVE: CC: Chief Complaint Patient presents with ??? VOMITING History of Present Illness: Sadie checks in 6 minutes after appt start time due to ongoing issues with N,V,abdominal pain. She is here with her boyfriend, Antoine. Significant amount of time was spent reviewing her chart. is seenby me after having multiple visits in clinic and emergency department settings for nausea and vomiting. Details about prior visits are below. Reviewed with pt at [facility] and she indicates all is accurate: 06/10/19:Nexplanon was placed in clinic for control. 06/12/19: Saw Dr. Houser in IM to discuss Mental Health. Duloxetine was started. She had some nausea and upset stomach with starting the medication but then felt better after several days, symptoms returned with increasing the dose. 06/24/19: [facility] due to 5-7 days of vomiting, hot flashes, feeling more emotional. She had had unprotected intercourse after Nexplanon was placed. testing was negative there and she was given Zofran which was not helpful. 06/24/19: seen later that day by Dr. Houser in clinic, that note was reviewed. CBC, LFTs, BMP were done and normal, they were hoping symptoms would improve as she adjusted to the Cymbalta. 06/26: [employer] message sent indicating new symptoms of significant abdominal pain starting 06/25/19 that was periumbilical and severe. Appointment was recommended and went to ER because of significanceof pain. 06/26: Seen at a ED in [place], [place] through [facility]. Notes indicate approximately 1 week of vomiting, 5-6 emesis per day with new epigastric pain. That day she had had a small amount of blood inher emesis. No fevers, chills, chest pain, dyspnea, urinary or vaginal symptoms. Right upper quadrant ultrasound was done and normal, see below. At that time decided to stop Cymbalta which she has not restarted. 07/01: Follow-up appointment in Internal Medicine. She had stopped her Cymbalta on 06/26. Continued to have nausea and vomiting, only able to tolerate applesauce and Jai crackers. Up to 5 episodes of vomiting per day, able to keep liquids down. Zofran ineffective, hydroxyzine made her too drowsy. At that appointment urine testing and UPT were negative. CT scan with stone protocol was done, see below. Given lack of stones, recommended removal of Nexplanon in case this was the cause of symptoms. 07/06: Nexplanon removed without difficulty 07/08/19: She called into the clinic with ongoing sxs, has missed a lot of work. Appt recommended andshe presents today. Since the , nausea/vomiting has continued. States yesterday, was vomiting every 5-10 minutes during a 4 hour period of time after eating mac and cheese, vomiting started 40 mintues after eating. (1-5pm). No coffee-ground emesis. She notes when she has multiple rounds of vomiting that during the last couple of rounds she will see some small flecks of blood in the emesis. Didn't vomiting again untilthis morning after eating chicken nuggets with ketch-up mid morning and vomited within 30 minutes, 3episodes, 5-10 minutes apart. No emesis during the night once she takes her trazodone and goes to bed. Sxs do not wake her during the night. She will have nausea throughout the day even without vomiting. She denies any headaches, vertigo, nausea and vomiting are not positional. She is drinking a lot of water, Gatorade, Sprite without difficulty. Has been able to have bland foods such as crackers and applesauce without emesis. She does feel like there is fullness in her upper abdomen and pressure after eating. Had diarrhea for two days during the first week of sxs but not since. No blood or melena in her stools. No temps She continues to have bowel movements but states it has been primarily every other day rather than daily which is what has been typical for her in the past. No temps throught the past almost 3 weeks. Abdominal pain has decreased but still present in epigastrium and RUQ. She does not drink any alcohol, no frequent NSAID use. No other drug use. No hx of stomach ulcers. No history of bulimia. In reviewing the notes during her 2nd ER visit she was given a GI cocktail and abdominal pain and nausea did improve, she agrees with this. She indicates she has lost 8 lbs since this started, our scale indicates one lb. Review of Systems: A complete ROS was reviewed and found to be negative except as noted above. OBJECTIVE: Vital Signs: BP 110/70 (BP Location: Right Arm, BP Cuff Size: Regular) Pulse 81 Temp 98.2 ??F (36.8 ??C) (Oral) Ht 4' 11.84 (1.52 m) Wt 148 lb (67.1 kg) BMI 29.06 kg/m?? General: pleasant in NAD. She does not appear acutely ill HEENT:PERRLA, EOM intact. TM's and external canals clear bilaterally. Oropharynx clear. Neck: Supple, no lymphadenopathy or thyromegaly Lungs: clear to auscultation bilaterally with no crackles or wheezing. CV:RRR, no murmurs, rubs or gallops. Abdomen:Bowel sounds normoactive. Soft, nondistended. Tender in epigastrium and right upper quadrant, no rebound tenderness or guarding. Skin: Warm and dry without lesions. Neuro:CN 2-12 intact. Psych:well dressed and groomed, thoughts are linear, affect is normal. Labs: Us Abdomen Limited Ruq Result Date: 06/26/2019 INDICATION: Vomiting TECHNIQUE: Ultrasound abdomen limited. Sonographic [...] normal. IMPRESSION: No gallstones or biliary dilatation. Dictated by Ed Bright MD @ Jun 26 2019 11:30AM Signedby Dr. Ed Bright @ Jun 26 2019 11:32AM CT abd/pel wo IV contrast stone 07/03/19: IMPRESSION: There are a few punctate calyceal tip calcifications measuring less than 1 mm without jordan stone identified. No hydronephrosis or hydroureter. No ureteral or bladder stone. Sadie was seen today for vomiting. Diagnoses and all orders for this visit: Nausea and vomiting, intractability of vomiting not specified, unspecified vomiting type - Liver Panel(Hepatic Function Panel); Future - Complete Blood Count W/Diff; Future - Lipase; Future - H. Pylori Antigen, Stool; Future - EGD; Future - Gastroenterology Consult-Adults Epigastric pain - Liver Panel(Hepatic Function Panel); Future - Complete Blood Count W/Diff; Future - Lipase; Future - H. Pylori Antigen, Stool; Future - EGD; Future - Gastroenterology Consult-Adults Other orders - omeprazole (PRILOSEC) 20 MG capsule; Take 1 hour before a meal. Take twice daily x 1 week then once daily With ongoing epigastric and right upper quadrant pain as well as nausea and vomiting will recheck labs as above. Recommend starting omeprazole b.i.d. for 1 week then once daily. Recommend EGD, this will be done in 2 days. Recommend consultation in GI with significant ongoing symptoms. Discussed staying well hydrated with calorie and electrolyte containing fluids. Recommend she avoid anything spicy, dairy, ascitic, tomato based as this will likely be irritating and increased symptoms at this point. Discussed emergent evaluation needed should pain become 10/10, vomiting become intractable she feel dehydrated, fevers develop. We completed paperwork together for work because of her frequent absences as well as the recommendation that she will need to continue to miss work as needed for scheduled medical appointments while this is being evaluated. 45 minutes spent with patient, over 25 in counseling regarding course of symptoms, further evaluation and management. This note was created using voice recognition software and may contain typographical errors. *[id number] NTORY CLERK documented in this encounter Plan of Treatment Scheduled Referrals Name Type Priority Associated Diagnoses Order S chedule Gastroenterology Referral Routine Nausea and vomiting, Ord ered: Consult-Adults intractability of 07/08/20 19 vomiting not specified, unspecified vomiting type Epigastric pain documented as of this encounter Results EGD (07/10/2019 9:10 AM INVENTORY CLERK) Specimen (Source) Anatomical Collection Method Collection Time Re ceived Time Location / / Volume Laterality 07/10/2019 9:10 AM INVENTORY CLERK Narrative GI ([facility]) - 07/10/2019 9:10 AM INVENTORY CLERK Patient Name: Sadie Mart Procedure Date: 07/10/2019 9:10 AM Date of : 1995 Admit Type: Outpatient Age: 24 Note Status: Finalized Attending MD: Susy Toussaint MD Procedure: ? Upper GI endos copy Indications: ? Nausea with vom iting Providers: ? Susy Toussaint MD, Komal iAken RN Referring MD: ?Sherry kim MD Medicines: [...] to the second ? part of d raji. The upper GI ? endoscopy was accomplished [...] Code(s): ?? --- Professional - -- ? 00981, Es ophagogastroduodenoscopy, ? flexible, transoral; with biopsy, ? single or multiple ? G0500, Mo derate sedation services ? provided by the same physician or ? other vanessa lified health care ? professio nal performing a ? gastroint [...] time [place] ? [place] [address], as ? appropria te) Diagnosis Code(s): ?? --- Professional - -- ? R11.2, Na usea with vomiting, ? unspecifi ed ? K31.89, O ther diseases of stomach and ? duodenum CPT copyright 2018 [employer]. All rights reserved. The codes documented in this report are preliminary and upon auditing coder review may be revised to meet current compliance requirements. Susy Toussaint MD 07/10/2019 9:33:23 AM This document has been electronically si gned. Number of Addenda: 0 Note Initiated On: 07/10/2019 9:10 AM ? Endoscopy Report Procedure Note Susy Toussaint MD - 07/10/2019 Patient Name: Sadie Mart Procedure Date: 07/10/2019 [...] oxygen saturations were monitored continuously. The flexible [id number] was introduced through the mouth, and advanced [...] and NSAIDs. Procedure Code(s): --- Professional --- 58334, Esophagogastroduodenoscopy, flexible, transoral; with biopsy, single or multiple G0500, Moderate sedation services provided by the same physician or other qualified health medicare sales executive performing a gastrointestinal endoscopic service that sedation supports, requiring the presence of an independent trained observer to assist in the monitoring of the patient's level of consciousness and physiological status; initial 15 minutes of intra-service time; patient age 5 years or older (additional time may be reported with [address], as appropriate) Diagnosis Code(s): --- Professional --- R11.2, Nausea with vomiting, unspecified K31.89, Other diseases of stomach and duodenum CPT copyright 2018 [employer]. All rights reserved. The codes documented in this report are preliminary and upon auditing coder review may be revised to meet current compliance requirements. Susy Toussaint MD 07/10/2019 9:33:23 AM This document has been electronically si gned. Number of Addenda: 0 Note Initiated On: 07/10/2019 9:10 AM Endoscopy Report Sherry Anders PA-C PN GI PROCEDURE ORDERABLES Performing Organization Address City/[facility] Code Phon e Number GI ([facility]OV[facility]) GI ([facility]) [place], [place] H. Pylori Antigen, Stool (07/09/2019 8:32 AM INVENTORY CLERK[facility] Time Signature H Pylori Ag, Negative Negative 07/13/2019 [facility] 2:19 PM INVENTORY CLERK CENTRAL LAB Specimen Anatomical Collection Method Collection Time Receive d Time (Source) Location / / Volume Laterality Stool 07/09/2019 8:32 AM 9 8:32 INVENTORY CLERK AM INVENTORY CLERK Sherry Anders PA-C LAB_1 Performing Organization Address City/[facility] Code Phon e Number [facility] CENTRAL [facility] [address] [address] Lipase (07/08/2019 2:52 PM INVENTORY CLERK) athologist Signature Lipase 10 8 - 78 U/L 07/08/2019 [facility] 5:59 PM INVENTORY CLERK LABORATORY Specimen Anatomical Collection Method / Collection Time Recei denisse Time (Source) Location / Volume Laterality Blood Venipuncture / 07/08/2019 2:52 07/08/2019 2:52 Unknown PM INVENTORY CLERK PM INVENTORY CLERK Sherry Anders PA-C LAB_1 Performing Organization Address [facility] e Number [facility] [id number] [place] [address] Liver Panel(Hepatic Function Panel) (07/08/2019 2:52 PM INVENTORY CLERK) athologist Signature Alkaline 54 40 - 150 07/08/2019 [facility] Phosphatase U/L 5:59 PM INVENTORY CLERK LABORATORY Bilirubin, Total 0.3 0.2 - 1.2 07/08/2019 [facility] mg/dL 5:59 PM INVENTORY CLERK LABORATORY Bilirubin, 0.1 0.0 - 0.5 07/08/2019 [facility] Direct mg/dL 5:59 PM INVENTORY CLERK LABORATORY AST (SGOT) 15 10 - 40 07/08/2019 [place] U/L 5:59 PM INVENTORY CLERK LABORATORY ALT (SGPT) 14 0 - 55 U/L 07/08/2019 [facility] 5:59 PM INVENTORY CLERK LABORATORY Protein, Total 6.7 6.4 - 8.3 07/08/2019 [facility] g/dL 5:59 PM INVENTORY CLERK LABORATORY Albumin 4.0 3.5 - 5.0 07/08/2019 [facility] g/dL 5:59 PM INVENTORY CLERK LABORATORY Specimen Anatomical Collection Method / Collection Time Recei denisse Time (Source) Location / Volume Laterality Blood Venipuncture / 07/08/2019 2:52 07/08/2019 2:52 Unknown PM INVENTORY CLERK PM INVENTORY CLERK Sherry Anders PA-C LAB_1 Performing Organization Address City/[facility] Phon e Number [facility] [address] [place] [address] documented in this encounter Visit Diagnoses Diagnosis Nausea and vomiting, intractability of v omiting not specified, unspecified vomiting type - Primary Epigastric pain Abdominal pain, epigastric Nausea and vomiting, intractability of v omiting not specified, unspecified vomiting type - Primary Epigastric pain Abdominal pain, epigastric documented in this encounter Care Teams Steel Handler Relationship Specialty Start Date End Date Nasrin Houser MD PCP - General Internal Medicine 06/12/19 07/11/20 [address] [place] [address] documented as of this encounter
--- OUTSIDE RECORDS SUMMARY | 2022-06-19 16:15 | XMS_ITS | Encounter Summary ---
:1995 Author Organization [facility] Address [address] [place] [address] Care Team Providers Name Role Phone Nasrin Houser MD Primary Care Provider Encounter Details Date Type Department Care Team Description 06/24/2019 Lab Visit [facility] Nausea and vomiting, [address] intractability of vomiting [place] [address] not specified, unspecified [phone] vomiting type Social History Tobacco Use Types Packs/Day Years [...] Diagnosis Comme nts CBC AND DIFFERENTIAL Routine 06/24/2019 3:43 Nausea and vomiti ng, Results for this PANEL PM CDT intractability of procedure are in vomiting not the results specified, unspecified secti on. vomiting type COMPLETE BLOOD Routine 06/24/2019 3:43 Nausea and vomiting, Re sults for this COUNT-W/DIFF PM CDT intractability of procedure are in vomiting not the results specified, unspecified secti on. vomiting type LIVER PANEL(HEPATIC Routine 06/24/2019 3:43 Nausea and vomitin g, Results for this FUNCTION PANEL) PM CDT intractability of procedu re are in vomiting not the results specified, unspecified secti on. vomiting type BASIC METABOLIC Routine 06/24/2019 3:43 Nausea and vomiting, R esults for this PANEL PM CDT intractability of procedure are in vomiting not the results specified, unspecified secti on. vomiting type documented in this encounter Results Complete Blood Count-W/Diff (06/24/2019 3:43 PM CDT) P athologist Signature WBC 7.9 3.5 - 10.5 06/24/2019 [facility] x10(9)/L 3:49 PM CDT LABORATORY (PN) RBC 4.31 3.90 - 06/24/2019 [facility] 5.03 3:49 PM CDT LABORATORY (PN) x10(12)/L Hemoglobin 13.0 12.0 - 06/24/2019 [facility] 15.5 g/dL 3:49 PM CDT LABORATORY (PN) HCT 37.7 34.9 - 06/24/2019 [facility] 44.5 % 3:49 PM CDT LABORATORY (PN) MCV 87.5 80.0 - 06/24/2019 [facility] 100.0 fL 3:49 PM CDT LABORATORY (PN) MCH 30.2 27.6 - 06/24/2019 [facility] 33.3 pg 3:49 PM CDT LABORATORY (PN) MCHC 34.5 31.5 - 06/24/2019 [facility] 35.2 g/dL 3:49 PM CDT LABORATORY (PN) RDW 12.1 11.9 - 06/24/2019 [facility] 15.5 % 3:49 PM CDT LABORATORY (PN) Platelets 275 150 - 450 06/24/2019 [facility] x10(9)/L 3:49 PM CDT LABORATORY (PN) Neutrophil 4.6 1.7 - 7.0 06/24/2019 [facility] Absolute 10(9)/L 3:49 PM CDT LABORATORY (PN) Lymphocyte 2.5 1.0 - 4.8 06/24/2019 [facility] Absolute 10(9)/L 3:49 PM CDT LABORATORY (PN) Monocytes 0.7 0.2 - 0.9 06/24/2019 [facility] Absolute 10(9)/L 3:49 PM CDT LABORATORY (PN) Eosinophil 0.1 0.0 - 0.5 06/24/2019 [facility] Absolute 10(9)/L 3:49 PM CDT LABORATORY (PN) Basophil 0.0 0.0 - 0.3 06/24/2019 [facility] Absolute 10(9)/L 3:49 PM CDT LABORATORY (PN) Specimen Anatomical Collection Method / Collection Time Recei denisse Time (Source) Location / Volume Laterality Blood Venipuncture / 06/24/2019 3:43 06/24/2019 3:43 Unknown PM CDT PM CDT Nasrin Houser MD LAB_1 Performing Organization Address City/State/ZIP Code Phon e Number [facility] (PN) [address] [place] [address] [phone] Basic Metabolic Panel (06/24/2019 3:43 PM CDT) P athologist Signature Sodium 140 136 - 145 06/25/2019 [place] mmol/L 8:31 AM CDT LABORATORY Potassium 4.2 3.5 - 5.1 06/25/2019 [place] mmol/L 8:31 AM CDT LABORATORY Chloride 109 98 - 109 06/25/2019 [place] mmol/L 8:31 AM CDT LABORATORY CO2 22 20 - 29 06/25/2019 [place] mmol/L 8:31 AM CDT LABORATORY Anion Gap 9 7 - 16 06/25/2019 [place] mmol/L 8:31 AM CDT LABORATORY Calcium 9.7 8.4 - 10.4 06/25/2019 [place] mg/dL 8:31 AM CDT LABORATORY BUN 13 7 - 26 06/25/2019 [place] mg/dL 8:31 AM CDT LABORATORY Creatinine 0.80 0.55 - 06/25/2019 [place] 1.02 mg/dL 8:31 AM CDT LABORATORY GFR, Estimated >60 >60 06/25/2019 [place] mL/min/1.7 8:31 AM CDT LABORATORY 3m2 GFR, Est If >60 >60 06/25/2019 [place] mL/min/1.7 8:31 AM CDT LABORATORY [place]aur[place] 3m2 Glucose 81 70 - 100 06/25/2019 [place] mg/dL 8:31 AM CDT LABORATORY Comment: The given reference range is fo r the fasting state. Non-fasting reference range for glucose is 70 - 180 mg/dL. Hours Fasting 4 06/25/2019 8:31 AM CDT [facility] (PN) Specimen Anatomical Collection Method / Collection Time Recei denisse Time (Source) Location / Volume Laterality Blood Venipuncture / 06/24/2019 3:43 06/24/2019 3:43 Unknown PM CDT PM CDT Nasrin Houser MD LAB_1 Performing Organization Address City/[facility]/ZIP Code Phon e Number [facility] [address] [facility] [place] [address] [facility] (PN) [address] [place] [address] [place] [address] [phone] Liver Panel(Hepatic Function Panel) (06/24/2019 3:43 PM CDT) athologist Signature Alkaline 54 40 - 150 06/25/2019 [place] Phosphatase U/L 8:31 AM CDT LABORATORY Bilirubin, Total 0.4 0.2 - 1.2 06/25/2019 [place] mg/dL 8:31 AM CDT LABORATORY Bilirubin, 0.2 0.0 - 0.5 06/25/2019 [place] Direct mg/dL 8:31 AM CDT LABORATORY AST (SGOT) 18 10 - 40 06/25/2019 [place] U/L 8:31 AM CDT LABORATORY ALT (SGPT) 14 0 - 55 U/L 06/25/2019 [place] 8:31 AM CDT LABORATORY Protein, Total 7.0 6.4 - 8.3 06/25/2019 [place] g/dL 8:31 AM CDT LABORATORY Albumin 4.1 3.5 - 5.0 06/25/2019 [place] g/dL 8:31 AM CDT LABORATORY Specimen Anatomical Collection Method / Collection Time Recei denisse Time (Source) Location / Volume Laterality Blood Venipuncture / 06/24/2019 3:43 06/24/2019 3:43 Unknown PM CDT PM CDT Nasrin Houser MD LAB_1 Performing Organization Address City/[facility]/ZIP Code Phon e Number [facility] [address] [place], [place] [phone] documented in this encounter Visit Diagnoses Diagnosis Nausea and vomiting, intractability of v omiting not specified, unspecified vomiting type documented in this encounter Care Teams Life Enrichment Assistant Relationship Specialty Start Date End Date Nasrin Houser MD PCP - General Internal Medicine 06/12/19 07/11/[address] [place] [address] documented as of this encounter
--- OUTSIDE RECORDS SUMMARY | 2022-06-19 16:15 | XMS_ITS | Encounter Summary ---
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 Nausea and vomiting [address] [facility] [place] [address] [address] [facility] [phone] [place], [place] [address] (Wo rk) Social History Tobacco Use Types Packs/Day Years Used Date Smoking Tobacco: Never Assessed Sex Assigned at Date Recorded Not on file documented as of this encounter Last Filed Vital Signs Vital Sign Reading Time Taken Comments Blood Pressure 117/69 07/14/2019 6:55 PM WATER LEAK REPAIRER Pulse 86 07/14/2019 6:55 PM WATER LEAK REPAIRER Temperature 36.8 ??C (98.2 ??F) 07/14/2019 4:18 PM WATER LEAK REPAIRER Respiratory Rate 20 07/14/2019 4:18 PM WATER LEAK REPAIRER Oxygen Saturation 99% 07/14/2019 6:55 PM WATER LEAK REPAIRER Inhaled Oxygen Concentration - - Weight - - Height - - Body Mass Index - - documented in this encounter Discharge Instructions AttachmentsThe following attachments cannot be sent through Care Everywhere. Abdominal Pain, Unknown Cause, (Female) (Kinyarwanda)documented in this encounter Medications at Time of Discharge Medication Sig Dispensed Refills Start Date End Date DULoxetine (CYMBALTA) 30 Take 60 mg by mouth 0 MG capsule etonogestrel Inject 68 mg 0 (IMPLANON/NEXPLANON) 68 Subcutaneous MG IMPL hydrOXYzine (VISTARIL) 0 06/26/2019 25 MG capsule omeprazole (PRILOSEC) 20 Take 1 hour before a 0 1 09/07/[address] capsule meal. Take twice daily x 1 week then once daily traZODone (DESYREL) 50 Take 50-100 mg by 0 2018 MG tablet mouth diphenhydrAMINE Take 1 capsule (25 16 capsule 0 07/14/2019 1 09/17/2018 (BENADRYL) 25 MG capsule mg) by mouth every 6 hours as needed for itching or allergies metoclopramide (REGLAN) Take 2 tablets (10 24 tablet 0 07/0307/17/2019 5 MG tablet mg) by mouth 4 times daily (before meals and nightly) for 3 days ondansetron (ZOFRAN ODT) Take 1 tablet (4 mg) 12 tablet 0 1 09/13/2018 07/18/2019 4 MG ODT tab by mouth every 8 hours as needed for nausea documented as of this encounter ED Notes Vilma Maloney RN - 07/14/2019 6:59 PM CST Pt discharged home. Verbal and written instructions given and explained. All questions answered. Vilma Monroe RN - 07/14/2019 6:17 PM CST Pt tolerating PO. R LEAK REPAIRER Ana Luisa Farley RN - 07/14/2019 4:20 PM CST Arrives with right upper quadrant abdominal pain, nausea, and vomiting for the past 3-4 weeks. States she has had CT, ultrasound, and upper GI endoscopy but has not found source. Alert and oriented, ABCs intact. Chino Fox APRN [employer] LAPPER - 07/14/2019 4:12 PM CST Emergency Department Attending Supervision Note 07/14/2019 4:22 PM I evaluated this patient in conjunction with Varinder SOLOMON Briefly, the patient presented with ongoing abdominal pain nausea and vomiting since late June. She has had multiple evaluations work-up and imaging for this. Today she felt that she was unable to keep anything down therefore presented for evaluation. She describes the same ongoing symptoms without change. She has had no fevers. She most recently had an upper endoscopy 5 days ago. There was no acute findings. She describes a cyclical vomiting cycle of about every 2 hours. There is been no diarrhea. She denies chance of and has had no blood in this stool. She denies any urinary symptoms. On my exam: General: Alert, Mild discomfort, well kept Eyes: PERRL, conjunctivae pink no scleral icterus or conjunctival injection ENT: Moist mucus membranes, posterior oropharynx clear without erythema or exudates, No lymphadenopathy, Normal voice Resp: Lungs clear to auscultation bilaterally, no crackles/rubs/wheezes. Good air movement CV: Normal rate and rhythm, no murmurs/rubs/gallops GI: Abdomen soft and non-distended. Normoactive BS. No tenderness, guarding or rebound, No masses Skin: Warm, dry. No rashes or petechiae Musculoskeletal: No peripheral edema or calf tenderness, Normal gross ROM Neuro: Alert and oriented to person/place/time, normal sensation Psychiatric: Normal affect, cooperative, good eye contact Recent Results (from the past 8 hour(s)) ISTAT HCG Quantitative POCT Collection Time: 07/14/19 5:13 PM Result Value Ref Range HCG Quantitative Serum <5.0 <5.0 IU/L CBC with platelets differential Collection Time: 07/14/19 5:14 PM Result Value Ref Range WBC 8.1 4.0 - 11.0 10e9/L RBC Count 4.27 3.8 - 5.2 10e12/L Hemoglobin 13.0 11.7 - 15.7 g/dL Hematocrit 37.8 35.0 - 47.0 % MCV 89 78 - 100 fl MCH 30.4 26.5 - 33.0 pg MCHC 34.4 31.5 - 36.5 g/dL RDW 11.7 10.0 - 15.0 % Platelet Count 252 150 - 450 10e9/L Diff Method Automated Method % Neutrophils 58.7 % % Lymphocytes 31.6 % % Monocytes 8.4 % % Eosinophils 1.0 % % Basophils 0.2 % % Immature Granulocytes 0.1 % Nucleated RBCs 0 0 /100 Absolute Neutrophil 4.8 1.6 - 8.3 10e9/L Absolute Lymphocytes 2.6 0.8 - 5.3 10e9/L Absolute Monocytes 0.7 0.0 - 1.3 10e9/L Absolute Eosinophils 0.1 0.0 - 0.7 10e9/L Absolute Basophils 0.0 0.0 - 0.2 10e9/L Abs Immature Granulocytes 0.0 0 - 0.4 10e9/L Absolute Nucleated RBC 0.0 Comprehensive metabolic panel Collection Time: 07/14/19 5:14 PM Result Value Ref Range Sodium 138 133 - 144 mmol/L Potassium 4.1 3.4 - 5.3 mmol/L Chloride 106 94 - 109 mmol/L Carbon Dioxide 24 20 - 32 mmol/L Anion Gap 8 3 - 14 mmol/L Glucose 75 70 - 99 mg/dL Urea Nitrogen 11 7 - 30 mg/dL Creatinine 0.82 0.52 - 1.04 mg/dL GFR Estimate >90 >60 mL/min/[1.73_m2] GFR Estimate If Black >90 >60 mL/min/[1.73_m2] Calcium 9.3 8.5 - 10.1 mg/dL Bilirubin Total 0.6 0.2 - 1.3 mg/dL Albumin 3.9 3.4 - 5.0 g/dL Protein Total 7.4 6.8 - 8.8 g/dL Alkaline Phosphatase 47 40 - 150 U/L ALT 18 0 - 50 U/L AST 26 0 - 45 U/L Lipase Collection Time: 07/14/19 5:14 PM Result Value Ref Range Lipase 69 (L) 73 - 393 U/L Diagnosis ICD-10-CM 1. Chronic abdominal pain R10.9 G89.29 2. Nausea and vomiting R11.2 [facility] 07/14/2019 4:22 PM Chino Foley APRN [employer]PER 08/03/19 1414 R LEAK REPAIRER Varinder Edwards PA-C - 07/14/2019 4:12 PM CST History Chief Complaint: Abdominal Pain and Nausea & Vomiting HPI Sadie Mart is a 24 year old female who presents to the emergency department today for evaluation of abdominal pain, nausea, and vomiting. She had the Nexplanon placed on 06/10 for control inclinic. 2 days later, she was started on Cymbalta and developed nausea with abdominal pain. These symptoms resolved after a couple days. However, after increasing the Cymbalta dosage she began having nausea, vomiting, and abdominal pain again. [facility] and hot flashes. test was negative. She was given Zofran which did not help with her nausea and vomiting. CBC, LFTs, BMP were done and normal. The next day,she developed severe periumbilical abdominal pain. She was seen at [facility] emergency department on06/26 and notes indicate approximately 1 week of vomiting, 5-6 emesis per day with new epigastric pain. That day she had had a small amount of blood in her emesis. No fevers, chills, chest pain, dyspnea, urinary or vaginal symptoms. Right upper quadrant ultrasound was done and was normal, see below. At that time it was decided to stop Cymbalta which she has not restarted. On 07/01, she had a follow up appointment due to continued nausea and vomiting. Zofran ineffective, hydroxyzine made her too drowsy. At that appointment urine testing and UPT were negative. CT scan with stone protocol was done, see below. Nexplanon removed without difficulty on 07/06. Since the , nausea/vomiting has continued. No coffee-ground emesis. She notes when she has multiple rounds of vomiting that during the last couple of rounds she will see some small flecks of blood in the emesis. Had diarrhea for two days during the first week of symptoms but not since. No blood or melena in her stools. She had an upper endoscopy 4 days ago on 07/10 which was without evidence for her etiology of her symptoms. H. Pylori negative. She had been keep small amounts of food down before the endoscopy, however, since the endoscopy her nausea/vomiting symptoms have worsened and she has had persistent waxing and waning RUQ abdominal pain, which she describes as a stabbing pain. She has been unable to keep anything down. She tried drinking a protein shake and Gatorade but vomited both up. Is not tolerating water intake either. She has prescriptions for Zofran and compazine but has been unable to keep either down. She endorses dizziness, headache, and body shakes today as well, noting it to feel like she is hung over. No fevers, chills, chest pain, shortness of breath, diarrhea, or any other symptoms. No history of marijuana use. The patient does have a GI consult this (07/16/19) to follow up on her upper endoscopy results and for further evaluation. EGD on 07/10/2019: Impression: - Normal esophagus. - Non-bleeding erosive gastropathy. Biopsied. - Normal examined duodenum. CT-scan Abdomen/Pelvis w/o contrast on 07/03/2019: IMPRESSION: ?? There are a few punctate calyceal tip calcifications measuring less than 1 mm without jordan stone identified. No hydronephrosis or hydroureter. No ureteral or bladder stone. US Abdomen, Limited (RUQ only) on 06/26/2019: IMPRESSION: No gallstones or biliary dilatation. Allergies: No known drug allergies Medications: DULoxetine (CYMBALTA) 30 MG capsule hydrOXYzine (VISTARIL) 25 MG capsule omeprazole (PRILOSEC) [address] capsule traZODone (DESYREL) 50 MG tablet Zofran ODT Compazine Leonorgestrel-Ethinyl Estrad Past Medical History: ASHLEE Past Surgical History: History reviewed. No pertinent surgical history. Family History: Bipolar disorder Ovarian cancer Social History: Smoking status: Former Alcohol use: No Marital Status: Single Review of Systems Constitutional: Positive for fatigue. Negative for chills, diaphoresis and fever. Respiratory: Negative for shortness of breath. Cardiovascular: Negative for chest pain. Gastrointestinal: Positive for abdominal pain, constipation, nausea and vomiting. Negative for bloodin stool and diarrhea. Neurological: Positive for dizziness and headaches. All other systems reviewed and are negative. Physical Exam Patient Vitals for the past 24 hrs: BP Temp Temp src Pulse Resp SpO2 07/14/19 1700 122/71 -- -- 80 -- 97 % 07/14/19 1645 130/83 -- -- 75 -- 97 % 07/14/19 1630 (!) 141/83 -- -- 76 -- 99 % 07/14/19 1618 (!) 141/77 98.2 ??F (36.8 ??C) Oral 86 20 99 % Physical Exam Constitutional: Pleasant. Cooperative. Eyes: Pupils equally round and reactive HENT: Head is normal in appearance. Oropharynx is normal with moist mucus membranes. Cardiovascular: Regular rate and rhythm and without murmurs. Respiratory: Normal respiratory effort, lungs are clear bilaterally. GI: Tenderness to palpation of RUQ, otherwise non-tender, soft, nondistended. No guarding, rebound, or rigidity. Musculoskeletal: No asymmetry of the lower extremities, no tenderness to palpation. No CVA tenderness. Skin: Normal, without rash. Neurologic: Cranial nerves grossly intact, normal cognition, no focal deficits. Alert and oriented x3. Psychiatric: Normal affect. Nursing notes and vital signs reviewed. Emergency Department Course Laboratory: Laboratory findings were communicated with the patient who voiced understanding of the findings. CBC: WBC 8.1, HGB 13.0, PLT 252 CMP: WNL (Creatinine 0.82) Lipase: 69 (L) ISTAT HCG quant: <5.0 Interventions: 1719: NS 1L IV Bolus 1719: Reglan 10mg IV 1719: Benadryl 25mg IV Emergency Department Course: Past medical records, nursing notes, and vitals reviewed. 1616: I performed an exam of the patient and obtained history, as documented above. GCS 15. IV inserted and blood drawn. The above labs were ordered. PO challenge passed. I rechecked the patient. Findings and plan explained to the Patient. Patient discharged home with instructions regarding supportive care, medications, and reasons to return. The importance of close follow-up was reviewed. Impression & Plan Medical Decision Making: Sadie Mart is a 24 year old female who presents to the ED for evaluation of abdominal pain, nausea, and vomiting. The symptoms have become chronic in nature over the past month. She has had extensive work-up through PCP, ED, and has follow-up with GI scheduled for 2 days. Work-up has included lab work, RUQ ultrasound, CT of the abdomen pelvis, and most recently EGD (see results above). She has tried Zofran and Compazine with minimal improvement of her symptoms, however during those times has been able to keep food down. She has not been taking Zofran or Compazine recently. She denies marijuana use. She is here as her nausea and vomiting have persisted and her RUQ abdominal pain continues. Dif ferential is broad, including hepatitis, biliary pathology, GERD, pancreatitis, PUD, among others. No evidence for pancreatitis or hepatitis at this time. Patient recently had RUQ ultrasound without evidence for biliary stone or other pathology, so ultrasound and CT were deferred at this time. Patientreports understanding of this. Patient had significant improvement of her symptoms following fluids and Reglan and Benadryl. She was able to tolerate p.o. We discussed the unclear etiology of her symptoms. We discussed the important role of primary care in facilitating work-ups for symptoms that have become more chronic in nature, although emphasized importance to return to ED with any new or worsening symptoms. Patient reports understanding of this. Again, she has follow-up with gastroenterology in2 days, and I advised her to follow-up as scheduled and to see her PCP in the next few days for discussion of additional work-up, such as possible consultation with general surgery. Provided limited supply of Reglan, Benadryl, and Zofran for home. Discussed no role for narcotics in chronic pain, and patient states that she does not want to take narcotics. Discussed reasons to return. All questions answered. Patient was discharged home in stable condition. Diagnosis: ICD-10-CM 1. Chronic abdominal pain R10.9 G89.29 2. Nausea and vomiting R11.2 Disposition: Discharged. Discharge Medications: New Prescriptions DIPHENHYDRAMINE (BENADRYL) 25 MG CAPSULE Take 1 capsule (25 mg) by mouth every 6 hours as needed for itching or allergies METOCLOPRAMIDE (REGLAN) 5 MG TABLET Take 2 tablets (10 mg) by mouth 4 times daily (before meals andnightly) for 3 days ONDANSETRON (ZOFRAN ODT) 4 MG ODT TAB Take 1 tablet (4 mg) by mouth every 8 hours as needed for nausea Scribe Disclosure: I, Dia Muller, am serving as a scribe at 4:16 PM on 07/14/2019 to document services personally performed by Varinder Edwards PA-C based on my observations and the provider's statements to me. [facility] EMERGENCY DEPARTMENT Varinder Edwards PA-C 07/14/19 1841 R LEAK REPAIRER Associated attestation - Chino Foley APRN [employer]IVER LAPPER - 07/15/2019 3:19 PM WATER LEAK REPAIRER Please see attached note. documented in this encounter Plan of Treatment Not on filedocumented as of this encounter Procedures Procedure Name Priority Date/Time Associated Comments Diagnosis CBC WITH PLATELETS & STAT 07/14/2019 5:14 PM R esults for this DIFFERENTIAL WATER LEAK REPAIRER procedure are i n the results section. LIPASE STAT 07/14/2019 5:14 PM Results f or this WATER LEAK REPAIRER procedure are i n the results section. COMPREHENSIVE STAT 07/14/2019 5:14 PM Results for this METABOLIC PANEL WATER LEAK REPAIRER procedure ar e in the results section. ISTAT HCG QUANTITATIVE Routine 07/14/2019 5:13 PM Results for this POCT WATER LEAK REPAIRER procedure are in the results section. documented in this encounter Results (ABNORMAL) Lipase (07/14/2019 5:14 PM WATER LEAK REPAIRER) P athologist Signature Lipase 69 (L) 73 - 393 07/14/2019 QUITMAN U/L 5:[address] [facility] Specimen Anatomical Collection Method Collection Time Receive d Time (Source) Location / / Volume Laterality Blood specimen 07/14/2019 5:14 PM 019 5:19 (specimen) WATER LEAK REPAIRER PM WATER LEAK REPAIRER Varinder Edwards PA-C LAB - BLOOD ORDERABLES Performing Organization Address City/State/ZIP Code Phon e Number M [facility] [address] [place] [address] [facility] [address] [place] [address], [place] [phone] Comprehensive metabolic panel (07/14/2019 5:14 PM WATER LEAK REPAIRER) P athologist Signature Sodium 138 133 - 144 07/14/2019 [facility] mmol/L 5:32 PM WATER LEAK REPAIRER [facility] Potassium 4.1 3.4 - 5.3 07/14/2019 [facility] mmol/L 5:32 PM [facility] Comment: Specimen slightly hemolyzed, po tassium may be falsely elevated Chloride 106 94 - 109 mmol/L 07/14/2019 5:32 PM [facility] F [facility] Carbon Dioxide 24 20 - 32 mmol/L 07/14/2019 5:39 PM [facility] Anion Gap 8 3 - 14 mmol/L 07/14/2019 5:39 PM [facility] Glucose 75 70 - 99 mg/dL 07/14/2019 5:39 PM [facility] Urea Nitrogen 11 7 - 30 mg/dL 07/14/2019 5:39 PM [facility] Creatinine 0.82 0.52 - 1.04 mg/dL 07/14/2019 5:39 PM [facility] GFR Estimate >90 >60 07/14/2019 5:39 PM [facility] mL/min/{1.73_m2} HOSPITAL Comment: Non GFR Calc Starting 08/19/2018, serum creatinine ba sed estimated GFR (eGFR) will be calculated using the Chronic Kidney Dise [facility] Epidemiology Collaboration (CKD-EPI) equation. GFR Estimate If >90 >60 mL/min/{1.73_m2} 07/14/2019 5: 39 PM [facility] Comment: GFR Calc Starting 08/19/2018, serum creatinine ba sed estimated GFR (eGFR) will be calculated using the Chronic Kidney Dise [facility] Epidemiology Collaboration (CKD-EPI) equation. Calcium 9.3 8.5 - 10.1 mg/dL 07/14/2019 5:39 PM [facility] Bilirubin Total 0.6 0.2 - 1.3 mg/dL 07/14/2019 5:[address] [facility] Albumin 3.9 3.4 - 5.0 g/dL 07/14/2019 5:39 PM [facility] Protein Total 7.4 6.8 - 8.8 g/dL 07/14/2019 5:39 PM [facility] Alkaline Phosphatase 47 40 - 150 U/L 07/14/2019 5:[address] [facility] ALT 18 0 - 50 U/L 07/14/2019 5:39 PM [facility] AST 26 0 - 45 U/L 07/14/2019 5:39 PM [facility] Comment: Specimen is hemolyzed which can falsely elevate AST. Analysis of a non-hemolyzed specimen may result in a l ower value. Specimen Anatomical Collection Method Collection Time Receive d Time (Source) Location / / Volume Laterality Blood specimen 07/14/2019 5:14 PM 019 5:19 (specimen) WATER LEAK REPAIRER PM WATER LEAK REPAIRER Varinder Edwards PA-C LAB - BLOOD ORDERABLES Performing Organization Address City/State/ZIP Code Phon e Number M [facility] [address] [place] [address] [employer] [address] [place] [address], [facility] [phone] [address], [facility] CBC with platelets differential (07/14/2019 5:14 PM [facility]) [facility] gist Method Time Signature WBC 8.1 4.0 - 07/14/2019 [facility] 11.0 5:23 PM [facility] 10e9/L [facility] RBC Count 4.27 3.8 - 5.2 07/14/2019 [facility] 10e12/L 5:23 PM [facility] Hemoglobin 13.0 11.7 - 07/14/2019 [facility] 15.7 g/dL 5:23 PM [facility] Hematocrit 37.8 35.0 - 07/14/2019 [facility] 47.0 % 5:23 PM [facility] MCV 89 78 - 100 07/14/2019 [facility] fl 5:23 PM [facility] MCH 30.4 26.5 - 07/14/2019 [facility] 33.0 pg 5:23 PM [facility] MCHC 34.4 31.5 - 07/14/2019 [facility] 36.5 g/dL 5:23 PM [facility] RDW 11.7 10.0 - 07/14/2019 [facility] 15.0 % 5:23 PM [facility] Platelet Count 252 150 - 450 07/14/2019 [facility] 10e9/L 5:23 PM [facility] Diff Method Automated 07/14/2019 [facility] Method 5:23 PM [facility] % Neutrophils 58.7 % 07/14/2019 [facility] 5:23 PM [facility] % Lymphocytes 31.6 % 07/14/2019 [facility] 5:23 PM [facility] % Monocytes 8.4 % 07/14/2019 [facility] 5:23 PM [facility] % Eosinophils 1.0 % 07/14/2019 [facility] 5:23 PM [facility] % Basophils 0.2 % 07/14/2019 [facility] 5:23 PM [facility] % Immature 0.1 % 07/14/2019 [facility] Granulocytes 5:23 PM [facility] Nucleated RBCs 0 0 /100 07/14/2019 [facility] 5:23 PM [facility] Absolute 4.8 1.6 - 8.3 07/14/2019 [facility] Neutrophil 10e9/L 5:23 PM [facility] Absolute 2.6 0.8 - 5.3 07/14/2019 [facility] Lymphocytes 10e9/L 5:23 PM [facility] Absolute 0.7 0.0 - 1.3 07/14/2019 [facility] Monocytes 10e9/L 5:23 PM [facility] Absolute 0.1 0.0 - 0.7 07/14/2019 [facility] Eosinophils 10e9/L 5:23 PM [facility] Absolute 0.0 0.0 - 0.2 07/14/2019 [facility] Basophils 10e9/L 5:23 PM [facility] Abs Immature 0.0 0 - 0.4 07/14/2019 [facility] Granulocytes 10e9/L 5:23 PM [facility] Absolute 0.0 07/14/2019 [facility] Nucleated RBC 5:23 PM [facility] Specimen Anatomical Collection Method Collection Time Receive d Time (Source) Location / / Volume Laterality Blood specimen 07/14/2019 5:14 PM 019 5:19 (specimen) WATER LEAK REPAIRER PM WATER LEAK REPAIRER Varinder Edwards PA-C LAB - BLOOD ORDERABLES Performing Organization Address City/State/ZIP Code Phon e Number M [place] [address] [address] [facility] [address] [address] [facility] [phone] ISTAT HCG Quantitative POCT (07/14/2019 5:13 PM WATER LEAK REPAIRER) P athologist Signature HCG Quantitative <5.0 <5.0 IU/L 07/14/2019 [facility] Serum 5:26 PM WATER LEAK REPAIRER TEST, HANDHELD METER Specimen Anatomical Collection Method Collection Time Receive d Time (Source) Location / / Volume Laterality 07/14/2019 5:13 PM 9 5:26 WATER LEAK REPAIRER PM WATER LEAK REPAIRER Chino Foley APRN SLIVER LAPPER LAB - BEAKER POCT Performing Organization Address City/State/ZIP Code Phon e Number [facility] POINT OF CARE TEST, HANDHELD METER POINT OF CARE TEST, HANDHELD METER documented in this encounter Visit Diagnoses Diagnosis Chronic abdominal pain Abdominal pain, unspecified site Nausea and vomiting Nausea with vomiting documented in this encounter Administered Medications Inactive Administered Medications - up to 3 most recent administrations Medication Order MAR Action Action Date Dose Rate Site 0.9% sodium chloride BOLUS New Bag 07/14/2019 5:19 PM WATER LEAK REPAIRER 1,000 mLs 1000 mL/hr Intravenous, 1,000 mL, ONCE, at 1,000 mL/hr, Administer over 1 Hours, On Sat07/14/19 at 1645, For 1 dose diphenhydrAMINE (BENADRYL) injection 25 mg Given 07/14/2019 5:19 PM WATER LEAK REPAIRER 25 mg 25 mg, Intravenous, ONCE, On Sat07/14/19 at 1645, For 1 dose, For ordered IV doses 1-50 mg, give IV Push undiluted. Give each 25mg over a minimum of 1 minute. Extend in non-emergency diphenhydrAMINE (BENADRYL) injection 25 mg Given 07/14/2019 5:51 PM WATER LEAK REPAIRER 25 mg 25 mg, Intravenous, ONCE, On Sat07/14/19 at 1748, For 1 dose, For ordered IV doses 1-50 mg, give IV Push undiluted. Give each 25mg over a minimum of 1 minute. Extend in non-emergency metoclopramide (REGLAN) injection 10 mg Given 07/14/2019 5:19 PM WATER LEAK REPAIRER 10 mg 10 mg, Intravenous, Administer over 15 Minutes, ONCE, On Sat07/14/19 at 1645, For 1 dose, In 50cc NS over 15 min Avoid use if patient has full bowel obstruction or perforation. Irritant. For ordered IV doses 1-10 mg, give IV Push undiluted over 2 minutes. sodium chloride 0.9% infusion at 125 mL/hr, Intravenous, CONTINUOUS, A dminister after the bolus., Starting on Sat07/14/19 at 1745, Until Sat07/14/19 at 2059 documented in this encounter Active and Recently Administered Medications Times are shown in WATER LEAK REPAIRER. Scheduled Medication Order 07/12/2019 07/13/2019 07/14/2019 0.9% sodium chloride BOLUS (COMPLETED) 171 (New Bag - Provider: Trinidad Jackson, RN)1832 (Stopped - Provider: Vilma Maloney, RN) Intravenous, 1,000 mL, ONCE, at 1,000 mL /hr, Administer over 1 Hours, Sat07/14/19 at 1645, For 1 dose diphenhydrAMINE (BENADRYL) injection 25 mg (COMPLETED) 171 (Given - Provider: Trinidad Jackson RN) 25 mg, Intravenous, ONCE, Sat07/14/19 a t 1645, For 1 dose, For ordered IV doses 1-50 mg, give IV Push undiluted. Give each 25mg over a minimum of 1 minute. Extend in non-emergency diphenhydrAMINE (BENADRYL) injection 25 mg (COMPLETED) 175 (Given - Provider: Vilma Maloney, [facility]) 25 mg, Intravenous, ONCE, Sat07/14/19 a t 1748, For 1 dose, For ordered IV doses 1-50 mg, give IV Push undiluted. Give each 25mg over a minimum of 1 minute. Extend in non-emergency metoclopramide (REGLAN) injection 10 mg (COMPLETED) 171 (Given - Provider: Trinidad Jackson, [facility]) 10 mg, Intravenous, Administer over 15 M inutes, ONCE, Sat07/14/19 at 1645, For 1 dose, In 50cc NS over 15 min Avoid use if patient has full bowel obstruction or perforation. Irritant. For ordered IV do ses 1-10 mg, give IV Push undiluted over 2 minutes. Continuous Medication Order 07/12/2019 07/13/2019 07/14/2019 sodium chloride 0.9% infusion 17 45 (Canceled Entry - Provider: Orders Generic Provider - Comment: Automatically canceled at discontinue of medication order) at 125 mL/hr, Intravenous, CONTINUOUS, A dminister after the bolus., Starting Sat07/14/19 at 1745, Until Sat07/14/19 at 2058 documented in this encounter Care Teams Public Defender Relationship Specialty Start Date End Date Winnie Lopez PCP - General Family Practice 07/14/19 07/06/20 documented as of this encounter
--- OUTSIDE RECORDS SUMMARY | 2022-06-19 16:15 | XMS_ITS | Clinical Summary ---
:1995 Author Organization [facility] Address [address] [place] [address] Care Team Providers Name Role Phone Mik VAUGHN MD, Nasrin Primary Care Provider Allergies No known active allergies Medications Medication Sig Dispensed Refills Start Date End Date Status DULoxetine Take 60 mg by mouth 0 06/12/2019 Active (CYMBALTA) 30 MG capsule etonogestrel Inject 68 mg 0 Acti ve (IMPLANON/NEXPLANON) Subcutaneous 68 MG IMPL hydrOXYzine 0 06/26/2019 Active (VISTARIL) 25 MG capsule omeprazole Take 1 hour before a 0 07/08/2019 Active (PRILOSEC) [address] meal. Take twice capsule daily x 1 week then once daily traZODone (DESYREL) Take 50-100 mg by 0 06/10/2019 Active 50 MG tablet mouth Active Problems Problem Noted Date ASHLEE (generalized anxiety disorder) 06/24/2019 Social History Tobacco Use Types Packs/Day Years Used Date Smoking Tobacco: Never Assessed Sex Assigned at Date Recorded Not on file Last Filed Vital Signs Vital Sign Reading Time Taken Comments Blood Pressure 117/69 07/14/2019 6:55 PM FIREARMS SPECIALIST Pulse 86 07/14/2019 6:55 PM FIREARMS SPECIALIST Temperature 36.8 ??C (98.2 ??F) 07/14/2019 4:18 PM FIREARMS SPECIALIST Respiratory Rate 20 07/14/2019 4:18 PM FIREARMS SPECIALIST Oxygen Saturation 99% 07/14/2019 6:55 PM FIREARMS SPECIALIST Inhaled Oxygen Concentration - - Weight - - Height - - Body Mass Index - - Plan of Treatment Health Maintenance Due Date Last Done Comments ADVANCE CARE PLANNING 1995 ANNUAL REVIEW OF HM ORDERS 1995 HEPATITIS B IMMUNIZATION (1 1996 of 3 - 3-dose series) COVID-19 Vaccine (#1) 1996 HIV SCREENING 2011 HEPATITIS C SCREENING 2014 PAP 2017 YEARLY PREVENTIVE VISIT 04/07/2020 04/07/2019 DTAP/TDAP/TD IMMUNIZATION (1 2021 - Tdap) PHQ-2 (once per calendar 09/02/2021 year) INFLUENZA VACCINE (#1) 2022 06/10/2019, 05/24/2017, 07/09/2016 MENINGITIS IMMUNIZATION Aged Out 07/21/2015, No longe r eligible based 04/24/2012 on patient's age to complete this to [facility] HPV IMMUNIZATION Completed 01/24/2016, 09/30/2015, 07/21/2015 IPV IMMUNIZATION Aged Out No longer eligi ble based on patient's age to complete this to [facility] Pneumococcal Vaccine: Aged Out No longer eligible based Pediatrics (0 to 5 Years) and on patient's age to At-Risk Patients (6 to 64 comple te this topic Years) Insurance Payer Benefit Plan / Subscriber ID Effective Dates Phone Addre ss Type Group BLUE PLUS BLUE PLUS [id number] 2019-Present [phone] [place] [place] [id number] [address] [place] [address] (Home) [place] [address] Care Teams Clinical Research Assistant Relationship Specialty Start Date End Date Nasrin Houser MD, MD PCP - General 07/07/20 [facility] [address] [place] [address]
--- OUTSIDE RECORDS SUMMARY | 2022-06-19 16:15 | XMS_ITS | Encounter Summary ---
:1995 [facility] Address [address], [place] [address] Care Team Providers Name Role Phone Nasrin Houser MD Primary Care Provider Reason for Visit Reason Comments APPOINTMENT REQUEST Encounter Details Date Type Department Care Team Description 06/30/2019 Telephone [facility] Nasrin Houser, APPOINTMENT REQUEST [address] [place] [address] [address] [phone] [place] [id number] (Wo rk) Social History Tobacco Use Types Packs/Day Years Used Date Smoking Tobacco: Never Smokeless Tobacco: Never Alcohol Use Standard Drinks/Week Comments Yes 3 (1 standard drink = 0.6 oz pure alcoho l) rare Sex Assigned at Date Recorded Not on file documented as of this encounter Nursing Notes Patria Kang RN - 06/30/2019 3:55 PM CDT Spoke with pt. States was calling to get appointment scheduled for follow up from ED on 06/26/19 where was seen for vomiting up blood. Was advised to follow up with PCP in several days. Calling today to get appointment scheduled. Denies any new or worsening of symptoms since being seen in ED. States that only able to keep down apple sauce and cameron crackers at this time. States that has vomited several times with small amount of blood in it but was told by ED that was going to happen due to irritation in back of throat from vomiting. States that ED did have her stop taking her Cymbalta which pt states she has done. All questions answered. Verbalizes understanding of info. Appointment made for foll ow up. Problem list reviewed as related to this call. Future Appointments Date Time Provider Department Center 07/01/2019 3:30 PM Nasrin Houser MD [facility] Renae Block - 06/30/2019 3:35 PM CDT Symptoms Describe your symptoms (if pain, include location): Continued Nausea - vomiting - can only eat applesauce and cameron crackers When did they start? Earlier this month - pt was seen at an ER on 06/26 as she was vomiting blood - everything checked out - would like to speak with a nurse Additional comments (related to the above concern): [...] Triage Pool (only transfer if caller insists) documented in this encounter Plan of Treatment Not on filedocumented as of this encounter Visit Diagnoses Not on filedocumented in this encounter Care Teams School Bus Attendant Relationship Specialty Start Date End Date Nasrin Houser MD PCP - General Internal Medicine 06/12/19 07/11/20 [address] [place] [address] documented as of this encounter
--- OUTSIDE RECORDS SUMMARY | 2022-06-19 16:15 | XMS_ITS | Encounter Summary ---
:1995 Author Organization [facility] Address [address], [place] [address] Care Team Providers Name Role Phone Nasrin Houser MD Primary Care Provider Reason for Referral (Routine) - Closed Specialty Diagnoses / Procedures Referred By Contact Refer red To Contact Diagnoses Nexplanon insertion Davis Lozano MD Procedures Etonogestrel Implant System [address] [place] [address] Referral ID Status Reason Start Date Expiration Date Visits Requ ested Visits Authorized [id number] Closed 06/10/2019 09/08/2020 1 1 Reason for Visit Reason Comments Control Encounter Details Date Type Department Care Team Description 06/10/2019 Office Visit Davis Ross Nexplanon insertion [address]ueva MD (Primary Dx) [place] [id number] [address] [phone] [place] [id number] Social History Tobacco Use Types Packs/Day Years Used Date Smoking Tobacco: Never Smokeless Tobacco: Never Alcohol Use Standard Drinks/Week Comments Not Asked 3 (1 standard drink = 0.6 oz pure alcoho l) Sex Assigned at Date Recorded Not on file documented as of this encounter Last Filed Vital Signs Vital Sign Reading Time Taken Comments Blood Pressure 124/76 06/10/2019 9:51 AM CDT Pulse 84 06/10/2019 9:51 AM CDT Temperature - - Respiratory Rate - - Oxygen Saturation - - Inhaled Oxygen Concentration - - Weight 68 kg (149 lb 14.4 oz) 06/10/2019 9:51 AM CDT Height - - Body Mass Index 28.67 04/07/2019 1:20 PM CDT documented in this encounter Progress Notes Davis Lozano MD - 06/10/2019 9:40 AM CDT Please note that the medical documentation below was created with voice recognition software and maycontain typographic errors. Chief Complaint Patient presents with ??? Control SUBJECTIVE : Sadie Mart is an 24 y.o. female who presents today for Nexplanon insertion. At 1st she thought maybe she wanted an IUD insertion but after thinking about it more she is more comfortable with the Nexplanon. Side effects of Nexplanon were discussed with patient today including potential changes in patient's menstrual cycle. She does report having unprotected sex last night. She had been taking oralbirth control pills but stopped a few weeks ago because she says she has just been very emotional lately and was not sure if it was due to the pill. She does have Plan B at home but has not taken it yet. Urine test was negative. Patient informed that Nexplanon does have to be replaced in 3 years. All of patient's questions were answered and patient consented to the procedure. No Known Allergies OBJECTIVE : BP 124/76 (BP Location: Right Arm, BP Cuff Size: Regular) Pulse 84 Wt 149 lb 14.4 oz (68 kg) BMI 28.67 kg/m?? Estimated body mass index is 28.67 kg/m?? as calculated from the following: Height as of 04/07/19: 5' 0.63 (1.54 m). Weight as of this encounter: 149 lb 14.4 oz (68 kg). Gen: Pleasant, alert and oriented, no apparent distress Insertion site was measured and marked on the left inner upper arm about 8-10 cm from the medial epicondyle and 3-5 cm posterior to the sulcus between the biceps and triceps muscles. The insertion site was cleaned with Betadine solution. The insertion site and planned insertion tunnel was anesthetized with 4 mL of 2% lidocaine with epinephrine. The Nexplanon applicator was used to insert the implant subdermally. Both myself and the patient palpated the implant and verified its presence subdermally. The insertion site was covered with bacitracin, Band-Aid and wrapped with coban. Lot# [id number] Exp sate 10/2020 ASSESSMENT/PLAN : 1. Nexplanon insertion--- Nexplanon was inserted in left upper arm. Patient tolerated the procedure well today. Patient was instructed to keep the pressure dressing on for 24 hours and the Band-Aid on for 3 days. She was instructed to use back up contraception for one week. I did tell her to go home today and take her plan B pill. 2. I did recommend she follow up with me to discuss her mood issues. documented in this encounter Plan of Treatment Not on filedocumented as of this encounter Results Test Screen Urine (06/10/2019 9:53 AM CDT) P athologist Signature HCG, Urine Negative Negative 06/10/2019 [facility] 9:53 AM CDT LABORATORY (PN) Specimen Anatomical Collection Method Collection Time Receive d Time (Source) Location / / Volume Laterality Urine URINE SPECIMEN Non-blood 06/10/2019 9:53 AM 019 9:53 COLLECTION, CLEAN Collection / CDT AM CDT CATCH / Unknown Unknown Davis Lozano MD LAB_1 Performing Organization Address City/State/ZIP Code Phon e Number [facility] (PN) [address] [phone] documented in this encounter Visit Diagnoses Diagnosis Nexplanon insertion - Primary Insertion of implantable subdermal contr aceptive documented in this encounter Care Teams Sample Dye Mixer Relationship Specialty Start Date End Date Nasrin Houser MD PCP - General Internal Medicine 06/12/19 07/11/[address] [id number] documented as of this encounter
--- OUTSIDE RECORDS SUMMARY | 2022-06-19 16:15 | XMS_ITS | Encounter Summary ---
:1995 Author Organization [facility] Address [address] [place] [address] Care Team Providers Name Role Phone Mik VAUGHN MD, Nasrin Primary Care Provider Encounter Details Date Type Department Care Team Description 07/07/2020 Orders Only [facility] [address] [place] [address] [phone] [place], [place] [id number] (Wo rk) Social History Tobacco Use Types Packs/Day Years Used Date Smoking Tobacco: Never Assessed Sex Assigned at Date Recorded Not on file documented as of this encounter Plan of Treatment Not on filedocumented as of this encounter Visit Diagnoses Not on filedocumented in this encounter Care Teams International Controller Relationship Specialty Start Date End Date Nasrin Houser MD, PCP - General 07/07/20 [place] [address] [address] [place] [id number] documented as of this encounter
--- OUTSIDE RECORDS SUMMARY | 2022-06-19 16:15 | XMS_ITS | Encounter Summary ---
:1995 Author Organization [facility] Address [address] [address] Care Team Providers Name Role Phone Nasrin Houser MD Primary Care Provider Reason for Visit Procedure/Equipment (Routine) - Closed Specialty Diagnoses / Procedures Referred By Contact Refer red To Contact Diagnoses Intractable vomiting with nausea, unspecified vomiting type Nasrin Houser MD Procedures CT Abd Pelvis WO IV Cont Stone [address] [place] [address] Referral ID Status Reason Start Date Expiration Date Visits Requ ested Visits Authorized [id number] Closed 07/01/2019 09/29/2020 1 1 Encounter Details Date Type Department Care Team Description 07/03/[address] Scan Nasrin Houser Intractable vomiting [id number] Alfred Casillas MD with nausea, [place] [address] [address] unspecified vomiting [phone] [place] [address] type Social History Tobacco Use Types Packs/Day [...] Name Priority Date/Time Associated Diagnosis Comme nts CT ABD PELVIS WO IV Routine 07/03/2019 8:26 AM Intractable vom iting Results for this CONT STONE CDT with nausea, procedure are i n unspecified vomiting the res ults type section. documented in this encounter Results CT Abd Pelvis WO [...] bladder stone. Nasrin Houser MD RAD CT documented in this encounter Visit Diagnoses Diagnosis Intractable vomiting with nausea, unspec ified vomiting type documented in this encounter Care Teams Filling Machine Operator Relationship Specialty Start Date End Date Nasrin Houser MD PCP - General Internal Medicine 06/12/19 07/11/20 [address] [place] [address] documented as of this encounter
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
--- OUTSIDE RECORDS SUMMARY | 2022-06-19 16:15 | XMS_ITS | Encounter Summary ---
:1995 Author Organization [facility] Address [address], [place] [address] Care Team Providers Name Role Phone Davis Lozano MD Primary Care Provider Reason for Visit Reason Comments Urine, Blood in Encounter Details Date Type Department Care Team Description 04/21/2019 [facility], Urine, Blood in [address] [place] [address] [address] [phone] [address] [id number] (Wo rk) Social History Tobacco Use Types Packs/Day Years Used Date Smoking Tobacco: Never Smokeless Tobacco: Never Alcohol Use Standard Drinks/Week Comments Not Asked 3 (1 standard drink = 0.6 oz pure alcoho l) Sex Assigned at Date Recorded Not on file documented as of this encounter Nursing Notes Leyda Anne RN - 04/21/2019 8:09 AM CDT Reason for Disposition ??? Side (flank) or back pain present Answer Assessment - Initial Assessment Questions 1. COLOR of URINE: Describe the color of the urine. (e.g., tea-colored, pink, red, blood clots, bloody) Had chunk blood about hour ago 2. ONSET: When did the bleeding start? Urine sx started yesterday, has blood in urine and passed blood clot about an hour ago. 3. EPISODES: How many times has there been blood in the urine? or How many times today? That was first time 4. PAIN with URINATION: Is there any pain with passing your urine? If so, ask: How bad is the pain? (Scale 1-10; or mild, moderate, severe) - MILD - complains slightly about urination hurting - MODERATE - interferes with normal activities - SEVERE - excruciating, unwilling or unable to urinate because of the pain Moderate 6/10 5. FEVER: Do you have a fever? If so, ask: What is your temperature, how was it measured, and when did it start? no 6. ASSOCIATED SYMPTOMS: Are you passing urine more frequently than usual? Frequency--q 15 min 7. OTHER SYMPTOMS: Do you have any other symptoms? (e.g., back/flank pain, abdominal pain, vomiting) Back pain past few days 8. : Is there any chance you are ? When was your last menstrual period? No; lmp 2 weeks Protocols used: URINE - BLOOD IN-ADULT-OH See notes above. Pt is 23 yr old woman calling with urinary frequency and pain. Has been awake past 2.5 hours, urinating q15 in. Just passed dime sized marah blood. No fever or chills. Had had back pain past couple days. Pt lives in [facility] and will go to there this morning. Reviewed home care and callback sx. Problem list reviewed as related to this call. Eliza Eduardo - 04/21/2019 8:02 AM CDT Symptoms Describe your symptoms (if pain, include location): Blood in urine, blood clot in urine When did they start? today Additional comments (related to the above concern): [...] on filedocumented in this encounter Care Teams Storyboard Artist Relationship Specialty Start Date End Date Davis Lozano MD PCP - General Family Practice 03/23/19 06/11/19 [address], [place] [address] documented as of this encounter
--- OUTSIDE RECORDS SUMMARY | 2022-06-19 16:15 | XMS_ITS | Encounter Summary ---
:1995 Author Organization [facility] Address [address] [address] Care Team Providers Name Role Phone Daivs Lozano MD Primary Care Provider Encounter Details Date Type Department Care Team Description 05/05/2019 Lab Visit [facility] Easy bruising [address] [place], [place] [id number] Social History Tobacco Use Types Packs/Day Years [...] Name Priority Date/Time Associated Diagnosis Comme nts COMPLETE BLOOD Routine 05/05/2019 12:11 PM Easy bruising Resul ts for this COUNT-NO DIFF CDT procedure are in the results section. documented in this encounter Results CBC - Complete Blood Count-No Diff (05/05/2019 12:11 PM CDT) P athologist Signature WBC 6.9 3.5 - 10.5 05/05/2019 [facility] x10(9)/L 12:15 PM CDT [facility]ATORY (PN) RBC 4.18 3.90 - 5.03 05/05/2019 [facility] x10(12)/L 12:15 PM CDT LAB[facility]ATORY (PN) Hemoglobin 12.7 12.0 - 15.5 05/05/2019 [facility] g/dL 12:15 PM CDT [facility]ORY (PN) HCT 38.1 34.9 - 44.5 05/05/2019 [facility] % 12:15 PM CDT [facility] (PN) MCV 91.1 80.0 - 05/05/2019 [facility] 100.0 fL 12:15 PM CDT [facility] (PN) MCH 30.4 27.6 - 33.3 05/05/2019 [facility] pg 12:15 PM CDT [facility] (PN) MCHC 33.3 31.5 - 35.2 05/05/2019 [facility] g/dL 12:15 PM CDT [facility] (PN) RDW 12.6 11.9 - 15.5 05/05/2019 [facility] % 12:15 PM CDT [facility] (PN) Platelets 245 150 - 450 05/05/2019 [facility] x10(9)/L 12:15 PM CDT [facility] (PN) Specimen Anatomical Collection Method / Collection Time Recei denisse Time (Source) Location / Volume Laterality Blood Venipuncture / 05/05/2019 12:11 9 Unknown PM CDT 12:11 PM CDT [place] Lozano MD LAB_1 Performing Organization Address City/State/ZIP Code Phon e Number [facility] ([facility]) [address] [phone] documented in this encounter Visit Diagnoses Diagnosis Easy bruising Other symptoms involving skin and integu mentary tissues documented in this encounter Care Teams Sewer And Cutter Finger Buff Material Relationship Specialty Start Date End Date [place] Lozano MD PCP - General Family Practice 03/23/19 06/11/[address] [place] [address] [address] documented as of this encounter
--- OUTSIDE RECORDS SUMMARY | 2022-06-19 16:15 | XMS_ITS | Encounter Summary ---
:1996 Author Organization [email or web address] Address [address] [address] Care Team Providers Name Role Phone [place] Lozano MD Primary Care Provider Reason for Visit Reason Comments Appt. Needed Encounter Details Date Type Department Care Team Description 06/11/2019 Telephone [place] Ross MD Appt. Needed [address] [place] [place] [address] [place] [address] [phone] (Wo rk) Social History Tobacco Use Types Packs/Day Years Used Date Smoking Tobacco: Never Smokeless Tobacco: Never Alcohol Use Standard Drinks/Week Comments Not Asked 3 (1 standard drink = 0.6 oz pure alcoho l) Sex Assigned at Date Recorded Not on file documented as of this encounter Nursing Notes Eloise Metcalf RN - 06/11/2019 11:38 AM CDT Spoke with patient, calling to schedule appointment for depression and anxiety. States this has beenongoing for a few months, she has discussed this briefly with Dr. Lozano at past appointments, butis wanting to schedule appointment with another provider tomorrow to discuss this further and get another opinion for her care. Denies SI or thoughts of harm, feels safe. Appt scheduled per her request, no further needs at this time. documented in this encounter Plan of Treatment Not on filedocumented as of this encounter Visit Diagnoses Not on filedocumented in this encounter Care Teams Education Program Coordinator Relationship Specialty Start Date End Date [place] Lozano MD PCP - General Family Practice 03/23/19 06/11/[address] [place] [address] [address] documented as of this encounter
--- OUTSIDE RECORDS SUMMARY | 2022-06-19 16:15 | XMS_ITS ---
:1996 Author Organization [facility] Address [address] [place] [address] Care Team Providers Name Role Phone Mik VAUGHN MD, Nasrin Primary Care Provider Transplant [facility] ([place] [place] - MNUMReferred on 07/07/2020Marked as Ended on 12/15/2020 Reason: Recipient Transplanted Other Donor Kidney CoordinatorLYNN Vivashone: N/AFax: N/AEmail: Care Team Name Role Phone Fax Email Frances Chappell LPN Kidney Coordinator N/A N/A juan Referred SelfMD Referring Physician N/A [phone] N/A Events Pre-Donation Referred: 07/07/2020
--- OUTSIDE RECORDS SUMMARY | 2022-06-19 16:15 | XMS_ITS | Encounter Summary ---
:1995 Author Organization [facility] Address [address] [address] Care Team Providers Name Role Phone [place] Lozano MD Primary Care Provider Reason for Visit Reason Comments ANXIETY Encounter Details Date Type Department Care Team Description 05/05/2019 Office Visit [facility] [place] Lozano Easy bruising (Primary Dx); [address] Villanueva MD Chronic insomnia; [address] [place] [address] [address] Encounter for other general counseling o r advice on contraception [phone] [address] [place] [address] Social History Tobacco Use Types Packs/Day Years Used Date Smoking Tobacco: Never Smokeless Tobacco: Never Alcohol Use Standard Drinks/Week Comments Not Asked 3 (1 standard drink = 0.6 oz pure alcoho l) Sex Assigned at Date Recorded Not on file documented as of this encounter Last Filed Vital Signs Vital Sign Reading Time Taken Comments Blood Pressure 126/80 05/05/2019 11:36 AM CDT Pulse 88 05/05/2019 11:36 AM CDT Temperature - - Respiratory Rate - - Oxygen Saturation - - Inhaled Oxygen Concentration - - Weight 68.1 kg (150 lb 3.2 oz) 05/05/2019 11:36 AM CDT Height - - Body Mass Index 28.73 04/07/2019 1:20 PM CDT documented in this encounter Progress Notes [place] Lozano MD - 05/05/2019 11:40 AM CDT Please note that the medical documentation below was created with voice recognition software and maycontain typographic errors. Chief Complaint Patient presents with ??? ANXIETY SUBJECTIVE : Sadie Mart is an 23 y.o. female who presents today for follow-up. She does has decided she wouldlike to stick with her oral control pills. She does have some questions about planning. She really does not want to get any time soon but some of her sisters have been having some infertility problems. She is concerned about what her risk maybe. Some of them have PCOS. She hasno known diagnosis of PCOS. When she is not taking oral control pill she has always gotten herperiod regularly. She is taking the trazodone 50 mg nightly. She does feel like when she took 100 mgit did cause grogginess. The 50 mg nightly definitely does help her sleep. She feels like she has had a little bit more moodiness recently. She is not sure if maybe it is related to the trazodone. She is also complaining of some bruising on her right upper and lower legs. She says she has been a little bit more clots he lately but does not think that she has hit her leg on anything. She says that shehas always bruised easily but feels like it is a little bit worse now. OBJECTIVE : BP 126/80 (BP Location: Left Arm, BP Cuff Size: Regular) Pulse 88 Wt 150 lb 3.2 oz (68.1 kg) BMI 28.73 kg/m?? Estimated body mass index is 28.73 kg/m?? as calculated from the following: Height as of 04/07/19: 5' 0.63 (1.54 m). Weight as of this encounter: 150 lb 3.2 oz (68.1 kg). Gen: Alert, cooperative in no acute distress. Mental Status Exam: Appearance: The patient is well groomed in appropriate attire, normally developed, establishes good eye contact. Mood: Good Affect: Congruent with mood and with good range. Thought Process: Thought form is linear and logical with no loosening of associations. Thought Content: No hallucinations or delusions. Insight: Good, developmentally appropriate. Judgment: Intact with ability to consent to treatment plan. Suicidal Ideation: No thoughts of harm to self or others PHQ-9: See flowsheet ASHLEE-7: See flowsheet ASSESSMENT/PLAN : 1. Contraceptive management---she is doing well with her oral control pills. She will continuethis. 2. Insomnia---she is well with the trazodone. She is not sure if maybe it is causing some moodiness.Did recommend decreasing the dose down to 25 mg or stopping it to see if the moodiness improves. If it does not or worsens we can always discuss other treatments for this. 3. He has the bruising---will check CBC today. documented in this encounter Plan of Treatment Not on filedocumented as of this encounter Results CBC - Complete Blood Count-No Diff (05/05/2019 12:11 PM CDT) P athologist Signature WBC 6.9 3.5 - 10.5 05/05/2019 [facility] x10(9)/L 12:15 PM CDT LABORATORY (PN) RBC 4.18 3.90 - 5.03 05/05/2019 [facility] x10(12)/L 12:15 PM CDT [facility] (PN) Hemoglobin 12.7 12.0 - 15.5 05/05/2019 [facility] g/dL 12:15 PM CDT [facility] (PN) HCT 38.1 34.9 - 44.5 05/05/2019 [facility] % 12:15 PM CDT [facility] (PN) MCV 91.1 80.0 - 05/05/2019 [facility] 100.0 fL 12:15 PM CDT [facility] (PN) MCH 30.4 27.6 - 33.3 05/05/2019 [facility] pg 12:15 PM CDT [facility] (PN) MCHC 33.3 31.5 - 35.2 05/05/2019 [facility] g/dL 12:15 PM CDT [facility] (PN) RDW 12.6 11.9 - 15.5 05/05/2019 [facility] % 12:15 PM CDT [facility] (PN) Platelets 245 150 - 450 05/05/2019 [facility] x10(9)/L 12:15 PM CDT [facility] (PN) Specimen Anatomical Collection Method / Collection Time Recei denisse Time (Source) Location / Volume Laterality Blood Venipuncture / 05/05/2019 12:11 9 Unknown PM CDT 12:11 PM CDT [place] Lozano MD LAB_1 Performing Organization Address City/State/ZIP Code Phon e Number [facility] (PN) [address] [phone] documented in this encounter Visit Diagnoses Diagnosis Easy bruising - Primary Other symptoms involving skin and integu mentary tissues Chronic insomnia Insomnia, unspecified Encounter for other general counseling o r advice on contraception documented in this encounter Care Teams Cargo Tank Mechanic Relationship Specialty Start Date End Date [place] Lozano MD PCP - General Family Practice 03/23/19 06/11/[address] [place] [address] documented as of this encounter
--- OUTSIDE RECORDS SUMMARY | 2022-06-19 16:15 | XMS_ITS | Encounter Summary ---
:1996 Author Organization [facility] Address [address] [address] Care Team Providers Name Role Nasrin Vinson MD Primary Care Provider Reason for Visit Reason Comments Follow-up ED follow up from today, Encounter Details Date Type Department Care Team Description 06/24/2019 Office Visit Nas[facility]ett Nausea and vomiting, Nilesh Casillas MD intractability of [address] vomiting not specified, [place] [address] [address] [place] [address] unspecified vomiting [phone] type (Primary D x) (Work) Social History Tobacco Use Types Packs/Day Years Used Date Smoking Tobacco: Never Smokeless Tobacco: Never Alcohol Use Standard Drinks/Week Comments Yes 3 (1 standard drink = 0.6 oz pure alcoho l) rare Sex Assigned at Date Recorded Not on file documented as of this encounter Last Filed Vital Signs Vital Sign Reading Time Taken Comments Blood Pressure 110/70 06/24/2019 3:13 PM CDT Pulse 84 06/24/2019 3:13 PM CDT Temperature 36.6 ??C (97.9 ??F) 06/24/2019 3:13 PM CDT Respiratory Rate - - Oxygen Saturation - - Inhaled Oxygen Concentration - - Weight 66.5 kg (146 lb 9.6 oz) 06/24/2019 3:13 PM CDT Height - - Body Mass Index 28.04 04/07/2019 1:20 PM CDT documented in this encounter Patient Instructions Patient InstructionsNasrin Houser MD - 06/24/2019 3:00 PM CDT Follow a bland diet for the next few days. Try to take the Cymbalta at the same time every day. If your symptoms have not resolved in 1 week, we may need to consider changing your antidepressant. Nasrin Houser MD 3:36 PM 06/24/2019 documented in this encounter Progress Notes Nasrin Houser MD - 06/24/2019 3:00 PM CDT Chief Complaint Patient presents with ??? Follow-up ED follow up from today, SUBJECTIVE: Sadie Mart is a 24 y.o. female whom I first saw 12 days ago. At that time, she was having significant anxiety. We started duloxetine for that, after reviewing side effect profiles of various medications. The first 2 days that she took it, she had some nausea and vomited once. The following 5 days,she tolerated the medication without issues. She increased the dose last Saturday to 2 pills daily, per our plan, and again developed nausea and vomiting. Two weeks ago, she also had a Nexplanon placed. For about 5 days now, she has had persistent nausea, vomiting, and hot flashes. She was worried aboutpregnancy because she has not had a period since . She had a negative test here on 06/10 prior to placement of the Nexplanon. She took another test 2 days ago that was also negative. ROS: negative for diarrhea. No fevers. Has an ache in her upper abdomen. Panic attacks have decreased slightly in frequency since starting Cymbalta. OBJECTIVE: Vital Signs: BP 110/70 (BP Location: Right Arm, BP Cuff Size: Regular) Pulse 84 Temp 36.6 ??C (97.9 ??F) (Oral) Wt 66.5 kg (146 lb 9.6 oz) BMI 28.04 kg/m?? Gen: pleasant F, NAD HEENT: NCAT, no scleral icterus Chest: CTAB CV: RRR, no m/r/g Abd: +BS, soft, NT/ND, palpation induced nausea ASSESSMENT AND PLAN: Sadie was seen today for follow-up. Diagnoses and all orders for this visit: Nausea and vomiting, intractability of vomiting not specified, unspecified vomiting type - suspect that her symptoms are related to the duloxetine that was started 12 days ago and increased the day hersymptoms recurred. She has not vomited yet today. She wanted to try this particular medication due to its side effect profile, thus she would like to see if the symptoms resolve with time. Will get labs today to r/o more serious etiology. I have advised her to follow a bland diet for the next few days. If her symptoms are not improving in 1 week, I have advised her to follow up so we can discuss trying a different medication for her anxiety. - Complete Blood Count W/Diff; Future - Liver Panel(Hepatic Function Panel); Future - Basic Metabolic Panel; Future Follow up - in 4 weeks as previously advised at the time we started duloxetine. Nasrin Houser MD 4:32 PM 06/24/2019 documented in this encounter Plan of Treatment Not on filedocumented as of this encounter Results Basic Metabolic Panel (06/24/2019 3:43 PM CDT) P athologist Signature Sodium 140 136 - 145 06/25/2019 [place] mmol/L 8:31 AM CDT LABORATORY Potassium 4.2 3.5 - 5.1 06/25/2019 [place] mmol/L 8:31 AM CDT LAB[facility]ATORY Chloride 109 98 - 109 06/25/2019 [place] mmol/L 8:31 AM CDT LAB[facility]ATORY CO2 22 20 - 29 06/25/2019 [place] mmol/L 8:31 AM CDT LAB[facility] Anion Gap 9 7 - 16 06/25/2019 [place] mmol/L 8:31 AM CDT LAB[facility]ORY Calcium 9.7 8.4 - 10.4 06/25/2019 [place] mg/dL 8:31 AM CDT LAB[facility] BUN 13 7 - 26 06/25/2019 [place] mg/dL 8:31 AM CDT LAB[facility] Creatinine 0.80 0.55 - 06/25/2019 [place] 1.02 mg/dL 8:31 AM CDT LAB[facility] GFR, Estimated >60 >60 06/25/2019 [place] mL/min/1.7 8:31 AM CDT LAB[facility]ORY 3m2 GFR, Est If >60 >60 06/25/2019 [place] mL/min/1.7 8:31 AM CDT LAB[facility] [place] 3m2 Glucose 81 70 - 100 06/25/2019 [facility] mg/dL 8:31 AM CDT LABORATORY Comment: The [...] Organization Address City/State/ZIP Code Phon e Number [facility] [address] [place] [address] [facility] ([facility]) [address] [place] [address], [facility] [phone] Liver Panel(Hepatic Function Panel) (06/24/2019 3:43 PM CDT) P athologist Signature Alkaline 54 40 - 150 06/25/2019 [place] Phosphatase U/L 8:31 AM CDT LAB[facility]ORY Bilirubin, Total 0.4 0.2 - 1.2 06/25/2019 [place] mg/dL 8:31 AM CDT LAB[facility] Bilirubin, 0.2 0.0 - 0.5 06/25/2019 [facility] Direct mg/dL 8:31 AM CDT LAB[facility] AST (SGOT) 18 10 - 40 06/25/2019 [place] U/L 8:31 AM CDT LAB[facility] ALT (SGPT) 14 0 - 55 U/L 06/25/2019 [place] 8:31 AM CDT LAB[facility] Protein, Total 7.0 6.4 - 8.3 06/25/2019 [place] g/dL 8:31 AM CDT LAB[facility] Albumin 4.1 3.5 - 5.0 06/25/2019 [place] g/dL 8:31 AM CDT LAB[facility] Specimen Anatomical Collection Method / Collection Time Recei denisse Time (Source) Location / Volume Laterality Blood Venipuncture / 06/24/2019 3:43 06/24/2019 3:43 Unknown PM CDT PM CDT Nasrin Houser MD LAB_1 Performing Organization Address City/State/ZIP Code Phon e Number [facility] [address] [place] [address] documented in this encounter Visit Diagnoses Diagnosis Nausea and vomiting, intractability of v omiting not specified, unspecified vomiting type - Primary documented in this encounter Care Teams Ceramic Engineering Professor Relationship Specialty Start Date End Date Nasrin Houser MD PCP - General Internal Medicine 06/12/19 07/11/20 [address] [place] [address] documented as of this encounter
--- OUTSIDE RECORDS SUMMARY | 2022-06-19 16:15 | XMS_ITS | Encounter Summary ---
:1996 Author Organization [facility] Address [address] [address] Care Team Providers Name Role Phone Nasrin Houser MD Primary Care Provider Reason for Visit Reason Comments Nausea ABDOMINAL PAIN HOT FLASHES Encounter Details Date Type Department Care Team Description 06/24/2019 Nurse Triage [facility] Nasrin Houser, Nausea; ABDOMINAL Medicine PAIN; HOT FLASHES [address] [place] [address] [place] [address] [phone] Social History Tobacco Use Types Packs/Day Years Used Date Smoking Tobacco: Never Smokeless Tobacco: Never Alcohol Use Standard Drinks/Week Comments Yes 3 (1 standard drink = 0.6 oz pure alcoho l) rare Sex Assigned at Date Recorded Not on file documented as of this encounter Nursing Notes Selene Johnston RN - 06/24/2019 11:13 AM CDT Pt reports nausea, vomiting, hot flashes and cramps for a few days. Vomited x 6 yesterday, has not vomited today. Hasn't been able to keep food down, is drinking and urinating. Pt had Nexplanon placed 06/10. Had unprotected sex since it was inserted. Did an at home test a few days ago, negative. Has not had a period since May. Has appointment to al this afternoon Problem list reviewed as related to this call. Reason for Disposition ? ? MILD to MODERATE vomiting (e.g., 1-5 times/day) and lasts > 48 hours (2 days) Answer Assessment - Initial Assessment Questions 1. VOMITING SEVERITY: How many times have you vomited in the past 24 hours? - MILD: 1 - 2 times/day - MODERATE: 3 - 5 times/day, decreased oral intake without significant weight loss or symptoms of dehydration - SEVERE: 6 or more times/day, vomits everything or nearly everything, with significant weight loss, symptoms of dehydration 6 x yesterday, none today 2. ONSET: When did the vomiting begin? Few days 3. FLUIDS: What fluids or food have you vomited up today? Have you been able to keep any fluids down? Water, some down 4. ABDOMINAL PAIN: Are your having any abdominal pain? If yes : How bad is it and what does it feel like? (e.g., crampy, dull, intermittent, constant) crampy 5. DIARRHEA: Is there any diarrhea? If so, ask: How many times today? no 6. CONTACTS: Is there anyone else in the family with the same symptoms? no 7. CAUSE: What do you think is causing your vomiting? 8. HYDRATION STATUS: Any signs of dehydration? (e.g., dry mouth [not only dry lips], too weak to stand) When did you last urinate? Is drinking and urinating 9. OTHER SYMPTOMS: Do you have any other symptoms? (e.g., fever, headache, vertigo, vomiting bloodor coffee grounds, recent head injury) Nausea, 10. : Is there any chance you are ? When was your last menstrual period? yes Protocols used: [id number] Netta Hardy - 06/24/2019 10:45 AM CDT Symptoms Describe your symptoms (if pain, include location): Nausea, abdominal pain, hot flashes When did they start? A couple of days ago Additional comments (related to the above concern): Pt thinks she may be but still has her Nexplanon still implanted. If a prescription is needed, patient would [...] on filedocumented in this encounter Care Teams Customer Sales Advisor Relationship Specialty Start Date End Date Nasrin Houser MD PCP - General Internal Medicine 06/12/19 07/11/[address] [place] [address] documented as of this encounter
--- OUTSIDE RECORDS SUMMARY | 2022-06-19 16:15 | XMS_ITS | Encounter Summary ---
:1996 Author Organization [facility] Address [address] [place] [address] Care Team Providers Name Role Phone Mik VAUGHN MD, Nasrin Primary Care Provider Encounter Details Date Type Department Care Team Description 08/15/2020 Orders Only [facility], [facility] donor Transplant Clinic MD Yamileth evaluation (Primary [address] [facility] [address] [facility] [place]x) [place] [address] [phone] Social History Tobacco Use Types Packs/Day Years Used Date Smoking Tobacco: Never Assessed Sex Assigned at Date Recorded Not on file documented as of this encounter Plan of Treatment Not on filedocumented as of this encounter Visit Diagnoses Diagnosis Transplant donor evaluation - Primary Other specified general medical examinat ion documented in this encounter Care Teams Framer Relationship Specialty Start Date End Date Nasrin Houser MD, MD PCP - General 07/07/[address] [place] [address] documented as of this encounter
--- OUTSIDE RECORDS SUMMARY | 2022-06-19 16:15 | XMS_ITS | Encounter Summary ---
:1995 Author Organization [facility] Address [address] [place] [address] Care Team Providers Name Role Phone Mik VAUGHN MD, Julie Primary Care Provider Reason for Visit Reason Onset Date Comments Transplant Donor Referral 07/07/2020 New Living Kid gael Donor Referral Encounter Details Date Type Department Care Team Description 07/07/2020 Telephone [facility] Trans[facility] engineer first assistant Referral (New Living [address] [place] [address] Kidney Donor Referral) [place] [address] Social History Tobacco Use Types Packs/Day Years Used Date Smoking Tobacco: Never Assessed Sex Assigned at Date Recorded Not on file documented as of this encounter Miscellaneous Notes Telephone Encounter - Anayeli Canela - 07/07/2020 10:35 AM CST Images from the original note were not included. Charlotte LUIS [id number] LIVING KIDNEY DONOR EVALUATION Donor First Name Sadie Donor MRN Donor Last Name Barron Completed 07/01/2020 11:14 AM 1995 Record ID [id number] TOBY Screen PASSED Intended Recipient Recipient First Name Christiano Recipient MRN Recipient Last Name Humberto Relationship Close Friend Recipient 1958-08-14 Recipient Diagnosis Recipient's ABO Donor Information Age 25 Gender Female Ht 152 cm (5' 0'') Race Wt 70.3 kg (155 lbs) Ethnicity Not / BMI 30.30 kg/m?? Preferred Language Jordanian Mine Surveyor Required No Blood Type O Demographics Home Address [address] [place] [address] # [phone] [facility] Alternate # Zip Code [address] Type Country [facility] Preferred Contact day Mon, Fri, , Sat, Sat Email [email or web address] Preferred Contact time 11:00 AM-1:00 PM, 1:00 PM-4:00 PM, 09:00 AM-11:00 AM && Donor's Medical Information Medical History Anxiety d/o NOS Depression Insomnia Panic d/o NOS Post-Traumatic Stress Disorder (PTSD) Medications Alprazolam Trazodone Zoloft Surgical History Cholecystectomy Allergies NKDA Social History EtOH: Occasional (1-2 drinks/week) Illicit Drug Use: Current: Marijuana Tobacco: Remote; Quit 2019; (09/05 ppd x 2 years) Self-Reported Functional Status I am able to participate in moderate recreational activities like golf, double tennis, dancing, throwing a baseball or football Family Medical History Cancer (Aunt or Uncle, Grandparent) Diabetes (denies) Heart Disease (denies) Hypertension (denies) Kidney Disease (denies) Kidney Stones (denies) Exercise Frequency Exercise (1 X per week) Review of Organ Systems Review of Systems Airway or Lungs: No Blood Disorder: No Cancer: No Diabetes,Thyroid,Adrenal,Endocrine Disorder: No Digestive or Liver: No Female Health: No Heart or Circulatory System: No Immune Diseases: No Kidneys and Bladder: No Muscles,Bones,Joints: No Neuro: No Psych: Yes && Donor's Social Information Marital Status Single Living Accommodation Lives in rented accommodation Level of Education Some college education Living Arrangement With no relatives, residential arrangement Employment Status [employer] 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 (NO) Commercial sex < 12 months. (NO) Illicit IV drug use < 5yrs. (NO) Other high risk sexual contact < 12 months. (NO) Reason for Donation Referral Friend or Family of Tx Candidate Reason for Donation If I???m able to donate part of me to save someone???s life I feel like I should do that. I lost my mom five years ago and I wouldn???t want anyone else to have to go through that if I can stop it. Permission to Disclose Inquiry Yes Patient Comments Donor Motivation Level Highly motivated donor PCP Contact PCP Name Nasrin Houser PCP Nury Zhou [facility] PCP Emergency Contact First Name Taylor First Name Last Name Ginny Last Name Phone # Phone Type Mobile Phone Type Relationship Mother Relationship Office Use Reviewed By Reviewed 07/07/2020 10:32 AM Admin Folder Archive Comments Lost for Followup Extended Comments BREEZE ID [email or web address] survey status completed Activity History Call Due Date 07/07/2020 Last Modified Date/Time 07/07/2020 9:51 AM Comments MATIC DRILL OPERATOR documented in this encounter Plan of Treatment Not on filedocumented as of this encounter Visit Diagnoses Not on filedocumented in this encounter Care Teams Associate Professor Of Medicine Relationship Specialty Start Date End Date Nasrin Houser MD, MD PCP - General 07/07/20 [facility] [address] [place] [address] documented as of this encounter
--- OUTSIDE RECORDS SUMMARY | 2022-06-19 16:15 | XMS_ITS | Encounter Summary ---
:1995 Author Organization [facility] Address [address], [place] [address] Care Team Providers Name Role Nasrin Vinson MD Primary Care Provider Reason for Visit Reason Comments Nexplanon Removal Encounter Details Date Type Department Care Team Description 07/06/2019 Office Visit Francisca Regalado, Nexplanon removal (Primary Dx); Medicine NIKHIL control counseling; [address] [place] OCP (oral contraceptive pills) initiatio n; [place] [id number] [place] [address] Nausea [phone] Social History Tobacco Use Types Packs/Day Years Used Date Smoking Tobacco: Never Smokeless Tobacco: Never Alcohol Use Standard Drinks/Week Comments Yes 3 (1 standard drink = 0.6 oz pure alcoho l) rare Sex Assigned at Date Recorded Not on file documented as of this encounter Last Filed Vital Signs Vital Sign Reading Time Taken Comments Blood Pressure 110/70 07/06/2019 8:45 AM STERILE TECH Pulse 60 07/06/2019 8:45 AM STERILE TECH Temperature - - Respiratory Rate - - Oxygen Saturation - - Inhaled Oxygen Concentration - - Weight 65.8 kg (145 lb) 07/06/2019 8:45 AM STERILE TECH Height 152.4 cm (5') 07/06/2019 8:45 AM STERILE TECH Body Mass Index 28.32 07/06/2019 8:45 AM STERILE TECH documented in this encounter Progress Notes Francisca Cunningham, NIKHIL - 07/06/2019 8:40 AM CST SUBJECTIVE: Sadie Mart is a 24 y.o. female who presents for removal of Nexplanon. She has been having ongoing issues with nausea and has been seeing Dr. Houser one of our Internal Medicine Specialists for workup of this. All of her labs have come back negative including an HCG test. Pt states she would like to use OCPs for control. Despite her ongoing nausea for 2 weeks she has done well on control pills in the past and would like to be back on them. She has tolerated them in the pastwith no problems. Pt denies any other health concerns or questions. OBJECTIVE: BP 110/70 (BP Location: Right Arm, BP Cuff Size: Regular) Pulse 60 Ht 5' (1.524 m) Wt 145 lb (65.8 kg) BMI 28.32 kg/m?? Skin pink and dry. Alert, no acute distress Nexplanon easily palpable. The inner side of the left upper arm was painted with betadine and infiltrated with 4 ml of xylocaine. A skin incision was made at the distal end parallel to the marc. The rodwas then grasped with a forcep and easily removed. Steri strip and pressure dressing applied. Pt tolerated procedure with minimal discomfort. ASSESSMENT: Nexplanon removal Nausea x1 month control counseling OCP initiation PLAN: Sadie Mart given post-removal instructions and control prescription. I sent in a specific control pill for her that she has tolerated in the past. I sent a staff message to her renewals specialist that she was seen for the ongoing nausea to be sure that she was okay with this plan. I am hoping that removing the Nexplanon was the source of her nausea in the note will resolve once the marc was removed today. She was instructed to take 2 pills today so that she is caught up with her regular Sundaystart of her control pack. Patient was instructed to return if her nausea persists despite having the Nexplanon removed. She was instructed to call the clinic if signs of infection or with any other concerns. RTC for age appropriate preventive services and prn problems. Francisca Cleary PA-C 07/06/2019, 9:15 AM ILE TECH documented in this encounter Plan of Treatment Not on filedocumented as of this encounter Visit Diagnoses Diagnosis Nexplanon removal - Primary Surveillance of previously prescribed im plantable subdermal contraceptive control counseling General counseling for initiation of oth er contraceptive measures OCP (oral contraceptive pills) initiatio n General counseling for prescription of o ral contraceptives Nausea Nausea alone documented in this encounter Care Teams Shell Trim Tool Setter Relationship Specialty Start Date End Date Nasrin Houser MD PCP - General Internal Medicine 06/12/19 07/11/20 [address] [place] [id number] documented as of this encounter
--- OUTSIDE RECORDS SUMMARY | 2022-06-19 16:15 | XMS_ITS | Encounter Summary ---
:1995 Author Organization [place] Address [address] [place] [address] Care Team Providers Name Role Phone Mik VAUGHN MD, Nasrin Primary Care Provider Encounter Details Date Type Department Care Team Description 07/07/[address] [facility] Trans[facility] [address] [place] [phone] [place], [place] [phone] (Wo rk) Social History Tobacco Use Types Packs/Day Years Used Date Smoking Tobacco: Never Assessed Sex Assigned at Date Recorded Not on file documented as of this encounter Plan of Treatment Not on filedocumented as of this encounter Visit Diagnoses Not on filedocumented in this encounter Care Teams President And Cmo Relationship Specialty Start Date End Date Nasrin Houser MD, PCP - General 07/07/20 [place] [address] [place] [place] [id number] documented as of this encounter
--- OUTSIDE RECORDS SUMMARY | 2022-06-19 16:15 | XMS_ITS | Encounter Summary ---
:1995 Author Organization [facility] Address [address] [address] Care Team Providers Name Role Phone Nasrin Houser MD Primary Care Provider Encounter Details Date Type Department Care Team Description 07/01/2019 Lab Visit [facility] Intractable vomiting with [address] nausea, unspecified [place] [address] vomiting type [phone] Social History Tobacco Use Types Packs/Day Years [...] Name Priority Date/Time Associated Diagnosis Comme nts URINALYSIS ROUTINE, Routine 07/01/2019 4:20 PM Intractable vom iting Results for this MICRO/CULTURE IF POS CDT with nausea, procedu re are in unspecified vomiting the res ults type section. TEST Routine 07/01/2019 4:20 PM Intractable vomiting Results for this (URINE) CDT with nausea, procedure are i n unspecified vomiting the res ults type section. documented in this encounter Results Urinalysis Routine, Micro/Culture if Pos (07/01/2019 4:20 PM CDT) [facility] Method Time Signature Urine Color Yellow Straw-Yellow 07/01/2019 [facility] 4:24 PM CDT LABORATORY (PN) Urine Clarity Clear Clear 07/01/2019 [facility] 4:24 PM CDT LABORATORY (PN) Specific 1.015 1.005 - 07/01/2019 [facility] [place], 1.030 4:24 PM CDT LABORATORY Urine (PN) PH Urine 7.0 5.0 - 8.0 07/01/2019 [facility] 4:24 PM CDT LABORATORY (PN) Protein, Negative Neg/Trace 07/01/2019 [facility] Urine Qual 4:24 PM CDT LABORATORY (mg/dL) (PN) Glucose Urine Negative Negative 07/01/2019 [facility] Qual (mg/dL) 4:24 PM CDT LABORATORY (PN) Ketones, Negative Negative 07/01/2019 [facility] Urine (mg/dL) 4:24 PM CDT LABORATORY (PN) Urobilinogen, 0.2 <2.0 07/01/2019 [facility] Urine (EU/dL) 4:24 PM CDT LABORATORY (PN) Bilirubin Negative Negative 07/01/2019 [facility] Urine 4:24 PM CDT LABORATORY (PN) Blood, Urine Trace Neg/Trace 07/01/2019 [facility] 4:24 PM CDT LABORATORY (PN) Nitrite Urine Negative Negative 07/01/2019 [facility] 4:24 PM CDT LABORATORY (PN) Leukocyte Negative Negative 07/01/2019 [facility] Est. 4:24 PM CDT LABORATORY (PN) Specimen Anatomical Collection Method Collection Time Receive d Time (Source) Location / / Volume Laterality Urine URINE SPECIMEN Non-blood 07/01/2019 4:20 PM 019 4:20 COLLECTION, CLEAN Collection / CDT PM CDT CATCH / Unknown Unknown Nasrin Houser MD LAB_1 Performing Organization Address City/State/ZIP Code Phon e Number [facility] (PN) [address] [place] [address] Test Screen Urine (07/01/2019 4:20 PM CDT) P athologist Signature HCG, Urine Negative Negative 07/01/2019 [facility] 4:23 PM CDT LABORATORY (PN) Specimen Anatomical Collection Method Collection Time Receive d Time (Source) Location / / Volume Laterality Urine URINE SPECIMEN Non-blood 07/01/2019 4:20 PM 019 4:20 COLLECTION, CLEAN Collection / CDT PM CDT CATCH / Unknown Unknown Nasrin Houser MD LAB_1 Performing Organization Address City/State/ZIP Code Phon e Number [facility] (PN) [address] [phone] documented in this encounter Visit Diagnoses Diagnosis Intractable vomiting with nausea, unspec ified vomiting type documented in this encounter Care Teams Mold Cleaner Relationship Specialty Start Date End Date Nasrin Houser MD PCP - General Internal Medicine 06/12/19 07/11/[address] [place] [address] documented as of this encounter
--- OUTSIDE RECORDS SUMMARY | 2022-06-19 16:15 | XMS_ITS | Encounter Summary ---
:1995 Author Organization [facility] Address [address] [address] Care Team Providers Name Role Phone Davis Lozano MD Primary Care Provider Reason for Visit Reason Comments Medication Check In Encounter Details Date Type Department Care Team Description 05/26/2019 Telephone Davis Ross, Medication Check [place] [address] [place] [id number] [address] [phone] [place] [address] (Wo rk) Social History Tobacco Use Types Packs/Day Years Used Date Smoking Tobacco: Never Smokeless Tobacco: Never Alcohol Use Standard Drinks/Week Comments Not Asked 3 (1 standard drink = 0.6 oz pure alcoho l) Sex Assigned at Date Recorded Not on file documented as of this encounter Nursing Notes Patria Kang RN - 05/27/2019 4:22 PM CDT Attempted to reach pt. Voice mail full with no option to leave voice message at this time. Will close encounter at end of day if no call back from caller. Nasrin Clark RN - 05/26/2019 11:27 AM CDT Called patient, no answer. Voicemail is full, unable to leave a message. Rosalina Lopez - 05/26/2019 11:16 AM CDT Medications - Med Change / Question Is this a medication change or a general question? Med Question What is your question or concern? Pt called in and stated stop taking medication and is feeling very emotional pt stop a week after last appointment with pcp What is the name and dose of the medication? Trazodone 50mg How often do you take it? 2 tabs a day Who prescribed it? Davis Lozano MD If a prescription is needed, patient [...] on filedocumented in this encounter Care Teams Sexual Abuse Counsellor Relationship Specialty Start Date End Date Davis Lozano MD PCP - General Family Practice 03/23/19 06/11/[address] [place] [address] documented as of this encounter
--- OUTSIDE RECORDS SUMMARY | 2022-06-19 16:15 | XMS_ITS | Encounter Summary ---
:1995 Author Organization [facility] Address [address] [address] Care Team Providers Name Role Phone Nasrin Houser MD Primary Care Provider Reason for Visit Reason Comments Nausea VOMITING Encounter Details Date Type Department Care Team Description 07/08/2019 Nurse Triage [facility] Nasrin Houser, Nausea; VOMITING [address] [place] [address] [address] [phone] [place] [address] (Wo rk) Social History Tobacco Use Types Packs/Day Years Used Date Smoking Tobacco: Never Smokeless Tobacco: Never Alcohol Use Standard Drinks/Week Comments Not Currently 3 (1 standard drink = 0.6 oz pure alcoho l) rare Sex Assigned at Date Recorded Not on file documented as of this encounter Nursing Notes Selene Johnston RN - 07/08/2019 12:05 PM CST Pt was seen 07/01/19 for nausea and vomiting,intolerance to food. ER before that visit. She has had extensive work up that were negative. CT was done last week IMPRESSION: There are a few punctate calyceal tip calcifications measuring less than 1 mm without jordan stone identified. No hydronephrosis orhydroureter. No ureteral or bladder stone.. She was given a rx of compazine. She had her Nexplanon removed yesterday. Is drinking fluids and urinating. She has been vomiting x 2-3 weeks. She has vomited x 3 this am after taking the compazine. States she is missing so much work. She is asking what elseshe can do. Problem list reviewed as related to this call. Future Appointments Date Time Provider Department Center 07/08/2019 1:40 PM Sherry Anders PA-C [facility] Reason for Disposition ? ? MILD to MODERATE vomiting (e.g., 1-5 times/day) and lasts > 48 hours (2 days) Protocols used: [id number] YIST Idalmis Hilario - 07/08/2019 11:31 AM CST Symptoms Describe your symptoms (if pain, include location): Symptoms still continuing, nausea, vomiting, intolerance to foods When did they start? 2-3 weeks ago Additional comments (related to the above concern): Patient was last seen on 07/01/19, asking what else PCP would like her to do? Patient states she is continuing to miss work. Patient would like a return call today. Please advise If a prescription is needed, patient would [...] Triage Pool (only transfer if caller insists) YIST documented in this encounter Plan of Treatment Not on filedocumented as of this encounter Visit Diagnoses Not on filedocumented in this encounter Care Teams Audio Visual Engineer Relationship Specialty Start Date End Date Nasrin Houser MD PCP - General Internal Medicine 06/12/19 07/11/20 [address] [place] [address] documented as of this encounter
--- OUTSIDE RECORDS SUMMARY | 2022-06-19 16:16 | XMS_ITS | Encounter Summary ---
:1995 Demographics Address [address] [place] [address] Mobile Phone Home Phone Email Address Email Address Preferred Language ENG Marital Status Life Partnership Protestant Affiliation Unknown Race White Ethnic Group Not or Author Organization [facility] Address [address] [place] [address] Care Team Providers Name Role Phone Elsewhere, Pcp Primary Care Provider Unavailable Encounter Details Date Type Department Care Team Description 06/04/2022 Clinical Communication Department of Ladi Dela Cruz, Obstetrics and R.N. Gynecology in [address] [place], [place] [phone] [place], [place] [address] [place] [address] Social History Tobacco Use Types Packs/Day Years Used Date Smoking Tobacco: Former Smokeless Tobacco: Never Alcohol Use Standard Drinks/Week Comments Not Currently 0 (1 standard drink = 0.6 oz pure alcoho l) Alcohol Habits Answer Date Recorded How often do you have a drink containing alcohol? Never 11/30/2021 How many drinks containing alcohol do you have on a typical day 1 or 2 05/15/2021 when you are drinking? How often do you have six or more drinks on one occasion? Ne arden 05/15/2021 Social Isolation Answer Date Recorded In a typical week, how many times do you talk on Three times a week 11/30/2021 the phone with family, friends, or neighbors? How often do you get together with friends or Once a week 11/30/2021 relatives? How often do you attend tenriism or jewish Never 11/30/2021 services? Do you belong to any clubs or organizations such as No 11/30/2021 tenriism groups, unions, fraternal or athletic groups, or school groups? How often do you attend meetings of the clubs or Never 11/30/2021 organizations you belong to? Are you now , , , , Living wi partner 11/30/2021 never or living with a partner? Physical Activity Answer Date Recorded On average, how many days per week do you engage in moderate 4 days 11/30/2021 to strenuous exercise (like walking fast, running, jogging, dancing, swimming, biking, or other activities that cause a light or heavy sweat)? On average, how many minutes do you engage in exercise at is 150+ min 11/30/2021 level? Stress Answer Date Recorded Do you feel stress - tense, restless, nervous, or anxious, R ather much 11/30/2021 or unable to sleep at night because your mind is troubled all the time - these days? Financial Resource Strain Answer Date Recorded How hard is it for you to pay for the very basics like Not v destiny hard 11/30/2021 food, housing, medical care, and heating? Intimate Partner Violence Answer Date Recorded Within the last year, have you been afraid of your partner o r No 11/30/2021 ex-partner? Within the last year, have you been humiliated or emotionall y No 11/30/2021 abused in other ways by your partner or ex-partner? Within the last year, have you been kicked, hit, slapped, or No 11/30/2021 otherwise physically hurt by your partner or ex-partner? Within the last year, have you been raped or forced to have any No 11/30/2021 kind of sexual activity by your partner or ex-partner? Food Insecurity Answer Date Recorded Within the past 12 months, you worried that your food would Never true 11/30/2021 run out before you got money to buy more. Within the past 12 months, the food you bought just didn't N ever true 11/30/2021 last and you didn't have money to get more. Transportation Needs Answer Date Recorded In the past 12 months, has lack of transportation kept you f rom No 11/30/2021 medical appointments or from getting medications? In the past 12 months, has lack of transportation kept you f rom No 11/30/2021 meetings, work, or getting things needed for daily living? Housing Stability Answer Date Recorded In the last 12 months, was there a time when you were not ab le Yes 11/30/2021 to pay the mortgage or rent on time? In the last 12 months, how many places have you lived? 1 11/30/2021 In the last 12 months, was there a time when you did not hav e a No 11/30/[address] or slept in a retirement (including now)? Education Answer Date Recorded What is the highest level of school you have completed or 12 th grade 11/30/2021 the highest degree you have received? Sex Assigned at Date Recorded Female 05/15/2021 10:14 AM CDT documented as of this encounter Plan of Treatment Not on filedocumented as of this encounter Visit Diagnoses Not on filedocumented in this encounter Additional Health Concerns Assessment Noted Time PHQ-9 Depression Total Score: 12 11/06/2021 3:00 PM CS T documented as of this encounter Care Teams Metal Framer Relationship Specialty Start Date End Date Elsewhere, Pcp PCP - General 09/01/19 documented as of this encounter
--- OUTSIDE RECORDS SUMMARY | 2022-06-19 16:16 | XMS_ITS | Encounter Summary ---
:1995 Demographics Address [address] [place] [address] Mobile Phone Home Phone Email Address Email Address Preferred Language ENG Marital Status Life Partnership Pentecostalism Affiliation Unknown Race White Ethnic Group Not or Author Organization [facility] Address [address] [place] [address] Care Team Providers Name Role Phone Elsewhere, Pcp Primary Care Provider Unavailable Reason for Referral Outpatient (Routine) - Closed Specialty Diagnoses / Procedures Referred By Contact Refer red To Contact Video Medicine Diagnoses Examination Normal Second Trimester (HCC) [facility], M.S.N. [address] [place] [address] Referral ID Status Reason Start Date Expiration Date Visits Requ ested Visits Authorized [id number] Closed 11/06/2021 11/06/2022 1 1 M48/M60 TANK DRIVER Outpatient (Routine) - Authorized Specialty Diagnoses / Procedures Referred By Contact Refer red To Contact Video Medicine Diagnoses Examination Normal Second Trimester (HCC) Dia Jay APRN [facility] ZAC, M.S.N. [address] [place] [address] Referral ID Status Reason Start Date Expiration Date Visits V isits Requested Authorized [id number] Authorized 11/06/2021 11/06/2022 1 1 M48/M60 TANK DRIVER Reason for Visit Reason Comments Routine Visit Outpatient (Routine) - Closed Specialty Diagnoses / Procedures Referred By Contact Refer red To Contact Obstetrics and Ortiz Miner [facility]la Gynecology Imani Keita [address] [place] [address] Referral ID Status Reason Start Date Expiration Date Visits Requ ested Visits Authorized [id number] Closed 10/17/2021 10/17/2022 1 1 Encounter Details Date Type Department Care Team Description 11/06/2021 Routine Department of Dia Jay Obstetrics and C, DOG TRAINER, CNM, Normal Pregn lm Gynecology in M.S.N. Second Trimester [place], [place] [address] [place] [address] (Primary Dx) [address] [place] [id number] Social History Tobacco Use Types Packs/Day Years [...] 11/30/2021 relatives? How often do you attend worship or druze Never 11/30/2021 services? Do you belong to any clubs or organizations such as No 11/30/2021 worship groups, unions, fraternal or athletic groups, or school groups? How often do you attend meetings of the clubs or Never 11/30/2021 organizations you belong to? Are you now , , , , Living wi th partner 11/30/2021 never or living with a [...] place to sleep or slept in a detention (including now)? Education Answer Date Recorded What is the highest level of school you have Some college, n o degree 05/15/2021 completed or the highest degree you have received? Sex Assigned at Date Recorded Female 05/15/2021 10:14 AM CDT documented as of this encounter Last Filed Vital Signs Vital Sign Reading Time Taken Comments Blood Pressure 122/76 11/06/2021 2:09 PM M48/M60 TANK DRIVER Pulse - - Temperature - - Respiratory Rate - - Oxygen Saturation - - Inhaled Oxygen Concentration - - Weight 68 kg (149 lb 14.6 oz) 11/06/2021 2:09 PM M48/M60 TANK DRIVER Height - - Body Mass Index 29.28 06/05/2018 2:37 PM CDT documented in this encounter Patient Instructions Patient InstructionsBeDia turcios APRN, CNM - 11/06/2021 2:15 PM M48/M60 TANK DRIVER - Schedule video visit with or LAZARO at 16 weeks - Schedule anatomy US at 20 weeks - Schedule video visit with or LAZARO at 24 wks M48/M60 TANK DRIVER documented in this encounter H&P Notes Deepali Reesndiz - 11/06/2021 2:15 PM CST SUBJECTIVE CHIEF COMPLAINT / REASON FOR VISIT Sadie Mart is a 26 y.o. . Patient's last menstrual period was 08/09/2021 (exact date). Her Estimated Date of Delivery: 05/16/22 determined by LMP consistent with 8 week ultrasound. Gestational age is 12w5d. Her past obstetrical history is significant for: HTN in the period. Specific concerns today include: fatigue HISTORY OF PRESENT CONDITION OB History Para Term AB Living 2 1 1 1 SAB IAB Ectopic Molar Multiple Live Births 0 1 # Outcome Date GA Lbr Filemon/2nd Weight Sex Delivery Anes PTL Lv 2 Current 1 Term 03/29/21 41w3d 3.17 kg M CS-LTranv Spinal, EPI SERENA Complications: Failure to Progress in First Stage, Persistent Category 2 Past Medical History: Diagnosis Date ??? Depression Anxiety ??? Posttraumatic Stress Disorder Brief Past Surgical History: Procedure Laterality Date ??? SECTION N/A 03/29/2021 Procedure: SECTION; Surgeon: Val Wong M.D.; Location: [facility] OR ??? CHOLECYSTECTOMY Family History Problem Relation Age of Onset ??? Alcohol abuse Mother ??? Depression Mother ??? Drug abuse Mother ??? Ovarian cancer Maternal Grandmother Social History Socioeconomic History ??? Marital status: Life Partnership Spouse name: Antoine ??? Number of children: 2 ??? Highest education level: Some college, no degree Tobacco Use ??? Smoking status: Former Smoker ??? Smokeless tobacco: Never Used Vaping Use ??? Vaping Use: never used Substance and Sexual Activity ??? Alcohol use: Not Currently ??? Drug use: Not Currently Types: Other Comment: CBD oil daily ??? Sexual activity: Defer Social Determinants of Health Financial Resource Strain: High Risk ??? Difficulty of Paying Living Expenses: Hard Food Insecurity: Food Insecurity Present ??? Worried About Running Out of Food in the Last Year: Sometimes true ??? Ran Out of Food in the Last Year: Sometimes true Transportation Needs: No Transportation Needs ??? Lack of Transportation (Medical): No ??? Lack of Transportation (Non-Medical): No Physical Activity: Insufficiently Active ??? Days of Exercise per Week: 1 day ??? Minutes of Exercise per Session: 20 min Stress: Stress Concern Present ??? Feeling of Stress : Rather much Social Connections: Unknown ??? Frequency of Communication with Friends and Family: More than three times a week ??? Frequency of Social Gatherings with Friends and Family: Twice a week ??? Attends Pentecostalism Services: Patient refused ??? Active Member of Clubs or Organizations: No ??? Attends Club or Organization Meetings: Patient refused ??? Marital Status: Living with partner Intimate Partner Violence: Not At Risk ??? Fear of Current or Ex-Partner: No ??? Emotionally Abused: No ??? Physically Abused: No ??? Sexually Abused: No Housing Stability: High Risk ??? Unable to Pay for Housing in the Last Year: Yes ??? Number of Places Lived in the Last Year: 1 ??? Unstable Housing in the Last Year: No No Known Allergies Medications the Patient Reported Taking acetaminophen (TYLENOL) 325 mg tablet (Taking) ferrous sulfate 324 mg (65 mg iron) DR tablet (Taking) folic acid 1 mg tablet (Taking) sfcquux-Rk-fpbt-FA (VINATE ONE) 60 mg iron-1 mg per tablet (Taking) sertraline (ZOLOFT) 50 mg tablet (Taking) REVIEW OF SYSTEMS A comprehensive review of systems was negative except for: Behavioral/Psych: Symptoms; Psychiatric: anxiety and depression. Patient recently started sertraline several weeks ago and feels her mood has been improving since then. OBJECTIVE VITAL SIGNS Blood Pressure: (122)/(76) 122/76 Weight: [68 kg] 68 kg PHYSICAL EXAM General- Well nourished, hydrated, no acute distress Respiratory- Clear to auscultation bilaterally, no rhonchi, rales, wheezing Heart- Regular rate, rhythm. No murmurs, rubs, gallops Physical General Exam Pelvic: Bedside limited abdominal OB US FHT: 165 Appropriate movement and cardiac activity seen for gestational age of 12w5d. I have reviewed the patient's past medical and surgical histories, medications and allergies and have made changes as reported by the patient. DIAGNOSTICS I have reviewed the OB ultrasound(s) and most recent labs PHQ9 Score 05/15/2021 06/16/2021 11/06/2021 PHQ-9 Total Score (max 27) 8 10 12 GAD7 Score 05/15/2021 06/16/2021 11/06/2021 ASHLEE-7 Total Score (max 21) 13 13 10 ASSESSMENT / PLAN #1 Section Delivery (HCC) #2 Hypertension Gestational (HCC) #3 Anxiety Generalized Disorder #4 No Current Problems or Disability #5 Depression Major Recurrent Mild (HCC) #6 Posttraumatic Stress Disorder Brief #7 Maternal Care For Unspecified Type Scar From Previous Delivery Substance or tobacco use concerns: none Expected Total Weight Gain: Could not be calculated Nutrition, hydration, and exercise recommendations reviewed. Initial labs: completed and reviewed Problem list reviewed and updated. Options for genetic screening discussed: Patient declines all genetic testing Consults ordered: Editorial Clerk. Discussed that patient should plan to further discuss TOLAC/ with OB. calculator done today showed 83% chance of success. Appropriate options of care and visit schedule discussed with patient. Plan for the Midwifery Service and OB High Risk [facility] Anticipatory guidance, relief for common discomforts, and warning signs/sx reviewed. Follow-up in 4 weeks. Orders placed for consult to OB in 4 weeks. PATIENT EDUCATION Ready to learn, barriers to learning: none; learning preferences include listening. Explained diagnosis and treatment plan; patient expressed understanding of the content. VARUN Lang M48/M60 TANK DRIVER Associated attestation - Dia Jay APRN, CNM, M.S.N. - 11/07/2021 4:06 PM M48/M60 TANK DRIVER I saw and evaluated the patient, participating in the bunn portions of the service and counselled thepatient extensively about considering delivery options. Strongly encouraged her to discuss delivery planning and with MD at next visit. She is planning on a larger family and would like CNM/low-interven tion care if possible. She had her last care at the center but was transferred here for prolonged labor/failure to progress. Additionally, I recommended she initiate 81 mg Aspirin daily d/t hx of gHTN. Regarding the patient's mental health, she reports that she just started taking Sertraline several days ago. Has used this medication in the past successfully. Feels mental health is stable at this time, will notify us with any new concerns. I reviewed the student nurse director economic's note and made edits as appropriate. I agree with her findingsand plan. Dia Jay APRN, CNM documented in this encounter Plan of Treatment Scheduled Referrals Name Type Priority Associated Diagnoses Order S chedule Video anyplace Outpatient Referral Routine Examination Prenata l Expected: visit Normal 12/07/2021 Second Trimester (Approximat e), Expires: 02/06/2023 [address] anyplace Outpatient Referral Routine Examination Prenata l Expected: visit Normal 01/29/2022, Second Trimester Expires: 02/06/2023 documented as of this encounter Results US OB Anatomy Bundy (12/28/2021 2:28 PM CDT) Anatomical Region Laterality Modality Body, Ultrasound OB RST LOS, Ultrasound ARZ LOS N/A Ultrasound Specimen (Source) Anatomical Collection Method Collection Time Re ceived Time Location / / Volume Laterality 12/28/2021 4:30 PM CDT Impressions 12/28/2021 4:31 PM CDT Routine anatomy survey completed a nd no anomalies identified. Narrative 12/28/2021 4:31 PM CDT EXAM: US OB ANATOMY BUNDY COMPARISON: None TECHNIQUE: Transabdominal and Transvagin al FINDINGS: Number of Gestations: Single Established Gestational age: 20 w 1 d, E DD: ??05/16/2022 Presentation: Variable Placenta Location: Anterior Placental Relationship to Internal Os: N ormal, no previa Amniotic Fluid: Subjectively normal in v olume Age by current ultrasound measurements: 20 w 2 d Estimated weight: 352 g. EFW %: ?? 61.0 % heart rate: 150 SURVEY: Motion: Normal. 4Chamber Heart: Normal. RVOT/LVOT: Normal. Cardiac Situs: Normal. Diaphragm: Normal. Stomach: Normal. Kidneys: Normal. Bladder: Normal. Spinal Column: Normal. Lateral Ventricles, Choroid: Normal. Cavum Septum: Normal. Cisterna Magna: Normal. Cerebellum: Normal. Nuchal Fold Thickness: Normal. Three Vessel Umbilical Cord: Normal. Cord Insertion: Normal. Placental Cord Insertion: Normal. 4 Extremities: Normal. Upper Lip and Facial Profile: Normal. 3 Vessel View (optional): Not evaluated. Aortic and Ductal Arches (optional): Not evaluated. Orbits (optional): Not evaluated. BIOMETRIC PARAMETERS: ?? BPD: 20 w 0 d ??44.9 % HC: 19 w 6 d ??31.7 % AC: 20 w 4 d ??56.4 % FL: 20 w 3 d ??53.7 % HC/AC ratio: ??1.14 Uterus: No unexpected findings. Right ovary/adnexa: Ovary obscured, othe rwise clear. Left ovary/adnexa: Ovary obscured, other mcclure clear. Cervix: Subjectively normal by Transabd evaluation only. 4.7 cm Unless otherwise indicated, the stanton rvey includes: Four-chamber heart, RVOT and LVOT, diaphragm, stomach (presence and situs), kidneys, b ladder, spine (cervical, thoracic, lumbar, and sacral spine), cerebral ventricles and choroid plexus, cavum septum pellucidum, cisterna magna, cerebellum, three vessel umbilical cord, umbilical c ord insertion, four extremities, upper lip, facial profile. Procedure Note Thony Christianson M.D. - 12/28/2021Fo rmatting of this note might be different from the original. EXAM: US OB ANATOMY BUNDY COMPARISON: None TECHNIQUE: Transabdominal and Transvagin al FINDINGS: Number of Gestations: Single Established Gestational age: 20 w 1 d, E Presentation: Variable Placenta Location: Anterior Placental Relationship to Internal Os: N ormal, no previa Amniotic Fluid: Subjectively normal in v olume Age by current ultrasound measurements: 20 w 2 d Estimated weight: 352 g. EFW %: 61 .0 % heart rate: 150 SURVEY: Motion: Normal. 4Chamber Heart: Normal. RVOT/LVOT: Normal. Cardiac Situs: Normal. Diaphragm: Normal. Stomach: Normal. Kidneys: Normal. Bladder: Normal. Spinal Column: Normal. Lateral Ventricles, Choroid: Normal. Cavum Septum: Normal. Cisterna Magna: Normal. Cerebellum: Normal. Nuchal Fold Thickness: Normal. Three Vessel Umbilical Cord: Normal. Cord Insertion: Normal. Placental Cord Insertion: Normal. 4 Extremities: Normal. Upper Lip and Facial Profile: Normal. 3 Vessel View (optional): Not evaluated. Aortic and Ductal Arches (optional): Not evaluated. Orbits (optional): Not evaluated. BIOMETRIC PARAMETERS: BPD: 20 w 0 d 44.9 % HC: 19 w 6 d 31.7 % AC: 20 w 4 d 56.4 % FL: 20 w 3 d 53.7 % HC/AC ratio: 1.14 Uterus: No unexpected findings. Right ovary/adnexa: Ovary obscured, othe rwise clear. Left ovary/adnexa: Ovary obscured, other mcclure clear. Cervix: Subjectively normal by Transabd evaluation only. 4.7 cm Unless otherwise indicated, the stanton rvey includes: Four-chamber heart, RVOT and LVOT, diaphragm, stomach (presence and situs), kidneys, b ladder, spine (cervical, thoracic, lumbar, and sacral spine), cerebral ventricles and choroid plexus, cavum septum pellucidum, cisterna magna, cerebellum, three vessel umbilical cord, umbilical c ord insertion, four extremities, upper lip, facial profile. IMPRESSION: Routine anatomy survey completed a nd no anomalies identified. Dia Jay APRN, CNM, M.S.N. IMG OB US PROCEDURES documented in this encounter Visit Diagnoses Diagnosis Examination Normal Se cond Trimester (HCC) - Primary Examination Normal Se cond Trimester (HCC) documented in this encounter Additional Health Concerns Assessment Noted Time PHQ-9 Depression Total Score: 12 11/06/2021 3:00 PM CS T documented as of this encounter Care Teams Connie Scratcher Relationship Specialty Start Date End Date Elsewhere, Pcp PCP - General 09/01/19 documented as of this encounter
--- OUTSIDE RECORDS SUMMARY | 2022-06-19 16:16 | XMS_ITS | Encounter Summary ---
:1995 Demographics Address [address] [place] [address] Mobile Phone Home Phone Email Address Email Address Preferred Language ENG Marital Status Life Partnership Scientology Affiliation Unknown Race White Ethnic Group Not or Author Organization [facility] Address [address] [place] [address] Care Team Providers Name Role Phone Elsewhere, Pcp Primary Care Provider Unavailable Encounter Details Date Type Department Care Team Description 12/28/2021 Hospital Encounter Department of Dia Jay Radiology, [facility], FILLER WIPER, CN, [facility], in M.S.N. Second Trimester [place], [place] [address] [facility] ([facility]) [facility] [place] [phone] [phone] Social History Tobacco Use Types Packs/Day Years [...] 11/30/2021 relatives? How often do you attend yazidi or zoroastrianism Never 11/30/2021 services? Do you belong to any clubs or organizations such as No 11/30/2021 yazidi groups, unions, fraternal or athletic groups, or [...] place to sleep or slept in a care home (including now)? Education Answer Date Recorded What is the highest level of school you have completed or 12 th grade 11/30/2021 the highest degree you have received? Sex Assigned at Date Recorded Female 05/15/2021 10:14 AM CDT documented as of this encounter Medications at Time of Discharge Medication Sig Dispensed Refills Start Date End Date acetaminophen (TYLENOL) 325 Take 325-650 mg by 0 mg tablet mouth every 4 (four) hours as needed. aspirin 81 mg chewable Chew 1 tablet (81 mg 60 tablet 0 03/2022 tablet total) daily. ferrous sulfate 324 mg (65 Take 65 mg of iron 0 mg iron) DR tablet by mouth daily. folic acid 1 mg tablet Take 1 mg by mouth 0 daily. bccjzux-Ri-esty-FA Take 1 tablet by 0 (VINATE ONE) 60 mg iron-1 mouth daily. mg per tablet sertraline (ZOLOFT) 50 mg Take 1.5 tablets (75 45 tablet 11 11/30/2021 tablet mg total) by mouth daily. documented as of this encounter Plan of Treatment Not on filedocumented as of this encounter Procedures Procedure Name Priority Date/Time Associated Comments Diagnosis US OB ANATOMY RAD - Routine 12/28/2021 2:28 Examination Results fo r this BUNDY (most inpatients PM CDT Normal procedur e are in and all Second the results outpatients) Trimester (HCC) section. documented in this encounter Results US OB Anatomy Bundy [...] Diagnosis Examination Normal Se cond Trimester (HCC) documented in this encounter Additional Health Concerns Assessment Noted Time PHQ-9 Depression Total Score: 12 11/06/2021 3:00 PM CS T documented as of this encounter Care Teams Radiologic Technology Teacher Relationship Specialty Start Date End Date Elsewhere, Pcp PCP - General 09/01/19 documented as of this encounter
--- OUTSIDE RECORDS SUMMARY | 2022-06-19 16:16 | XMS_ITS | Clinical Summary ---
:1995 Demographics Address [address] [place] [address] Mobile Phone Home Phone Email Address Email Address Preferred Language ENG Marital Status Life Partnership Synagogue Affiliation Unknown Race White Ethnic Group Not or Author Organization [facility] Address [address] [place] [address] Care Team Providers Name Role Phone Elsewhere, Pcp Primary Care Provider Unavailable Source Comments Patient records contain information from all sites at [facility]. For routine questions regarding patient records, call [phone] during business hours, M-F 8:00 AM - 5:00 PM Central Time. Record requests for emergency care only can be directed to [phone] at any time.[facility] Allergies No known active allergies Medications Medication Sig Dispensed Refills Start Date End Date Status Take 1 tablet by 0 Act dex sibwehg-Mc-zwvn-FA mouth daily. (VINATE ONE) 60 mg iron-1 mg per tablet acetaminophen (TYLENOL) Take 325-650 mg 0 Active 325 mg tablet by mouth every 4 (four) hours as needed. ferrous sulfate 324 mg Take 65 mg of 0 Active (65 mg iron) DR tablet iron by mouth daily. folic acid 1 mg tablet Take 1 mg by 0 Active mouth daily. aspirin 81 mg chewable Chew 1 tablet (81 60 tablet 0 2 Active tablet mg total) daily. sertraline (ZOLOFT) 50 Take 1.5 tablets 45 tablet 11 11/30/2021 Active mg tablet (75 mg total) by mouth daily. Active Problems Problem Noted Date With Personal History Gestational Hypertensi on 11/07/2021 Maternal Care For Unspecified Type Scar From Previous Delivery 10/17/2021 Anxiety Generalized Disorder 06/24/2019 No Current Problems or Disability 06/13/2013 Depression Major Recurrent Mild Posttraumatic Stress Disorder Brief Estimated Date of Delivery Comments Yes 05/16/2022 Based on last menstr ual period of 08/09/2021 (Exact Date) Resolved Problems Problem Noted Date Resolved Date Care And Lactating 04/01/2021 04/19/2021 Section Delivery 04/01/2021 11/07/2021 Hypertension Gestational 04/01/2021 03/0 04/2022 41 Weeks Gestation 03/29/2021 04/01/2021 Examination Normal First Third Trimester 03/29/2021 04/01/2021 Positive Group B Streptococcus 03/29/2021 04/01/2021 Encounters Date Type Specialty Care Team Description 06/04/2022 Clinical Communication Obstetrics and Jose De Jesus, Ladi Yarbrough, Gynecology R.N. from Last 3 Months Immunizations Name Administration Dates Next Due 9vHPV 01/24/2016, 09/30/2015, 07/21/2015 Influenza, Injectable, Quadrivalent 06/18/2017 Influenza, Seasonal, Injectable 06/27/2015 Influenza, Unspecified 06/10/2019, 05/24/2017, 07/09/2016 MCV4 (Menactra) 07/21/2015, 04/24/2012 Td (Adult), adsorbed 04/24/2012 Tdap 03/31/2021, 04/24/2012 SHANTELLE 02/14/2016, 01/13/2016 influenza vaccine quad (FLUZONE/FLUARIX) 10/17/2021, 020 (6 months and older)(PF) Family History Medical History Relation Name Comments Ovarian cancer Maternal Grandmother Alcohol abuse Mother Depression Mother Drug abuse Mother Relation Name Status Comments Maternal Grandmother Mother Social History Tobacco Use Types Packs/Day Years [...] 11/30/2021 relatives? How often do you attend presybeterian or catholic Never 11/30/2021 services? Do you belong to any clubs or organizations such as No 11/30/2021 presybeterian groups, unions, fraternal or athletic groups, or [...] place to sleep or slept in a prison (including now)? Education Answer Date Recorded What is the highest level of school you have completed or 12 th grade 11/30/2021 the highest degree you have received? Estimated Date of Delivery Comments Yes 05/16/2022 Based on last menstr ual period of 08/09/2021 (Exact Date) Sex Assigned at Date Recorded Female 05/15/2021 10:14 AM CDT Last Filed Vital Signs Vital Sign Reading Time Taken Comments Blood Pressure 122/76 11/06/2021 2:09 PM PHOTOGRAPHIC REPRODUCTION TECHNICIAN Pulse 90 04/05/2021 4:43 PM CDT Temperature 36.8 ??C (98.2 ??F) 04/19/2021 2:00 PM CDT Respiratory Rate 18 04/05/2021 4:23 PM CDT Oxygen Saturation 97% 04/01/2021 8:15 AM CDT Inhaled Oxygen Concentration - - Weight 68 kg (149 lb 14.6 oz) 11/06/2021 2:09 PM PHOTOGRAPHIC REPRODUCTION TECHNICIAN Height 152.4 cm (5') 06/05/2018 2:37 PM CDT Body Mass Index 29.28 06/05/2018 2:37 PM CDT Plan of Treatment Health Maintenance Due Date Last Done Comments Cervical Cancer Screening 1995 Hepatitis B Vaccines (1 of 1995 3 - 3-dose series) Hepatitis C Screening 1995 COVID-19 Vaccine (3 - 03/17/2021 01/20/2021, 12/23/2020 Booster for Moderna series) Depression Monitoring 03/08/2022 11/06/2021 (PHQ-9) Influenza Vaccine (#1) 2022 10/17/2021, 08/31/2020, 06/10/2019, Additional history exists DTaP,Tdap,and Td Vaccines 03/20/2032 03/20/2022, 03/31/2021 , (4 - Td or Tdap) 04/24/2012, Additional history exists HPV Vaccines Completed 01/24/2016, 09/30/2015, 07/21/2015 Chlamydia and Gonorrhea Discontinued 10/05/2021 Screening HIV Screening Completed 10/05/2021 Pneumococcal vaccine (0-64 Aged Out No lo nger eligible years) based on patient 's age to complete this topic Insurance Payer Benefit Plan Subscriber ID Effective Phone Address Typ e / Group Dates BLUE CROSS BCBS BLUE [id number] 2019-Anita ATTN: Sergio araiza HMO BLUE SHIELD PLUS HMO nt [employer]SUMER [facility] [employer] [address] [address] [place] [address] Guarantor Name Account Type Relation to Date of Phone Billing Patient Address Sadie Mart Personal/Family Self 1995 [address] [place] ([place] [address] Advance Directives For more information, please contact: [phone] Latest Code Status on File Code Status Date Activated Date Inactivated Comments Full Code 03/29/2021 11:52 PM 04/01/2021 2:12 PM Question Answer Comments Full Code: Discussed Care Teams Sand Molder Relationship Specialty Start Date End Date Elsewhere, Pcp PCP - General 09/01/19
--- OUTSIDE RECORDS SUMMARY | 2022-06-19 16:16 | XMS_ITS | Encounter Summary ---
:1995 Demographics Address [address] [place] [address] Mobile Phone Home Phone Email Address Email Address Preferred Language ENG Marital Status Life Partnership Zoroastrian Affiliation Unknown Race White Ethnic Group Not or Author Organization [facility] Address [address] [place] [address] Care Team Providers Name Role Phone Elsewhere, Pcp Primary Care Provider Unavailable Encounter Details Date Type Department Care Team Description 10/05/2021 Hospital Encounter Department of Sanya Lopez For Laboratory Sara Villanueva APRN, Supervisio n Of Medicine, Specialty C.N.P. Normal Clinic, in [address] Unspecified [place], [place] Trimester [address] [facility] [address] [place], [place] [phone] [address] (Work) [phone] Social History Tobacco Use Types Packs/Day Years [...] 11/30/2021 relatives? How often do you attend jehovah's witness or scientology Never 11/30/2021 services? Do you belong to any clubs or organizations such as No 11/30/2021 jehovah's witness groups, unions, fraternal or athletic groups, or [...] place to sleep or slept in a usp (including now)? Education Answer Date Recorded What is the highest level of school you have Some college, n o degree 05/15/2021 completed or the highest degree you have received? Sex Assigned at Date Recorded Female 05/15/2021 10:14 AM CDT documented as of this encounter Medications at Time of Discharge Medication Sig Dispensed Refills Start Date End Date acetaminophen (TYLENOL) Take 325-650 mg by 0 325 mg tablet mouth every 4 (four) hours as needed. ferrous sulfate 324 mg Take 65 mg of iron 0 (65 mg iron) DR tablet by mouth daily. Take 1 tablet by 0 sdwztio-Qp-odqi-FA mouth daily. (VINATE ONE) 60 mg iron-1 mg per tablet acetaminophen (TYLENOL) Take 2 tablets 0 04/01/20 21 10/18/2021 500 mg tablet (1,000 mg total) by mouth every 6 (six) hours. butalbital-acetaminophen Take 1 capsule by 10 capsule 1 12/202010/18/2021 -caff (FIORICET) mouth every 4 (four) 50-300-40 mg per hours as needed for capsuleIndications: headaches Prolonged Acute Indication: Pain/Traumatic Injury Prolonged Acute Pain/Traumatic Injury. ibuprofen (ADVIL,MOTRIN) Take 1 tablet (600 60 tablet 1 10/18/2021 600 mg tablet mg total) by mouth every 6 (six) hours. labetaloL (NORMODYNE) 0 04/01/2021 100 mg tablet labetaloL (NORMODYNE) Take 1 tablet (200 30 tablet 1 202010/18/2021 200 mg tablet mg total) by mouth 2 (two) times a day. norethindrone (Ortho Take 1 tablet (0.35 28 tablet 12 202010/18/2021 Micronor) 0.35 mg mg total) by mouth tabletIndications: daily. Management Contraception Prescription sertraline (ZOLOFT) 50 Take 0.5 tablets (25 30 tablet 11 10/18/2021 mg tabletIndications: mg total) by mouth Depression Anxiety daily. documented as of this encounter Plan of Treatment Not on filedocumented as of this encounter Procedures Procedure Name Priority Date/Time Associated Diagnosis Comme nts URINALYSIS WITH Routine 10/05/2021 12:21 Encounter For Results for this MICROSCOPIC IF PM PANEL BEATER Supervision Of procedure a re in INDICATED, U Normal the results Unspecified section. Trimester CARBOXY-THC Routine 10/05/2021 12:21 Results for this CONFIRMATION, U PM PANEL BEATER procedure ar e in the results section. BACTERIAL CULTURE, Routine 10/05/2021 12:21 Encounter For Resu lts for this AEROBIC + SUSC, PM PANEL BEATER Supervision Of procedure are in URINE Normal the results Unspecified section. Trimester CONFIRMED DRUG ABUSE Routine 10/05/2021 12:21 Encounter For Re sults for this PANEL, U PM PANEL BEATER Supervision Of procedure are in Normal the results Unspecified section. Trimester CHLAMYDIA/GONORRHOEA Routine 10/05/2021 12:21 Encounter For Re sults for this E AMPLIFIED RNA PM PANEL BEATER Supervision Of procedure are in Normal the results Unspecified section. Trimester documented in this encounter Results Carboxy-Tetrahydrocannabinol (THC) Confirmation, Urine (10/05/2021 12:21 PM PANEL BEATER) [facility] Method Time Signature Carboxy-THC- by 150 Cutoff: 10/08/2021 [facility] GC/MS 3.0 ng/mL 6:58 AM PANEL BEATER Carboxy-THC Positive. 10/08/2021 [facility] Interpretation 6:58 AM PANEL BEATER Comment: ----ADDITIONAL INFORMATION---- This report is intended for use in clini lux monitoring and management of patients. ??It is not intended for use i n employment-related testing. This test was developed and its performa nce characteristics determined by [facility] in a manner consistent with CLIA requirements. This test has not been cleared or approved by the [place] d and Drug Administration. Specimen Anatomical Collection Method Collection Time Receive d Time (Source) Location / / Volume Laterality Urine 10/05/2021 12:21 10/05/2021 PM PANEL BEATER 10:04 PM PANEL BEATER Sara Lopez APRN, C.N.P. LAB URINE ORDERABLE S Performing Organization Address City/State/ZIP Code Phon e Number [facility] [address] [place], [place] [address] [place], [place] [address]. [place] [address] Laboratory Medicine and Pathology [address] [place] (ABNORMAL) Drug Abuse Survey with Confirmation, Urine (10/05/2021 12:21 PM PANEL BEATER) [facility] Method Time Signature Alcohol Negative Cutoff: 10 10/06/2021 [facility] mg/dL 8:43 AM PANEL BEATER Amphetamines Negative Cutoff: 10/06/2021 [facility] 500 ng/mL 8:43 AM PANEL BEATER Barbiturates Negative Cutoff: 10/06/2021 [facility] 200 ng/mL 8:43 AM PANEL BEATER Benzodiazepines Negative Cutoff: 10/06/2021 [facility] 100 ng/mL 8:43 AM PANEL BEATER Cocaine Negative Cutoff: 10/06/2021 [facility] 150 ng/mL 8:43 AM PANEL BEATER Comment: This cocaine immunoassay targets benzoyl ecgonine the primary metabolite of cocaine. Opiates Negative Cutoff: 300 10/06/2021 8:43 AM [facility] ng/mL PANEL BEATER Phencyclidine Negative Cutoff: 25 ng/mL 10/06/2021 8:43 AM [facility] PANEL BEATER Tetrahydrocannabinol Presumptive Positive Cutoff: 50 ng/mL 10/06/2021 8:43 AM [facility] (A) PANEL BEATER Comment: This immunoassay targets delta-9 tetrahy drocannabinol carboxylic acid (THC-COOH), a metabolite of delta-9 tetr ahydrocannabinol the main psychoactive ingredient of marijuana. Drug confirmation to follow. ??Presumpti ve Positive means that the screening method is positive, but the test needs t o be run by a confirmatory method before being finalized. ----ADDITIONAL INFORMATION---- This report is intended for use in clini lux monitoring or management of patients. ??It is not intended for use i n employment-related testing. Specimen Anatomical Collection Method Collection Time Receive d Time (Source) Location / / Volume Laterality Urine (Urine, 10/05/2021 12:21 10/05/2021 Clean Catch) PM PANEL BEATER 10:04 PM PANEL BEATER Sara Lopez APRN, C.N.P. LAB URINE ORDERABLE S Performing Organization Address City/State/ZIP Code Phon e Number [facility] [address] [place], [place] [address] [facility] [place] [address] Laboratory Medicine and Pathology [address] [place] (ABNORMAL) Urinalysis with Microscopic if Indicated (10/05/2021 12:21 PM PANEL BEATER) P athologist Signature Source Urine, 10/05/2021 [facility] Urine, Clean 12:52 PM PANEL BEATER Catch Clarity Clear Clear 10/05/2021 [facility] 12:52 PM PANEL BEATER Color Yellow 10/05/2021 [facility] 12:52 PM PANEL BEATER Comment: ----REFERENCE VALUE---- Colorless Yellow Holly Blood Negative Negative 10/05/2021 12:52 PM PANEL BEATER [facility] Nitrite Negative Negative 10/05/2021 12:52 PM PANEL BEATER [facility] Leukocyte Esterase Negative Negative 10/05/2021 12:[address] [facility] Protein Negative mg/dL 10/05/2021 12:52 PM PANEL BEATER [facility] Comment: ----REFERENCE VALUE---- Negative Trace Glucose Negative Negative mg/dL 10/05/2021 12:52 PM PANEL BEATER M [facility] Ketone Negative Negative mg/dL 10/05/2021 12:52 PM PANEL BEATER M [facility]TO Bilirubin Negative Negative 10/05/2021 12:52 PM PANEL BEATER [facility] pH 8.5 (A) 5.0 - 8.0 10/05/2021 12:52 PM PANEL BEATER [facility] Specific [place] 1.011 1.001 - 1.035 10/05/2021 12:52 PM PANEL BEATER [facility] Urobilinogen 0.2 0.2 - 1.0 mg/dL 10/05/2021 12:[address] [facility] Specimen Anatomical Collection Method Collection Time Receive d Time (Source) Location / / Volume Laterality Urine (Urine, 10/05/2021 12:21 10/05/2021 Clean Catch) PM PANEL BEATER 12:42 PM PANEL BEATER Sara Lopez APRN, C.N.P. LAB URINE ORDERABLE S Performing Organization Address City/State/ZIP Code Phon e Number [facility]- [address] [place] [phone] [place] [address] System [address] (ABNORMAL) Bacterial Culture, Aerobic + Susc, Urine (10/05/2021 12:21 PM PANEL BEATER) Analysis Performed At Patho logist Time Signature Urine Culture Mixed 10/06/2021 [facility] hernan. (A) 10:52 AM PANEL BEATER Specimen Anatomical Collection Method Collection Time Receive d Time (Source) Location / / Volume Laterality Urine (Urine, 10/05/2021 12:21 10/05/2021 Midstream) PM PANEL BEATER 12:42 PM PANEL BEATER Comment: Specimen Source Site: Urine Sara Lopez APRN, C.N.P. LAB MICROBIOLOGY - GENERAL ORDERABLES Performing Organization Address City/[facility] Phon e Number [address] [phone] [place] [address] System in [address] Chlamydia / Gonorrhoeae Amplified RNA (10/05/2021 12:21 PM PANEL BEATER) Patholo gist Method Time Signature Source Swab, Vagina 10/05/2021 [facility] 9:03 PM PANEL BEATER Chlamydia Negative Negative 10/05/2021 [facility] trachomatis 9:03 PM PANEL BEATER amplified RNA Source Swab, Vagina 10/05/2021 [facility] 9:03 PM PANEL BEATER Neisseria Negative Negative 10/05/2021 [facility] gonorrhoeae 9:03 PM PANEL BEATER amplified RNA Specimen Anatomical Collection Method Collection Time Receive d Time (Source) Location / / Volume Laterality Varies (Vagina) 10/05/2021 12:21 10/05/19 22 PM PANEL BEATER 12:42 PM PANEL BEATER Sara Lopez APRN, C.N.P. LAB MICROBIOLOGY - GENERAL ORDERABLES Performing Organization Address City/[facility] Phon e Number [address] [address] [place] [address] documented in this encounter Visit Diagnoses Diagnosis Encounter For Supervision Of Normal Preg kendrick Unspecified Trimester (HCC) documented in this encounter Additional Health Concerns Assessment Noted Time PHQ-9 Depression Total Score: 10 06/16/2021 2:54 PM CD T documented as of this encounter Care Teams Curb Builder Relationship Specialty Start Date End Date Elsewhere, Pcp PCP - General 09/01/19 documented as of this encounter
--- OUTSIDE RECORDS SUMMARY | 2022-06-19 16:16 | XMS_ITS | Encounter Summary ---
:1995 Demographics Address [address] [place] [address] Mobile Phone Home Phone Email Address Email Address Preferred Language ENG Marital Status Life Partnership Quaker Affiliation Unknown Race White Ethnic Group Not or Author Organization [facility] Address [address] [place] [address] Care Team Providers Name Role Phone Elsewhere, Pcp Primary Care Provider Unavailable Encounter Details Date Type Department Care Team Description 10/05/2021 Hospital Encounter Department of Sanya Lopez For Laboratory Sara Villanueva APRN, Supervisio n Of Medicine, Specialty C.N.P. Normal Clinic, in [address] Unspecified [place], [place] Trimester 10[address] [facility] [address] [place], [place] [phone] [address] (Work) [phone] Social History Tobacco Use Types Packs/Day Years [...] 11/30/2021 relatives? How often do you attend temple or advent Never 11/30/2021 services? Do you belong to any clubs or organizations such as No 11/30/2021 temple groups, unions, fraternal or athletic groups, or [...] place to sleep or slept in a custodial (including now)? Education Answer Date Recorded What [...] mouth daily. Take 1 tablet by 0 fbbgxiq-Pk-ptwy-FA mouth daily. (VINATE ONE) 60 mg iron-1 [...] Name Priority Date/Time Associated Diagnosis Comme nts HCV AB SCRN Routine 10/05/2021 12:29 PM Encounter For Results for this , S DRY CLEANING CHECKER Supervision Of procedure are in Normal the results Unspecified section. Trimester TESTING LOCATION Routine 10/05/2021 12:29 PM Resu lts for this DRY CLEANING CHECKER procedure are i n the results section. HIV-1/-2 AG AND AB Routine 10/05/2021 12:29 PM Encounter For R esults for this SCRN, DRY CLEANING CHECKER Supervision Of procedure a re in PLASMA Normal the results Unspecified section. Trimester SYPHILIS TOTAL AB Routine 10/05/2021 12:29 PM Encounter For Re sults for this W/ REFLEX S DRY CLEANING CHECKER Supervision Of procedure are in Normal the results Unspecified section. Trimester RUBELLA ANTIBODIES, Routine 10/05/2021 12:29 PM Encounter For Results for this IGG DRY CLEANING CHECKER Supervision Of procedure are in Normal the results Unspecified section. Trimester HEPATITIS B SURFACE Routine 10/05/2021 12:29 PM Encounter For Results for this ANTIGEN DRY CLEANING CHECKER Supervision Of procedure are in Normal the results Unspecified section. Trimester CBC WITHOUT Routine 10/05/2021 12:29 PM Encounter For Results for this DIFFERENTIAL, B DRY CLEANING CHECKER Supervision Of procedure are in Normal the results Unspecified section. Trimester TYPE AND SCREEN Routine 10/05/2021 12:29 PM Encounter For Resu lts for this DRY CLEANING CHECKER Supervision Of procedure are in Normal the results Unspecified section. Trimester VARICELLA-ZOSTER Routine 10/05/2021 12:29 PM Encounter For Res ults for this AB, IGG, S DRY CLEANING CHECKER Supervision Of procedure are in Normal the results Unspecified section. Trimester documented in this encounter Results Testing Location (10/05/2021 12:29 PM DRY CLEANING CHECKER) P athologist Signature Testing [facility] DEFAULT 10/05/2021 [facility] Location 12:39 PM DRY CLEANING CHECKER Specimen Anatomical Collection Method Collection Time Receive d Time (Source) Location / / Volume Laterality Blood 10/05/2021 12:29 10/05/2021 PM DRY CLEANING CHECKER 12:39 PM DRY CLEANING CHECKER Authorizing Provider Result Consuelo Carson APRNNDawson LAB BLOOD BANK TEST ORDERABLES Performing Organization Address [facility]/ZIP [facility] Phon e Number [facility]- [address] [place] [address] [place] [address] System in [place] 1025 [facility] Hepatitis C Virus Antibody Screen (10/05/2021 12:29 PM DRY CLEANING CHECKER) athologist Signature HCV Ab Scrn Negative Negative 10/06/2021 [facility] , S 8:10 AM DRY CLEANING CHECKER Comment: Raqfcy-ji-atyidq ratio is <1.00 . Specimen Anatomical Collection Method Collection Time Receive d Time (Source) Location / / Volume Laterality Blood (Blood, 10/05/2021 12:29 10/06/2021 7:16 Venous) PM DRY CLEANING CHECKER AM DRY CLEANING CHECKER Authorizing Provider Result Consuelo Carson APRNN.PNestor LAB MICROBIOLOGY - BLOOD ORDERABLES Performing Organization Address [facility]/ZIP [facility] Phon e Number [facility] [address] [place], [place] [address] SU[facility]ENTER [facility] [place] [address] Laboratory Medicine and Pathology [address] [place] Varicella-Zoster Antibody, IgG, Serum (10/05/2021 12:29 PM DRY CLEANING CHECKER) athologist Signature Varicella-Zost Negative 10/05/2021 [facility] er Ab, IgG, S 4:20 PM DRY CLEANING CHECKER Comment: ----REFERENCE VALUE---- Vaccinated: Positive (>=1.1 AI) Unvaccinated: Negative (<=0.8 AI) Varicella IgG Antibody Index 0.8 10/05/2021 4:20 PM DRY CLEANING CHECKER [facility] Specimen Anatomical Collection Method Collection Time Receive d Time (Source) Location / / Volume Laterality Blood (Blood, 10/05/2021 12:29 10/05/2021 3:15 Venous) PM DRY CLEANING CHECKER PM DRY CLEANING CHECKER Authorizing Provider Result Consuelo Carson APRNN.PNestor LAB MICROBIOLOGY - BLOOD ORDERABLES Performing Organization Address City/[facility]/ZIP Code Phon e Number [facility]- [address] [place] [phone] [place] [address] System [address] Syphilis Total Ab w/ Reflex, Serum (10/05/2021 12:29 PM DRY CLEANING CHECKER) [facility] gist Method Time Signature Syphilis Nonreactive Nonreactive 10/06/2021 [facility] Total Ab w/ 10:44 AM DRY CLEANING CHECKER Reflex Comment: No serologic evidence of infection with T. pallidum (syphilis). ??Repeat testing may be cons idered in patients with suspected acute or primary syphilis in 2-4 weeks. For additional information on interpreta tion of the syphilis reverse algorithm and resul ts, see: [email or web address] Specimen Anatomical Collection Method Collection Time Receive d Time (Source) Location / / Volume Laterality Blood (Blood, 10/05/2021 12:29 10/06/2021 7:07 Venous) PM DRY CLEANING CHECKER AM DRY CLEANING CHECKER Sara Lopez APRN, C.N.P. LAB BLOOD ADD-ON Performing Organization Address City/State/ZIP Code Phon e Number [facility] [address] [place], [place] [address] SU[facility] CENTER [facility] [place] [address] Laboratory Medicine and Pathology [address] [place] Rubella Antibodies, IgG (10/05/2021 12:29 PM DRY CLEANING CHECKER) athologist Signature Rubella Ab, Positive 10/05/2021 [place] IgG, S 4:20 PM DRY CLEANING CHECKER Comment: Results suggest response to immunization or prior exposure to the virus. ----REFERENCE VALUE---- Vaccinated: Positive (>=1.0 AI) Unvaccinated: Negative (<=0.7 AI) Rubella IgG Antibody Index 2.6 10/05/2021 4: 20 PM DRY CLEANING CHECKER [facility] Specimen Anatomical Collection Method Collection Time Receive d Time (Source) Location / / Volume Laterality Blood (Blood, 10/05/2021 12:29 10/05/2021 3:15 Venous) PM DRY CLEANING CHECKER PM DRY CLEANING CHECKER Sara Lopez APRN, C.N.P. LAB MICROBIOLOGY - BLOOD ORDERABLES Performing Organization Address City/[facility]/ZIP [facility] Phon e Number [address] [place], [place] [address] [place] [address] System in [address] HIV-1/-2 Ag and Ab Scrn, Plasma (10/05/2021 12:29 PM DRY CLEANING CHECKER) P athologist Signature HIV Ag/Ab Negative Negative 10/05/2021 [facility] Scrn, 4:33 PM DRY CLEANING CHECKER P Comment: Negative result does not rule out HIV in fection. If exposure to HIV infection occurred <14 d ays ago, contact the laboratory to request additi on of HIV-1 RNA detection / quantification test. HIV-1 p24 Ag Scrn, P Negative Negative 10/05/2021 4:33 PM DRY CLEANING CHECKER [facility] Comment: Negative result does not rule out HIV in fection. If exposure to HIV infection occurred <14 d ays ago, contact the laboratory to request additi on of HIV-1 RNA detection / quantification test. HIV-1 Ab Scrn, P Negative Negative 10/05/2021 4:3 3 PM DRY CLEANING CHECKER [facility] Comment: Negative result does not rule out HIV in fection. If exposure to HIV infection occurred <14 d ays ago, contact the laboratory to request additi on of HIV-1 RNA detection / quantification test. HIV-2 Ab Scrn, P Negative Negative 10/05/2021 4:3 3 PM DRY CLEANING CHECKER [facility] Comment: Negative result does not rule out HIV in fection. If exposure to HIV infection occurred <14 d ays ago, contact the laboratory to request additi on of HIV-1 RNA detection / quantification test. Specimen Anatomical Collection Method Collection Time Receive d Time (Source) Location / / Volume Laterality Blood (Blood, 10/05/2021 12:29 10/05/2021 3:15 Venous) PM DRY CLEANING CHECKER PM DRY CLEANING CHECKER Consuelo Snider APRNN.P. LAB MICROBIOLOGY - BLOOD ORDERABLES Performing Organization Address City/[facility]/ZIP Code Phon e Number [address] [place], [place] [address] [place] [address] System in [address] Hepatitis B Surface Antigen (10/05/2021 12:29 PM DRY CLEANING CHECKER) Patholo gist Method Time Signature HBs Antigen, Nonreactive Nonreactive 10/05/2021 [facility] S 1:45 PM DRY CLEANING CHECKER Specimen Anatomical Collection Method Collection Time Receive d Time (Source) Location / / Volume Laterality Blood (Blood, 10/05/2021 12:29 10/05/2021 Venous) PM DRY CLEANING CHECKER 12:40 PM DRY CLEANING CHECKER Consuelo Snider APRNN.P. LAB MICROBIOLOGY - BLOOD ORDERABLES Performing Organization Address [facility] Phon e Number [facility]- [address] [place] [address] [facility] [place] [address] CBC without Differential (10/05/2021 12:29 PM DRY CLEANING CHECKER) P athologist Signature Hemoglobin 13.4 11.6 - 10/05/2021 [facility] 15.0 g/dL 12:49 PM DRY CLEANING CHECKER Hematocrit 40.4 35.5 - 10/05/2021 [facility] 44.9 % 12:49 PM DRY CLEANING CHECKER Erythrocytes 4.52 3.92 - 10/05/2021 [facility] 5.13 12:49 PM DRY CLEANING CHECKER x10(12)/L MCV 89.4 78.2 - 10/05/2021 [facility] 97.9 fL 12:49 PM DRY CLEANING CHECKER RBC Distrib Width 12.7 12.2 - 10/05/2021 [facility] 16.1 % 12:49 PM DRY CLEANING CHECKER Platelet Count 276 157 - 371 10/05/2021 [facility] x10(9)/L 12:49 PM DRY CLEANING CHECKER Leukocytes 8.2 3.4 - 9.6 10/05/2021 [facility] x10(9)/L 12:49 PM DRY CLEANING CHECKER Specimen Anatomical Collection Method Collection Time Receive d Time (Source) Location / / Volume Laterality Blood (Blood, 10/05/2021 12:29 10/05/2021 Venous) PM DRY CLEANING CHECKER 12:39 PM DRY CLEANING CHECKER Rich Snider APRN.N.P. LAB BLOOD ADD-ON Performing Organization Address City/[facility] Phon e Number [facility]- [address] [place] [address] [facility] [place] [address] Type and Screen (with reflex Antibody ID) (10/05/2021 12:29 PM DRY CLEANING CHECKER) [facility] gist Method Time Signature ABO Group O 10/05/2021 [facility] 1:26 PM DRY CLEANING CHECKER Rh Type POS 10/05/2021 [facility] 1:26 PM DRY CLEANING CHECKER Antibody Screen NEG 10/05/2021 [facility] 1:26 PM DRY CLEANING CHECKER Type & Screen 10/08/2021 10/05/2021 [facility] Expiration 23:59 1:26 PM DRY CLEANING CHECKER ELXM Eligible Y 10/05/2021 [facility] 1:26 PM DRY CLEANING CHECKER Specimen Anatomical Collection Method Collection Time Receive d Time (Source) Location / / Volume Laterality Blood (Blood, 10/05/2021 12:29 10/05/2021 Venous) PM DRY CLEANING CHECKER 12:39 PM DRY CLEANING CHECKER Sara Lopez APRN C.N.P. LAB BLOOD BANK TEST ORDERABLES Performing Organization Address City/State/ZIP Code Phon e Number [facility]- [address] [place] [address] [place] [address] [address] documented in this encounter Visit Diagnoses Diagnosis Encounter For Supervision Of Normal Preg kendrick Unspecified Trimester (HCC) documented in this encounter Additional Health Concerns Assessment Noted Time PHQ-9 Depression Total Score: 10 06/16/2021 2:54 PM CD T documented as of this encounter Care Teams Procurement Buyer Relationship Specialty Start Date End Date Elsewhere, Pcp PCP - General 09/01/19 documented as of this encounter
--- OUTSIDE RECORDS SUMMARY | 2022-06-19 16:16 | XMS_ITS | Encounter Summary ---
:1995 Demographics Address [address] [place] [address] Mobile Phone Home Phone Email Address Email Address Preferred Language ENG Marital Status Life Partnership [employer] Affiliation Unknown Race White Ethnic Group Not or Author Organization [facility] Address [address] [place] [address] Care Team Providers Name Role Phone Elsewhere, Pcp Primary Care Provider Unavailable Reason for Visit Outpatient (Routine) - Closed Specialty Diagnoses / Procedures Referred By Contact Refer red To Contact Video Medicine Diagnoses Examination Normal Second Trimester ([facility]) Dia Jay APRN, [facility] CNM, M.S.N. [address] [place] [phone] Referral ID Status Reason Start Date Expiration Date Visits Requ ested Visits Authorized [id number] Closed 11/06/2021 11/06/2022 1 1 Encounter Details Date Type Department Care Team Description 11/30/2021 Telemedicine Department of Chino Rome Examinatio n Obstetrics and M.DNestor Normal Gynecology in [address] Second Trimester [address] [id number] [place] [phone] Social History Tobacco Use Types Packs/Day Years [...] 11/30/2021 relatives? How often do you attend jew or baptism Never 11/30/2021 services? Do you belong to any clubs or organizations such as No 11/30/2021 jew groups, unions, fraternal or athletic groups, or [...] place to sleep or slept in a senior care (including now)? Education Answer Date Recorded What is the highest level of school you have completed or 12 th grade 11/30/2021 the highest degree you have received? Sex Assigned at Date Recorded Female 05/15/2021 10:14 AM CDT documented as of this encounter Progress Notes Chino Rome M.D. - 11/30/2021 10:45 AM CDT OB VIDEO VISIT 26 yo at 16w 1d 1. H/o LTCS x1 - Per [facility] calculator, chance of success at TOLAC is 58% which is below facility threshold. - Patient desires 3 to 5 children - Encouraged to consider attempt at /TOLAC at different facility 2. Nausea, emesis - Keeping liquids and some food (diomedes pickles) down 3. Difficulty sleeping - Recommend benadryl or tylenol PM 4. Anatomy US scheduled The patient was present for a consult via real-time audio/video technology by Dr. Rome on 11/30/2021. Chino Rome M.D. documented in this encounter Plan of Treatment Not on filedocumented as of this encounter Visit Diagnoses Diagnosis Examination Normal Se cond Trimester (HCC) documented in this encounter Additional Health Concerns Assessment Noted Time PHQ-9 Depression Total Score: 12 11/06/2021 3:00 PM CS T documented as of this encounter Care Teams Catering Attendant Relationship Specialty Start Date End Date Elsewhere, Pcp PCP - General 09/01/19 documented as of this encounter
--- OUTSIDE RECORDS SUMMARY | 2022-06-19 16:16 | XMS_ITS | Encounter Summary ---
:1995 Demographics Address [address] [place] [address] Mobile Phone Home Phone Email Address Email Address Preferred Language ENG Marital Status Life Partnership [employer] Affiliation Unknown Race White Ethnic Group Not or Author Organization [facility] Address [address] [place] [address] Care Team Providers Name Role Phone Elsewhere, Pcp Primary Care Provider Unavailable Reason for Referral Outpatient (Routine) - Closed Specialty Diagnoses / Procedures Referred By Contact Refer red To Contact Obstetrics and Adelina Miner [facility] Imani Keita [address] [place] [phone] Referral ID Status Reason Start Date Expiration Date Visits Requ ested Visits Authorized [id number] Closed 10/17/2021 10/17/2022 1 1 Scheduling Instructions NOB intake GER PAYROLL Outpatient (Routine) - Authorized Specialty Diagnoses / Procedures Referred By Contact Refer red To Contact Social Work Diagnoses Depression Anxiety Encounter For Supervision Of Normal Unspecified Trimester (HCC) [facility] Camilo Diallo [address] [place] [phone] Referral ID Status Reason Start Date Expiration Date Visits V isits Requested Authorized [id number] Authorized 10/17/2021 10/17/2022 1 1 GER PAYROLL Reason for Visit Reason Comments Routine Visit Appointment Request (Routine) - Closed Specialty Diagnoses / Procedures Referred By Contact Refer red To Contact Obstetrics and Gynecology Referral ID Status Reason Start Date Expiration Date Visits Requ ested Visits Authorized [id number] Closed 09/21/2021 09/21/2022 1 Encounter Details Date Type Department Care Team Description 10/17/2021 Initial Department of Obstetrics Sa jolene Miner [place]: 9w6d and Gynecology in [place], [place] [address] [place] [address] [place] [phone] (Wo rk) Social History Tobacco Use Types [...] 11/30/2021 relatives? How often do you attend hinduism or buddhism Never 11/30/2021 services? Do you belong to any clubs or organizations such as No 11/30/2021 hinduism groups, unions, fraternal or athletic groups, or [...] pay for the very basics like Not andre destiny hard 11/30/2021 food, housing, medical care, [...] place to sleep or slept in a intermediate (including now)? Education Answer Date Recorded What is the highest level of school you have Some college, n o degree 05/15/2021 completed or the highest degree you have received? Sex Assigned at Date Recorded Female 05/15/2021 10:14 AM CDT documented as of this encounter Last Filed Vital Signs Vital Sign Reading Time Taken Comments Blood Pressure 112/80 10/17/2021 1:55 PM MANAGER PAYROLL Pulse - - Temperature - - Respiratory Rate - - Oxygen Saturation - - Inhaled Oxygen Concentration - - Weight 69.1 kg (152 lb 5.4 oz) 10/17/2021 1:55 PM MANAGER PAYROLL Height - - Body Mass Index 29.75 06/05/2018 2:37 PM CDT documented in this encounter Progress Notes Coy Rowland C.M.A. - 10/17/2021 2:15 PM CST DOOR FURRING INSTALLER- 9 and 6 days, LMP- 08/09/21. She is doing alright, she has a lot of nausea but did with her first baby as well. 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 She is trying to find a therapist, does not want any medications. She did just wean off of marijuana. GER PAYROLL Adelina Miner M.D. - 10/17/2021 2:15 PM CST SUBJECTIVE REASON FOR VISIT Initial Visit HISTORY OF PRESENT ILLNESS Ms. Mart is a 26 y.o. currently at 9w6d based on her last menstrual cycle. Patient is here today for confirmation of and first-trimester nurse education visit. The patient reports she is overall doing okay. She has history of PTSD x 4 years (home break in),. Currently increased anxiety and depression and PTSD with paranoia. She denies suicidal ideation or homicidal ideation. She denies auditory or visual hallucinations. She states that she used marijuana in between pregnancies to control anxiety. She states that she has not used any since she found out she was . She states that she had elevated blood pressure toward the ???very end of her ?? . Previousnotes that she had significant hypertension however. This is her 2nd within 1 year. She had a section 6 months ago for ??? heart rate. Menstrual History: Patient's last menstrual period was 08/09/2022 (exact date). REVIEW OF SYSTEMS A comprehensive review of systems was negative except for: What was mentioned in the HPI. Past Medical History: Diagnosis Date ??? Depression Anxiety ??? Posttraumatic Stress Disorder Brief Past surgical history section x1, cholecystectomy September 2019. OBJECTIVE VITAL SIGNS Blood Pressure: (112)/(80) 112/80 Weight: [69.1 kg] 69.1 kg PHYSICAL EXAM FORENSIC ARTIST Exam Amb On 10/05/2021, she had a radiology Ultrasound which was performed and demonstrated a single intrauterine with a crown-rump length consistent with 8w0d, consistent with her last menstrual cycle.This will give the patient a final due date of 05/16/2022. Cardiac motion was noted and adequate amniotic fluid is also identified. ASSESSMENT / PLAN #1 Encounter For Supervision Of Normal First Trimester Patient will have initial nurse education visit today labs were ordered and reviewed. Patient will continue with vitamins Spontaneous miscarriage precautions were provided Patient will follow up in four weeks with a certified nurse mergers and acquisitions attorney for her official new obstetric visit. SW appointment scheduled. Denies SI or HI, and auditory or visual hallucinations.. Has support at home (boyfriend). She has previously been seen by counselor at [facility] but she states that she is looking for a new counselor. See PHQ and Basil scores. Adelina Miner M.D. GER PAYROLL documented in this encounter Miscellaneous Notes Addendum Note - Arina Potter RNestorNNestor - 10/17/2021 2:15 PM MANAGER PAYROLL Addended by: ARINA POTTER on: 10/17/2021 03:22 PM Modules accepted: Orders GER PAYROLL Addendum Note - Adelina Miner M.D. - 10/17/2021 2:15 PM MANAGER PAYROLL Addended by: ADELINA MINER on: 10/18/2021 06:28 PM Modules accepted: Orders GER PAYROLL documented in this encounter Plan of Treatment Scheduled Referrals Name Type Priority Associated Diagnoses Order S [facility] Social Work - Outpatient Referral Routine Depression A nxiety Expected: General consult Encounter For 11/14/2021 (clinic) Supervision Of (Approximate) , Normal Expires: Unspecified 01/14/2023 Trimester Obstetrics and Outpatient Referral Routine Expect ed: Gynecology office 11/14/2021 visit (clinic) (Approximate) , Expires: 01/14/2023 documented as of this encounter Visit Diagnoses Diagnosis Maternal Care For Unspecified Type Scar From Previous Delivery ([facility]) - Primary Depression Anxiety Encounter For Supervision Of Normal Preg kendrick Unspecified Trimester ([facility]) Posttraumatic Stress Disorder Brief documented in this encounter Additional Health Concerns Assessment Noted Time PHQ-9 Depression Total Score: 10 06/16/2021 2:54 PM CD T documented as of this encounter Care Teams Facilities Manager Relationship Specialty Start Date End Date Elsewhere, Pcp PCP - General 09/01/19 documented as of this encounter
--- OUTSIDE RECORDS SUMMARY | 2022-06-19 16:16 | XMS_ITS | Encounter Summary ---
:1995 Demographics Address [address] [place] [address] Mobile Phone Home Phone Email Address Email Address Preferred Language ENG Marital Status Life Partnership [employer] Affiliation Unknown Race White Ethnic Group Not or Author Organization [facility] Address [address] [place] [address] Care Team Providers Name Role Phone Elsewhere, Pcp Primary Care Provider Unavailable Encounter Details Date Type Department Care Team Description 10/05/2021 Hospital Encounter Department of Sanya Lopez For Radiology, [place] Sara Villanueva APRN, [facility], in C.N.P. Normal [place], [place] [address] [facility] Unspecified [address] [place], [place] [phone] Social History Tobacco Use Types Packs/Day Years [...] How often do you attend tenriism or roman catholic Never 11/30/2021 services? Do you belong [...] place to sleep or slept in a fdc (including now)? Education Answer Date Recorded What [...] mouth daily. Take 1 tablet by 0 [id number] mouth daily. (VINATE ONE) 60 mg iron-1 [...] Priority Date/Time Associated Comments Diagnosis US OB FIRST RAD - Routine 10/05/2021 12:26 Encounter For Results f or this TRIMESTER (most inpatients PM STOCK PATCHER Supervision Of procedure are in and all Normal the results outpatients) Unspecified section. Trimester documented in this encounter Results US OB First Trimester (10/05/2021 12:26 PM STOCK PATCHER) Anatomical Region Laterality Modality Body, Ultrasound OB RST LOS, Ultrasound ARZ LOS N/A Ultrasound Specimen (Source) Anatomical Collection Method Collection Time Re ceived Time Location / / Volume Laterality 10/05/2021 1:26 PM STOCK PATCHER Impressions 10/05/2021 2:07 PM STOCK PATCHER Single intrauterine fetus with a heart r ate of 167 bpm. . Narrative 10/05/2021 2:07 PM STOCK PATCHER EXAM: US OB FIRST TRIMESTER COMPARISON: None TECHNIQUE: Transabdominal Only FINDINGS: Number of Gestations: Single Gestational age and LE by LMP or OB/EHR assignment: 8 w 1 d, LE: 05/16/2022 INTRAUTERINE Pole: Normal, [place]-Rump Length: 1 .65 cm Gestational Sac: Normal Yolk Sac: Normal Placenta Location: Too Early to ID Age and LE by current ultrasound measur ements: 8 w 0 d, LE: 05/17/2022. heart rate: 167 Uterus: No unexpected findings. . Right Ovary/Adnexa: Normal. . Left Ovary/Adnexa: Corpus luteum. Measur ing 2.4 cm Cervical Length: Normal, greater than 2. 5cm TV Intraperitoneal Fluid: None. . Procedure Note Ronaldo Jade M.D. - 10/05/2021For matting of this note might be different from the original. EXAM: US OB FIRST TRIMESTER COMPARISON: None TECHNIQUE: Transabdominal Only FINDINGS: Number of Gestations: Single Gestational age and LE by LMP or OB/EHR assignment: 8 w 1 d, LE: 05/16/2022 INTRAUTERINE Pole: Normal, [place]-Rump Length: 1 .65 cm Gestational Sac: Normal Yolk Sac: Normal Placenta Location: Too Early to ID Age and LE by current ultrasound measur ements: 8 w 0 d, LE: 05/17/2022. heart rate: 167 Uterus: No unexpected findings. . Right Ovary/Adnexa: Normal. . Left Ovary/Adnexa: Corpus luteum. Measur ing 2.4 cm Cervical Length: Normal, greater than 2. 5cm TV Intraperitoneal Fluid: None. . IMPRESSION: Single intrauterine fetus with a heart r ate of 167 bpm. . Sara Lopez APRN, C.N.P. IMG OB US PROCEDURE S documented in this encounter Visit Diagnoses Diagnosis Encounter For Supervision Of Normal Preg kendrick Unspecified Trimester (HCC) documented in this encounter Additional Health Concerns Assessment Noted Time PHQ-9 Depression Total Score: 10 06/16/2021 2:54 PM CD T documented as of this encounter Care Teams Associate Publisher Relationship Specialty Start Date End Date Elsewhere, Pcp PCP - General 09/01/19 documented as of this encounter
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
--- OUTSIDE RECORDS SUMMARY | 2022-06-19 16:17 | XMS_ITS | Encounter Summary ---
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 INTERVENTIONS 1. Audio Tape Librarian met with patient and provided education to her on the role of the Women's and Children's Audio Tape Librarian. 2. Audio Tape Librarian completed the Social Service Assessment. 3. biscuit factory worker also provided patient with [employer] Education Brochure on Depression as wellas this Audio Tape Librarian's business card. 4. biscuit factory worker met with patient and provided supportive services through reflective listening, validation, normalization of feelings, and reassurance. 5. biscuit factory worker provided review of available community resources. 6. Audio Tape Librarian provided education regarding Depression and Anxiety and encouraged promptfollow up as needed. 7. Audio Tape Librarian educated patient on resources available to her and her family at discharge. 8. Audio Tape Librarian updated the treatment plan and care team on the above assessment. 9. biscuit factory worker processed with patient the steps necessary to help ensure a positive transition which includes positive self care, asking for help from others and identifying emotions as they present themselves. 10. Discussion was also had regarding how and where to connect with services if concerns arise during the transition regarding mental health. 11. biscuit factory worker engage patient in motivation all interviewing. -Interventions utilizes were opened any questions and empathy adequate listening. PLAN Social work will continue to attend to the social and emotional needs of this family, offering supportive counseling and assessment of parental mood concerns, and assist with dismissal planning throughout this hospitalization. Anticipated barriers to the transition of care/plan: None Face to face time (for billing purposes) 30 minutes total time Lucius PanchalSNestorW. 03/30/2021 Roxanne Kasper M.D. - 03/30/2021 9:21 AM CDT SUBJECTIVE Sadie Mart is currently 1 Day Post-Op for section. She was admitted to the hospital for Spontaneous labor with management at a home Center. She was ultimately diagnosed with arrest dilation at 7 cm, category II heart rate tracing, GBS positive and transferred to this location. She ultimately underwent a delivery for arrest of dilation and non reassuring testing. Events over the past 24 hours - Pain is well controlled - Tolerating PO: yes - Nausea: no - Voiding: yes - Ambulating: yes OBJECTIVE VITAL SIGNS Vitals: 03/30/21 0328 03/30/21 0329 03/30/21 0401 03/30/21 0713 BP: 133/84 (!) 127/99 Temp: 36.9 ??C 36.5 ??C Pulse: 95 91 103 90 Heart Rate: Resp: 20 18 SpO2: 97% 97% 96% 97% Temp (24hrs), Av.7 ??C, Min:36 ??C, Max:37.5 ??C PHYSICAL EXAM Constinutional: no complaints Abdomen: soft, nontender Fundus: firm, 2 cm below umbilicus and nontender Incision: healing well, no significant drainage and no significant erythema Extremities: symmetric and nontender Occurences INFANT STATUS Infant sex: Information for the patient's : Shabbir Mart [[id number]] male Infant name: Information for the patient's : Shabbir Mart [[id number]] Shabbir Mart room: Information for the patient's : Shabbir Mart [[id number]] NRY [id number] DIAGNOSTICS I have reviewed diagnostics. Results for orders placed or performed during the hospital encounter of 03/29/21 (from the past 72 hour(s)) SARS Coronavirus-2 RNA, V Asymptomatic Specimen: Nasopharynx; Varies Result Value SARS-CoV-2 Specimen Source Swab, Nasopharynx SARS CoV-2 RNA, TMA Undetected Blood Type: Lab Results Component Value Date ABO O 03/29/2021 RHTYPE POS 03/29/2021 Antibody Screen: Lab Results Component Value Date ABSCREEN NEG 03/29/2021 RhoGAM: given not applicable ASSESSMENT / PLAN Condition: Doing well without problems Continue routine care Roxanne Kasper M.D. Val Wong M.D. - 03/29/2021 7:59 PM CDT SUBJECTIVE Sadie Mart is a 25 y.o. with an Estimated Date of Delivery: None noted.. Gestational age is Unknown determined by LMP. She was admitted to the hospital for spontaneous onset of labor. Transferred from [facility] for lack of labor progress and CAT II strip. The patient arrived to the :L&D unit and was uncomfortable and demanded and EPIDURAL. The strip was CAT I at that time and cervical assessment was 5 cm at that time. She received the epiduraland is now comfortable with normal BP. OBJECTIVE Vitals: 03/29/21 1800 03/29/21 1815 03/29/21 1830 03/29/21 1845 BP: 140/79 141/79 134/67 134/71 Temp: Temp (24hrs), Av.1 ??C, Min:36.6 ??C, Max:37.5 ??C I/O None PHYSICAL EXAM Constitutional: no complaints heart tones: Category II, Variability: moderate, Accelerations: present, Decelerations: early,late, recurrent Contractions: regular Membranes: AROM Cervix: Dilation: 5, Effacement: 80 %, Cervical consistency: soft and Cervix position: anterior station: -2 presentation: vertex determined by Ultrasound positon: OT Uterus: gravid, consistent with 40 week weeks gestation Leoplod 8lb DIAGNOSTICS No results found. Lab results last 24 hours: Recent Results (from the past 24 hour(s)) CBC without Differential Collection Time: 03/29/21 6:19 PM Result Value Hemoglobin 11.8 Hematocrit 34.8 (L) Erythrocytes 3.86 (L) MCV 90.2 RBC Distrib Width 13.7 Platelet Count 241 Leukocytes 19.4 (H) Comprehensive Metabolic Panel Collection Time: 03/29/21 6:19 PM Result Value Potassium, P 4.0 Sodium, P 130 (L) Chloride, P 100 Bicarbonate, P 12 (L) Anion Gap, P 18 (H) BUN (Blood Urea Nitrogen), P 9 Creatinine, P 0.66 eGFR-Black/ >90 eGFR Non-Black/ >90 Calcium, Total, P 9.1 Glucose, P 99 Protein, Total, P 6.3 Albumin, P 3.4 (L) Aspartate Aminotransferase (AST), P 24 Alkaline Phosphatase, P 185 (H) Alanine Aminotransferase (ALT), P 11 Bilirubin, Total, P 0.5 Type and Screen (with reflex Antibody ID) Collection Time: 03/29/21 6:19 PM Result Value ABO Group O Rh Type POS Antibody Screen NEG Type & Screen Expiration 04/01/2021 23:59 ELXM Eligible Y Testing Location Collection Time: 03/29/21 6:19 PM Result Value Testing Location [facility] No results found for this visit on 03/29/21 (from the past 72 hour(s)). ASSESSMENT / PLAN #1 41 Weeks Gestation #2 Examination Normal First Third Trimester #3 Positive Group B Streptococcus Discussed with the patient that the persistence of a CAT II strip in the absence of good cervical change and progress is a poor prognosis for success of vaginal Discussed that while attempting to place the IUPC that there was not enough space around the head to introduce the cathter. Upon attempt to lift the head a little significant amount of meconium was noted and still unable to introduce the catheter without further resistance. Discussed the presence of intermittent variable and late decelerations and that with the lack of adequate change that I would recommend proceeding with a section due to failure to progress andCAT II strip distant from delivery. A Hieu C section was called 7:38 PM. The patient was counselled regarding of section delivery and the relevant indications in her situation. Discussed risks inherent to the surgery like the risk of infection, blood loss and possible need norman saving transfusion, bood clots in the legs, pelvic organs, or lungs, risk of injury to the bowel or bladder and reaction to medications or to the anesthesia that is used. Also discussed the future risk of abnormal placental attachment to the uterus in future pregnancies which might lead to serious complications. Discussed risk of uterine rupture in future should the patient go to labor. This risk is small and depends upon the type of uterine incision. Discussed infant risks which are few. One risk is trauma, which is rare. Temporary respiratoryproblems are more common after because the baby is not squeezed through the mother's canal. Cefazolin and Azithromycin will be given for surgical prophylaxis due to high risk status being in labor with ROM. All patient questions and concerns were addressed and answered to her satisfaction. Val Wong M.D. documented in this encounter Nursing Notes Emma Galeana, R.N. - 04/01/2021 12:03 PM CDT Shift Goals: Clinical Goals for the Shift: pain control, rest, work on feedings , monitor vitals, discharge home. Identify possible barriers to meeting goals/advancing plan of care: None End of Shift Summary: Pain adequately controlled with Tylenol, Motrin, and PRN oxycodone. Fundus midline, firm, even, and down 1 with scant flow. Incision is clean, dry, and intact. Patient verbalized understanding of when to contact and follow-up with provider. Patient discharged home with all belongings. Acacia Skelton R.N. - 03/31/2021 6:29 PM CDT Shift Goals: Clinical Goals for the Shift: pain control, rest, work on feedings Identify possible barriers to meeting goals/advancing plan of care: none End of Shift Summary: Up ad ok, independent with self and baby cares. Taking tylenol and motrin forpain, rates 4/10. Incision site intact, fundus firm -1 w scant flow. Liliana Boo R.N. - 03/30/2021 6:25 PM CDT Problem: PAIN - ADULT Goal: PT VERBALIZES/DEMONSTRATES ADEQUATE COMFORT LEVEL OR BASELINE Outcome: Progressing Problem: KNOWLEDGE DEFICIT Goal: Patient/family/caregiver demonstrates understanding of disease process, treatment plan, medications, and discharge instructions Outcome: Progressing Problem: INFECTION - ADULT Goal: Absence of infection during hospitalization Outcome: Progressing Problem: SKIN/TISSUE INTEGRITY Goal: Skin/Tissue integrity maintained or improved Outcome: Progressing Goal: Oral and Nasal mucous membranes remain intact Outcome: Progressing Problem: SAFETY ADULT Goal: Maintain a safe environment Outcome: Progressing Problem: SAFETY ADULT - RISK FOR FALL AND OR FALL INJURY Goal: Patient remains free from fall/fall injury Outcome: Progressing Problem: DISCHARGE PLANNING Goal: Patient discharge needs identified Outcome: Progressing Problem: POTENTIAL OR ACTUAL PRESSURE INJURY-ADULT Goal: Manage sensory Perception deficits to maintain and/or improve skin integrity Outcome: Progressing Goal: Maintain optimal skin moisture to ensure or improve skin integrity Outcome: Progressing Goal: Achieve optimal activity and/or mobility to maintain or improve skin integrity Outcome: Progressing Goal: Nutrient intake appropriate for improving, restoring or maintaining skin integrity Outcome: Progressing Goal: Minimize friction and/or shear to maintain or improve skin integrity Outcome: Progressing Problem: Compromised Skin Integrity Goal: Skin/Tissue integrity maintained or improved Outcome: Progressing Goal: Oral and Nasal mucous membranes remain intact Outcome: Progressing Goal: Incisions, wounds, or drain sites healing without S/S of infection Outcome: Progressing Problem: Incontinence and/or Moisture Goal: Skin integrity is maintained or improved Outcome: Progressing Problem: Goal: Optimize recovery Outcome: Progressing Goal: Facilitate maternal - bonding Outcome: Progressing Shift Goals: Pt doing well. VSS. Fundus firm and midline with small rubra flow. Incision CDI with dermabond closure. Voiding adequately. Managing pain well with Tylenol and Motrin. Plan to D/C tmw. Viviana Reed R.N. - 03/30/2021 2:13 PM CDT Shift Goals: Clinical Goals for the Shift: Pain control, removal of Wei Identify possible barriers to meeting goals/advancing plan of care: None End of Shift Summary: VSS. Incision intact with Dermabond, no redness or drainage. Wei removed at 0820 and has had one post void so far. Fundus is firm and even to down one with small rubra. Up ambulating on own in the room. Tolerating a regular diet. Pain well controlled with: Spinal Morphine, Toradol and Tylenol. Camila Martinez R.N. - 03/30/2021 7:04 AM CDT Shift Goals: Clinical Goals for the Shift: education folder, rest, pain control, dangle, and feed baby every 2-3 hours Identify possible barriers to meeting goals/advancing plan of care: none End of Shift Summary: Pain well controlled with medication. Pt was able to dangle @ 0430 and tolerated well. Stood at bedside and ambulated in the room. Pt was independent with feedings. ROP completed.Bleeding and output WNL. VSS. Camila Martinez R.N. - 03/30/2021 1:20 AM CDT Shift Goals: Have healthy baby Identify possible barriers to meeting goals/advancing plan of care: none End of Shift Summary: Baby delivered @ 2117. Liliana Boo R.N. - 03/29/2021 6:00 PM CDT PRESENTS TO UNIT FROM [facility] FOR NON REASSURING FHTS. PT, PT'S SPOUSE AND EDGE RUNNER STATE THAT PT HAS BEEN LABORING SINCE 1999 LAST EVENING, WENT INTO THE CENTER THIS MORNING AROUND 0830 AND WAS 6 CM. PT PROGRESSED AND WAS EVENTUALLY AROM'D [facility] 1530 THIS AFTERNOON, THEY STATE FLUID WAS CLEAR. AT THAT TIME PT WAS 7 CM DILATEDPER THE EDGE RUNNER, PT WAS UP LABORING IN BATHTUB AND AMBULATING AROUND ROOM WHEN RECURRENT DECELERATIONSWERE AUSCULTATED IN BABY'S HR. JALYN THE CRANE FOLLOWER THEN CALLED [facility] TO TRANSFER PT TO [facility]. UPON ARRIVAL BABY APPEARED TO HAVE MODERATE VARIABILITY WITH ACCELS AND RECURRENT EARLY DECELERATIONS.BP ELEVATED UPON ADMISSION WITH PT DENYING BROWNE, BLURRY VISION OR EPIGASTRIC PAIN. PT STATES HER BPS HAVE BEEN BEING MONITORED AND SHE HAS BEEN TAKING APPLE CIDER VINEGAR FOR THEM. NOTIFIED OFPT'S ARRIVAL, BEDSIDE ULTRASOUND PERFORMED FOR VERTEX PRESENTATION. WOULD LIKE PT TO GET A N EPIDURAL AT THIS TIME, ONCE COMFORTABLE START AUGMENTATION PER PITOCIN PROTOCOL. TO PLACE ORDERS FOR BP LABS WELL. documented in this encounter Miscellaneous Notes Note - Alyssa Reyes R.N. - 03/31/2021 10:00 AM CDT This note was copied from a baby's chart. SUBJECTIVE Shabbir Mart, at 2 days old of age, was seen for a Consultation. Consultation Reason for Consult: Follow-up assessment, Other (Comment) (Prime, well, milk starting to fill in.) OBJECTIVE Delivery Details: Risk Factors: Maternal GBS Positive Post-Dates Obstetric Procedures-This : None Labor Complications: Failure to Progress in First Stage;Persistent Category 2 Delivery Type: , Low Transverse Weight: 3170 g 1 Minute 5 Minute 10 Minute Totals: 8 9 Maternal Breast Assessment Breast Surgery: None Breast Size: Average Breast Characteristics: Symmetrical Nipple Type-Right: Flat Nipple Assessment-Right: Tender Right Breast: Soft Nipple Type-Left: Flat Nipple Assessment-Left: Tender Left Breast: Soft Colostrum Expressed: Yes Assessment class: Yes Has mother breastfed before?: No. . Exclusive Pump and Bottle Feed: No Significant other/father of baby: Significant other, living together Infant Assessment State: Active, alert Suck: Rhythmic Oral Anatomy: Normal palate, tongue, jaw, chin Mucus Membranes: Moist Latch Score: Latch: Repeated attempts, hold nipple in mouth, stimulate to suck Audible Swallowing: Spontaneous and intermittent (24 hours old) Type of Nipple: Everted (After stimulation) Comfort (Breast/Nipple): Soft/non-tender Hold (Positioning): Full assist, teach one side, mother does other, staff holds LATCH Score: 8 Infant Input: 12 feedings and 26 mls/24 hours Infant Output: 1 voids/24 hours, 1 stools/24 hours, Stool Amount: Large Stool Appearance: Meconium Stool Color: Unable to assess weight: 3170 g Current weight: Weight: 3002 g Percent of weight change since : -5% Weight change since previous weight: Weight Change (gm) : -168 Pct Wt Change: -5.3 % ASSESSMENT/PLAN Inpatient Visit. Mother, father and infant present for visit. Infant feeding observed. education and support provided. Discussed latching, positioning, voiding and stooling patterns, feeding frequency, and feeding cues. was born at 41 3/7weeks gestation. This is mothers first experience. Infant fed well and is swallowing every 2-4. Plan to feed every 2-3 hours. If feeds well no interventions needed. If infant feeds fair andis now content after feeding then mother can pump and feedback expressed breast milk. If feeds poor, or not meeting output goals, or pumping and bottle feeding then intake needs of Day 2-20 ml'sper feeding, Day 3-30 ml's per feeding, Day 4-40 ml's per feeding, Day 5-50 ml's per feeding, and Day 6-60 ml's per feeding. Mother and father verbalize understanding of education provided. Resource given [facility] Your Baby with contact information for arranging follow up or for nurse questions. Follow Up: follow up plan: mother to call if needed. Alyssa Reyes R.N. Note - Roxanne Harper R.N. - 03/30/2021 11:30 AM CDT This note was copied from a baby's chart. SUBJECTIVE Shabbir Mart, at 1 days old of age, was seen for a Consultation. Consultation Reason for Consult: Initial assessment, Difficult latch (, working on deep latch. Nipple shield prn/occassional use) OBJECTIVE Delivery Details: Risk Factors: Maternal GBS Positive Post-Dates Obstetric Procedures-This : None Labor Complications: Failure to Progress in First Stage;Persistent Category 2 Delivery Type: , Low Transverse Weight: 3170 g 1 Minute 5 Minute 10 Minute Totals: 8 9 Maternal Breast Assessment Breast Surgery: None Breast Size: Average Breast Characteristics: Symmetrical Nipple Type-Right: Flat (erect with stim) Nipple Assessment-Right: Intact Right Breast: Firm Nipple Type-Left: Flat (erect with stim) Nipple Assessment-Left: Intact Left Breast: Firm Colostrum Expressed: Yes (expressed alot of colostrum per parents report.) Assessment class: Yes Has mother breastfed before?: No. . Exclusive Pump and Bottle Feed: No Significant other/father of baby: Significant other, living together Infant Assessment Infant State: Drowsy Infant Suck: Rhythmic Mucus Membranes: Moist Latch Score: Latch: Grasps breast, tongue down, lips flanged, rhythmic sucking Audible Swallowing: Spontaneous and intermittent (24 hours old) Type of Nipple: Everted (After stimulation) Comfort (Breast/Nipple): Soft/non-tender Hold (Positioning): Full assist, teach one side, mother does other, staff holds LATCH Score: 9 Input: 6 feedings/24 hours Output: 1 voids/24 hours, 1 stools/24 hours, Stool Amount: Medium Stool Appearance: Meconium weight: 3170 g Current weight: Weight: 3170 g (Filed from Delivery Summary) Percent of weight change since : 0% Weight change since previous weight: Weight Change (gm) : 0 Pct Wt Change: 0 % ASSESSMENT/PLAN Inpatient Visit. Mother, father and present for visit. feeding observed. education and support provided. Discussed latching, positioning, voiding and stooling patterns, feeding frequency, and infant feeding cues. was born via primary hieu . Mother reports has latched but has been spity and sleepy recently. She has used a nipple shield occassionally to help with latching. She did pump colostrum that they have at home in freezer if needed, she used her [employer] pump that shehas with her. This is mothers first experience. Infant fed well and is swallowing in frequent bursts of 3-5, with stimulation and breast massage andno nipple shield at this time. Mother just needs to shape her firmer breast tissue to help achieve deep effective latch. Plan to feed every 2-3 hours. If feeds well no interventions needed. Offer both breasts each time to maximize milk supply and minimize weight loss. If feeds fair and is not content after feeding then mother can pump and feedback expressed breast milk, and or give her colostrum she pumpedprenatally. Mother and father verbalize understanding of education provided. Resource given [facility] Your Baby with contact information for arranging follow up or for nurse questions. Follow Up: follow up plan: tomorrow and as needed today. Roxanne Harper R.N. T Hospital Course - Neli Chahal APRN, CNM - 03/29/2021 10:16 PM CDT Sadie Mart is a 25 y.o. @ 41w3d who presented to the hospital for Active Labor transferred from the birthing center in [place] with diagnosis of failure to progress and category 2 strip.. Patient received care through [facility] in [place] by Sherry Newell CNM. Her was complicated by:Post term. The patient delivered by primary CS. Due to failure to progress and category 2 strip distant from delivery. The post course was complicated by: gestational hypertension treated with labetalol The patient's is Combination/other breast/pumping/bottle feeding The patient will be discharged home on Postoperative day 2 The patient will follow up in clinic for her post exam in 6 weeks L&D Delivery Note - Val Wong M.D. - 03/29/2021 10:10 PM CDT OB Delivery Note 04/04/2021 Sadie Mart 25 y.o. Олег Mendenhall [[phone]] Delivery Providers Delivering clinician: Val Wong M.D. Provider Role Delivery Nurse Camila Martinez RRamin Nursery Nurse Product Marketing Executive Td Hernández, P.A.-CNestor Physician Waiter Jono Montalvo RRamin NICU Nurse Fior Serna L.R.T. Thompson, Matthew G, M.D. Surgeon(s) and Role: * Val Wong M.D. - Primary * Td Hernández P.A.-C. - Corrections Lieutenant A certified teacher assistant actively participated and was necessary for one or more of the following: opening,exposure and visualization during the case, maintaining hemostasis, wound closure resulting in its safe and expeditious completion. Review the Delivery Report for details. GA: Unknown GP: GBS: Risk Factors: Maternal GBS Positive Post-Dates Other Risk Factors, if any: None Obstetric Procedures - This : None Labor Complications: Failure to Progress in First Stage;Persistent Category 2 Blood Loss: IO Blood Loss 03/28/211999 - 04/01/212116 Quantitative Blood Loss (mL) Hospital Encounter 15 mL Est. Blood Loss (mL) Anesthesia 500 mL Total 515 mL Delivery Type: , Low Transverse ROM to Delivery Time: (Delivered) Hours: 5 Minutes: 47 Foster Sex: Male Weight: 3.17 kg 1 Minute 5 Minute 10 Minute Totals: 8 9 Details Pre-Op Diagnosis: 1. Intrauterine at 41w3d Intolerance of Labor Post-Op Diagnosis: Thick meconium Postterm Indications: Cephalopelvic Disproportion;Failure to Progress; Intolerance of Labor None Procedure: SECTION Anesthesia: Spinal;Epidural OR Medications: Intra-op Medications None Specimens: None Drains: [REMOVED] Indwelling Urinary Catheter (Removed) 03/29/212029 Placed by: Placed by External Staff?: Hand Hygiene Performed Prior to Insertion: Sterile technique followed?: Catheter Type: Tube Size (Fr.): Catheter Balloon Size: Urine Returned: Removal Reason: Criteria for drain removal met Removed 03/30/21 0826 Site Assessment Clean;Skin intact 03/30/2114 Collection Container Standard drainage bag 03/30/2114 Securement Method Securing device 03/30/2114 Output (mL)- Urine 200 mL 03/30/21 0800 Findings: Normal uterus, tubes, and ovaries. Complications Informed Consent: The risks, benefits, complications, and alternatives were discussed with the patient. The patient understood that the risks of section include, but are not limited to: injury to nearby structures or organs, infection, blood loss and possible need for transfusion, and potential need for more surgery including hysterectomy. The patient stated understanding and desired to proceed. All questionswere answered. The site of surgery was properly noted and marked. The patient was identified as Sadie Mart and the procedure verified as a delivery. A Time Out was held and the aboveinformation confirmed. Procedure Details: The patient was taken to the operating room. A pause was taken to ensure the correct patient and procedure. Under Spinal;Epidural the abdomen was prepped and draped in sterile fashion. A Pfannenstiel skin incision was made. Dissection was carried through the skin, subcutaneous, and fascial layers. Therectus muscles were split in the midline and the peritoneal cavity was entered without difficulty. Joel retractor placed and the peritoneal borders were checked to rule out any visceral entrapment between the retract her and the skin. Retractor was removed at the end of the case. A bladder flap was developed with sharp and blunt dissection. A low transverse uterine incision wasmade and extended bilaterally. The was delivered from the Vertex Left Occiput Anterior position. See scores above. A dilute solution of oxytocin was infused, and the uterus was then massaged to allow it to contract downaround the placenta and the placenta was delivered. The placenta was inspected and found to be intact with a three vessel cord. The uterus was cleared of all clots and debris. The uterine incision was inspected. No extensions were noted, and the uterus was closed with a (double) layer closure using 0 Vicryl suture. The uterine incision and bladder flap were noted to be hemostatic. Peritoneum was closed using 3-0 Vicryl. The gutters were irrigated and cleared of all clots and debris. The fascia was reapproximated with a #1 Vicryl suture. The subcutaneous area was irrigated, noted to be hemostatic, and was closed with 2-0 Chromic. The skin was closed with 4-0 Monocryl suture in a subcuticular running fashion and that topped with Dermabond Pediatric care provider, Dr Freeman ,was asked to attend the delivery due to high risk for resuscitation due to Meconium amniotic fluid. Nuchal cord present at delivery? not present Accurate final count? yes JOHNNIE Redman was present for assistance during this very technically challenging case, from start to finish and the operations assistant's presence was crucial for the safe completion of the case. Assistance was to provide adequate and safe exposure with retraction of tissue and clearing blood and fluids from the surgical field and closure of the fascial and/or skin layers. The patient was brought to the recovery room with stable vital signs. The patient is a candidate for TOLAC in the future. Val Wong M.D. documented in this encounter Plan of Treatment Scheduled Referrals Name Type Priority Associated Order Schedule Diagnoses Obstetrics and Outpatient Referral Routine Expect ed: Gynecology office 05/13/2021 , visit (clinic) Expires: 04/01/2024 Obstetrics and Outpatient Referral Routine Expect ed: Gynecology nurse 04/03/2021 visit (clinic) (Approximate) , Expires: 04/01/2024 Obstetrics and Outpatient Referral Routine Expect ed: Gynecology office 04/15/2021 , visit (clinic) Expires: 04/01/2024 documented as of this encounter Procedures Procedure Name Priority Date/Time Associated Comments Diagnosis PROTEIN/CREATININE Timed 03/31/2021 11:56 Resul ts for this RATIO, RANDOM, URINE AM CDT procedu re are in the results section. PROTEIN/CREATININE Timed 03/31/2021 10:09 Resul ts for this RATIO, RANDOM, URINE AM CDT procedu re are in the results section. CBC WITH DIFFERENTIAL, Timed 03/31/2021 9:12 AM Results for this B CDT procedure are i n the results section. COMPREHENSIVE Timed 03/31/2021 9:12 AM Results for this METABOLIC PANEL, S/P CDT procedu re are in the results section. CBC WITH DIFFERENTIAL, Routine 03/30/2021 5:53 AM Results for this B CDT procedure are i n the results section. PULSE OXIMETRY, Routine 03/29/2021 10:07 CONTINUOUS PM CDT PULSE OXIMETRY, Routine 03/29/2021 10:07 CONTINUOUS PM CDT SECTION 03/29/2021 8:53 PM Intolerance CDT of Labor DRUG SCREEN URINE Routine 03/29/2021 8:12 PM Resu lts for this CDT procedure are i n the results section. SARS CORONAVIRUS-2 Routine 03/29/2021 6:37 PM Res ults for this RNA, V CDT procedure are i n the results section. TESTING LOCATION Routine 03/29/2021 6:19 PM Resul ts for this CDT procedure are i n the results section. CBC WITHOUT STAT 03/29/2021 6:19 PM Results f or this DIFFERENTIAL, B CDT procedure ar e in the results section. TYPE AND SCREEN Routine 03/29/2021 6:19 PM Result s for this CDT procedure are i n the results section. COMPREHENSIVE STAT 03/29/2021 6:19 PM Results for this METABOLIC PANEL, S/P CDT procedu re are in the results section. documented in this encounter Results Protein/Creatinine Ratio, Random, Urine (03/31/2021 11:56 AM CDT) P athologist Signature Protein, Total, 4 mg/dL 03/31/2021 MKTO Random, U 12:42 PM CDT Creatinine, 29 16 - 326 03/31/2021 MKTO Random, U mg/dL 12:42 PM CDT Protein/Creatin 0.14 <0.18 mg/mg 03/31/2021 MKTO ine Ratio 12:42 PM CDT Specimen Anatomical Collection Method Collection Time Receive d Time (Source) Location / / Volume Laterality Urine (Urine, 03/31/2021 11:56 03/31/2021 Catheter) AM CDT 12:00 PM CDT Neli Chahal APRN, CNM LAB URINE ORDERABLES Performing Organization Address City/[facility] Phon e Number [facility] [place] [address] [place] [address] System [address] (ABNORMAL) Protein/Creatinine Ratio, Random, Urine (03/31/2021 10:09 AM CDT) P athologist Signature Protein, 65 mg/dL 03/31/2021 MKTO Total, Random, 10:51 AM CDT U Creatinine, 30 16 - 326 03/31/2021 MKTO Random, U mg/dL 10:51 AM CDT Protein/Creati 2.17 (H) <0.18 03/31/2021 MKTO nine Ratio mg/mg 10:51 AM CDT Specimen Anatomical Collection Method Collection Time Receive d Time (Source) Location / / Volume Laterality Urine (Urine, 03/31/2021 10:09 03/31/2021 Midstream) AM CDT 10:13 AM CDT Neli Chahal APRN, CNM LAB URINE ORDERABLES Performing Organization Address City/[facility] Phon e Number [facility]- [address] [place] [phone] [place] [address] (ABNORMAL) Comprehensive Metabolic Panel (03/31/2021 9:12 AM CDT) P athologist Signature Potassium, P 3.9 3.6 - 5.2 03/31/2021 MKTO mmol/L 9:49 AM CDT Sodium, P 136 135 - 145 03/31/2021 MKTO mmol/L 9:49 AM CDT Chloride, P 106 98 - 107 03/31/2021 MKTO mmol/L 9:49 AM CDT Bicarbonate, P 21 (L) 22 - 29 03/31/2021 MKTO mmol/L 9:49 AM CDT Anion Gap, P 9 7 - 15 03/31/2021 MKTO 9:49 AM CDT BUN (Blood Urea 11 6 - 21 03/31/2021 MKTO Nitrogen), P mg/dL 9:49 AM CDT Creatinine 0.67 0.59 - 03/31/2021 MKTO 1.04 mg/dL 9:49 AM CDT eGFR-Black/Afri >90 >=60 03/31/2021 MKTO can [place] mL/min/BSA 9:49 AM CDT Comment: ----ADDITIONAL INFORMATION---- Estimated GFR calculated using the 2009 CKD_EPI creatinine equation. eGFR Non-Black/ >90 >=60 mL/min/BSA 03/31/2021 9:49 AM CDT MKTO Comment: ----ADDITIONAL INFORMATION---- Estimated GFR calculated using the 2009 CKD_EPI creatinine equation. Calcium, Total, P 8.4 (L) 8.6 - 10.0 mg/dL 03/31/2021 9:49 AM CDT MKTO Glucose, P 91 70 - 140 mg/dL 03/31/2021 9:49 AM CDT M KTO Protein, Total, P 5.1 (L) 6.3 - 7.9 g/dL 03/31/2021 9:49 A M CDT MKTO Albumin, P 2.8 (L) 3.5 - 5.0 g/dL 03/31/2021 9:49 AM CDT M KTO Aspartate Aminotransferase 30 8 - 43 U/L 03/31/2021 9 :49 AM CDT MKTO (AST), P Alkaline Phosphatase, P 131 (H) 35 - 104 U/L 03/31/2021 9: 49 AM CDT MKTO Alanine Aminotransferase 12 7 - 45 U/L 03/31/2021 9:4 9 AM CDT MKTO (ALT), P Bilirubin, Total, P <0.2 <=1.2 mg/dL 03/31/2021 9:49 AM CDT MKTO Specimen Anatomical Collection Method Collection Time Receive d Time (Source) Location / / Volume Laterality Blood (Blood, 03/31/2021 9:12 AM 03/31/20 9:17 Venous) CDT AM CDT Neli Chahal APRN, [facility] LAB BLOOD ADD-ON Performing Organization Address City/State/ZIP Code Phon e Number [facility] [place] [address] [place] [address] System in [place] [address] [place] [address] (ABNORMAL) CBC with Differential, Blood (03/31/2021 9:12 AM CDT) [facility] Method Time Signature Hemoglobin 9.4 (L) 11.6 - 03/31/2021 MKTO 15.0 g/dL 9:31 AM CDT Hematocrit 29.1 (L) 35.5 - 03/31/2021 MKTO 44.9 % 9:31 AM CDT Erythrocytes 3.10 (L) 3.92 - 03/31/2021 MKTO 5.13 9:31 AM CDT x10(12)/L MCV 93.9 78.2 - 03/31/2021 MKTO 97.9 fL 9:31 AM CDT RBC Distrib Width 14.4 12.2 - 03/31/2021 MKTO 16.1 % 9:31 AM CDT Platelet Count 173 157 - 371 03/31/2021 MKTO x10(9)/L 9:31 AM CDT Leukocytes 11.3 (H) 3.4 - 9.6 03/31/2021 MKTO x10(9)/L 9:31 AM CDT Neutrophils 8.06 (H) 1.56 - 03/31/2021 MKTO 6.45 9:31 AM CDT x10(9)/L Lymphocytes 2.39 0.95 - 03/31/2021 MKTO 3.07 9:31 AM CDT x10(9)/L Monocytes 0.72 0.26 - 03/31/2021 MKTO 0.81 9:31 AM CDT x10(9)/L Eosinophils 0.07 0.03 - 03/31/2021 MKTO 0.48 9:31 AM CDT x10(9)/L Basophils 0.04 0.01 - 03/31/2021 MKTO 0.08 9:31 AM CDT x10(9)/L Specimen Anatomical Collection Method Collection Time Receive d Time (Source) Location / / Volume Laterality Blood (Blood, 03/31/2021 9:12 AM 03/31/20 21 9:17 Venous) CDT AM CDT Neli Chahal APRN, CNM LAB BLOOD ADD-ON Performing Organization Address City/State/ZIP Code Phon e Number [facility]- [address] [place] [phone] [place] [address] System in [place] [address] [place] [address] (ABNORMAL) CBC with Differential, Blood (03/30/2021 5:53 AM CDT) [facility] Method Time Signature Hemoglobin 10.5 (L) 11.6 - 03/30/2021 MKTO 15.0 g/dL 6:43 AM CDT Hematocrit 31.5 (L) 35.5 - 03/30/2021 MKTO 44.9 % 6:43 AM CDT Erythrocytes 3.46 (L) 3.92 - 03/30/2021 MKTO 5.13 6:43 AM CDT x10(12)/L MCV 91.0 78.2 - 03/30/2021 MKTO 97.9 fL 6:43 AM CDT RBC Distrib Width 13.9 12.2 - 03/30/2021 MKTO 16.1 % 6:43 AM CDT Platelet Count 213 157 - 371 03/30/2021 MKTO x10(9)/L 6:43 AM CDT Leukocytes 22.3 (H) 3.4 - 9.6 03/30/2021 MKTO x10(9)/L 6:43 AM CDT Neutrophils 19.88 (H) 1.56 - 03/30/2021 MKTO 6.45 6:43 AM CDT x10(9)/L Lymphocytes 1.31 0.95 - 03/30/2021 MKTO 3.07 6:43 AM CDT x10(9)/L Monocytes 1.02 (H) 0.26 - 03/30/2021 MKTO 0.81 6:43 AM CDT x10(9)/L Eosinophils <0.03 0.03 - 03/30/2021 MKTO 0.48 6:43 AM CDT x10(9)/L Basophils 0.04 0.01 - 03/30/2021 MKTO 0.08 6:43 AM CDT x10(9)/L Specimen Anatomical Collection Method Collection Time Receive d Time (Source) Location / / Volume Laterality Blood (Blood, 03/30/2021 5:53 AM 03/30/20 6:34 Venous) CDT AM CDT Val Wong M.D. LAB BLOOD ADD-ON Performing Organization Address City/State/ZIP Code Phon e Number [facility] [place] [address] [place] [address] System in [place] [address] [facility] (ABNORMAL) Drug Screen Urine (03/29/2021 8:12 PM CDT) P athologist Signature Amphetamines, Negative Negative 03/29/2021 MKTO U 9:16 PM CDT Comment: ----ADDITIONAL INFORMATION---- Bilingual Interpreter's Cutoff: 500 ng/mL Barbiturates, U Negative Negative 03/29/2021 9:16 PM CDT M FUADO Comment: ----ADDITIONAL INFORMATION---- Bilingual Interpreter's Cutoff: 200 ng/mL Benzodiazepines, U Negative Negative 03/29/2021 9:16 PM CD T MKTO Comment: ----ADDITIONAL INFORMATION---- Bilingual Interpreter's Cutoff: 150 ng/mL Buprenorphine, U Negative Negative 03/29/2021 9:16 PM CDT MKTO Comment: ----ADDITIONAL INFORMATION---- Bilingual Interpreter's Cutoff: 10 ng/mL Cocaine, U Negative Negative 03/29/2021 9:16 PM CDT MKTO Comment: ----ADDITIONAL INFORMATION---- Bilingual Interpreter's Cutoff: 150 ng/mL Methadone, U Negative Negative 03/29/2021 9:16 PM CDT MKTO Comment: ----ADDITIONAL INFORMATION---- Bilingual Interpreter's Cutoff: 200 ng/mL Methamphetamines, U Negative Negative 03/29/2021 9:16 PM C DT MKTO Comment: ----ADDITIONAL INFORMATION---- Bilingual Interpreter's Cutoff: 500 ng/mL Opiates, U Negative Negative 03/29/2021 9:16 PM CDT MKTO Comment: ----ADDITIONAL INFORMATION---- Bilingual Interpreter's Cutoff: 100 ng/mL Oxycodone, U Negative Negative 03/29/2021 9:16 PM CDT MKTO Comment: ----ADDITIONAL INFORMATION---- Bilingual Interpreter's Cutoff: 100 ng/mL Phencyclidine, U Negative Negative 03/29/2021 9:16 PM CDT MKTO Comment: ----ADDITIONAL INFORMATION---- Bilingual Interpreter's Cutoff: 25 ng/mL Propoxyphene, U Negative Negative 03/29/2021 9:16 PM CDT M KTO Comment: ----ADDITIONAL INFORMATION---- Bilingual Interpreter's Cutoff: 300 ng/mL Tetrahydrocannabinol, U Unconfirmed Positive Negative 03/29 9:16 PM MKTO (A) CDT Comment: ----ADDITIONAL INFORMATION---- Bilingual Interpreter's Cutoff: 50 ng/mL Tricyclic Antidepressants, U Negative Negative 03/29/2021 9:16 PM CDT MKTO Comment: ----ADDITIONAL INFORMATION---- Bilingual Interpreter's Cutoff: 300 ng/mL THE ABOVE DRUG SCREEN PANEL IS FOR MED ICAL PURPOSES ONLY Specimen Anatomical Collection Method Collection Time Receive d Time (Source) Location / / Volume Laterality Urine (Urine, 03/29/2021 8:12 PM 03/29/20 21 8:49 Clean Catch) CDT PM CDT Val Wong M.D. LAB URINE ORDERABLES Performing Organization Address City/State/ZIP Code Phon e Number [facility]- [address] [place] [phone] [place] [address] System in [place] [address] [place] [address] SARS Coronavirus-2 RNA, V Asymptomatic (03/29/2021 6:37 PM CDT) [facility] Method Time Signature SARS-CoV-2 Swab, 03/29/2021 MKTO Specimen Nasopharynx 11:51 PM Source CDT SARS CoV-2 Undetected Undetected 03/29/2021 MKTO RNA, TMA 11:51 PM CDT Comment: SARS-CoV-2 RNA absent. This result does not rule out COVID-19 in the patient, as the sensitivity of the test depends o n the timing of the specimen collection and the quality of the specim en. Result should be correlated with patient's history and clinical presentat ion. ----ADDITIONAL INFORMATION---- This molecular amplification test was pe rformed using the Aptima SARS-CoV-2 assay ([employer] on the [employer] Sys tem under emergency use authorization (EUA) by the U.S. Food and Drug Administ ration. Fact sheets for this EUA assay can be fo und at the following links: For Healthcare Providers: https://www.fd a.gov/media/183969/download For Patients: https://www.fda.gov/media/ 492925/download Specimen Anatomical Collection Method Collection Time Receive d Time (Source) Location / / Volume Laterality Varies 03/29/2021 6:37 PM 6:55 (Nasopharynx) CDT PM CDT Val Wong M.D. LAB MICROBIOLOGY - GENERAL O RDERABLES Performing Organization Address City/[facility]/ZIP [facility] Phon [place] Number [address] [phone] [place] [address] Testing Location (03/29/2021 6:19 PM CDT) P athologist Signature Testing [facility] DEFAULT 03/29/2021 MKTO Location 6:25 PM CDT Specimen Anatomical Collection Method Collection Time Receive d Time (Source) Location / / Volume Laterality Blood 03/29/2021 6:19 PM 1 6:25 CDT PM CDT Val Wong M.D. LAB BLOOD BANK TEST ORDERABL ES Performing Organization Address City/[facility]/[place]IP [facility] Ph[place] Number [address] [phone] [place] [address] Type and Screen (with reflex Antibody ID) (03/29/2021 6:19 PM CDT) Patholo gist Method Time Signature ABO Group O 03/29/2021 MKTO 7:08 PM CDT Rh Type POS 03/29/2021 MKTO 7:08 PM CDT Antibody Screen NEG 03/29/2021 MKTO 7:08 PM CDT Type & Screen 04/01/2021 03/29/2021 MKTO Expiration 23:59 7:08 PM CDT ELXM Eligible Y 03/29/2021 MKTO 7:08 PM CDT Specimen Anatomical Collection Method Collection Time Receive d Time (Source) Location / / Volume Laterality Blood (Blood, 03/29/2021 6:19 PM 03/29/20 6:25 Venous) CDT PM CDT Val Wong M.D. LAB BLOOD BANK TEST ORDERABL ES Performing Organization Address City/State/ZIP Code Phon e Number [facility]- [address] [place] [phone] [place] [address] [address] (ABNORMAL) Comprehensive Metabolic Panel (03/29/2021 6:19 PM CDT) P athologist Signature Potassium, P 4.0 3.6 - 5.2 03/29/2021 MKTO mmol/L 6:49 PM CDT Sodium, P 130 (L) 135 - 145 03/29/2021 MKTO mmol/L 6:49 PM CDT Chloride, P 100 98 - 107 03/29/2021 MKTO mmol/L 6:49 PM CDT Bicarbonate, P 12 (L) 22 - 29 03/29/2021 MKTO mmol/L 7:04 PM CDT Anion Gap, P 18 (H) 7 - 15 03/29/2021 MKTO 7:04 PM CDT BUN (Blood Urea 9 6 - 21 03/29/2021 MKTO Nitrogen), P mg/dL 6:49 PM CDT Creatinine 0.66 0.59 - 03/29/2021 MKTO 1.04 mg/dL 6:49 PM CDT eGFR-Black/Afri >90 >=60 03/29/2021 MKTO can [place] mL/min/BSA 6:49 PM CDT Comment: ----ADDITIONAL INFORMATION---- Estimated GFR calculated using the 2009 CKD_EPI creatinine equation. eGFR Non-Black/ >90 >=60 mL/min/BSA 03/29/2021 6:49 PM CDT MKTO Comment: ----ADDITIONAL INFORMATION---- Estimated GFR calculated using the 2009 CKD_EPI creatinine equation. Calcium, Total, P 9.1 8.6 - 10.0 mg/dL 03/29/2021 6:49 PM CDT MKTO Glucose, P 99 70 - 140 mg/dL 03/29/2021 6:49 PM CDT M KTO Protein, Total, P 6.3 6.3 - 7.9 g/dL 03/29/2021 6:49 P M CDT MKTO Albumin, P 3.4 (L) 3.5 - 5.0 g/dL 03/29/2021 6:49 PM CDT M KTO Aspartate Aminotransferase 24 8 - 43 U/L 03/29/2021 6 :49 PM CDT MKTO (AST), P Alkaline Phosphatase, P 185 (H) 35 - 104 U/L 03/29/2021 6: 49 PM CDT MKTO Alanine Aminotransferase 11 7 - 45 U/L 03/29/2021 6:4 9 PM CDT MKTO (ALT), P Bilirubin, Total, P 0.5 <=1.2 mg/dL 03/29/2021 6:49 PM CDT MKTO Specimen Anatomical Collection Method Collection Time Receive d Time (Source) Location / / Volume Laterality Blood (Blood, 03/29/2021 6:19 PM 03/29/20 6:25 Venous) CDT PM CDT Val Wong M.D. LAB BLOOD ADD-ON Performing Organization Address City/State/ZIP Code Phon e Number [facility]- [address] [place] [phone] [place] [address] [place] [address] (ABNORMAL) CBC without Differential (03/29/2021 6:19 PM CDT) [facility] Method Time Signature Hemoglobin 11.8 11.6 - 03/29/2021 MKTO 15.0 g/dL 6:28 PM CDT Hematocrit 34.8 (L) 35.5 - 03/29/2021 MKTO 44.9 % 6:28 PM CDT Erythrocytes 3.86 (L) 3.92 - 03/29/2021 MKTO 5.13 6:28 PM CDT x10(12)/L MCV 90.2 78.2 - 03/29/2021 MKTO 97.9 fL 6:28 PM CDT RBC Distrib Width 13.7 12.2 - 03/29/2021 MKTO 16.1 % 6:28 PM CDT Platelet Count 241 157 - 371 03/29/2021 MKTO x10(9)/L 6:28 PM CDT Leukocytes 19.4 (H) 3.4 - 9.6 03/29/2021 MKTO x10(9)/L 6:28 PM CDT Specimen Anatomical Collection Method Collection Time Receive d Time (Source) Location / / Volume Laterality Blood (Blood, 03/29/2021 6:19 PM 03/29/20 6:25 Venous) CDT PM CDT Val Wong M.D. LAB BLOOD ADD-ON Performing Organization Address City/State/ZIP Code Phon e Number [facility]- [address] [place] [address] [place] [address] [address] documented in this encounter Visit Diagnoses Diagnosis 41 Weeks Gestation (HCC) - Prim agus 41 Weeks Gestation (HCC) Examination Normal First Pregna ncy Third Trimester (HCC) Positive Group B Streptococcus (HCC) Care And Lactating Section Delivery (HCC) Hypertension Gestational (HCC ) documented in this encounter Admitting Diagnoses Diagnosis 41 Weeks Gestation (HCC) documented in this encounter Administered Medications Inactive Administered Medications - up to 3 most recent administrations Medication Order MAR Action Action Date Dose Rate Site acetaminophen tablet 1,000 mg Given 04/01/2021 11:54 AM CDT 1,00 0 mg (TYLENOL) 1,000 mg, oral, Every 6 hours, First dose on Jen 03/30/21 at 0000, Post-, Administer acetaminophen at same time as ketorolac or ibuprofen. Given 04/01/2021 6:15 AM CDT 1,000 mg Given 04/01/2021 12:05 AM CDT 1,000 mg azithromycin in NaCl 0.9% IVPB 500 New Bag 03/29/2021 9:12 PM CDT 500 mg 250 mL/hr mg (ZITHROMYCIN) 500 mg, intravenous, at 250 mL/hr, Administer over 60 Minutes, Once, On Sat03/29/21 at 2000, For 1 dose, Indications: Prophylaxis, surgical ceFAZolin in dextrose (iso-os) IVPB 2 New Bag 03/29/2021 9:07 PM CDT 2 g 200 mL/hr g (ANCEF) 2 g, intravenous, at 200 mL/hr, Administer over 30 Minutes, Once, On Sat03/29/21 at 2000, For 1 dose, Drug Monitoring Program: Pharmacist to adjust medication dosing based on indication and drug clearance factors., Indications: Prophylaxis, surgical fentaNYL 2 mcg/mL, bupivacaine 0.125 % (PF) in New Bag 03/29/2021 6:35 PM CDT NaCl 0.9 % epidural (premix) Continuous Rate: 10 mL/hr, PCEA Dose (PCEA only): 5 mL, PCEA Lockout (PCEA only): 15 Minutes, One Hour Limit (PCEA only): 25 mL, epidural, Continuous, Starting on Sat03/29/21 at 1815, For 72 hours, L&D Pre-Delivery, Location: Lumbar, Mode: Continuous ferrous sulfate tablet 65 mg of iron Given 04/01/2021 8:15 AM CDT 65 mg of iron 65 mg of iron, oral, Daily, First dose on Sat03/31/21 at 1000, 325 mg contains 65 mg of elemental iron. Given 03/31/2021 11:40 AM CDT 65 mg of iron ibuprofen tablet 600 mg (ADVIL,MOTRIN) Given 04/01/2021 11:54 AM CDT 600 mg 600 mg, oral, Every 6 hours, First dose on Sat03/31/21 at 0000, Post-, Start 6 hours after last ketorolac dose administered Given 04/01/2021 6:15 AM CDT 600 mg Given 04/01/2021 12:05 AM CDT 600 mg ketorolac injection 15 mg (TORADOL) Given 03/30/2021 4:06 PM CDT 15 mg 15 mg, intravenous, Every 6 hours, First dose on Sat03/30/21 at 0400, For 3 doses, Post-, Start no sooner than 4 hours after last ketorolac dose. Administer acetaminophen at same time as ketorolac. Adult IV push rate: Over 15 seconds. Peds IV push rate: Over 1 minute. 60 mg dose only for IM, not recommended for IV. Given 03/30/2021 9:58 AM CDT 15 mg Given 03/30/2021 4:20 AM CDT 15 mg labetaloL tablet 100 mg (NORMODYNE) Given 04/01/2021 8:15 AM CDT 100 mg 100 mg, oral, 2 times daily, First dose on Sat03/31/21 at 1130 Given 03/31/2021 9:11 PM CDT 100 mg Given 03/31/2021 11:40 AM CDT 100 mg lactated Ringer's bolus 500 mL New Bag 03/29/2021 6:04 PM CDT 500 mL 1000 mL/hr 500 mL, intravenous, at 1,000 mL/hr, Administer over 30 Minutes, Once, On Sat03/29/21 at 1815, For 1 dose, L&D Pre-Delivery lactated Ringer's bolus 500 mL New Bag 03/29/2021 8:11 PM CDT 500 mL 1000 mL/hr 500 mL, intravenous, at 1,000 mL/hr, Administer over 30 Minutes, As needed, If Category II or III heart rate pattern, Starting on Sat03/29/21 at 1807, For 1 dose, L&D Pre-Delivery lactated ringers New Bag 03/29/2021 7:49 PM CDT 125 mL/hr 125 mL/hr 125 mL/hr, intravenous, Continuous, Starting on Sat03/29/21 at 1815, L&D Pre-Delivery New Bag 03/29/2021 6:50 PM CDT 125 mL/hr 125 mL/hr multivitamin/mineral- tablet 1 Given 04/01/2021 8:15 AM CDT 1 tablet tablet 1 tablet, oral, Daily, First dose on Sat03/30/21 at 0900, Post- Given 03/31/2021 8:39 AM CDT 1 tablet oxyCODONE IR tablet 10 mg (ROXICODONE) 10 mg, oral, Every 4 hours PRN, severe p ain or score 7-10 of 10, Starting on Sat03/29/21 at 2352, Post-, Begin [address] raxial long-acting opiate given or if no neuraxial long-acting opi ate used start immediately post-operative. oxyCODONE IR tablet 5 mg (ROXICODONE) Given 04/01/2021 8:39 AM CDT 5 mg 5 mg, oral, Every 4 hours PRN, moderate pain or score 4-6 of 10, Starting on Sat03/29/21 at 2352, Post-, Begin 24 hours after neuraxial long-acting opiate given or if no neuraxial long-acting opiate used start immediately post-operative. Given 03/31/2021 8:39 AM CDT 5 mg Given 03/31/2021 3:45 AM CDT 5 mg sennosides tablet 8.6 mg (SENOKOT) Given 03/31/2021 9:11 PM CDT 8.6 mg 8.6 mg, oral, Daily at bedtime, First dose on Jen 03/30/21 at 2100, Post- Given 03/30/2021 8:53 PM CDT 8.6 mg sodium chloride 0.9 % injection 3 mL Given 03/30/2021 8:27 AM CDT 3 mL 3 mL, intravenous, As needed, line care, Peripheral Intravenous Catheter and Rapid Infusion Catheter, Starting on Sat03/30/21 at 0816, Prior to and following infusion and between multiple consecutive infusions. sodium chloride 0.9 % injection 3 mL Given 03/30/2021 10:01 AM CDT 3 mL 3 mL, intravenous, Every 12 hours scheduled, First dose on Sat03/30/21 at 0900, Peripheral Intravenous Catheter and Rapid Infusion Catheter: When no infusion to maintain patency. documented in this encounter Active and Recently Administered Medications Times are shown in CDT. Scheduled Medication Order 03/30/2021 03/31/2021 04/01/2021 acetaminophen tablet 1,000 mg (TYLENOL) 0006 (Given - Provider: Camila Martinez R.N.)0605 (Given - Provider: Camila Martinez R.N.)1203 (Given - Provider: Viviana Reed R.N.)1811 (Given - Provider: Liliana Boo R.N.) 0008 (Given - Provider: Franci Taveras R.N.)0614 (Given - Provider: Franci Taveras, R.N.)1140 (Given - Provider: Emma Galeana R.N.)1813 (Given - Provider: Emma Galeana R.N.) 0005 (Given - Provider: Rupert kim R.N.)0615 (Given - Provider: Soco Dial R.N.)1154 (Given - Provider: Emma Galeana R.N.) 1,000 mg, oral, Every 6 hours, First dos e on Jen 03/30/21 at 0000, Post-, Administer acetaminophen at same time as ketorolac or ibuprofen. ferrous sulfate tablet 65 mg of iron 114 0 (Given - Provider: Emma Galeana R.N. - Comment: Leonie Chahal CNM ordered @ [facility]) 0815 (Given - Provider: Emma Galeana R.N.) 65 mg of iron, oral, Daily, First dose o n Sat03/31/21 at 1000, 325 mg contains 65 mg of elemental iron. ibuprofen tablet 600 mg (ADVIL,MOTRIN) 0 008 (Given - Provider: Franci Taveras R.N.)0614 (Given - Provider: Franci Taveras R.N.)1140 (Given - Provider: Emma Galeana R.N.)1813 (Given - Provider: Emma Galeana R.N.) 0005 (Given - Provider: Rupert kim R.N.)0615 (Given - Provider: Soco Dial R.N.)1154 (Given - Provider: Emma Galeana R.N.) 600 mg, oral, Every 6 hours, First dose on Sat03/31/21 at 0000, Post-, Start 6 hours after last ketorolac dose administered ketorolac injection 15 mg (TORADOL) (COMPLETED) 0420 ( Given - Provider: Camila Martinez R.N.)0958 (Given - Provider: Viviana Reed R.N.)1606 (Given - Provider: Liliana Boo R.NNestor) 15 mg, intravenous, Every 6 hours, First dose on Jen 03/30/21 at 0400, For 3 doses, Post-, Start no sooner than 4 hours after last ketorolac dose. Administer acetaminophen at same time as ketorolac . Adult IV push rate: Over 15 seconds. P eds IV push rate: Over 1 minute. 60 mg dose only for IM, not recommended for IV. labetaloL tablet 100 mg (NORMODYNE) 1140 (Given - Provider: Emma Galeana RRamin)2110 (Given - Provider: Acacia Skelton R.N.) 0815 (Given - Provider: Emma Galeana R.N.) 100 mg, oral, 2 times daily, First dose on Sat03/31/21 at 1130 multivitamin/mineral- tablet 1 tablet 900 (No t Given - Provider: Viviana Reed RNestorNNestor - Reason: Patient/family refused) 0839 (Given - Provider: Emma Galeana R.N.) 0815 (Given - Provider: Emma Galeana R.N.) 1 tablet, oral, Daily, First dose on Sat03/30/21 at 0900, Post-P artum sennosides tablet 8.6 mg (SENOKOT) 2052 (Given - Provi brennan: Franci Taveras RNestorNNestor) 2110 (Given - Provider: Acacia Skelton RRamin) 8.6 mg, oral, Daily at bedtime, First dose on Sat03/30/21 at 2100, Post- sodium chloride 0.9 % injection 3 mL (CANCELED) 1001 ( Given - Provider: Viviana Reed RNestorNNestor) 0009 (Not Given - Provider: Franci uribe RNestorNNestor - Reason: Discontinued - Comment: IV out) 3 mL, intravenous, Every 12 hours schedu led, First dose on Sat03/30/21 at 0900, Peripheral Intravenous Catheter and Rapid Infusion Catheter: When no infusion to maintain patency. PRN Medication Order 03/30/2021 03/31/2021 04/01/2021 alum-mag hydroxide-simeth 200-200-20 mg/5 mL suspension 30 mL (M AALOX) 30 mL, oral, Every 4 hours PRN, indigest ion, Starting on Sat03/29/21 at 2352, Post- naloxone injection 0.2 mg 0.2 mg, intravenous, As needed, respirat ory depression, Starting on Sat03/29/21 at 2352, Post-, For respiratory rate less than 8 breaths per minute or RASS score of -3, -4, -5. Apply oxygen to luke p oxygen saturations greater than 90% and notify service. ondansetron (PF) injection 4 mg (ZOFRAN) 4 mg, intravenous, Every 6 hours PRN, na usea, vomiting, Starting on Sat03/29/21 at 2352, Post-, If patient unable to take oral oxyCODONE IR tablet 10 mg (ROXICODONE)(Linked Group 1) 2052 (See Alternative - Provider: Franci Taveras R.N.) 034 (See Alternative - Provider: Lakeisha Taveras R.N.)0839 (See Alternative - Provider: Emma Galeana R.N.) 0839 (See Alternative - Provider: Emma Galeana R.N.) 10 mg, oral, Every 4 hours PRN, severe p ain or score 7-10 of 10, Starting on Sat03/29/21 at 2352, Post-, Begin 24 hours after neuraxial long-acting opiate given or if no neuraxial long-acting opiate used start immediately post-operative. oxyCODONE IR tablet 5 mg (ROXICODONE)(Linked Group 1) 2052 (Given - Provider: Franci Taveras R.N.) 344 (Given - Provider: Franci diaz RNestorNNestor)0839 (Given - Provider: Emma Galeana R.N.) 0839 (Given - Provider: Emma Galeana R.N.) 5 mg, oral, Every 4 hours PRN, moderate pain or score 4-6 of 10, Starting on Sat03/29/21 at 2352, Post-, Begin 24 hours after neuraxial long-acting opiate given or if no neuraxial long-acting opiate used start immediately post-operative. promethazine tablet 12.5 mg (PHENERGAN) 12.5 mg, oral, As needed, nausea, vomiti ng, Starting on Sat03/29/21 at 2352, Post-, If symptoms continue 30 minutes after ondansetron. Frequency: May repeat in 30 minutes once if nausea and vomiti ng unrelieved not to exceed 25 mg given in a 4 hour period. sodium chloride 0.9 % injection 3 mL (CANCELED) 0827 ( Given - Provider: Viviana Reed R.N.) 3 mL, intravenous, As needed, line care, Peripheral Intravenous Catheter and Rapid Infusion Catheter, Starting on Jen 03/30/21 at 0816, Prior to and following infusion and between multiple consecutive infusions. Linked Groups Order Group 1: oxyCODONE IR tablet 5 mg (ROXICODONE)Jump to med 5 mg, oral, Every 4 hours PRN, moderate pain or score 4-6 of 10, Starting on Sat03/29/21 at 2352, Post-
Begin 24 hours after neuraxial long-acting opiate given or if no neuraxial long-acting opiate used start immediately post-operative.
Or oxyCODONE IR tablet 10 mg (ROXICODONE)Jump to med 10 mg, oral, Every 4 hours PRN, severe p ain or score 7-10 of 10, Starting on 03/29/21 at 2352, Post-
Begin 24 hours after neuraxial long-acting opiate given or if no neuraxial long-acting opiate used start immediately post-operative.
documented in this encounter Additional Health Concerns Infection Onset Date Last Indicated Resolved Time COVID19 Pending 03/29/2021 03/29/2021 03/29/2021 11:52 PM CDT documented as of this encounter Care Teams Enrollment Manager Relationship Specialty Start Date End Date Elsewhere, Pcp PCP - General 09/01/19 documented as of this encounter
--- OUTSIDE RECORDS SUMMARY | 2022-06-19 16:17 | XMS_ITS | Encounter Summary ---
:1995 Demographics Address [address] [place] [address] Mobile Phone Home Phone Email Address Email Address Preferred Language ENG Marital Status Life Partnership Religion Affiliation Unknown Race White Ethnic Group Not or Author Organization [facility] Address [address] [place] [address] Care Team Providers Name Role Phone Elsewhere, Pcp Primary Care Provider Unavailable Encounter Details Date Type Department Care Team Description 04/01/2021 Encounter Social History Tobacco Use Types Packs/Day Years [...] 11/30/2021 relatives? How often do you attend denominational or yazdanism Never 11/30/2021 services? Do you belong to any clubs or organizations such as No 11/30/2021 denominational groups, unions, fraternal or athletic groups, or [...] minutes do you engage in exercise at th is 150+ min 11/30/2021 level? Stress Answer [...] place to sleep or slept in a nursing home (including now)? Sex Assigned at Date Recorded Female 05/15/2021 10:14 AM CDT documented as of this encounter Miscellaneous Notes Note - Roxanne Harper R.N. - 04/01/2021 9:30 AM CDT This note was copied from a baby's chart. SUBJECTIVE Олег Mendenhall, at 3 days old of age, was seen for a Consultation. Consultation Reason for Consult: Follow-up assessment (, Milk in, infant gained 41 grams with direct .) OBJECTIVE Delivery Details: Risk Factors: Maternal GBS Positive Post-Dates Obstetric Procedures-This : None Labor Complications: Failure to Progress in First Stage;Persistent Category 2 Delivery Type: , Low Transverse [place] Weight: 3170 g 1 Minute 5 Minute 10 Minute Totals: 8 9 Maternal Breast Assessment Breast Surgery: None Breast Size: Average Breast Characteristics: Symmetrical Nipple Type-Right: Flat (erect with stim) Nipple Assessment-Right: Tender Right Breast: Full Nipple Type-Left: Flat (erect with stim) Nipple Assessment-Left: Tender Left Breast: Full Colostrum Expressed: Yes Assessment class: Yes Has mother breastfed before?: No. . Exclusive Pump and Bottle Feed: No Significant other/father of baby: Significant other, living together Assessment Infant State: Active, alert Infant Suck: Rhythmic Oral Anatomy: Normal palate, tongue, jaw, chin Mucus Membranes: Moist Latch Score: Latch: Grasps breast, tongue down, lips flanged, rhythmic sucking Audible Swallowing: Spontaneous and intermittent (24 hours old) Type of Nipple: Everted (After stimulation) Comfort (Breast/Nipple): Soft/non-tender Hold (Positioning): No assist from staff, mother able to position/hold infant LATCH Score: 10 Input: 11 feedings/24 hours Infant Output: 7 voids/24 hours, 6 stools/24 hours, Stool Amount: Small Stool Appearance: Meconium Stool Color: Unable to assess weight: 3170 g Current weight: Weight: 3043 g Percent of weight change since : -4% Weight change since previous weight: Weight Change (gm) : 41 Pct Wt Change: -4.01 % ASSESSMENT/PLAN Inpatient Visit. Mother, father and infant present for visit. Infant feeding not observed. education and support reinforced. DOL #3, moms milk in. Infant gained 41 grams in past 24 hours with direct . Plan to feed every 2-3 hours. If infant feeds well no interventions needed. Add in reasonable pumping for comfort and heat, warm shower or compress with engorgement Mother has handout, [facility] Your Baby with contact information for arranging follow up or for nurse questions. Parents work well together with infant cares and feedings. Follow Up: follow up plan: with provider. Mother will call as needed. Roxanne Harper R.N. documented in this encounter Plan of Treatment Not on filedocumented as of this encounter Visit Diagnoses Not on filedocumented in this encounter Care Teams Coin Machine Collector Supervisor Relationship Specialty Start Date End Date Elsewhere, Pcp PCP - General 09/01/19 documented as of this encounter
--- OUTSIDE RECORDS SUMMARY | 2022-06-19 16:17 | XMS_ITS | Encounter Summary ---
:1995 Demographics Address [address] [place] [address] Mobile Phone Home Phone Email Address Email Address Preferred Language ENG Marital Status Life Partnership Christian Affiliation Unknown Race White Ethnic Group Not or Author Organization [facility] Address [address] [place] [address] Care Team Providers Name Role Phone Elsewhere, Pcp Primary Care Provider Unavailable Encounter Details Date Type Department Care Team Description 04/05/2021 Hospital Encounter Department of [facility] Laboratory Miguel Angel Arreguin M.D. Gestational Medicine, Specialty [address] (HCC) Clinic, in [facility] [address] [facility] [phone] [place], [place] (Work) [phone] Social History Tobacco Use Types Packs/Day [...] 11/30/2021 relatives? How often do you attend oriental orthodox or methodist Never 11/30/2021 services? Do you belong to any clubs or organizations such as No 11/30/2021 oriental orthodox groups, unions, fraternal or athletic groups, or [...] place to sleep or slept in a longterm (including now)? Sex Assigned at Date Recorded Female 05/15/2021 10:14 AM CDT documented as of this encounter Medications at Time of Discharge Medication Sig Dispensed Refills Start Date End Date acetaminophen (TYLENOL) Take 325-650 mg by 0 325 mg tablet mouth every 4 (four) hours as needed. Take 1 tablet by 0 [id number] mouth daily. (VINATE ONE) 60 mg iron-1 [...] Name Priority Date/Time Associated Diagnosis Comme nts COMPREHENSIVE Routine 04/05/2021 4:25 Hypertension Results for this METABOLIC PANEL, S/P PM CDT Gestational procedu re are in (HCC) the results section. CBC WITH DIFFERENTIAL, Routine 04/05/2021 4:24 Hypertension Re sults for this B PM CDT Gestational procedure are i n (HCC) the results section. documented in this encounter Results (ABNORMAL) Comprehensive Metabolic Panel (04/05/2021 4:25 PM CDT) P athologist Signature Potassium, P 4.4 3.6 - 5.2 04/05/2021 [facility] mmol/L 5:03 PM CDT Sodium, P 139 135 - 145 04/05/2021 [facility] mmol/L 5:03 PM CDT Chloride, P 106 98 - 107 04/05/2021 [facility] mmol/L 5:03 PM CDT Bicarbonate, P 22 22 - 29 04/05/2021 [facility] mmol/L 5:03 PM CDT Anion Gap, P 11 7 - 15 04/05/2021 [facility] 5:03 PM CDT BUN (Blood Urea 14 6 - 21 04/05/2021 [facility] Nitrogen), P mg/dL 5:03 PM CDT Creatinine 0.66 0.59 - 04/05/2021 [facility] 1.04 mg/dL 5:03 PM CDT eGFR-Black/Afric >90 >=60 04/05/2021 [facility] an [place] mL/min/BSA 5:03 PM CDT Comment: ----ADDITIONAL INFORMATION---- Estimated GFR calculated using the 2009 CKD_EPI creatinine equation. eGFR Non-Black/ >90 >=60 mL/min/BSA 04/05/2021 5:03 PM CDT [facility] Comment: ----ADDITIONAL INFORMATION---- Estimated GFR calculated using the 2009 CKD_EPI creatinine equation. Calcium, Total, P 9.2 8.6 - 10.0 mg/dL 04/05/2021 5:03 PM CDT [facility] Glucose, P 88 70 - 140 mg/dL 04/05/2021 5:03 PM CDT M [facility] Protein, Total, P 6.5 6.3 - 7.9 g/dL 04/05/2021 5:03 P M CDT [facility] Albumin, P 3.9 3.5 - 5.0 g/dL 04/05/2021 5:03 PM CDT M [facility] Aspartate Aminotransferase 25 8 - 43 U/L 04/05/2021 5 :03 PM CDT [facility] (AST), P Alkaline Phosphatase, P 137 (H) 35 - 104 U/L 04/05/2021 5: 03 PM CDT [facility] Alanine Aminotransferase 27 7 - 45 U/L 04/05/2021 5:0 3 PM CDT [facility] (ALT), P Bilirubin, Total, P <0.2 <=1.2 mg/dL 04/05/2021 5:03 PM CDT [facility] Specimen Anatomical Collection Method Collection Time Receive d Time (Source) Location / / Volume Laterality Blood (Blood, 04/05/2021 4:25 PM 04/05/20 4:35 Venous) CDT PM CDT Miguel Angel Larios M.D. LAB BLOOD ADD-ON Performing Organization Address City/State/ZIP Code Phon e Number [facility]- [address] [place] [address] [place] [address] System in [address] (ABNORMAL) CBC with Differential, Blood (04/05/2021 4:24 PM CDT) [facility] Method Time Signature Hemoglobin 11.3 (L) 11.6 - 04/05/2021 [facility] 15.0 g/dL 4:38 PM CDT Hematocrit 34.5 (L) 35.5 - 04/05/2021 [facility] 44.9 % 4:38 PM CDT Erythrocytes 3.71 (L) 3.92 - 04/05/2021 [facility] 5.13 4:38 PM CDT x10(12)/L MCV 93.0 78.2 - 04/05/2021 [facility] 97.9 fL 4:38 PM CDT RBC Distrib Width 13.7 12.2 - 04/05/2021 [facility] 16.1 % 4:38 PM CDT Platelet Count 329 157 - 371 04/05/2021 [facility] x10(9)/L 4:38 PM CDT Leukocytes 8.8 3.4 - 9.6 04/05/2021 [facility] x10(9)/L 4:38 PM CDT Neutrophils 5.72 1.56 - 04/05/2021 [facility] 6.45 4:38 PM CDT x10(9)/L Lymphocytes 2.21 0.95 - 04/05/2021 [facility] 3.07 4:38 PM CDT x10(9)/L Monocytes 0.68 0.26 - 04/05/2021 [facility] 0.81 4:38 PM CDT x10(9)/L Eosinophils 0.16 0.03 - 04/05/2021 [facility] 0.48 4:38 PM CDT x10(9)/L Basophils 0.03 0.01 - 04/05/2021 [facility] 0.08 4:38 PM CDT x10(9)/L Specimen Anatomical Collection Method Collection Time Receive d Time (Source) Location / / Volume Laterality Blood (Blood, 04/05/2021 4:24 PM 04/05/20 21 4:35 Venous) CDT PM CDT Miguel Angel Larios M.D. LAB BLOOD ADD-ON Performing Organization Address City/State/ZIP Code Phon e Number [facility]- [address] [place] [address] [place] [address] System [address] documented in this encounter Visit Diagnoses Diagnosis Hypertension Gestational (HCC ) documented in this encounter Care Teams Retail Consultant Relationship Specialty Start Date End Date Elsewhere, Pcp PCP - General 09/01/19 documented as of this encounter
--- OUTSIDE RECORDS SUMMARY | 2022-06-19 16:17 | XMS_ITS | Encounter Summary ---
:1995 Demographics Address [address] [place] [address] Mobile Phone Home Phone Email Address Email Address Preferred Language ENG Marital Status Life Partnership Amish Affiliation Unknown Race White Ethnic Group Not or Author Organization [facility] Address [address] [place] [address] Care Team Providers Name Role Phone Elsewhere, Pcp Primary Care Provider Unavailable Reason for Visit Reason Comments Phone Contact repeat blood pressure appt Encounter Details Date Type Department Care Team Description 04/06/2021 Clinical Communication Department of Hortencia Larios Contact Obstetrics and Miguel Angel Arreguin M.D. (repeat blood Gynecology in [address] [facility] pressure appt) [place] [id number] [facility] [address] [place], [place] [phone] [address] (Work) [phone] Social History Tobacco Use Types Packs/Day Years [...] How often do you attend jewish or protestant Never 11/30/2021 services? Do you belong to [...] or slept in a retirement (including now)? Sex Assigned at Date Recorded Female 05/15/2021 10:14 AM CDT documented as of this encounter Miscellaneous Notes Telephone Encounter - Sarah Prado R.N. - 04/06/2021 9:00 AM CDT Pt was already seen in office today- this message has been taken care of Sarah GARCIA Telephone Encounter - Sarah Prado R.N. - 04/06/2021 7:28 AM CDT Utility System Repairer received a Secure chat from Dr Larios this AM: Sadie Smith is coming this morning for BP recheck and calibration of her home monitor. I gave herlast night medication for headache. Please staff her with education manager for f/u recommendations Utility System Repairer has reached out to scheduling to contact patient and arrange an appt for f/u today with education manager provider Sarah GARCIA documented in this encounter Plan of Treatment Not on filedocumented as of this encounter Visit Diagnoses Not on filedocumented in this encounter Care Teams Director [employer] Relationship Specialty Start Date End Date Elsewhere, Pcp PCP - General 09/01/19 documented as of this encounter
--- OUTSIDE RECORDS SUMMARY | 2022-06-19 16:17 | XMS_ITS | Encounter Summary ---
:1995 Demographics Address [address] [place] [address] Mobile Phone Home Phone Email Address Email Address Preferred Language ENG Marital Status Life Partnership Yazidi Affiliation Unknown Race White Ethnic Group Not or Author Organization [facility] Address [address] [place] [address] Care Team Providers Name Role Phone Elsewhere, Pcp Primary Care Provider Unavailable Reason for Referral Behavioral Health (Routine) - Closed Specialty Diagnoses / Procedures Referred By Contact Refer red To Contact Psychiatry / Psychiatry Diagnoses Depression Anxiety Francis Soto [facility] Lucius VelasquezSNestorWNestor [address] [place] [id number] Referral ID Status Reason Start Date Expiration Date Visits V isits Requested Authorized [id number] Closed Specialty 05/15/2021 05/15/2022 1 1 Services Required Reason for Visit Reason Comments Care Outpatient (Routine) - Closed Specialty Diagnoses / Procedures Referred By Contact Refer red To Contact Obstetrics and Neli Chahal APRN, [facility] Gynecology [address] [phone] Referral ID Status Reason Start Date Expiration Date Visits Requ ested Visits Authorized [id number] Closed 04/01/2021 04/01/2022 1 1 Encounter Details Date Type Department Care Team Description 05/15/2021 Visit Department of Neli Chahal, Postpart um Exam (HCC) (Primary Dx); Obstetrics and DRY MIXER, CN Depression Anxiety Gynecology in [address] [place] [phone] [place] [phone] (Work) [phone] Social History Tobacco Use Types Packs/Day Years [...] How often do you attend hinduism or catholic Never 11/30/2021 services? Do you [...] place to sleep or slept in a half-way (including now)? Education Answer Date Recorded What is the highest level of school you have Some college, n o degree 05/15/2021 completed or the highest degree you have received? Sex Assigned at Date Recorded Female 05/15/2021 10:14 AM CDT documented as of this encounter Last Filed Vital Signs Vital Sign Reading Time Taken Comments Blood Pressure 110/64 05/15/2021 10:24 AM CDT Pulse - - Temperature - - Respiratory Rate - - Oxygen Saturation - - Inhaled Oxygen Concentration - - Weight 68.5 kg (151 lb 0.2 oz) 05/15/2021 10:24 AM CDT Height - - Body Mass Index 29.49 06/05/2018 2:37 PM CDT documented in this encounter Progress Notes Davis Mcgrath L.P.N. - 05/15/2021 10:30 AM CDT Baby Олег is doing well, , up to 11 lbs, trying to get better at pumping to get back to work. Patient voices concerns with post moods, that is is getting harder, would like to up her dose of Zoloft, she is also taking her placenta pills. Yesterday was a harder day with mood. Eva Llamas L.I.C.S.W. - 05/15/2021 10:30 AM CDT SUBJECTIVE Patient is 25-year-old female who arrived to [facility] in [place] from [facility]. Patient delivered her son, Олег via unscheduled delivery on March 29, 2021. He was born at 41 weeks and 3 days. Patient is . Patient received care the [facility] in [place], [place]. The social media assistant met with patient for assessment of her biopsychosocial needs following her unscheduled C- section. See full psychosocial assessment dated March 30, 2021. Patient presented for her 2 week follow-up appointment with Dr. Wong on April 19, 2021. She restarted sertraline 25 mg at that time. Patient then followed up with Neli Chahal APRN, CNM for her 6 week follow-up on today's date, May 15, 2021. She did notice an increase of depressive symptoms and her sertraline was increased from 25 mg to 50 mg. The social media assistant was requested by Neli Chahal APRN, CNM to meet with patient for supportive visit and to discuss mental health follow-up. The social media assistant met with patient in the [facility]. Patient shares since last meeting with the social media assistant overall she does feel that things have beengoing well. She does note that there have been approximately 3-4 days out of the last 6 and half weeks where she has felt down, tearful, and depressed. She does feel that an increase of her sertraline m edication would be beneficial. She reports overall her significant other, Antoine has been helpful however they have been struggling to engage together as a couple since the of Олег. Patient also notes a stressor related to family members and their lack respect for boundaries she has put into place for her son. Patient does identify good support from her [id number]-wl-yqw. Patient is thinking of returning to work in the middle of June 2021 a few 9 to week. She and her have alsonoted that they are going to leave the baby with her qkgcvg-os-avf so they can going to date night. Patient does identify the need for reconnection with her . Patient denies any suicide or homicide ideation intent or plans. She does identify that anxiety is heightened at times however she does appear to have good insight in to her anxious thoughts. OBJECTIVE Patient Active Problem List Diagnosis ??? Section Delivery (HCC) ??? Hypertension Gestational (HCC) ??? Anxiety Generalized Disorder ??? No Current Problems or Disability No Known Allergies The social media assistant spoke with patient regarding her mental health care. She would like to [facility] to[facility] for her medication management. Patient is interested in individual psychotherapy. The social media assistant spoke with her about options and she would like to begin individual psychotherapy with the social media assistant in the [facility]. ASSESSMENT / PLAN ASSESSMENT Patient Appearance: Healthy, Well-groomed, Relaxed Behaviors Observed: Interactive, Pleasant, Calm Patient Level of Consciousness: Alert and oriented Status of Patient's Memory: Intact Patient Cooperation: Cooperative Patient Mood: Euthymic but sad and down a few days since delivery Patient Affect: Mood-congruent Quality of Patient's Speech: Within normal limits for volume, rate and tone Descriptor of Thought Content: No abnormality Thought Process Descriptor: Intact, Logical and goal-directed Perception: Does not appear to respond to internal stimuli Anxiety Symptoms: No symptoms of panic, No obsessions or compulsions, No ruminative worry, Generalized worries Depressive Symptoms: No symptoms of depressions Level of Judgement: Intact ?? Suicide Risk and Safety Risk Assessment: 05/15/21 1400 Suicidal Ideation 1. Wish to be (Since [...] Acts or Behavior (Since Last Visit) No Based on the risk and protective factors described above and clinical interpretation of the ColumbiaSuicide Severity Rating Scale (C-SSRS), the patient's suicidal risk is assessed as acutely low and chronically low. The patient's homicidal risk is assessed as acutely low and chronically low. ?? INTERVENTIONS foster care social worker educated patient the service provided is short-term psychotherapy; should long-term psychotherapy be indicated or desired, resources in the community will be provided. Patient verbalized understanding and agreement. foster care social worker provided her with support and validation and provided her with affirmation on what sheis doing well during her transition. foster care social worker provided patient with validation on taking appropriate boundaries with family members and continuing to set a time side for self-care and interaction with significant other. Order was placed for patient to return for individual psychotherapy with the social media assistant in the [facility]. The social media assistant provided patient with Education to present immediately to the emergency room at any time having suicide or homicide ideation intent or plan. PLAN Patient will be scheduled with this social media assistant in the [facility] fora diagnostic assessment to initiate individual psychotherapy. New patient paperwork was provided to her. Aldo Panchal.S.W. 05/15/21 Neli Chahal APRN, ZAC - 05/15/2021 10:30 AM CDT SUBJECTIVE CHIEF COMPLAINT / REASON FOR VISIT Sadie Mart, , is status post , Low Transverse . Antepartum course was uncomplicated. course has been uncomplicated. Patient is breast & bottle-feeding breast milk. Baby's name is: Олег Patient's bleeding has stopped. Patient's bladder/bowel function is as expected. HISTORY OF PRESENT CONDITION OB History Para Term AB Living 1 1 1 1 SAB TAB Ectopic Molar Multiple Live Births 0 1 # Outcome Date GA Lbr Filemon/2nd Weight Sex Delivery Anes PTL Lv 1 Term 03/29/21 41w3d 3.17 kg M CS-LTranv Spinal, EPI SERENA Complications: Failure to Progress in First Stage, Persistent Category 2 The following portions of the patient's history were reviewed and updated as appropriate: allergies,current medications, family history, medical history, social history, surgical history and the problem list. REVIEW OF SYSTEMS A comprehensive review of systems was negative. OBJECTIVE VITAL SIGNS Vitals: 05/15/21 1024 BP: 110/64 Weight: 68.5 kg MEDICATIONS I have changed Sadie Mart's sertraline. I am also having her maintain her gtgrhcs-Fm-losq-FA, acetaminophen, ibuprofen, labetaloL, labetaloL, acetaminophen, jlvmgnvsxs-vflypxllvbivk-yrvz, ferrous sulfate, and norethindrone. PHYSICAL EXAM Breasts: normal Lymph nodes: normal Abdomen: no organomegaly, masses or hernia Genitalia: external vulva, Bartholin's, urethra, [place]'s glands and fourchette negative Perineum: intact; well healed Vagina: normal Cervix: normal Bimanual: exam revealed normal mobile uterus, negative adnexa Rectovaginal exam: confirms good sphincter tone MENTAL STATUS PHQ-9 Score: 8 Pt feels she is having more bad days and wants to increase medication and social media assistant is able to meet with her today. DIAGNOSTICS I have reviewed the most recent labs Blood Type: O POS Antibody Screen: Antibody Screen Date Value Ref Range Status 03/29/2021 NEG Final Thin Prep: was done at the beginning of the at a different facility. Signed consent to have records sent. ASSESSMENT / PLAN Problem List Items Addressed This Visit None Visit Diagnoses Depression Anxiety Relevant Medications sertraline (ZOLOFT) 50 mg tablet Other Relevant Orders Psychiatry and Psychology - General consult (clinic) #1 Normal exam #2 Evidence of Mood Disorder - plan includes medication, counseling #3 Contraception: Natural Family Planning PATIENT EDUCATION Ready to learn, barriers to learning: none; learning preferences include listening. Explained diagnosis and treatment plan; patient expressed understanding of the content. Neli Chahal APRN, CNM documented in this encounter Plan of Treatment Scheduled Referrals Name Type Priority Associated Order Schedule Diagnoses Psychiatry and Outpatient Referral Routine Depression Anxiety Expected: Psychology - General 021 consult (clinic) (Approximat e), Expires: 05/15/2024 documented as of this encounter Visit Diagnoses Diagnosis Exam (HCC) - Primary Depression Anxiety documented in this encounter Additional Health Concerns Assessment Noted Time PHQ-9 Depression Total Score: 8 05/15/2021 12:00 PM CD T documented as of this encounter Care Teams Site Technician Relationship Specialty Start Date End Date Elsewhere, Pcp PCP - General 09/01/19 documented as of this encounter
--- OUTSIDE RECORDS SUMMARY | 2022-06-19 16:17 | XMS_ITS | Encounter Summary ---
:1995 Demographics Address [address] [place] [address] Mobile Phone Home Phone Email Address Email Address Preferred Language ENG Marital Status Life Partnership Buddhism Affiliation Unknown Race White Ethnic Group Not or Author Organization [facility] Address [address] [place] [address] Care Team Providers Name Role Phone Alicia Phan P.A.-C. Primary Care Provider [phone] Encounter Details Date Type Department Care Team Description 12/01/2018 Hospital Encounter Department of Guillermo Negro Drug Screen Laboratory Medicine, Imani WEBER, M.P.H. [facility], in [address] [place] [id number] [place] [address] [phone] Social History Tobacco Use Types Packs/Day Years [...] How often do you attend presybeterian or scientologist Never 11/30/2021 services? Do you belong to [...] or slept in a half-way (including now)? Sex Assigned at Date Recorded Female 05/15/2021 10:14 AM CDT documented as of this encounter Plan of Treatment Not on filedocumented as of this encounter Visit Diagnoses Diagnosis Drug Screen documented in this encounter Care Teams Kinesiologist Relationship Specialty Start Date End Date Alicia Phan P.A.-C. PCP - General 02/14/17 08/31/19 documented as of this encounter
--- OUTSIDE RECORDS SUMMARY | 2022-06-19 16:17 | XMS_ITS | Encounter Summary ---
:1995 Demographics Address [address] [place] [address] Mobile Phone Home Phone Email Address Email Address Preferred Language ENG Marital Status Life Partnership Hinduism Affiliation Unknown Race White Ethnic Group Not or Author Organization [facility] Address [address] [place] [address] Care Team Providers Name Role Phone Elsewhere, Pcp Primary Care Provider Unavailable Reason for Visit Auth/Cert Specialty Diagnoses / Procedures Referred By Contact Refer red To Contact Diagnoses 41 Weeks Gestation (HCC) Procedures Referral ID Status Reason Start Date Expiration Date Visits Requ ested Visits Authorized [id number] 1 1 Encounter Details Date Type Department Care Team Description 03/29/2021 Anesthesia Event [facility] MAIN OR Margaret Rudolph, [address] [facility] [place] [address] [place] [address] [place] [phone] (Wo rk) Anesthesia Record Procedure Summary Procedure Name Responsible Anesthesia Start Time Anesthesia Stop Time Anesthesiologist SECTION Margaret Rudolph M.D. 03/29/21 1834 2211 Events Date Time Event Comment 03/29/2021 1834 1834 An Start Machine/Equipmen t Checked Infection Precautions Foll owed Procedure/Site Verified NPO Sta tus Verified Supine Standard ASA Mon itors Applied 2052 Epidural to 2057 Anesthesia Time Out 2057 Block Start 2102 Block End 2103 Turnover to Proceduralist 2112 Proc Start 2115 Uterine Incision 2116 Occurred 2126 Quick Note Emesis 2199 Turnover to ANE Staff 2200 an stop data 2201 Proc Fin 2211 An End I completed my h andoff to the receiving staff during i ch we 1. Identified the patient 2. Ident ified the responsible provider 3. Revi ewed the pertinent medical history 4. Discu ssed the surgical course 5. Reviewed intra-o p anesthesia management and issues during an esthesia 6. Set expectations for post-procedure period 7. Allowed opportun ity for questions and acknowledgement of understanding. Name Total lidocaine-EPINEPHrine PF 1.5%-1:200,000 injection 3 mL lidocaine PF 2% injection 15 mL phenylephrine 100 mcg/mL injection 1,000 mcg oxytocin injection 10 Unit/mL 3 Units oxytocin 60 shara-units/mL in NaCl 0.9% 500 mL infusio n (PITOCIN) 5.3 Units ondansetron 4 mg/2 mL injection 4 mg dexamethasone 10 mg/mL injection 4 mg morphine PF 0.5 mg/mL Regional 0.15 mg fentaNYL PF 50 mcg/mL Regional 15 mcg bupivacaine-dextrose PF 0.75%-8.25% injection 1.5 mL ketorolac 30 mg injection 30 mg Lactated Ringers Free Drip 1,000 mL Agents No agents on file. Blood No blood administrations on file. Lines, Drains, and Airways Type Details Placement Removal (RETIRED) Incision 03/29/21; Abdomen; 03/29/21 0000 by 07/13/21 1140 by dermabond; 07/13/21 Anayeli Madsen, [facility] c-Backgr (Removed Automatically R.NNestor nd, [facility] via Background Job); Automated [facility] Job 1140 (Removed Automatically via Background Job) Peripheral IV Placement Date: 03/29/211742 by 03/30/21 161 b y 03/29/21; Placement Selene Padilla R.N. Miller, Mallory M, Time: 1742; Orientation: R.N. Right; Location: Hand; Site Prep: Chlorhexidine (Preferred); Technique: Anatomical landmarks; Inserted by: RADHA Veliz; Insertion Attempts: 1; Removal Date: 03/30/21; Removal Time: 1613; Removal Reason: Per order Epidural Catheter Placement Date: 03/29/211853 by 03/29/212055 by 03/29/21; Placement Margaret Rudolph Wong, Me lanie I., Time: 1853 (created via SHELLEY Diallo APRN procedure documentation); Location: Lumbar; Removal Date: 03/29/21; Removal Time: 2055; Removal Assessment: Tip intact Indwelling Urinary Placement Date: 03/29/21 2030 by 03/30/21 082 6 by Catheter 03/29/21; Placement Isai Young RRamin portillo, Time: 2029 (placed in Viviana A, R .N. OR); Removal Date: 03/30/21; Removal Time: 825; Removal Reason: Criteria for drain removal met documented in this encounter Social History Tobacco Use Types Packs/Day Years [...] 11/30/2021 relatives? How often do you attend methodist or orthodoxy Never 11/30/2021 services? Do you belong to any clubs or organizations such as No 11/30/2021 methodist groups, unions, fraternal or athletic groups, or [...] for the very basics like Not andre dixon hard 11/30/2021 food, housing, medical care, and [...] AM CDT documented as of this encounter OR Notes Anesthesia Postprocedure Evaluation - Margaret Rudolph M.D. - 03/29/2021 10:37 PM CDT Patient: Sadie Mart Procedure Summary Date: 03/29/21 Room / Location: RM OR [address] Anesthesia Start: 1833 Anesthesia Stop: 2211 Procedure: SECTION (N/A ) Diagnosis: ( Intolerance of Labor) Providers: Val Wong M.D. Responsible Provider: Margaret Rudolph M.D. Anesthesia Type: regional ASA Status: 2 Anesthesia Type: regional Last vitals Vitals Value Taken Time BP 129/79 03/29/212234 Temp 36 ??C 03/29/212208 Pulse 73 03/29/212236 Resp 17 03/29/212236 SpO2 96 % 03/29/212236 Vitals shown include unvalidated device data. Please reference Vitals flowsheet for most recent vital signs. Anesthesia Post Evaluation Patient Disposition: general care unit Cardiovascular status: hemodynamics (HR & BP) acceptable Respiratory status: patent airway with spontaneous effort Temperature: normothermic Oxygen requirements: room air Level of consciousness: awake Pain score: pain adequately controlled and/or at baseline Post Op nausea/vomiting: none Hydration status: euvolemic Anesthesia Procedure Notes - Shanon Franco I., SFDC TECHNICAL ARCHITECT, MANAGER BOOK - 03/29/2021 9:21 PM CDTAssociated Order(s): Regional Block Regional Block Date/Time: 03/29/2021 9:02 PM Performed by: Margaret Rudolph M.D. Authorized by: Margaret Rudolph M.D. Location: OR PROCEDURE DETAILS: Block Indication: primary anesthetic Block Type - Neuraxial: spinal Positioning: sitting Approach: midline Level inserted: L3-4 Block technique: landmark technique Injection technique: single injection Needle type: xander Gauge: 25G Length: 10 CSF: yes Pain with needle advancement or injection of local anesthetic: no Injected Medications: Injection(s), anesthetic agent(s) and/or steroid; See MAR Comments: Comments: Epidural removed secondary to window in left lower quadrant. Discussed r/b/a to spinal anesthesia pt wishes to proceed. Patient sitting position, prepped and draped, local anesthetic on the skin. Access to subdural space after 2nd attempt. +CSF pre and post injection. The patient tolerated the procedure well, there were no paraesthesia with needle advancement or local injection. The patienttolerated the procedure well and there were no complications. UNIVERSAL PROTOCOL All relevant documentation and testing were reviewed and available. All required blood products, implants, devices and or special equipment were made available as applicable. Pre-procedure verificationwas conducted and the correct site was marked if required. A fire risk assessment was done as applicable. The procedural time-out was conducted prior to performing the procedure and confirmed in a procedural pause. PRE-PROCEDURE DETAILS: Appropriate hand hygiene, gown, cap, mask, protective eyewear, sterile gloves, skin preparation, sterile drape, and strict aseptic technique were utilized as applicable for the procedure.: yes Skin prep: chlorhexidine / alcohol SEDATION / ANESTHESIA Anesthesia method: local infiltration Local infiltrate type: lidocaine POST-PROCEDURE DETAILS: Procedure completed successfully: successful procedure Other complications: none ATTESTATION STATEMENT Anesthesia Procedure Notes - Margaret Rudolph M.D. - 03/29/2021 6:54 PM CDT Associated Order(s): Regional Block Regional Block Date/Time: 03/29/2021 6:54 PM Performed by: Margaret Rudolph M.D. Authorized by: Margaret Rudolph M.D. Location: labor room PROCEDURE DETAILS: Block Indication: OB block Block Type - Neuraxial: lumbar epidural Positioning: sitting Approach: midline Level inserted: L3-4 Block technique: landmark technique Injection technique: catheter Epidural space identification technique: loss of resistance - fluid Loss of resistance depth: 5 Needle type: tuohy Gauge: 17G Length: 10 Catheter taped (cm at skin): 11 CSF: no Test dose: yes- negative test dose Pain with needle advancement or injection of local anesthetic: no Injected Medications: Injection(s), anesthetic agent(s) and/or steroid; See MAR Comments: Comments: Patient currently in labor and she and OBMD request a labor epidural to control her labor pains. Patient was interviewed and examined. Procedure and risks including but not limited to bleeding, infection, nerve injury, paralysis, PDPH, and inadequate block requiring intervention discussed with patient. Questions answered. This epidural is to be placed in anticipation of vaginal delivery. Pt gave verbal consent to procedure. Prepped and draped in sittingposition. (+) Normal Saline ELMER with Tuohy needle on first pass with one redirection. No heme or CSF. Catheter advanced without difficulty. Negative aspiration and test dose. No pain on injection or with needle advancement. Patient and fetus monitored throughout procedure, tolerated well without apparent complications. UNIVERSAL PROTOCOL All relevant documentation and testing were reviewed and available. All required blood products, implants, devices and or special equipment were made available as applicable. Pre-procedure verificationwas conducted and the correct site was marked if required. A fire risk assessment was done as applicable. The procedural time-out was conducted prior to performing the procedure and confirmed in a procedural pause. PRE-PROCEDURE DETAILS: Appropriate hand hygiene, gown, cap, mask, protective eyewear, sterile gloves, skin preparation, sterile drape, and strict aseptic technique were utilized as applicable for the procedure.: yes Skin prep: chlorhexidine / alcohol SEDATION / ANESTHESIA Anesthesia method: local infiltration Local infiltrate type: lidocaine POST-PROCEDURE DETAILS: Procedure completed successfully: successful procedure Other complications: none ATTESTATION STATEMENT Anesthesia Preprocedure Evaluation - Margaret Rudolph M.D. - 03/29/2021 6:29 PM CDT Preprocedure Anesthesia & H&P Assessment Procedure Summary Date: 03/29/21 Procedure: LABOR ANALGESIA Pertinent components of the patient's history including current problem list, medical history, surgical history, family history, social history, medications and allergies were reviewed. Present illnessand pre-op diagnosis were confirmed. The planned surgery / procedure was verified with the patient /legal guardian. The patient's general health condition remains unchanged RELEVANT COMORBID CONDITIONS No relevant active problems OBJECTIVE PHYSICAL EXAMINATION Airway (HEENT) Neck ROM: Full Mouth Opening: >3 cm Cardiovascular Rhythm: Regular Rate: Normal Cardiovascular Assessment: cardiovascular normal Functional Capacity: >4 METS Pulmonary Pulmonary Assessment: Clear General / Constitutional Constitutional Assessment: Normal General State of Health:: healthy appearing Neurological Neurologic Assessment:??alert and alert and oriented x 3 Dental Dental Assessment: dentition intact ASSESSMENT / PLAN ANESTHESIA PLAN ASA: 2 Anesthesia Plan: regional Patient seen and allergies reviewed, anesthesia plan and risks discussed directly with patient /legal guardian or through an extrusion press adjuster. Risks/Benefits/Alternatives of Blood transfusion discussed with patient / legal guardian, including an opportunity to ask questions and/or decline some or all transfusion therapies. The patient / legalguardian consented to the use of all blood products, as deemed medically necessary Approval to Proceed: approved for anesthesia Came from [facility] for inability to progress. Pressures have been borderline 130/80s Discussed r/b/a to regional anesthesia, pt wishes to proceed. documented in this encounter Plan of Treatment Not on filedocumented as of this encounter Procedures Procedure Name Priority Date/Time Associated Comments Diagnosis ANESTHESIA REGIONAL Routine 03/29/2021 9:02 PM Re sults for this BLOCK CDT procedure are i n the results section. ANESTHESIA REGIONAL Routine 03/29/2021 6:54 PM Re sults for this BLOCK CDT procedure are i n the results section. documented in this encounter Results Regional Block (03/29/2021 9:02 PM CDT) Narrative Shanon Franco APRN, CRNA - 9:02 PM CDT Shanon Franco APRN, CRNA ? 03/29/2021 ??9:24 PM Regional Block Date/Time: 03/29/2021 9:02 PM Performed by: Margaret Rudolph M.D. Authorized by: Margaret Rudolph M.D. Location: OR PROCEDURE DETAILS: Block Indication: primary anesthetic ?? Block Type - Neuraxial: spinal Positioning: sitting ?? Approach: midline Level inserted: L3-4 Block technique: landmark technique ?? Injection technique: single injection Needle type: xander Gauge: 25G Length: 10 CSF: yes ??Pain with needle advancement or injection of local anesthetic: no ?? Injected Medications: Injection(s), anes thetic agent(s) and/or steroid; See MAR Comments: Comments: Epidural removed secondary to window in left lower quadrant. Discussed r/b/a to spinal anesthesia pt wishes to proceed. Patient sitting position, prepped and draped, local anes thetic on the skin. Access to subdural space after 2nd attempt. +CSF p re and post injection. The patient tolerated the procedure well, there were no paraesthesia with needle advancement or local injection. The mally ent tolerated the procedure well and there were no complications. UNIVERSAL PROTOCOL All relevant documentation and testing w ere reviewed and available. All required blood products, implants, devic es and or special equipment were made available as applicable. Pre-proced ure verification was conducted and the correct site was marked if required. A fire risk assessment was done as applicable. The procedural time-out w as conducted prior to performing the procedure and confirmed in a procedu ral pause. PRE-PROCEDURE DETAILS: ?? Appropriate hand hygiene, gown, cap, mas k, protective eyewear, sterile gloves, skin preparation, sterile drape, and strict aseptic technique were utilized as applicable for the procedure .: yes ?? Skin prep: chlorhexidine / alcohol SEDATION / ANESTHESIA Anesthesia method: local infiltration Local infiltrate type: lidocaine POST-PROCEDURE DETAILS: Procedure completed successfully: succes sful procedure Other complications: none ATTESTATION STATEMENT Margaret Rudolph M.D. PROCEDURE/MINOR SURGICAL ORD ERABLES LDA ANE EPIDURAL CATHETER (03/29/2021 6:54 PM CDT) Narrative Margaret Rudolph M.D. - 03/29/2021 6: 54 PM CDT Margaret Rudolph M.D. ? 03/29/2021 ??6:55 PM Regional Block Date/Time: 03/29/2021 6:54 PM Performed by: Margaret Rudolph M.D. Authorized by: Margaret Rudolph M.D. Location: labor room PROCEDURE DETAILS: Block Indication: OB block ?? Block Type - Neuraxial: lumbar epidural Positioning: sitting ?? Approach: midline Level inserted: L3-4 Block technique: landmark technique ?? Injection technique: catheter Epidural space identification technique: loss of resistance - fluid Loss of resistance depth: 5 Needle type: tuohy Gauge: 17G Length: 10 Catheter taped (cm at skin): 11 CSF: no ?? Test dose: yes- negative test dose ??Ritika n with needle advancement or injection of local anesthetic: no ?? Injected Medications: Injection(s), anes thetic agent(s) and/or steroid; See MAR Comments: Comments: Patient currently in labor and she and OBMD request a labor epidural to control her labor pains. Trina cedeno was interviewed and examined. Procedure and risks including but not li mited to bleeding, infection, nerve injury, paralysis, PDPH, and inade quate block requiring intervention discussed with patient. Questions answer ed. This epidural is to be placed in ?? anticipation of vaginal delivery. Pt gav e verbal consent to procedure. Prepped and draped in sitting position. (+) Normal Saline ELMER with Tuohy needle on first pass with one redirectio n. No heme or CSF. Catheter advanced without difficulty. Negative as piration and test dose. No pain on injection or with needle advancement. Pa tient and fetus monitored throughout procedure, tolerated well wit hout apparent complications. UNIVERSAL PROTOCOL All relevant documentation and testing w ere reviewed and available. All required blood products, implants, devic es and or special equipment were made available as applicable. Pre-proced ure verification was conducted and the correct site was marked if required. A fire risk assessment was done as applicable. The procedural time-out w as conducted prior to performing the procedure and confirmed in a procedu ral pause. PRE-PROCEDURE DETAILS: ?? Appropriate hand hygiene, gown, cap, mas k, protective eyewear, sterile gloves, skin preparation, sterile drape, and strict aseptic technique were utilized as applicable for the procedure .: yes ?? Skin prep: chlorhexidine / alcohol SEDATION / ANESTHESIA Anesthesia method: local infiltration Local infiltrate type: lidocaine POST-PROCEDURE DETAILS: Procedure completed successfully: succes sful procedure Other complications: none ATTESTATION STATEMENT Margaret Rudolph M.D. PROCEDURE/MINOR SURGICAL ORD ERABLES documented in this encounter Visit Diagnoses Not on filedocumented in this encounter Administered Medications Inactive Administered Medications - up to 3 most recent administrations Medication Order MAR Action Action Date Dose Rate Site lynrzyzgoiz-zflqytus-rmgxa (PF) Given 03/29/2021 9:03 PM CDT 1.5 mL 0.75 % (7.5 mg/mL) injection (MARCAINE SPINAL) intrathecal, As needed, Starting on Sat03/29/21 at 2103, Anesthesia Intra-op dexAMETHasone injection (DECADRON) Given 03/29/2021 9:20 PM CDT 4 mg intravenous, As needed, Starting on Sat03/29/21 at 2120, Anesthesia Intra-op fentaNYL injection Regional (SUBLIMAZE) Given 03/29/2021 9:03 PM CDT 15 mcg epidural, As needed, Starting on Sat03/29/21 at 2103, Anesthesia Intra-op ketorolac injection (TORADOL) Given 03/29/2021 9:56 PM CDT 30 mg intravenous, As needed, Starting on Sat03/29/21 at 2156, Anesthesia Intra-op lactated ringers New Bag 03/29/2021 9:55 PM CDT intravenous, Continuous Infusion: Per Instructions PRN, Starting on Sat03/29/21 at 2053, Anesthesia Intra-op New Bag 03/29/2021 8:53 PM CDT lidocaine (PF) 20 mg/mL (2 %) injection Given 03/29/2021 8:14 PM CDT 5 mL (XYLOCAINE) epidural, As needed, Starting on Sat03/29/21 at 2008, Anesthesia Intra-op Given 03/29/2021 8:11 PM CDT 5 mL Given 03/29/2021 8:08 PM CDT 5 mL lidocaine-EPINEPHrine (PF) 1.5 %-1:200,000 Given 03/29/2021 6:47 PM CDT 3 mL injection (XYLOCAINE W/EPI) epidural, As needed, Starting on Sat03/29/21 at 1847, Anesthesia Intra-op morphine (PF) injection Regional (DURAMO RPH) Given 03/29/2021 9:03 PM CDT 0.15 mg intrathecal, As needed, Starting on Sat03/29/21 at 2103, Anesthesia Intra-op ondansetron (PF) injection (ZOFRAN) Given 03/29/2021 9:24 PM CDT 4 mg intravenous, As needed, Starting on Sat03/29/21 at 2124, Anesthesia Intra-op oxytocin 60 shara-units/mL in NaCl New Bag 03/29/2021 9:19 PM 6 Units/hr 100 mL/hr 0.9% 500 mL infusion (PITOCIN) CDT intravenous, Continuous Infusion: Per Instructions PRN, Starting on Sat03/29/21 at 2119, Anesthesia Intra-op oxytocin injection (PITOCIN) Given 03/29/2021 9:19 PM CDT 3 Units intravenous, As needed, Starting on Sat03/29/21 at 2119, Anesthesia Intra-op phenylephrine injection Given 03/29/2021 9:42 PM CDT 150 mcg intravenous, As needed, Starting on Sat03/29/21 at 2106, Anesthesia Intra-op Given 03/29/2021 9:35 PM CDT 100 mcg Given 03/29/2021 9:28 PM CDT 200 mcg documented in this encounter Additional Health Concerns Infection Onset Date Last Indicated Resolved Time COVID19 Pending 03/29/2021 03/29/2021 03/29/2021 11:52 PM CDT documented as of this encounter Care Teams Manager Net Relationship Specialty Start Date End Date Elsewhere, Pcp PCP - General 09/01/19 documented as of this encounter
--- OUTSIDE RECORDS SUMMARY | 2022-06-19 16:17 | XMS_ITS | Encounter Summary ---
:1995 Demographics Address [address] [place] [phone] Mobile Phone Home Phone Email Address Email Address Preferred Language ENG Marital Status Life Partnership Voodoo Affiliation Unknown Race White Ethnic Group Not or Author Organization [facility] Address [address] [place] [address] Care Team Providers Name Role Phone Elsewhere, Pcp Primary Care Provider Unavailable Reason for Visit Reason Comments Care blood pressure follow up Outpatient (Routine) - Closed Specialty Diagnoses / Procedures Referred By Contact Refer red To Contact Obstetrics [facility] Imani Arreguin [address] [place] [phone] Referral ID Status Reason Start Date Expiration Date Visits Requ ested Visits Authorized [id number] Closed 04/05/2021 04/05/2022 1 1 Encounter Details Date Type Department Care Team Description 04/06/2021 Routine Department of Sabina Larios M.D. [address] [place] [phone] Hypertension Obstetrics and Sarah Prado RNestorNNestor [address] [place] [address] Gestational Gynecology in ([facility]) [place], [place] (Primary Dx) [address] [place] [address] Social History Tobacco Use Types Packs/Day [...] 11/30/2021 relatives? How often do you attend mu-ism or latter day Never 11/30/2021 services? Do you belong to any clubs or organizations such as No 11/30/2021 mu-ism groups, unions, fraternal or athletic groups, or [...] place to sleep or slept in a chcf (including now)? Sex Assigned at Date Recorded Female 05/15/2021 10:14 AM CDT documented as of this encounter Last Filed Vital Signs Vital Sign Reading Time Taken Comments Blood Pressure 138/91 04/06/2021 8:21 AM CDT Pulse - - Temperature - - Respiratory Rate - - Oxygen Saturation - - Inhaled Oxygen Concentration - - Weight - - Height - - Body Mass Index - - documented in this encounter Progress Notes Sarah Prado, R.N. - 04/06/2021 8:30 AM CDT Pt did bring in her own b/p cuff to have nursing staff double check reliability or reading. Reading on her machine was 150/102 P 84 Compared to our machine of 138/91 P 85 Sarah RN documented in this encounter Plan of Treatment Not on filedocumented as of this encounter Visit Diagnoses Diagnosis Hypertension Gestational (HCC ) - Primary documented in this encounter Care Teams Vegetable Worker Relationship Specialty Start Date End Date Elsewhere, Pcp PCP - General 09/01/19 documented as of this encounter
--- OUTSIDE RECORDS SUMMARY | 2022-06-19 16:17 | XMS_ITS | Encounter Summary ---
:1995 Demographics Address [address] [place] [phone] Mobile Phone Home Phone Email Address Preferred Language ENG Marital Status [employer] Affiliation Unknown Race White Ethnic Group Not or Author Organization [facility] Address [address] [place] [address] Care Team Providers Name Role Phone Elsewhere, Pcp Primary Care Provider Unavailable Reason for Referral Outpatient (Routine) - Closed Specialty Diagnoses / Procedures Referred By Contact Refer red To Contact Obstetrics and Miguel Angel Larios [facility] Gynecology Imani Arreguin [address] [place] [id number] Referral ID Status Reason Start Date Expiration Date Visits Requ ested Visits Authorized [id number] Closed 04/05/2021 04/05/2022 1 1 Reason for Visit Reason Comments Blood Pressure Check Encounter Details Date Type Department Care Team Description 04/05/2021 Office Visit Department of Miguel Angel Larios Obstetrics and Imani Arreguin Gestational Gynecology in [address] [place] [address] ([facility]) (Primary Dx) [address] [address] [place], [place] [phone] (Work) [phone] Social History Tobacco Use Types Packs/Day Years [...] 11/30/2021 relatives? How often do you attend buddhist or jainism Never 11/30/2021 services? Do you belong to any clubs or organizations such as No 11/30/2021 buddhist groups, unions, fraternal or athletic groups, or [...] or slept in a fdc (including now)? Sex Assigned at Date Recorded Female 05/15/2021 10:14 AM CDT documented as of this encounter Last Filed Vital Signs Vital Sign Reading Time Taken Comments Blood Pressure - - Pulse 90 04/05/2021 4:43 PM CDT Temperature - - Respiratory Rate - - Oxygen Saturation - - Inhaled Oxygen Concentration - - Weight - - Height - - Body Mass Index - - documented in this encounter Progress Notes Miguel Angel Larios M.D. - 04/05/2021 4:00 PM CDT SUBJECTIVE CHIEF COMPLAINT / REASON FOR VISIT Sadie Mart, , is 6 days status post , Low Transverse . It was done on March 29, 2021 for cephalopelvic disproportion and failure to progress, persistent category 2 heart tones. was otherwise come complicated. On postop day 2 isolated elevated blood pressures noted in 140-150/90's range. Preeclampsia workup was completely normal, negative. Patient was started and discharged home on labetalol 200 mg b.i.d.. Presents for blood pressure check today. Was given blood pressure monitor, which has not been calibrated. States that some of blood pressures at home are 140-150/80-100's range. States that she feels pretty well, however noted headache last night - low- grade, frontal. It does not hurt, but it stays there. Denies any vision changes, right upper quadrant or epigastric pain or discomfort. Reports normal bladder and bowel function. Incision is healing very nicely. Patient's bleeding Very minimal. Blood pressure in the office today is 140/84. Patient has not had blood pressure medications since 9 a.m. this morning HISTORY OF PRESENT CONDITION OB History Para Term AB Living 1 1 1 1 SAB TAB Ectopic Molar Multiple Live Births 0 1 # Outcome Date GA Lbr Filemon/2nd Weight Sex Delivery Anes PTL Lv 1 Term 03/29/21 41w3d 3.17 kg M CS-LTranv Spinal, EPI SERENA Complications: Failure to Progress in First Stage, Persistent Category 2 REVIEW OF SYSTEMS A comprehensive review of systems was negative except for: Neurological: Symptoms; Neuro: Low-grade frontal headache OBJECTIVE VITAL SIGNS Vitals: 04/05/21 1643 Pulse: 90 MEDICATIONS I am having Sadie Mart start on xcoqwdsywb-ifurqybbjcinn-mrxo. I am also having her maintain her ttfibar-Pi-csof-FA, acetaminophen, ibuprofen, labetaloL, oxyCODONE, sennosides, labetaloL, and acetaminophen. PHYSICAL EXAM Breasts: normal Lymph nodes: normal Abdomen: no organomegaly, masses or hernia. Abdominal incision well healed. Genitalia: Deferred Extremities - no clubbing, cyanosis, edema Normal deep tendon reflexes, no clonus MENTAL STATUS Maternal Feelings Score: Well, optimistic DIAGNOSTICS I have reviewed the most recent labs Blood Type: O POS Antibody Screen: Antibody Screen Date Value Ref Range Status 03/29/2021 NEG Final Thin Prep: deferred ASSESSMENT / PLAN Problem List Items Addressed This Visit Circulatory Hypertension Gestational (HCC) - Primary #1 exam complicated by gestational hypertension. Borderline blood pressure in the office today 141/84 more than 8 hours after oral labetalol 200 mg. 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 Completely normal CBC and CMP, increasing platelets, normal creatinine and LFTs. Recommendations: Submitted prescription for 10 tablets of Fioricet, patient is to take 1 tablet every 4-6 hours until the headache resolves. Recommended liberal oral intake of fluids, continuation of the antihypertensive medication at this time. Patient will return for short-term follow-up and blood pressure check tomorrow, as well as for calibration of her blood pressure monitor. She feels that she was not given appropriate instructions on blood pressure checks. Patient advised that if she develops worsening persistent headache, vision changes, right upper quadrant or epigastric pain or discomfort, she should call and or return for re-evaluation immediately. All questions answered. Patient and significant other in agreement with the plan recommendations Return appointment: Patient will return for blood pressure recheck and calibration of her blood pressure monitor PATIENT EDUCATION Ready to learn, barriers to learning: none; learning preferences include listening. Explained diagnosis and treatment plan; patient expressed understanding of the content. Miguel Angel Larios M.D. 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
--- OUTSIDE RECORDS SUMMARY | 2022-06-19 16:17 | XMS_ITS | Encounter Summary ---
:1995 Demographics Address [address] [place] [address] Mobile Phone Home Phone Email Address Email Address Preferred Language ENG Marital Status [employer] Affiliation Unknown Race White Ethnic Group Not or Author Organization [facility] Address [address] [place] [address] Care Team Providers Name Role Phone Elsewhere, Pcp Primary Care Provider Unavailable Encounter Details Date Type Department Care Team Description 04/05/2021 Orders Only Department of Miguel Angel Larios Obstetrics and Imani Arreguin Gestational Gynecology in [address] [facility] ([facility]) (Primary Dx) [place] [id number] [facility] [address] [place], [place] [phone] (Work) [phone] Social History Tobacco Use Types Packs/Day Years [...] 11/30/2021 relatives? How often do you attend judaism or latter day Never 11/30/2021 services? Do you belong to any clubs or organizations such as No 11/30/2021 judaism groups, unions, fraternal or athletic groups, or [...] place to sleep or slept in a [facility]p (including now)? Sex Assigned at Date Recorded Female 05/15/2021 10:14 AM CDT documented as of this encounter Plan of Treatment Not on filedocumented as of this encounter Results (ABNORMAL) Comprehensive Metabolic Panel [...] CDT eGFR-Black/Afric >90 >=60 04/05/2021 [place] an [place] mL/min/BSA 5:03 PM CDT Comment: ----ADDITIONAL INFORMATION---- [...] 04/05/20 4:35 Venous) CDT PM CDT Miguel Angle Larios M.D. LAB BLOOD ADD-ON Performing Organization Address City/State/ZIP Code Phon e Number [facility]- [address] [place] [id number] [place] [address] [place] [address] System in [address] (ABNORMAL) CBC with Differential, Blood (04/05/2021 4:24 PM CDT) [facility] Method Time Signature Hemoglobin 11.3 (L) 11.6 [...] Organization Address City/State/ZIP Code Phon e Number 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
--- OUTSIDE RECORDS SUMMARY | 2022-06-19 16:17 | XMS_ITS | Encounter Summary ---
:1995 Demographics Address [address] [place] [address] Mobile Phone Home Phone Email Address Email Address Preferred Language ENG Marital Status Life Partnership Uatsdin Affiliation Unknown Race White Ethnic Group Not or Author Organization [facility] Address [address] [place] [address] Care Team Providers Name Role Phone Elsewhere, Pcp Primary Care Provider Unavailable Reason for Visit Reason Comments Other Transfer from center Auth/Cert Specialty Diagnoses / Procedures Referred By Contact Refer red To Contact Diagnoses 41 Weeks Gestation (HCC) Procedures Referral ID Status Reason Start Date Expiration Date Visits Requ ested Visits Authorized [id number] 1 1 Encounter Details Date Type Department Care Team Description 03/29/2021 Surgery [facility] OR Val Wong M.D. SECTION 1025 [facility] [address] [place] [address] [place] [id number] [phone] (Wo rk) Social History Tobacco Use Types [...] 11/30/2021 relatives? How often do you attend hoahaoism or mandaeism Never 11/30/2021 services? Do you belong to any clubs or organizations such as No 11/30/2021 hoahaoism groups, unions, fraternal or athletic groups, or [...] Sign Reading Time Taken Comments Blood Pressure 134/71 03/29/2021 6:45 PM CDT Pulse - - Temperature 37.5 ??C (99.5 ??F) 03/29/2021 5:24 PM CDT Respiratory Rate - - Oxygen Saturation - - Inhaled Oxygen Concentration - - Weight - - Height - - Body Mass Index - - documented in this encounter Discharge Summaries Neli Chahal APRN, LAZARO - 04/01/2021 10:06 AM CDT DISCHARGE SUMMARY BRIEF OVERVIEW Hospital: [facility] Discharge Provider: Val Wong M.D. Primary Team: [facility] AUTOMOBILE OR TRUCK RENTAL DISPATCHER Primary Care Provider at Discharge: Primary Care [...] SECTION Val Wong M.D.Fite, Jaron R, P.A.-C. [facility] OR Review the Delivery Report for details. GA: 41w3d GP: Risk Factors: Maternal GBS Positive Post-Dates Obstetric Procedures this : None Labor Complications: Failure to Progress in First Stage;Persistent Category 2 Delivery Details: 03/29/2021 9:17 PM with Apgars of 8 and 9 . Delivery Type: , Low Transverse Lacerations: Shabbir Mart [[phone]] Moran Weight: 3.17 kg Feeding Method: breast/bottle Rh Immune Globulin Given: not applicable Rubella Vaccine Given: not applicable TEST RESULTS PENDING AT DISCHARGE Pending Labs None DETAILS OF HOSPITAL STAY REASON FOR ADMISSION Transfer of care of [facility] HOSPITAL COURSE Sadie Mart is a 25 y.o. @ 41w3d who presented to the hospital for Active Labor transferred from the [facility] in [place] with diagnosis of failure to progress and category 2 strip.. Patient received care [facility] in [place] by Sherry Newell CNM. Her was complicated [...] in this encounter Discharge Instructions Patient InstructionsEva Llamas L.I.C.S.W. - 03/30/2021 1:55 PM CDT [employer] [address] [place] [address] Office Support Helpline: 740.690.4QUM (9046) Https://www..net/ [facility] 536-066-7405 * Available for crisis residence and mobile crisis supports. [place] [facility] Warmline Open Saturday-Saturday 5PM to 10PM [phone] or 502-468-3760 or Text ???support?? to [address] *Calls are answered by a Matching Machine Operator who have first-hand experience living with a mental health condition Mental Health Helpline at or online at www.mentalhealth[place].org 24 Hour Crisis Line [phone] * Available for 25/03 mental health crisis supports and resources. Crisis Response for [facility] 815-382-0153 or 465-QOFTBQ9 * Available for 25/03 mental health crisis supports and resources. [employer] Hotline (youth specific crisis resource) Text: VOICE to Chat: [employer] Download the Mood Zahra: ???My Life My Voice?? Crisis Text Line Text STEVEN to 782-049 [place] Suicide Prevention Lifeline 655-294-KKGR (8572) connects you with a crisis center in the Lifeline network closest to your location. Your call will be answered by a trained factory process workers who will listen empathetically and without judgment. The crisisworker will work to ensure that you feel safe and help identify options and information about mentalhealth services in your area. Your call is confidential and free. National Drug Abuse Helpline National Eating Disorder Association Helpline The [facility] HelpLine can be reached Saturday through Saturday, 10 am-6 pm, ET. 2-620-872-[facility] (0829) or info@[email or web address] HelpLine staff and volunteers are prepared to answer your questions about mental health issues including: ??? Symptoms of mental health conditions ??? Treatment options ??? Local support groups and services ??? Education programs ??? Helping family members get treatment ??? Programs to help find jobs ??? Legal issues (the [facility] Legal Resource Service can connect individuals [...] crisis or who express suicidal ideation to [facility] crisis line to provide further assistance. AppointmentsSaad Julisa Miller - 04/01/2021 10:13 AM CDT Post follow ups: Clinic will contact you to schedule these appointments. If you do not hear back please call! [phone] documented in this encounter Medications at Time of Discharge Medication Sig Dispensed Refills Start Date End Date Take 1 tablet by 0 fgagkhx-Uo-wclm-FA mouth daily. (VINATE ONE) 60 mg iron-1 [...] Labor transferred from the birthing center in [place] with diagnosis of failure to progress and category 2 strip.. Patient received care [facility] in [place] by Sherry Newell CNM. Her was complicated [...] is currently . Feeding method for her infant: breast feeding with difficulties at this time, [...] understanding of the content. Neli Chahal APRN, LAZARO Larios was consulted regarding blood pressures. Labs reviewed and recommended starting labetalol 100mg BID. Eva Llamas L.I.C.S.W. - 03/30/2021 1:46 PM CDT Psychosocial Assessment SUBJECTIVE DEMOGRAPHIC INFORMATION Referral Source: Provider/Service Referral Name: Dr. Kasper Referral Reason: Psychosocial assessment, Coping, adjustment and support, Resource/Education Person(s) present during interview: Patient, Significant other, Other (comment) Primary care clinic and provider: ELSEWHERE, PCP Primary Language: Omani Special Events Fundraiser Services Used: No Legal Information: Legal Decision Maker: Self Advance Directives: N/A Advance Directives Status: N/A Legal Status (ARZ Excluded): (None identified) Citizenship: Citizenship: [place] Citizen REASON FOR CONSULT Psychosocial assessment, Coping, adjustment and support, Resource/Education Patient is 25-year-old female who arrived to [facility] in [place] from [facility]. Patient delivered her son, Олег via unscheduled delivery on March 29, 2021. He was born at 41 weeks and 3 days. Patient is . Patient received care the [facility] in [place], [place]. The social work coordinator met with patient for assessment of her biopsychosocial needs following her unscheduled C- section. The social work coordinator met with patient in [facility] room 5017 and also present was her [...] Procedure: SECTION; Surgeon: Val Wong M.D.; Location: [facility] OR ??? CHOLECYSTECTOMY SOCIAL HISTORY Early growth and development: The patient met social and developmental milestones as expected. Family of Origin: Patient is a 25-year-old female. She is 1 of 10 siblings. Her significant other, Antoine also has a large family. They currently reside together in [place], [place]. This is their 1st . Marital Status / Family / Household Status: single. Patient is not but is in a relationship with Antoine who is the father to gena. Household: Patient resides in [place], [place] with her significant other and now son. Her family and Antoine's family also live locally and are a good support. Support Systems: Significant other, Parent, Family members, Friends/neighbors. We have not received permission to contact them. 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 FINANCES/INSURANCE Primary insurance: [employer] Secondary insurance: N/A Income Information Does the [...] . She does have a psychiatrist at [facility] she will follow-up with as she has [...] or attempts at that time. Lifetime/Recent: The [place] Suicide Severity Rating Scale (C-SSRS) Lifetime/Recent screening [...] , 25 y.o., female, Unplanned delivery at [facility] [place] [facility] with a . Homicidal risk factors include: [...] unconfirmed positive urine drug s creen. The social work coordinator and patient discussed mandated reporting requirements if urine drug screen would be positive for baby would be positive. Mental Health Treatment History Past Treatments: Psychotherapy, Pharmacotherapy Psychotherapy details: Patient has had therapy through [facility] in [place] in the past. She was interested in possibly restarting with a different organization and would like to look at a list. This was were provided to her by social work.Lucius PanchalS.W. 03/30/21 Pharmacotherapies details: Patient has been on medication in the past including sertraline and Xanax. She has a psychiatrist at [facility] in [place] and proactively schedule an appointment for during her transition.Chavo Panchal 03/30/21 Current Stressors Patient was receiving care at [facility] in [place], [place]. Due to decelerations of baby during labor, she was transferred to [facility] labor and delivery unit where she delivered [...] 25 y.o. female who [facility]. She delivered her son, Олег via unscheduled delivery on March 29, 2021. Patient's was delivered at 41 weeks and 3 days. Patient and her are doing well with no medical complications at this time. Patient and her infant will reside in [place], [place]. Patient will be on maternity leave for 2 months.Patient reports she and her are ready for discharge. Patient is prepared at home with the essential items needed for her . She has good support from significant other and both their extended family. Patient is not interested in Public Health at this time. She indicates no further needs from this Yeast Tender at this time. Patient has generalized anxiety [...] She will be following up with her linoleum tile layer but is also considering starting individual psychotherapy and is also looking into getting a psychiatry appointment with her previous psychiatry to restart medications if needed. INTERVENTIONS 1. Yeast Tender met with patient and provided education to her on the role of the Women's and Children's Yeast Tender. 2. Yeast Tender completed the Social Service Assessment. 3. sheet metal worker apprentice also provided patient with [employer] Brochure on Depression as wellas this Yeast Tender's business card. 4. sheet metal worker apprentice met with patient and provided supportive services through reflective listening, validation, normalization of feelings, and reassurance. 5. sheet metal worker apprentice provided review of available community resources. 6. Yeast Tender provided education regarding Depression and Anxiety and encouraged promptfollow up as needed. 7. Yeast Tender educated patient on resources available to her and her family at discharge. 8. Yeast Tender updated the treatment plan and care team on the above assessment. 9. sheet metal worker apprentice processed with patient the steps necessary to help ensure a positive transition which includes positive self care, asking for help from others and identifying emotions as they present themselves. 10. Discussion was also had regarding how and where to connect with services if concerns arise during the transition regarding mental health. 11. sheet metal worker apprentice engage patient in motivation all interviewing. -Interventions [...] significant erythema Extremities: symmetric and nontender Occurences STATUS Infant sex: Information for the patient's : Shabbir Mart [[phone]] male Infant name: Information for the patient's : Shabbir Mart [[phone]] Shabbir Mart Infant room: Information for the patient's : Shabbir Mart [[phone]] NRY 5017/5017-A DIAGNOSTICS I have reviewed diagnostics. [...] well without problems Continue routine care Roxanne Kaspre M.D. Val Wong M.D. - 03/29/2021 7:59 PM CDT SUBJECTIVE Sadie Mart is a 25 y.o. with an Estimated Date of Delivery: None noted.. Gestational age is Unknown determined by LMP. She was admitted to the hospital for spontaneous onset of labor. Transferred from [facility] for lack of labor progress and CAT [...] 03/29/21 6:19 PM Result Value Testing Location [facility] No results found for this visit on [...] upon the type of uterine incision. Discussed risks which are few. One risk is [...] in this encounter Nursing Notes Emma Galeana, RNestorN. - 04/01/2021 12:03 PM CDT Shift Goals: [...] discharged home with all belongings. Acacia Skelton RMadison. - 03/31/2021 6:29 PM CDT Shift Goals: [...] End of Shift Summary: Baby delivered @ 2116. Liliana Boo R.N. - 03/29/2021 6:00 PM CDT PRESENTS TO UNIT FROM [facility] IN [facility] FOR NON REASSURING FHTS. PT, PT'S SPOUSE AND EQUIPMENT VALIDATION SPECIALIST STATE THAT PT HAS BEEN LABORING SINCE 1999 LAST EVENING, WENT INTO THE CENTER THIS MORNING AROUND 0830 AND WAS 6 CM. PT PROGRESSED AND WAS EVENTUALLY AROM'D BY JALYN, THE MIDWIFEAT THE [facility] AROUND 1530 THIS AFTERNOON, THEY STATE FLUID WAS CLEAR. AT THAT TIME PT WAS 7 CM DILATEDPER THE EQUIPMENT VALIDATION SPECIALIST, PT WAS UP LABORING IN BATHTUB AND AMBULATING AROUND ROOM WHEN RECURRENT DECELERATIONSWERE AUSCULTATED IN BABY'S HR. JALYN THE DECATOR OPERATOR THEN CALLED [facility] TO TRANSFER PT TO [facility]. UPON ARRIVAL BABY APPEARED TO HAVE MODERATE [...] was copied from a baby's chart. SUBJECTIVE Boy Sadie Mart, at 2 days old of age, [...] does other, staff holds LATCH Score: 8 Input: 12 feedings and 26 mls/24 hours Output: 1 voids/24 hours, 1 stools/24 [...] patterns, feeding frequency, and infant feeding cues. Infant was born at 41 3/7weeks gestation. This [...] verbalize understanding of education provided. Resource given [facility] Your Baby with contact information for arranging [...] living together Infant Assessment Infant State: Drowsy Suck: Rhythmic Mucus Membranes: Moist Latch Score: Latch: Grasps breast, tongue down, lips flanged, rhythmic sucking Audible Swallowing: Spontaneous and intermittent (24 hours old) Type of Nipple: Everted (After stimulation) Comfort (Breast/Nipple): Soft/non-tender Hold (Positioning): Full assist, teach one side, mother does other, staff holds LATCH Score: 9 Input: 6 feedings/24 hours Infant Output: 1 voids/24 hours, 1 [...] patterns, feeding frequency, and infant feeding cues. Infant was born via primary hieu . Mother reports infant has latched but has been spity and sleepy recently. She has used a nipple shield occassionally to help with latching. She did pump colostrum that they have at home in freezer if needed, she used her Maria De [employer] Motiff pump that shehas with her. This is mothers first experience. fed well and is swallowing in frequent [...] verbalize understanding of education provided. Resource given [facility] Your Baby with contact information for arranging follow up or for nurse questions. Follow Up: follow up plan: tomorrow and as needed today. Roxanne Harper R.N. Hospital Course - Neli Chahal APRN, CNM - 03/29/2021 10:16 PM CDT Sadie Mart is a 25 y.o. @ 41w3d who presented to the hospital for Active Labor transferred from the birthing center in [place] with diagnosis of failure to progress and category 2 strip.. Patient received [facility] in [place] by Sherry Newell CNM. Her was complicated [...] Wong M.D. Provider Role Delivery Nurse Camila Martinez, RNestorNNestor Nursery Nurse Pan Tank Worker Td Hernández, P.A.-C. Physician Yarn Weight And Strength Tester Jono Montalvo RRamin NICU Nurse Fior Serna L.R.T. Thompson, Matthew G, M.D. Surgeon(s) and Role: * Val Wong M.D. - Primary * Td Hernández, P.A.-C. - Newspaper Writer A assistant professor of anthropology actively participated and was necessary for one [...] Delivery Time: (Delivered) Hours: 5 Minutes: 47 Moran Sex: Male Weight: 3.17 kg 1 Minute [...] uterine incision wasmade and extended bilaterally. The infant was delivered from the Vertex Left Occiput [...] case, from start to finish and the him assistant's presence was crucial for the safe [...] CNM LAB URINE ORDERABLES Performing Organization Address [facility] Phon e Number [address] [address] [place] [address] (ABNORMAL) Protein/Creatinine Ratio, Random, Urine (03/31/2021 [...] CNM LAB URINE ORDERABLES Performing Organization Address [facility] Phon e Number [address] [address] [place] [address] (ABNORMAL) Comprehensive Metabolic Panel (03/31/2021 9:12 [...] CDT eGFR-Black/Afri >90 >=60 03/31/2021 [facility] can Filipino mL/min/BSA 9:49 AM CDT Comment: ----ADDITIONAL INFORMATION---- [...] Organization Address City/State/ZIP Code Phon e Number [facility]- [address] [place] [address] [place] [address] System in [place] [address] [place] [address] (ABNORMAL) CBC with Differential, Blood (03/31/2021 9:12 AM CDT) [facility] Method Time Signature Hemoglobin 9.4 (L) 11.6 [...] Organization Address City/State/ZIP Code Phon e Number [facility]- [address] [place] [address] [place] [address] System [address] (ABNORMAL) CBC with Differential, Blood (03/30/2021 5:53 AM CDT) [facility] Method Time Signature Hemoglobin 10.5 (L) 11.6 [...] Organization Address City/State/ZIP Code Phon e Number [facility]- [facility] [place] [address] [place] [address] System in [place] [address] [place] [address] (ABNORMAL) Drug Screen Urine (03/29/2021 8:12 PM CDT) P athologist Signature Amphetamines, Negative Negative 03/29/2021 MKTO U 9:16 PM CDT Comment: ----ADDITIONAL INFORMATION---- X Ray Developer's Cutoff: 500 ng/mL Barbiturates, U Negative Negative 03/29/2021 9:16 PM CDT M KTO Comment: ----ADDITIONAL INFORMATION---- X Ray Developer's Cutoff: 200 ng/mL Benzodiazepines, U Negative Negative 03/29/2021 9:16 PM CD T MKTO Comment: ----ADDITIONAL INFORMATION---- X Ray Developer's Cutoff: 150 ng/mL Buprenorphine, U Negative Negative 03/29/2021 9:16 PM CDT MKTO Comment: ----ADDITIONAL INFORMATION---- X Ray Developer's Cutoff: 10 ng/mL Cocaine, U Negative Negative 03/29/2021 9:16 PM CDT MKTO Comment: ----ADDITIONAL INFORMATION---- X Ray Developer's Cutoff: 150 ng/mL Methadone, U Negative Negative 03/29/2021 9:16 PM CDT MKTO Comment: ----ADDITIONAL INFORMATION---- X Ray Developer's Cutoff: 200 ng/mL Methamphetamines, U Negative Negative 03/29/2021 9:16 PM C DT MKTO Comment: ----ADDITIONAL INFORMATION---- X Ray Developer's Cutoff: 500 ng/mL Opiates, U Negative Negative 03/29/2021 9:16 PM CDT MKTO Comment: ----ADDITIONAL INFORMATION---- X Ray Developer's Cutoff: 100 ng/mL Oxycodone, U Negative Negative 03/29/2021 9:16 PM CDT MKTO Comment: ----ADDITIONAL INFORMATION---- X Ray Developer's Cutoff: 100 ng/mL Phencyclidine, U Negative Negative 03/29/2021 9:16 PM CDT MKTO Comment: ----ADDITIONAL INFORMATION---- X Ray Developer's Cutoff: 25 ng/mL Propoxyphene, U Negative Negative 03/29/2021 9:16 PM CDT M KTO Comment: ----ADDITIONAL INFORMATION---- X Ray Developer's Cutoff: 300 ng/mL Tetrahydrocannabinol, U Unconfirmed Positive Negative 03/29 9:16 PM MKTO (A) CDT Comment: ----ADDITIONAL INFORMATION---- X Ray Developer's Cutoff: 50 ng/mL Tricyclic Antidepressants, U Negative Negative 03/29/2021 9:16 PM CDT MKTO Comment: ----ADDITIONAL INFORMATION---- X Ray Developer's Cutoff: 300 ng/mL THE ABOVE DRUG SCREEN PANEL IS FOR MED ICAL PURPOSES ONLY Specimen Anatomical Collection Method Collection Time Receive d Time (Source) Location / / Volume Laterality Urine (Urine, 03/29/2021 8:12 PM 03/29/20 21 8:49 Clean Catch) CDT PM CDT Val Wong M.D. LAB URINE ORDERABLES Performing Organization Address City/State/ZIP Code Phon e Number [facility]- [address] [place] [address] [place] [address] SARS Coronavirus-2 RNA, V Asymptomatic (03/29/2021 6:37 PM CDT) [facility] Method Time Signature SARS-CoV-2 Swab, 03/29/2021 MK[facility] [...] pe rformed using the Aptima SARS-CoV-2 assay ([employer] on the [employer] tem under emergency use authorization (EUA) by the U.S. Food and Drug Administ ration. Fact sheets for this EUA assay can be fo und at the following links: For Healthcare Providers: https://www.Welzoo a.gov/media/198003/download For Patients: https://www.fda.gov/media/ 650237/download Specimen Anatomical Collection Method Collection Time Receive d Time (Source) Location / / Volume Laterality Varies 03/29/2021 6:37 PM 1 6:55 (Nasopharynx) CDT PM CDT Val Wong M.D. LAB MICROBIOLOGY - GENERAL O RDERABLES Performing Organization Address [facility] Phon e Number [address] [address] [place] [address] System [address] Testing Location (03/29/2021 6:19 PM CDT) P athologist Signature Testing [facility] DEFAULT 03/29/2021 MK[facility] Location 6:25 PM CDT Specimen Anatomical Collection Method Collection Time Receive d Time (Source) Location / / Volume Laterality Blood 03/29/2021 6:19 PM 1 6:25 CDT PM CDT Val Wong M.D. LAB BLOOD BANK TEST ORDERABL ES Performing Organization Address [facility] Phon e Number [address] [address] [place] [address] Type and Screen (with reflex Antibody [...] Organization Address City/State/ZIP Code Phon e Number [facility]- [address] [place] [address] [place] [address] System [address] (ABNORMAL) Comprehensive Metabolic Panel (03/29/2021 6:19 [...] CDT eGFR-Black/Afri >90 >=60 03/29/2021 MKTO can Filipino mL/min/BSA 6:49 PM CDT Comment: ----ADDITIONAL INFORMATION---- [...] Laterality Blood (Blood, 03/29/2021 6:19 PM 03/29/20 21 6:25 Venous) CDT PM CDT Val Wong M.D. LAB BLOOD ADD-ON Performing Organization Address City/State/ZIP Code Phon e Number [facility]- [address] [place] [address] [place] [address] System [address] (ABNORMAL) CBC without Differential (03/29/2021 6:19 PM CDT) [facility] Method Time Signature Hemoglobin 11.8 11.6 - [...] Organization Address City/State/ZIP Code Phon e Number [facility]- [address] [place] [address] [place] [address] System [address] documented in this encounter Visit Diagnoses Not on filedocumented in this encounter Admitting Diagnoses Diagnosis 42 [...] Given 04/01/2021 12:05 AM CDT 1,000 mg ferrous sulfate tablet 65 mg of iron [...] Given 04/01/2021 12:05 AM CDT 600 mg labetaloL tablet 100 mg (NORMODYNE) Given 04/01/2021 8:15 AM CDT 100 mg 100 mg, oral, 2 times daily, First dose on Sat03/31/21 at 1130 Given 03/31/2021 9:11 PM CDT 100 mg Given 03/31/2021 11:40 AM CDT 100 mg multivitamin/mineral- tablet 1 Given 04/01/2021 8:15 AM [...] First dose on Sat03/30/21 at 2100, Post- Given 03/30/2021 8:53 PM CDT 8.6 mg documented in this encounter Active and Recently Administered Medications Times are shown in CDT. Scheduled Medication Order 03/30/2021 03/31/2021 04/01/2021 acetaminophen tablet 1,000 mg (TYLENOL) 0006 (Given - Provider: Camila Martinez R.N.)0605 (Given - Provider: Camila Martinez R.N.)1203 (Given - Provider: Viviana Reed RNestorN.)1811 (Given - Provider: Sunita MayorgaNNestor) 0008 (Given - Provider: Franci Taveras R.N.)0614 (Given - Provider: Franci Taveras R.N.)1140 (Given - Provider: Emma Galeana R.N.)1813 (Given - Provider: Emma Galeana R.N.) 0005 (Given - Provider: Rupert kim R.NNestor)0615 (Given - Provider: Soco Dial RNestorNNestor)1154 (Given - Provider: Emma Galeana R.N.) 1,000 mg, oral, Every 6 hours, First dos e on Jen 03/30/21 at 0000, Post-, Administer acetaminophen at same time as ketorolac or ibuprofen. ferrous sulfate tablet 65 mg of iron 114 0 (Given - Provider: Emma Galeana R.N. - Comment: Leonie Chahal CNM ordered @ 10:30ish) 0815 (Given - Provider: Emma Galeana R.N.) 65 mg of iron, oral, Daily, First dose o n 03/31/21 at 1000, 325 mg contains 65 mg of elemental iron. ibuprofen tablet 600 mg (ADVIL,MOTRIN) 0 008 (Given - Provider: Franci Taveras RMadison.)0614 (Given - Provider: Sunita CaroNNestor)1140 (Given - Provider: Emma Galeana R.N.)1813 (Given - Provider: Emma Galeana R.N.) 0005 (Given - Provider: Rupert kim, R.N.)0615 (Given - Provider: Soco Dial RNestorNNestor)1154 (Given - Provider: Emma Galeana R.N.) 600 mg, oral, Every 6 hours, First dose on Sat03/31/21 at 0000, Post-, Start 6 hours after last ketorolac dose administered ketorolac injection 15 mg (TORADOL) (COMPLETED) 0420 ( Given - Provider: Camila Martinez R.N.)0958 (Given - Provider: Viviana Reed RNestorN.)1606 (Given - Provider: Liliana Boo RNestorNNestor) 15 mg, intravenous, Every 6 hours, First [...] for IV. labetaloL tablet 100 mg (NORMODYNE) 1139 (Given - Provider: Emma Galeana R.N.)2110 (Given - Provider: Acacia Skelton R.N.) 0815 (Given - Provider: Emma Galeana R.N.) 100 mg, oral, 2 times daily, First dose on Sat03/31/21 at 1130 multivitamin/mineral- tablet 1 tablet 0901 (No t Given - Provider: Viviana Reed R.N. - Reason: Patient/family refused) 0839 (Given - Provider: Emma Galeana R.N.) 0815 (Given - Provider: Emma Galeana R.N.) 1 tablet, oral, Daily, First dose on Sat03/30/21 at 0900, Post-P artum sennosides tablet 8.6 mg (SENOKOT) 2052 (Given - Provi brennan: Franci Taveras RNestorNNestor) 2110 (Given - Provider: Acacia M Austad, R.N.) 8.6 mg, oral, Daily at bedtime, First dose on Jen 03/30/21 at 2100, Post- sodium chloride 0.9 % injection 3 mL (CANCELED) 1001 ( Given - Provider: Viviana Reed R.N.) 0009 (Not Given - Provider: Franci uribe R.N. - Reason: Discontinued - Comment: IV out) 3 mL, intravenous, Every 12 hours schedu led, First dose on Jen 03/30/21 at 0900, Peripheral Intravenous Catheter and Rapid [...] 2052 (Given - Provider: Franci Taveras R.N.) 034 (Given - Provider: Franci diaz RNestorNNestor)0839 (Given [...] chloride 0.9 % injection 3 mL (CANCELED) 826 ( Given - Provider: Viviana Reed RRamin) 3 mL, intravenous, As needed, line care, [...] documented as of this encounter Care Teams Fiberglass Roller Relationship Specialty Start Date End Date Elsewhere, Pcp PCP - General 09/01/19 documented as of this encounter
--- OUTSIDE RECORDS SUMMARY | 2022-06-19 16:17 | XMS_ITS | Encounter Summary ---
:1995 Demographics Address [address] [place] [address] Mobile Phone Home Phone Email Address Email Address Preferred Language ENG Marital Status Life Partnership Sabianism Affiliation Unknown Race White Ethnic Group Not or Author Organization [facility] Address [address] [place] [address] Care Team Providers Name Role Phone Elsewhere, Pcp Primary Care Provider Unavailable Reason for Visit Reason Comments Nurse Visit Outpatient (Routine) - Closed Specialty Diagnoses / Procedures Referred By Contact Refer red To Contact Obstetrics and Neli Chahal APRN, [facility] Gynecology [address] [address] Referral ID Status Reason Start Date Expiration Date Visits Requ ested Visits Authorized [id number] Closed 04/01/2021 04/01/2022 1 1 Encounter Details Date Type Department Care Team Description 04/05/2021 Nurse Only Department of Obstetrics and Bro Neli yang APRN, [address] [phone] Nurse Visit Gynecology in [place], Sarah Prado, RNestorN. [address] [place] [phone] [phone] Social History Tobacco Use Types Packs/Day Years [...] 11/30/2021 relatives? How often do you attend holiness or hindu Never 11/30/2021 services? Do you belong to any clubs or organizations such as No 11/30/2021 holiness groups, unions, fraternal or athletic groups, or [...] place to sleep or slept in a fci (including now)? Sex Assigned at Date Recorded Female 05/15/2021 10:14 AM CDT documented as of this encounter Last Filed Vital Signs Vital Sign Reading Time Taken Comments Blood Pressure 141/84 04/05/2021 4:23 PM CDT Pulse 90 04/05/2021 4:23 PM CDT Temperature - - Respiratory Rate 18 04/05/2021 4:23 PM CDT Oxygen Saturation - - Inhaled Oxygen Concentration - - Weight - - Height - - Body Mass Index - - documented in this encounter Progress Notes Sarah Prado RNestorN. - 04/05/2021 4:00 PM CDT Late note from 04/05/21 at 4PM- Pt arrived for a nurse visit post delivery blood pressure check.she has been checking her blood pressure at home since her C section delivery 1 week ago. 04/02 154/89, 148/93 04/03 146/83, 153/108 04/04 154/88 04/05 155/108 Today she states she has had a BROWNE since yesterday rating pain 5 on a scale of 1- 10.has tried Tylenolrotating with Motrin without relief. todays b/p was 141/84. Discussed with tile mason provider Dr Larios and he ordered labs for pt and advised her to come backto office for a visit with him after lab draw. Pt also using Labetalol 200mg BID and her next appt is with Dr Wong on 04/19 Sarah GARCIA documented in this encounter Plan of Treatment Not on filedocumented as of this encounter Visit Diagnoses Not on filedocumented in this encounter Care Teams Molder Inflated Ball Relationship Specialty Start Date End Date Elsewhere, Pcp PCP - General 09/01/19 documented as of this encounter
--- OUTSIDE RECORDS SUMMARY | 2022-06-19 16:17 | XMS_ITS | Encounter Summary ---
:1995 Demographics Address [address] [place] [address] Mobile Phone Home Phone Email Address Email Address Preferred Language ENG Marital Status Life Partnership Anabaptism Affiliation Unknown Race White Ethnic Group Not or Author Organization [facility] Address [address] [place] [address] Care Team Providers Name Role Phone Elsewhere, Pcp Primary Care Provider Unavailable Encounter Details Date Type Department Care Team Description 04/06/2021 Clinical Communication Department of Roxanne Kasper, Obstetrics and M.D. Gynecology in [place] [id number] [phone] Social History Tobacco Use Types Packs/Day Years [...] 11/30/2021 relatives? How often do you attend muslim or restoration Never 11/30/2021 services? Do you belong to any clubs or organizations such as No 11/30/2021 muslim groups, unions, fraternal or athletic groups, or [...] or slept in a custodial (including now)? Sex Assigned at Date Recorded Female 05/15/2021 10:14 AM CDT documented as of this encounter Miscellaneous Notes Telephone Encounter - Sarah Prado R.N. - 04/06/2021 8:43 AM CDT Pt here for blood pressure f/u appt per Dr Larios from yesterday. Supervisor Lens Generating updated Dr Kasper who is content writer today with patients current status and blood pressure readings. Dr Kasper recommends pt be sent home with a [place] Blood pressure cuff and continues to take her blood pressures from home.report back by calling office next Saturday with readings or before that time if symptoms worsen or she continues to have elevated blood pressure readings. Continue on labetalol. Pt ag jason with plan and insurance writer showed pt how to use B/P cuff properly. Sarah GARCIA documented in this encounter Plan of Treatment Not on filedocumented as of this encounter Visit Diagnoses Not on filedocumented in this encounter Care Teams Drill Press Set Up Operator Relationship Specialty Start Date End Date Elsewhere, Pcp PCP - General 09/01/19 documented as of this encounter
--- OUTSIDE RECORDS SUMMARY | 2022-06-19 16:17 | XMS_ITS | Encounter Summary ---
:1995 Demographics Address [address] [place] [address] Mobile Phone Home Phone Email Address Email Address Preferred Language ENG Marital Status Life Partnership Gnosticist Affiliation Unknown Race White Ethnic Group Not or Author Organization [facility] Address [address] [place] [address] Care Team Providers Name Role Phone Elsewhere, Pcp Primary Care Provider Unavailable Encounter Details Date Type Department Care Team Description 09/20/2021 Clinical Communication Department of [place], Obstetrics and [place] Gynecology in [address] [address] [phone] Social History Tobacco Use Types Packs/Day Years [...] 11/30/2021 relatives? How often do you attend scientology or latter day Never 11/30/2021 services? Do you belong to any clubs or organizations such as No 11/30/2021 scientology groups, unions, fraternal or athletic groups, or [...] this encounter Miscellaneous Notes Telephone Encounter - Casie Boo R.N. - 09/20/2021 11:55 AM DIE CASTER done CASTER Telephone Encounter - Rashmi Oconnor - 09/20/2021 11:34 AM CST OB Intake Triage *Place labs & US* First day of last menstrual period (LMP): 08/09/2021 Calculated LE: 05/16/2022 Gestational Age as of today: 6w0d How many times have you been (including miscarriages/elected abortions). : 2 How many living children do you have? Para: 1 Have you had any complications with any of your pregnancies? Yes, had emergency with Dr. Wong with first . Have you started a Vitamin? Yes (Please hold your vitamin 12 hours prior to your New OB appointment. It has been shown to interfere with lab results that you will be doing that day.) Any Bleeding Disorders: No Have you ever had a pulmonary embolism or deep vein thrombosis? No Do you have diabetes? No Do you have high blood pressure? No Are you taking any Rpex-bga-Muixmgk or Prescription medications besides a Vitamin? Yes, folic acid. Do you have any additional questions or concerns? No Arrange New OB visit- 30 minutes with the provider and 45 with the nurse- between 8-10 weeks gestation. This OB intake questionnaire along with the date and time of the initial appointment will be sent tot OB Triage nursing staff for review. If there are any additional concerns once reviewed, the nursing will address with the OB provider and contact you. What number can you be reached at? [phone] Is it okay to leave a message: Yes CASTER documented in this encounter Plan of Treatment Not on filedocumented as of this encounter Results Hepatitis C Virus Antibody Screen (10/05/2021 12:29 PM DIE CASTER) athologist Signature HCV Ab Scrn Negative Negative 10/06/2021 [facility] , S 8:10 AM DIE CASTER Comment: Cnessy-cn-ylvloj ratio is <1.00 . Specimen Anatomical Collection Method Collection Time Receive d Time (Source) Location / / Volume Laterality Blood (Blood, 10/05/2021 12:29 10/06/2021 7:16 Venous) PM DIE CASTER AM DIE CASTER Sara Lopez APRN, C.N.P. LAB MICROBIOLOGY - BLOOD ORDERABLES Performing Organization Address City/[facility] Code Phon e Number [facility] [address] [place] [address] SUPPORT CENTER [facility] [place] [address] Laboratory Medicine and Pathology [address] [place] Varicella-Zoster Antibody, IgG, Serum (10/05/2021 12:29 PM DIE CASTER) athologist Signature Varicella-Zost Negative 10/05/2021 [facility] er Ab, IgG, S 4:20 PM DIE CASTER Comment: ----REFERENCE VALUE---- Vaccinated: Positive (>=1.1 AI) Unvaccinated: Negative (<=0.8 AI) Varicella IgG Antibody Index 0.8 10/05/2021 4:20 PM DIE CASTER [facility] Specimen Anatomical Collection Method Collection Time Receive d Time (Source) Location / / Volume Laterality Blood (Blood, 10/05/2021 12:29 10/05/2021 3:15 Venous) PM DIE CASTER PM DIE CASTER Authorizing Provider Result Dea Lopez APRN, C.N.P. LAB MICROBIOLOGY - BLOOD ORDERABLES Performing Organization Address City/[facility] Phon e Number [facility] [address] [phone] [place] [address] System in [place] [address] [place] [address] Syphilis Total Ab w/ Reflex, Serum (10/05/2021 12:29 PM DIE CASTER) [facility] Method Time Signature Syphilis Nonreactive Nonreactive 10/06/2021 [facility] Total Ab w/ 10:44 AM DIE CASTER Reflex Comment: No serologic evidence of infection with T. pallidum (syphilis). ??Repeat testing may be cons idered in patients with suspected acute or primary syphilis in 2-4 weeks. For additional information on interpreta tion of the syphilis reverse algorithm and resul ts, see: [email or web address] df Specimen Anatomical Collection Method Collection Time Receive d Time (Source) Location / / Volume Laterality Blood (Blood, 10/05/2021 12:29 10/06/2021 7:07 Venous) PM DIE CASTER AM DIE CASTER Sara Lopez APRN, C.N.P. LAB BLOOD ADD-ON Performing Organization Address City/[facility] Code Phon e Number [facility] [address] [place] [address] SUPPORT CENTER [facility] [place] [address] Laboratory Medicine and Pathology [address] [place] Rubella Antibodies, IgG (10/05/2021 12:29 PM DIE CASTER) athologist Signature Rubella Ab, Positive 10/05/2021 [facility] IgG, S 4:20 PM DIE CASTER Comment: Results suggest response to immunization or prior exposure to the virus. ----REFERENCE VALUE---- Vaccinated: Positive (>=1.0 AI) Unvaccinated: Negative (<=0.7 AI) Rubella IgG Antibody Index 2.6 10/05/2021 4: 20 PM DIE CASTER [facility] Specimen Anatomical Collection Method Collection Time Receive d Time (Source) Location / / Volume Laterality Blood (Blood, 10/05/2021 12:29 10/05/2021 3:15 Venous) PM DIE CASTER PM DIE CASTER Sara Lopez APRN, Rich.N.P. LAB MICROBIOLOGY - BLOOD ORDERABLES Performing Organization Address City/[facility]/ZIP Code Phon e Number [address], [place] [address] [place] [address] System [address] HIV-1/-2 Ag and Ab Scrn, Plasma (10/05/2021 12:29 PM DIE CASTER) P athologist Signature HIV Ag/Ab Negative Negative 10/05/2021 [facility] Scrn, 4:33 PM DIE CASTER P Comment: Negative result does not rule out HIV in fection. If exposure to HIV infection occurred <14 d ays ago, contact the laboratory to request additi on of HIV-1 RNA detection / quantification test. HIV-1 p24 Ag Scrn, P Negative Negative 10/05/2021 4:33 PM DIE CASTER [facility] Comment: Negative result does not rule out HIV in fection. If exposure to HIV infection occurred <14 d ays ago, contact the laboratory to request additi on of HIV-1 RNA detection / quantification test. HIV-1 Ab Scrn, P Negative Negative 10/05/2021 4:3 3 PM DIE CASTER [facility] Comment: Negative result does not rule out HIV in fection. If exposure to HIV infection occurred <14 d ays ago, contact the laboratory to request additi on of HIV-1 RNA detection / quantification test. HIV-2 Ab Scrn, P Negative Negative 10/05/2021 4:3 3 PM DIE CASTER [facility] Comment: Negative result does not rule out HIV in fection. If exposure to HIV infection occurred <14 d ays ago, contact the laboratory to request additi on of HIV-1 RNA detection / quantification test. Specimen Anatomical Collection Method Collection Time Receive d Time (Source) Location / / Volume Laterality Blood (Blood, 10/05/2021 12:29 10/05/2021 3:15 Venous) PM DIE CASTER PM DIE CASTER Sara Lopez APRN, C.N.P. LAB MICROBIOLOGY - BLOOD ORDERABLES Performing Organization Address City/State/ZIP Code Phon e Number [address] [place], [place] [address] [place] [address] System [address] Hepatitis B Surface Antigen (10/05/2021 12:29 PM DIE CASTER) Patholo gist Method Time Signature HBs Antigen, Nonreactive Nonreactive 10/05/2021 [facility] S 1:45 PM DIE CASTER Specimen Anatomical Collection Method Collection Time Receive d Time (Source) Location / / Volume Laterality Blood (Blood, 10/05/2021 12:29 10/05/2021 Venous) PM DIE CASTER 12:40 PM DIE CASTER Consuelo Snider APRNN.P. LAB MICROBIOLOGY - BLOOD ORDERABLES Performing Organization Address City/[facility]/ZIP [facility] Phon e Number [facility]- [address] [place] [address] [place] [address] System [address] CBC without Differential (10/05/2021 12:29 PM DIE CASTER) P athologist Signature Hemoglobin 13.4 11.6 - 10/05/2021 [facility] 15.0 g/dL 12:49 PM DIE CASTER Hematocrit 40.4 35.5 - 10/05/2021 [facility] 44.9 % 12:49 PM DIE CASTER Erythrocytes 4.52 3.92 - 10/05/2021 [facility] 5.13 12:49 PM DIE CASTER x10(12)/L MCV 89.4 78.2 - 10/05/2021 [facility] 97.9 fL 12:49 PM DIE CASTER RBC Distrib Width 12.7 12.2 - 10/05/2021 [facility] 16.1 % 12:49 PM DIE CASTER Platelet Count 276 157 - 371 10/05/2021 [facility] x10(9)/L 12:49 PM DIE CASTER Leukocytes 8.2 3.4 - 9.6 10/05/2021 [facility] x10(9)/L 12:49 PM DIE CASTER Specimen Anatomical Collection Method Collection Time Receive d Time (Source) Location / / Volume Laterality Blood (Blood, 10/05/2021 12:29 10/05/2021 Venous) PM DIE CASTER 12:39 PM DIE CASTER Rich Snider APRN.N.P. LAB BLOOD ADD-ON Performing Organization Address City/[facility]/ZIP Code Phon e Number [facility]- [address] [place] [phone] [place] [address] System in [address] Type and Screen (with reflex Antibody ID) (10/05/2021 12:29 PM DIE CASTER) [facility] Method Time Signature ABO Group O 10/05/2021 [facility] 1:26 PM DIE CASTER Rh Type POS 10/05/2021 [facility] 1:26 PM DIE CASTER Antibody Screen NEG 10/05/2021 [facility] 1:26 PM DIE CASTER Type & Screen 10/08/2021 10/05/2021 [facility] Expiration 23:59 1:26 PM DIE CASTER ELXM Eligible Y 10/05/2021 [facility] 1:26 PM DIE CASTER Specimen Anatomical Collection Method Collection Time Receive d Time (Source) Location / / Volume Laterality Blood (Blood, 10/05/2021 12:29 10/05/2021 Venous) PM DIE CASTER 12:39 PM DIE CASTER Sara Lopez APRN C.N.P. LAB BLOOD BANK TEST ORDERABLES Performing Organization Address City/State/ZIP Code Phon e Number [facility]- [address] [place] [phone] [place] [address] System in [place] [address] [place] [address] (ABNORMAL) Drug Abuse Survey with Confirmation, Urine (10/05/2021 12:21 PM DIE CASTER) [facility] Method Time Signature Alcohol Negative Cutoff: 10 10/06/2021 [facility] mg/dL 8:43 AM DIE CASTER Amphetamines Negative Cutoff: 10/06/2021 [facility] 500 ng/mL 8:43 AM DIE CASTER Barbiturates Negative Cutoff: 10/06/2021 [facility] 200 ng/mL 8:43 AM DIE CASTER Benzodiazepines Negative Cutoff: 10/06/2021 [facility] 100 ng/mL 8:43 AM DIE CASTER Cocaine Negative Cutoff: 10/06/2021 [facility] 150 ng/mL 8:43 AM DIE CASTER Comment: This cocaine immunoassay targets benzoyl ecgonine the primary metabolite of cocaine. Opiates Negative Cutoff: 300 10/06/2021 8:43 AM [facility] ng/mL DIE CASTER Phencyclidine Negative Cutoff: 25 ng/mL 10/06/2021 8:43 AM [facility] DIE CASTER Tetrahydrocannabinol Presumptive Positive Cutoff: 50 ng/mL 10/06/2021 8:43 AM [facility] (A) DIE CASTER Comment: This immunoassay targets delta-9 tetrahy drocannabinol [...] (Urine, 10/05/2021 12:21 10/05/2021 Clean Catch) PM DIE CASTER 10:04 PM DIE CASTER Sara Lopez APRN, C.N.P. LAB URINE ORDERABLE S Performing Organization Address City/State/ZIP Code Phon e Number [facility] [address] [place], [place] [address] SUPPORT CENTER [facility] [place] [address] Laboratory Medicine and Pathology [address] [place] (ABNORMAL) Urinalysis with Microscopic if Indicated (10/05/2021 12:21 PM DIE CASTER) athologist Signature Source Urine, 10/05/2021 [facility] Urine, Clean 12:52 PM DIE CASTER Catch Clarity Clear Clear 10/05/2021 [facility] 12:52 PM DIE CASTER Color Yellow 10/05/2021 [facility] 12:52 PM DIE CASTER Comment: ----REFERENCE VALUE---- Colorless Yellow Holly Blood Negative Negative 10/05/2021 12:52 PM DIE CASTER [facility] Nitrite Negative Negative 10/05/2021 12:52 PM DIE CASTER [facility] Leukocyte Esterase Negative Negative 10/05/2021 12:[address] [facility] Protein Negative mg/dL 10/05/2021 12:52 PM DIE CASTER [facility] Comment: ----REFERENCE VALUE---- Negative Trace Glucose Negative Negative mg/dL 10/05/2021 12:52 PM DIE CASTER M KTO Ketone Negative Negative mg/dL 10/05/2021 12:52 PM DIE CASTER M KTO Bilirubin Negative Negative 10/05/2021 12:52 PM DIE CASTER [facility] pH 8.5 (A) 5.0 - 8.0 10/05/2021 12:52 PM DIE CASTER [facility] Specific Dixie 1.011 1.001 - 1.035 10/05/2021 12:52 PM DIE CASTER [facility] Urobilinogen 0.2 0.2 - 1.0 mg/dL 10/05/2021 12:[address] [facility] Specimen Anatomical Collection Method Collection Time Receive d Time (Source) Location / / Volume Laterality Urine (Urine, 10/05/2021 12:21 10/05/2021 Clean Catch) PM DIE CASTER 12:42 PM DIE CASTER Rich Snider APRN.N.PNestor LAB URINE ORDERABLE S Performing Organization Address City/[facility] Phon e Number [facility]- [address] [place] [phone] [place] [address] System in [address] (ABNORMAL) Bacterial Culture, Aerobic + Susc, Urine (10/05/2021 12:21 PM DIE CASTER) Analysis Performed At [facility] logist Time Signature Urine Culture Mixed 10/06/2021 MKTO hernan. (A) 10:52 AM DIE CASTER Specimen Anatomical Collection Method Collection Time Receive d Time (Source) Location / / Volume Laterality Urine (Urine, 10/05/2021 12:21 10/05/2021 Midstream) PM DIE CASTER 12:42 PM DIE CASTER Comment: Specimen Source Site: Urine Rich Snider APRN.N.P. LAB MICROBIOLOGY - GENERAL ORDERABLES Performing Organization Address [facility] Phon e Number [address] [address] [place] [address] System in [address] Chlamydia / Gonorrhoeae Amplified RNA (10/05/2021 12:21 PM DIE CASTER) Patholo gist Method Time Signature Source Swab, Vagina 10/05/2021 MKTO 9:03 PM DIE CASTER Chlamydia Negative Negative 10/05/2021 [facility] trachomatis 9:03 PM DIE CASTER amplified RNA Source Swab, Vagina 10/05/2021 MKTO 9:03 PM DIE CASTER Neisseria Negative Negative 10/05/2021 [facility] gonorrhoeae 9:03 PM DIE CASTER amplified RNA Specimen Anatomical Collection Method Collection Time Receive d Time (Source) Location / / Volume Laterality Varies (Vagina) 10/05/2021 12:21 10/05/19 22 PM DIE CASTER 12:42 PM DIE CASTER Sara Lopez APRN, C.N.P. LAB MICROBIOLOGY - GENERAL ORDERABLES Performing Organization Address City/State/ZIP Code Phon e Number [facility]- [address] [place] [address] [place] [address] System in [place] [address] [facility] documented in this encounter Visit Diagnoses Diagnosis Encounter For Supervision Of Normal Preg kendrick Unspecified Trimester (HCC) - Primary documented in this encounter Additional Health Concerns Assessment Noted Time PHQ-9 Depression Total Score: 10 06/16/2021 2:54 PM CD T documented as of this encounter Care Teams Business Change Manager Relationship Specialty Start Date End Date Elsewhere, Pcp PCP - General 09/01/19 documented as of this encounter
--- OUTSIDE RECORDS SUMMARY | 2022-06-19 16:17 | XMS_ITS | Encounter Summary ---
:1995 Demographics Address [address] [place] [address] Mobile Phone Home Phone Email Address Email Address Preferred Language ENG Marital Status Life Partnership Faith Affiliation Unknown Race White Ethnic Group Not or Author Organization [facility] Address [address] [place] [address] Care Team Providers Name Role Phone Elsewhere, Pcp Primary Care Provider Unavailable Reason for Visit Reason Comments Care Outpatient (Routine) - Closed Specialty Diagnoses / Procedures Referred By Contact Refer red To Contact Obstetrics and Neli Chahal APRN, [facility] Gynecology [address] [address] Referral ID Status Reason Start Date Expiration Date Visits Requ ested Visits Authorized [id number] Closed 04/01/2021 04/01/2022 1 1 Encounter Details Date Type Department Care Team Description 04/19/2021 Visit Department of Val Wong Managem ent Contraception Prescription (Primary Dx); Obstetrics and M.D. Follow Up Examination Postoperative Visi t; Gynecology in [address] [place] [address] [place], [place] [phone] [phone] (Work) [phone] Social History Tobacco Use Types Packs/Day Years [...] 11/30/2021 relatives? How often do you attend yazdanism or mormon Never 11/30/2021 services? Do you belong to any clubs or organizations such as No 11/30/2021 yazdanism groups, unions, fraternal or athletic groups, or [...] or slept in a intermediate (including now)? Sex Assigned at Date Recorded Female 05/15/2021 10:14 AM CDT documented as of this encounter Last Filed Vital Signs Vital Sign Reading Time Taken Comments Blood Pressure 124/72 04/19/2021 2:00 PM CDT Pulse - - Temperature 36.8 ??C (98.2 ??F) 04/19/2021 2:00 PM CDT Respiratory Rate - - Oxygen Saturation - - Inhaled Oxygen Concentration - - Weight 65.7 kg (144 lb 13.5 oz) 04/19/2021 2:00 PM CDT Height - - Body Mass Index 28.29 06/05/2018 2:37 PM CDT documented in this encounter Progress Notes Val Wong M.D. - 04/19/2021 2:45 PM CDT SUBJECTIVE CHIEF COMPLAINT/REASON FOR VISIT The patient presents today for her 2 week post section visit. HISTORY OF PRESENT ILLNESS Patient underwent a section for persistent category 2 strip distance from delivery. that was uncomplicated. Patient pain is well controlled and denies nausea or vomiting. denies fever or chills. denies heavy vaginal bloody lochia. Otherwise is active and recovering well. The patient is She is breast feeding exclusively. OBJECTIVE Vitals: 04/19/21 1400 BP: 124/72 Temp: 36.8 ??C Weight: 65.7 kg Abdomen examined and was soft and non-tender, no rebound and incision site is healing well and without evidence of infection. BP: Within Normal limits on Labetalol 200mg BID Interested in starting Zoloft. ASSESSMENT / PLAN ASSESSMENT: 2 week post operative visit Doing well postoperatively. Depression/ Anxiety antedating PLAN: Follow up in 4 weeks PoP prescribed interested in IUD Zoloft 25 mg daily. Keep Anti Hypertension rx For now. documented in this encounter Miscellaneous Notes Addendum Note - Val Wong M.D. - 04/19/2021 2:45 PM CDT Addended by: VAL WONG on: 04/19/2021 03:20 PM Modules accepted: Orders, Level of Service documented in this encounter Plan of Treatment Not on filedocumented as of this encounter Visit Diagnoses Diagnosis Management Contraception Prescription - Primary Follow Up Examination Postoperative Visi t Depression Anxiety documented in this encounter Care Teams Bench Boring Machine Operator Relationship Specialty Start Date End Date Elsewhere, Pcp PCP - General 09/01/19 documented as of this encounter
--- OUTSIDE RECORDS SUMMARY | 2022-06-19 16:17 | XMS_ITS | Encounter Summary ---
:1995 Demographics Address [address] [place] [address] Mobile Phone Home Phone Email Address Email Address Preferred Language ENG Marital Status Life Partnership Temple Affiliation Unknown Race White Ethnic Group Not or Author Organization [facility] Address [address] [place] [address] Care Team Providers Name Role Phone Alicia Phan P.A.-C. Primary Care Provider [phone] Encounter Details Date Type Department Care Team Description 11/28/2018 Orders Only Department of [facility] (Primary Occupational Medicine R.N. Dx) in [address] [phone] Social History Tobacco Use Types Packs/Day Years [...] 11/30/2021 relatives? How often do you attend pentecostalism or rastafarian Never 11/30/2021 services? Do you belong to any clubs or organizations such as No 11/30/2021 pentecostalism groups, unions, fraternal or athletic groups, or [...] slept in a senior care (including now)? Sex Assigned at Date Recorded Female 05/15/2021 10:14 AM CDT documented as of this encounter Plan of Treatment Not on filedocumented as of this encounter Visit Diagnoses Diagnosis Drug Screen - Primary documented in this encounter Care Teams Creative Producer Relationship Specialty Start Date End Date Alicia Phan P.A.-C. PCP - General 02/14/17 08/31/19 documented as of this encounter
--- OUTSIDE RECORDS SUMMARY | 2022-06-19 16:18 | XMS_ITS | Encounter Summary ---
:1995 Demographics Address [address] [place] [address] Mobile Phone Home Phone Email Address Email Address Preferred Language ENG Marital Status Life Partnership Congregation Affiliation Unknown Race White Ethnic Group Not or Author Organization [facility] Address [address] [place] [address] Care Team Providers Name Role Phone Unavailable Primary Care Provider Unavailable Encounter Details Date Type Department Care Team Description 12/29/2015 Hospital Encounter [facility] Stacy Solano, P.A.-C. [address] [place] [address] (Wo rk) Social History Tobacco Use Types Packs/Day Years Used Date Smoking Tobacco: Never Assessed Alcohol Habits Answer Date Recorded How often [...] 11/30/2021 relatives? How often do you attend mormonism or nondenominational Never 11/30/2021 services? Do you belong to any clubs or organizations such as No 11/30/2021 mormonism groups, unions, fraternal or athletic groups, or [...] place to sleep or slept in a alf (including now)? Sex Assigned at Date Recorded Female 05/15/2021 10:14 AM CDT documented as of this encounter Plan of Treatment Not on filedocumented as of this encounter Procedures Procedure Name Priority Date/Time Associated Diagnosis Comme nts QUANTIFERON-TB GOLD Routine 12/29/2015 3:15 PM Re sults for this PLUS, B CDT procedure are i n the results section. MEASLES (RUBEOLA) Routine 12/29/2015 3:15 PM Resu lts for this AB, IGG CDT procedure are i n the results section. RUBELLA ANTIBODIES, Routine 12/29/2015 3:15 PM Re sults for this IGG CDT procedure are i n the results section. HBS ANTIBODY, SERUM Routine 12/29/2015 3:15 PM Re sults for this CDT procedure are i n the results section. VARICELLA-ZOSTER Routine 12/29/2015 3:15 PM Resul ts for this AB, IGG, S CDT procedure are i n the results section. MUMPS AB, IGG Routine 12/29/2015 3:15 PM Results for this CDT procedure are i n the results section. documented in this encounter Results Hepatitis B Surface, Ab (12/29/2015 3:15 PM CDT) P athologist Signature HBs Antibody, 198.600 MIUML POWERCHART Quantitative, S Comment: 0.000-8.499 = Negative 8.500-11.499 = Borderline >= 11.500 = Positive Interpretation Positive POWERCHART Specimen (Source) Anatomical Collection Method Collection Time Re ceived Time Location / / Volume Laterality Blood 12/29/2015 3:15 PM CDT Yenifer Rai P.A.-C. LAB MICROBIOLOGY - BLOOD ORD ERABLES Performing Organization Address City/State/ZIP Code Phon e Number POWERCHART Rubella Antibodies, IgG (12/29/2015 3:15 PM CDT) P athologist Signature HX Rubella Ab Positive POWERCHART Comment: Positive: ??Indicates immunity to Rubell a Negative: ??Indicates non-immunity to Ru elizabeth This result was obtained with the [employer] Elecsys Rubella IgG assay. Results from assays of other manufacturers cannot be used interchangeably Specimen (Source) Anatomical Collection Method Collection Time Re ceived Time Location / / Volume Laterality Blood 12/29/2015 3:15 PM CDT Yenifer Gaurav Rai P.A.-C. LAB MICROBIOLOGY - BLOOD ORD ERABLES Performing Organization Address [facility] Phon e Number POWERCHART Measles (Rubeola) Ab, IgG (12/29/2015 3:15 PM CDT) athologist Signature Measles Positive POWERCHART (Rubeola) Ab, IgG, S Comment: Results suggest response to immunization or prior exposure to the virus. REFERENCE VALUE------ Vaccinated: Positive (>=1.1 AI) Unvaccinated: Negative (<=0.8 AI) Measles IgG Antibody Index 3.1 POW ERCHART Comment: Test Performed by: [place] [address] Automobile Parts Assembler: Gerber Mosley II, M.D., Ph.D. Specimen (Source) Anatomical Collection Method Collection Time Re ceived Time Location / / Volume Laterality Blood 12/29/2015 3:15 PM CDT Yenifer Gaurav Rai P.A.-C. LAB MICROBIOLOGY - BLOOD ORD ERARADHA Performing Organization Address City/[facility] Phon e Number POWERCHART Mumps Ab, IgG (12/29/2015 3:15 PM CDT) athologist Signature Mumps Ab, IgG, Positive POWERCHART S Comment: Results suggest response to immunization or prior exposure to the virus. REFERENCE VALUE------ Vaccinated: Positive (>=1.1 AI) Unvaccinated: Negative (<=0.8 AI) Mumps Ab, IgG, S 2.5 POWERCHART Comment: Test Performed [facility]: [facility] [address] [place], [place] [address] Automobile Parts Assembler: Gerber Mosley II, M.D., Ph.D. Specimen (Source) Anatomical Collection Method Collection Time Re ceived Time Location / / Volume Laterality Blood 12/29/2015 3:15 PM CDT Yeniferconstance Rai P.A.-C. LAB MICROBIOLOGY - BLOOD ORD ERARADHA Performing Organization Address [facility] Phon e Number POWERCHART Varicella-Zoster Antibody, IgG (12/29/2015 3:15 PM CDT) P athologist Signature Varicella-Zost Negative POWERCHART er Ab, IgG, S Comment: REFERENCE VALUE------ Vaccinated: Positive (>=1.1 AI) Unvaccinated: Negative (<=0.8 AI) Varicella-Zoster Ab, IgG, S <0.2 PO WERCHART Comment: Test Performed [facility]: [facility] [place] [address] Automobile Parts Assembler: Gerber Mosley II, M.D., Ph.D. Specimen (Source) Anatomical Collection Method Collection Time Re ceived Time Location / / Volume Laterality Blood 12/29/2015 3:15 PM CDT Yenifer Rai P.A.-C. LAB MICROBIOLOGY - BLOOD ORD FizRADHA Performing Organization Address [facility] Phon e Number POWERCHART QuantiFERON-TB Gold In-Tube, B (12/29/2015 3:15 PM CDT) P athologist Signature HX Negative Negative POWERCHART M.Tuberculos-M karen HXTB Ag 0.02 INTUML POWERCHART Value-[place] Comment: ADDITIONAL INFORMATIO N This is a qualitative test. The TB antig en IU/mL value is required for documentation on certain go vernment reporting forms (e.g., Form I-693), but this value should not be used to monitor disease progression or respon se to therapy. Diagnosing or excluding tuberculosis dis ease, and assessing the probability of LTBI, require a combi nation of epidemiological, historical, medical, an d diagnostic findings that should be taken into accou nt when interpreting QuantiFERON-TB results. Test Performed by: [place] [address] Automobile Parts Assembler: Gerber Mosley II, M.D., Ph.D. Specimen (Source) Anatomical Collection Method Collection Time Re ceived Time Location / / Volume Laterality Blood 12/29/2015 3:15 PM CDT Yenifer Rai P.A.-C. LAB MICROBIOLOGY - BLOOD ORD ERABLES Performing Organization Address City/State/ZIP Code Phon e Number POWERCHART documented in this encounter Visit Diagnoses Not on filedocumented in this encounter
--- OUTSIDE RECORDS SUMMARY | 2022-06-19 16:18 | XMS_ITS | Encounter Summary ---
:1995 Demographics Address [address] [place] [address] Mobile Phone Home Phone Email Address Email Address Preferred Language ENG Marital Status Life Partnership Christian Affiliation Unknown Race White Ethnic Group Not or Author Organization [facility] Address [address] [place] [address] Care Team Providers Name Role Phone Unavailable Primary Care Provider Unavailable Encounter Details Date Type Department Care Team Description 04/24/2012 Hospital Encounter [facility]X [facility] Yfn Maldonado D.O. [address] [place], [place] [address] (Wo rk) Social History Tobacco Use Types [...] 11/30/2021 relatives? How often do you attend hindu or anabaptist Never 11/30/2021 services? Do you belong to any clubs or organizations such as No 11/30/2021 hindu groups, unions, fraternal or athletic groups, or [...] place to sleep or slept in a penitentiary (including now)? Sex Assigned at Date Recorded Female 05/15/2021 10:14 AM CDT documented as of this encounter Plan of Treatment Not on filedocumented as of this encounter Visit Diagnoses Not on filedocumented in this encounter
--- OUTSIDE RECORDS SUMMARY | 2022-06-19 16:18 | XMS_ITS | Encounter Summary ---
:1995 Demographics Address [address] [place] [address] Mobile Phone Home Phone Email Address Email Address Preferred Language ENG Marital Status Life Partnership Adventist Affiliation Unknown Race White Ethnic Group Not or Author Organization [facility] Address [address] [place] [address] Care Team Providers Name Role Phone Unavailable Primary Care Provider Unavailable Encounter Details Date Type Department Care Team Description 06/13/2013 Hospital Encounter [facility]X [facility] Jessica Thompson M.D. [address] [address], [address] [place] [address] Social History Tobacco Use Types Packs/Day Years [...] 11/30/2021 relatives? How often do you attend confucianist or cheondoism Never 11/30/2021 services? Do you belong to any clubs or organizations such as No 11/30/2021 confucianist groups, unions, fraternal or athletic groups, or [...] Sign Reading Time Taken Comments Blood Pressure 110/68 06/13/2013 12:16 PM CDT Pulse 76 06/13/2013 12:16 PM CDT Temperature - - Respiratory Rate 18 06/13/2013 12:16 PM CDT Oxygen Saturation - - Inhaled Oxygen Concentration - - Weight 45.9 kg (101 lb 3.1 oz) 06/13/2013 12:16 PM CDT Height - - Body Mass Index - - documented in this encounter Progress Notes Jessica Farris M.D. - 06/13/2013 12:11 PM CDT [id number] CHIEF COMPLAINT/REASON FOR VISIT Exposure to staph infection. HISTORY OF PRESENT ILLNESS This is a 18-year-old female who comes in with her sister because apparently her boyfriend had just been diagnosed with a staph infection they went on line and they are worried that it might be an MRSAso she wanted further treatment since she has noticed her skin acne is worse on her face. ALLERGIES None. PAST MEDICAL/SURGICAL HISTORY ILLNESSES: None are documented. MEDICATIONS None are documented. SYSTEMS REVIEW Apparently boyfriend is a football player any had some type of wound on his left wrist about 2 weeksago and they wondered if that was staph and then shortly thereafter he got an abscess on his face which was a big pimple just over his right cheek area and some other acne areas around his chin, and sohis [place] in [place] cultured that and it grew out a staph and what sounds like a Klebsiella. This patient and her sister do not know whether it was an MRSA or not. He was put on some antibiotics. Patient, herself, just has a little bit worsening of acne. She denies doing any oral sex with him or any other type of exposures. She does have an aphthous ulcer in her right upper lip right now, but no other abnormalities. She has never had an abscess previously and does not have 1 now. PHYSICAL EXAMINATION This is 18-year-old female with a temperature of 37.0, pulse 76, respiratory rate 18, blood pressureis 110/68, weight is 45.9kg. Patient has just mild acne over her cheeks, chin and nose area and moreon her forehead. None of them are abscessed at all. None of them are pustular or big cysts at all. There is no evidence for any other abscesses or MRSA infection anywhere on her body that she reports. We did not look at any of it as she seemed quite able to report that. IMPRESSION/REPORT/PLAN Acne. PLAN: I spent 20 minutes with the patient and her sister educating them about MRSA versus staph infections and of acne. Most likely her boyfriend had a chin strap that was irritating him and being a teenager just had that area irritated and more prone to big cystic acne, but may not necessarily be MRSA. At this point there is no treatment necessary for this patient unless she wants more aggressive acne treatment which she should get from her primary doctor. She should find out if the boyfriend's staph was not MRSA in particular, but otherwise it should be reasonably taken care of. Obviously he should clean his helmets and things that he uses with football which may or may not happen in his world. Jessica Farris M.D./jamison Electronically Signed By: JESSICA FARRIS MD On: 06/16/2013 02:32 PM Source: [facility] MHSDOLBEYNONRADSYS Document Id: [id number] documented in this encounter Miscellaneous Notes Miscellaneous - Jessica Farris M.D. - 06/13/2013 1:07 PM CDT Ambulatory Patient Summary [address] [address] Visit Information Name: MITCHELL YANG [facility] Number: [id number] Current Date: 06/13/2013 13:07:30 Physicians Attending Provider: UNKNOWN1, PROVIDER Primary Care Provider: MITCHELL MONTEJO DO Your Medications Here is a list of your medications. It is important to take your medications as directed. Use a pillbox or chart to help remind you to take your medications. Please let your doctor or nurse know if you have problems taking your medications. Medication/Strength Dose Route Frequency Indications/Special Instructions/Comments/Notes No Medications found Attention: If you have any medications at home that are not on this list, DO NOT take them until youcontact your provider for clarification. Your Allergies & Intolerances Substance Reaction Symptoms Category Comments No Known Allergies Drug Your Problem List Problem Status Onset Comments No Problems found Your Upcoming Appointments Date Time Location Reason Provider No Appointments found Your Goals/Additional instructions: Source: [facility] [employer] Document Id: [id number] Daren - Jessica Farris M.D. - 06/13/2013 1:07 PM CDT [place] [address] Visit Information Name: MITCHELL YANG [facility] Number: [id number] Visit Date: 06/13/2013 13:07:30 Attending Provider: [id number], PROVIDER Primary Care Provider: MITCHELL MONTEJO DO MITCHELL YANG has been given the following list of medications: Your Medications It is important to take your medications as directed. Use a pill box or chart to help remind you to take your medications. Please let your doctor or nurse know if you have problems taking your medications. Medication/Strength Dose Route Frequency Indications/Special Instructions/Comments/Notes No Medications found Attention: If you have any medications at home that are not on this list, DO NOT take them until youcontact your provider for clarification. Additional Information: [facility] Document Id: [id number] Daren - Pari Bhatt R.N. - 06/13/2013 12:16 PM CDT Pediatric Awning Frame Maker Intake/History Pediatric Awning Frame Maker Intake/History Entered On: 06/13/2013 12:21 CDT Performed On: 06/13/2013 12:16 CDT by PARI BHATT case mgr Chief Complaint : Boyfriend found out that he has staph infection on his face- pt is worried that she has it also. States that her acne seems is alittle worse. Onset of Symptoms : Yesterday Temperature Core : 37 DegC(Converted to: 98.6 DegF) Peripheral Pulse Rate : 76 /min Respiratory Rate : 18 /min Heart Rhythm : Regular Systolic Blood Pressure : 110 mmHg Diastolic Blood Pressure : 68 mmHg NIBP Mean : 82 mmHg BP Location : Right upper extremity Actual Weight : 45.9 kg(Converted to: 101 lb 3 oz) Weight Source : Standing scale Dosing Weight Clinic : 45.9 kg PARI BHATT RN - 06/13/2013 12:16 CDT General Info Preferred Name : Mitchell Mode of Arrival : Ambulatory Accompanied By : Sibling Accompanied by Names : Roxanne Information Given By : Patient, Sibling Languages : Greenlandic PARI BHATT RN - 06/13/2013 12:16 CDT Subjective Pain Symptoms : No PARI BHATT RN - 06/13/2013 12:16 CDT Dependent Habits Tobacco Use/Currently Using : No Exposure to Tobacco Smoke : Care provider denies smoking in home Smoking Status : Never smoker Alcohol Use : No PARI BHATT RN - 06/13/2013 12:16 CDT Caffeine Use Grid Caffeine Use : None PARI BHATT RN - 06/13/2013 12:16 CDT Source: [facility] P[employer] Document Id: [id number]![id number] documented in this encounter Plan of Treatment Not on filedocumented as of this encounter Visit Diagnoses Not on filedocumented in this encounter
--- OUTSIDE RECORDS SUMMARY | 2022-06-19 16:18 | XMS_ITS | Encounter Summary ---
:1995 Demographics Address [address] [place] [address] Mobile Phone Home Phone Email Address Email Address Preferred Language ENG Marital Status Life Partnership Mandaen Affiliation Unknown Race White Ethnic Group Not or Author Organization [facility] Address [address] [place] [address] Care Team Providers Name Role Phone Alicia Phan P.A.-C. Primary Care Provider [phone] Encounter Details Date Type Department Care Team Description 09/28/2017 [facility] Department [address] [address] [phone] Social History Tobacco Use Types Packs/Day Years Used Date Smoking Tobacco: Unknown Alcohol Habits Answer Date Recorded How often [...] 11/30/2021 relatives? How often do you attend jain or mosque Never 11/30/2021 services? Do you belong to any clubs or organizations such as No 11/30/2021 jain groups, unions, fraternal or athletic groups, or [...] on filedocumented in this encounter Care Teams Machine Or Machinery Mechanic Relationship Specialty Start Date End Date Alicia Phan P.A.-C. PCP - General 02/14/17 08/31/19 documented as of this encounter
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
--- OUTSIDE RECORDS SUMMARY | 2022-06-19 16:18 | XMS_ITS | Encounter Summary ---
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 19:14:24 CDT Gender: Age: Pre-Arrival Type: Ambulance ETA: 07/04/2017 19:26:00 CDT Presenting Problem: Pre-Arrival User: ZENAIDA MARQUEZ RN Referring Source: Location: 30 Pre-Arrival Communication Form Vital Signs: Miscellaneous Issues: Source: [facility] Document Id: [id number] documented in this encounter Miscellaneous Notes Miscellaneous - Bharath Boudreaux R.N. - 07/04/2017 8:48 PM CDT Valuables/Belongings Valuables/Belongings Entered On: 07/04/2017 20:48 CDT Performed On: 07/04/2017 20:48 CDT by BHARATH BOUDREAUX RN Valuables/Belongings Belongings Sent Home With : w/pt BHARATH BOUDREAUX RN - 07/04/2017 20:48 CDT [facility] Document Id: [id number] CDT!3 Miscellaneous - Conversion, Historical Provider Ser - 07/04/2017 8:48 PM CDT Coding Summary-Paper Based CODING DATE: 07/12/2017 FINAL [facility] STATUS: * Discharged to Home or Self Care PAYOR: Medicaid ADMIT DX: T68.XXXAHypothermia, initial encounter REASON FOR VISIT DX: T68.XXXA Hypothermia, initial encounter FINAL DX: PRINCIPAL: T68.XXXA Hypothermia, initial encounter SECONDARY: R06.02 Shortness of breath PROCEDURES DOCTOR NAME DATE NOTE: The code number assigned matches the documented diagnosis and / or procedure in the patient's chart. However, the narrative phrase printed from the coding software may appear abbreviated, or result in slightly different terminology. 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 ECG Routine 07/04/2017 7:29 PM Results f or this CDT procedure are i n the results section. AUTOMATED Routine 07/04/2017 7:20 PM Results f or this DIFFERENTIAL, B CDT procedure ar e in the results section. CBC WITH Routine 07/04/2017 7:20 PM Results f or this DIFFERENTIAL, B CDT procedure ar e in the results section. documented in this encounter Results DX Chest 1 View (07/04/2017 7:30 PM CDT) Anatomical Region Laterality Modality Chest N/A Radiographic Imaging Specimen (Source) Anatomical Collection Method Collection Time Re ceived Time Location / / Volume Laterality 07/04/2017 7:30 PM CDT Addenda Addendum by Provider, Imani Goncalves 07/04/2017 7:30 PM CDT RAD^^^MA XR Chest 1 view portable 07/04/2017 19:30:11 XR Chest 1 view portable Impressions 07/04/2017 7:42 PM CDT Normal chest. Narrative 07/04/2017 7:42 PM CDT EXAM: XR Chest 1 view portable INDICATION: Fluid in lungs COMPARISON: None. ?? FINDINGS: Bony thorax is unremarkable. H eart size and pulmonary vascularity are within normal limits. Magali ngs are clear of infiltrates or effusions. Procedure Note Jatin Guardado Jr., M.D. / Ivanna Solares M.D. - 07/06/2017 EXAM: XR Chest 1 view portable INDICATION: Fluid in lungs COMPARISON: None. FINDINGS: Bony thorax is unremarkable. H eart size and pulmonary vascularity are within normal limits. Magali ngs are clear of infiltrates or effusions. IMPRESSION: Normal chest. Cheryl Devine(R) IMG DIAGNOSTIC IMAGING [facility] ECG 12 Lead (07/04/2017 7:29 PM CDT) Specimen (Source) Anatomical Collection Method Collection Time Re ceived Time Location / / Volume Laterality 07/04/2017 7:29 PM CDT Narrative [facility] - 07/04/2017 7:29 PM CDT Test Reason : EKG Blood Pressure : / mmHG Vent. Rate : 087 BPM ? Atrial Rate : 087 BPM ?? P-R Int : 130 ms ?QRS D ur : 072 ms ?QT Int : 348 ms ? P-R-T Axe s : 061 061 020 degrees ?? QTc Int : 418 ms Poor data quality, interpretation ma y be adversely affected Normal sinus rhythm with sinus arrhythmi a Normal ECG When compared with ECG of 20-MAY-2016 19 :33, No significant change was found Referred By: KRYSTIN PEACOCK ? Confirmed By:AFSHIN KEARNS JR MD Procedure Note Provider, Historical, M.D. - 07/06/2017F ormatting of this note might be different from the original. Test Reason : EKG Blood Pressure : / mmHG Vent. Rate : 087 BPM Atrial Rate : 087 B PM P-R Int : 130 ms QRS Dur : 072 ms QT Int : 348 ms P-R-T Axes : 061 061 02 0 degrees QTc Int : 418 ms Poor data quality, interpretation ma y be adversely affected Normal sinus rhythm with sinus arrhythmi a Normal ECG When compared with ECG of 20-MAY-2016 19 :33, No significant change was found Referred By: KRYSTIN PEACOCK Confirmed By: AFSHIN KEARNS JR MD Afshin Kearns Jr., M.D. ECG ORDERABLES Performing Organization Address [facility] Code Phon e Number [facility] [address] [place] [id number] (ABNORMAL) Automated Differential (07/04/2017 7:20 PM CDT) [facility] Time Signature Absolute 9.28 (H) 1.70 - POWERCHART Neutrophils 7.00 109L Lymphocytes 2.73 0.90 - POWERCHART 2.90 X109L Monocytes 0.63 0.30 - POWERCHART 0.90 X109L Eosinophils 0.11 0.05 - POWERCHART 0.50 X109L Absolute 0.01 0.00 - POWERCHART Basophil 0.30 X109L Specimen Anatomical Collection Method Collection Time Receive d Time (Source) Location / / Volume Laterality Blood 07/04/2017 7:20 PM 7 7:20 CDT PM CDT Krystin Peacock M.D. LAB BLOOD ADD-ON Performing Organization Address [facility] Phon e Number POWERCHART POWERCHART NA (ABNORMAL) CBC with Differential (07/04/2017 7:20 PM CDT) [facility] Time Signature Leukocytes 12.8 (H) 3.5 - 10.5 POWERCHART X109L Erythrocytes 4.68 3.90 - POWERCHART 5.03 G9965C Hemoglobin 14.2 12.0 - POWERCHART 15.5 GDL Hematocrit 40.6 34.9 - POWERCHART 44.5 MCV 86.8 81.6 - POWERCHART 98.3 FL HX RDW 12.7 11.9 - POWERCHART 15.5 Platelet Count 350 150 - 450 POWERCHART X109L Specimen (Source) Anatomical Collection Method Collection Time Re ceived Time Location / / Volume Laterality Blood 07/04/2017 7:20 PM CDT Krystin Peacock M.D. 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 PCP - General 02/14/17 08/31/19 documented as of this encounter
--- OUTSIDE RECORDS SUMMARY | 2022-06-19 16:18 | XMS_ITS | Encounter Summary ---
:1995 Demographics Address [address] [place] [address] Mobile Phone Home Phone Email Address Email Address Preferred Language ENG Marital Status Life [facility] Affiliation Unknown Race White Ethnic Group Not or Author Organization [facility] Address [address] [place] [address] Care Team Providers Name Role Phone Unavailable Primary Care Provider Unavailable Encounter Details Date Type Department Care Team Description 05/20/2016 Hospital Encounter HX [facility] Leandro Gonsalves ED, M.D. [address], [place] [phone] (Wo rk) Social History [...] 11/30/2021 relatives? How often do you attend taoism or bahai Never 11/30/2021 services? Do you belong to any clubs or organizations such as No 11/30/2021 taoism groups, unions, fraternal or athletic groups, or [...] Sign Reading Time Taken Comments Blood Pressure 139/79 05/20/2016 9:02 PM CDT Pulse 110 05/20/2016 7:20 PM CDT Temperature - - Respiratory Rate 19 05/20/2016 9:02 PM CDT Oxygen Saturation - - Inhaled Oxygen Concentration - - Weight 56.5 kg (124 lb 9 oz) 05/20/2016 7:20 PM CDT Height - - Body Mass Index - - documented in this encounter Discharge Summaries Anayeli Bravo R.NNestor - 05/20/2016 9:20 PM CDT ED Depart Summary [facility] Emergency Department Clinical Discharge Summary PERSON INFORMATION Name SADIE MART Age 20 Years 1995 12:00 AM Sex Female Language Botswanan PCP LIYAH ALSTON Marital Status Single N [id number] Visit Id [facility]# [id number] Visit Reason Rapid heart beat; RAPID HEART BEAT Specialty Enc Type Emergency Med Service Emergency Medicine Referred by Azam FARAH ED Discharge 05/20/2016 9:20 PM Tracking Id [id number] Checkout 05/20/2016 9:20 PM Checkin 05/20/2016 7:18 PM Acuity 3 -Urgent Dispo Type * Discharged to Home or Self Care Arrival 05/20/2016 7:18 PM Reg Status Complete LOS 000 02:02 Address: [address] [place] [id number] Comment: PROVIDER INFORMATION Provider Role Provider Contact Time BEBO RÍOS ORAL THERAPIST ED Instrument And Controls Technician 05/20/16 19:25 KRYSTIN PEACOCK MD ED Provider 05/20/16 19:31 ROXANNE MCDANIEL RN ED Nurse 05/20/16 19:32 DIAGNOSIS Adverse Medication Reaction Initial; Tachycardia Sinus Comment: PATIENT EDUCATION INFORMATION Instructions: ARRHYTHMIA, Unspecified Follow up: With: Address: When: Return to Emergency Department Within As Needed With: Address: When: LIYAH ALSTON [address] [place] [address] Business (1) Within 3 - 5 days, only if needed Source: [facility] POWERCHART Document Id: [id number] Anayeli Bravo R.N. - 05/20/2016 9:20 PM CDT ED Discharge Instructions [place] [id number] Name: SADIE MART Date of : 1995 12:00 AM Visit Date: 05/20/2016 7:18 PM [facility] Number: [id number] Address: [address] [place] [address] Primary Care Provider: LIYAH ALSTON IMPORTANT: [facility] in [place] would like to thank you for allowing us to assist you with your healthcare needs. The following includes patient education materials and information regarding your injury/illness. Diagnosis: Adverse Medication Reaction Initial; Tachycardia Sinus Follow-Up Instructions: With: Address: When: Return to Emergency Department Within As Needed With: Address: When: LIYAH SALVADORILLING [address] [place] [phone] Business (1) Within 3 - 5 days, only if needed Your Upcoming Appointments: Date Time Location Provider No Appointments found Patient Education Materials: Arrhythmia - (Your heart rate was going fast from the caffeine in your supplement. Avoid the supplement, and this will get better as your body metabolizes the caffeine away). Electrical impulses cause the normal heart to beat 60 to 100 times a minute. These impulses come from a natural pacemaker deep inside the heart muscle. Each impulse causes the heart muscle to contract.This causes the blood to flow through the heart and out to the tissues and organs of your body. An arrhythmia is a change from the normal speed or pattern of these electrical impulses. This can cause the heart to beat too fast (tachycardia); or too slow (bradycardia); or in an unsteady pattern (irregular rhythm). Symptoms of arrhythmias Different people experience arrhythmias differently. Sometimes they may not have symptoms, but just notice a change in their pulse. Symptoms can include: ?? Fluttering feeling in the chest ?? Shortness of breath ?? Chest pain or pressure ?? Lightheadedness or dizziness ?? Fainting or nearly fainting ?? Palpitations ?? Tiredness, fatigue, or weakness Causes of arrhythmias Arrhythmias are most often due to heart disease such as: ?? Coronary artery disease (arteriosclerosis) ?? Disease of the heart valves ?? Enlarged heart ?? High blood pressure ?? Heart failure Other causes of arrhythmia include: ?? Certain medicines (such as asthma inhalers and decongestants) ?? Some herbal supplements ?? Cardiac stimulant drugs (such as cocaine, amphetamine, diet pills, certain decongestant cold medicines, caffeine, and nicotine) ?? Excessive alcohol use ?? Medical conditions such as thyroid disease, anemia, anxiety, and panic disorder Arrythmias can often be prevented. The cause and type of arrhythmia determines the best treatment. Sometimes your doctor may want to monitor your heart rate over a 24-hour period or longer. This can help identify the cause of your arrhythmia and find the best treatment. This can be done with a Holter monitor, a portable EKG recording device attached by wires to your chest. You can carry this with youas you perform your routine activities during the monitoring period. Home care Avoid cardiac stimulants (such as cocaine, amphetamine, diet pills, certain decongestant cold medicines, caffeine, and nicotine). If you smoke, stop smoking. Contact your doctor or a local stop-smoking program for help. Tell your doctor about any prescription, [id number] or herbal medicines you take. These may beaffecting your heart rhythm. Follow-up care Follow up with your health care provider or as advised by our staff. If a Holter monitor has been recommended, contact the charcoal burner beehive kiln you have been referred to as soon as you can bulk picker the device. Other outpatient tests may also be arranged for you at that time. Call 911 This is the fastest and safest way to get to the emergency department. The paramedics can also starttreatment on the way to the hospital, if needed. Don't wait until your symptoms are severe to call 911. Other reasons to call 911 besides chest pain include: ?? Chest, shoulder, arm, neck, or back pain ?? Shortness of breath ?? Feeling lightheaded, faint, or dizzy ?? Rapid heart beat ?? Slower than usual heart rate compared to your normal ?? Angina withweakness, dizziness, fainting, heavy sweating, nausea, or vomiting ?? Extreme drowsiness, or confusion ?? Weakness of an arm or leg or one side of the face ?? Difficulty with speech or vision When to seek medical care Remember, things are not always like they are on TV. Sometimes it is not so obvious. You may only feel weak or just not right. If it is not clear or if you have any doubt, call for advice. ?? Seek help for chest pain, or it feels different from usual, even if your symptoms are mild. ?? Do not drive yourself. Have someone else drive. If no one can drive you, call 911. ?? If your doctor has given you medicines to take when you have symptoms, take them, but do not delay getting help while trying to find them. ?? Do not delay. Fast diagnosis and treatment can prevent or limit the amount of heart damage duringa heart attack or stroke. ?? Do not go to your doctor's ofice or a clinic because they will not be able to provide all of the testing or treatment required for this condition. ?? [phone] [facility], [address] [place] [address]. All rights reserved. This information is not [...] you dont have one. Go to [email or web address] and click on Create Your Account. Then, follow the directions to complete the online form. Youll be asked for your [facility] number which you can find at the top of this document. ED Tests and Procedures: Order Status Urinalysis with Culture if Indicated Completed Beta hCG Qualitative Urine Completed EKG-Lab Ordered Discharge Prescriptions & Home Medications: Medication/Strength Dose [...] arrange a ride home with a responsible green party. I, SADIE MART , or responsible green party have received this information and my questions havebeen answered. I have discussed any challenges I see with this plan with the nurse or physician. Patient Signature or Responsible Libertarian/Relationship Date Time Provider Signature Date Time IMPORTANT: [...] arrange a ride home with a responsible green party. CELIA Obando KELSEY JEAN , or responsible green party have received this information and my questions havebeen answered. I have discussed any challenges I see with this plan with the nurse or physician. Patient Signature or Responsible Libertarian/Relationship Date Time Provider Signature Date Time This document has images extracted. Please consider using [employer] for all your patient education needs. Source: LookStat Document Id: [id number] documented in this encounter ED Notes Anayeli Bravo, R.N. - 05/20/2016 9:20 PM CDT ED Pain Assessment ED Pain Assessment Entered On: 05/20/2016 21:20 CDT Performed On: 05/20/2016 21:20 CDT by ANAYELI BRAVO RN Pain Assessment Pain Symptoms : No ANAYELI BRAVO RN - 05/20/2016 21:20 CDT Source: [employer] Document Id: [id number] CDT!3 Anayeli Bravo R.N. - 05/20/2016 9:19 PM CDT ED Disposition Summary ED Disposition Summary Entered On: 05/20/2016 21:19 CDT Performed On: 05/20/2016 21:19 CDT by ANAYELI BRAVO RN ED Disposition Summary Present in Room During Exam/Procedure : Alone Mode of Discharge : Ambulatory Transportation : Private vehicle Printed Discharge Instructions Given to Patient : Yes Patient Status at Discharge from ED : Improved ANAYELI BRAVO RN - 05/20/2016 21:19 CDT Source: Look[employer] Document Id: [id number] CDT!7 Anayeli Bravo R.N. - 05/20/2016 9:19 PM CDT ED Education ED Education Entered On: 05/20/2016 21:19 CDT Performed On: 05/20/2016 21:19 CDT by ANAYELI BRAVO RN Education ED Education Grid Topics : Importance of follow-up visits, Plan of care (Comment: follow up with pcp if neededreturn if needed, [ANAYELI BRAVO RN - 05/20/2016 21:19 CDT] ) Individuals Taught : Patient Barriers to Learning : None evident Teaching Method : Explanation, Printed materials Teaching Evaluation : Able to teach back, Verbalizes understanding ANAYELI BRAVO RN - 05/20/2016 21:19 CDT Source: [employer] Document Id: [id number] CDT!9 Roxanne Mcdaniel R.N. - 05/20/2016 9:03 PM CDT ED Nurse Reassess ED Nurse Reassess Entered On: 05/20/2016 21:04 CDT Performed On: 05/20/2016 21:03 CDT by ROXANNE MCDANIEL RN Pain Assessment Pain Symptoms : No ROXANNE MCDANIEL RN - 05/20/2016 21:03 CDT CV Reassess CV Patient Stated Symptoms : None Skin Color : Normal for ethnicity Skin Description : Dry Skin Temperature : Warm Nail Bed Color : Gonvick Capillary Refill : Less than 2 seconds Heart Rhythm : Regular Cardiac Rhythm : Sinus rhythm Cardiovascular Note : pt denies heart racing at this time. rates of 95 at this time. ROXANNE MCDANIEL RN - 05/20/2016 21:03 CDT Sheryl Coma Eye Opening Response Sheryl : Spontaneously Best Verbal Response Sheryl : Oriented Best Motor Response Bristol : Obeys simple commands Bristol Coma Score : 15 ROXANNE MCDANIEL RN - 05/20/2016 21:03 CDT Source: [facility] POWERCHART Document Id: [id number] CDT!18 Krystin Peacock M.D. - 05/20/2016 7:47 PM CDT Tachycardia Document Contains Addenda Patient: SADIE MART Age: 20 years Sex: Female : 1995 Author: KRYSTIN PEACOCK MD Attachments: None I, Lucas Quintero, am scribing for and in the presence of, Krystin Peacock MD. Basic Information Time seen: Date & time 05/20/2016 19:45:00. History source: Patient. Arrival mode: Private vehicle. History limitation: None. Additional information: Chief Complaint from Nursing Triage Note : Chief Complaint Description 05/20/2016 19:20 CDT Chief Complaint Description pt recently started taking a new pill to enhance workout and now feels liker her heart is racing. heart rate upon arrival 110. EKG ordered. pt denies chest pain or sob, no dizziness/lightheadedness . History of Present Illness The patient presents with heart racing. The onset was this evening. The course/duration of symptoms is constant. Character of symptoms fast. The degree at onset was minimal. The degree at present is minimal. The exacerbating factor is none. The relieving factor is none. Risk factors consist of recent new dietary supplement. Prior episodes: none. Therapy today: none. Associated symptoms: flushed, denies chest pain, denies dizziness and denies shortness of breath. patient presents w/ an onset of tachycardia this evening and notes a flushed feeling as well. Recently started a new pre-workout supplement, that upon further scrutiny during exam, contains a large amount of caffeine. She denies any CP, SOB, dizziness or other sxs and has no hx of SVT, DVT or PE and does not smoke, did drink EtOH to intoxication last evening but does not do this regularly. Review of Systems Constitutional symptoms: No fever. Skin symptoms: flushed skin. Respiratory symptoms: No shortness of breath. Cardiovascular symptoms: Tachycardia, but no chest pain. Gastrointestinal symptoms: No abdominal pain, no nausea or no vomiting. Additional review of systems information: All other systems reviewed and otherwise negative. Health Status Allergies: Allergic Reactions (Selected) NKA. Past Medical/ Family/ Social History Medical history: No active or resolved past medical history items have been selected or recorded.. Surgical history: No active procedure history items have been selected or recorded.. Family history: No family history items have been selected or recorded.. Physical Examination Vital Signs: Vital Signs 05/20/2016 19:20 CDT Temperature Core 37 DegC Peripheral Pulse Rate 110 /min HI Respiratory Rate 20 /min SpO2 98 % Systolic Blood Pressure 168 mmHg >HHI Diastolic Blood Pressure 75 mmHg Mean Arterial Pressure 106 mmHg , Measurements 05/20/2016 19:20 CDT Dosing Weight 56.50 kg Actual Weight 56.5 kg , SpO2 05/20/2016 19:20 CDT SpO2 98 % . General: Alert and no acute distress. Skin: Warm, dry and intact. Head: Normocephalic and atraumatic. Neck: Supple and trachea midline. Eye: Extraocular movements are intact and normal conjunctiva. Ears, nose, mouth and throat: Oral mucosa moist. Cardiovascular: Tachycardia. Respiratory: Lungs are clear to auscultation, respirations are non-labored, breath sounds are equal and Symmetrical chest wall expansion. Gastrointestinal: Soft and Nontender. Neurological: Alert and oriented to person, place, time, and situation and No focal neurological deficit observed. Psychiatric: Cooperative and appropriate mood & affect. Medical Decision Making Documents reviewed:Emergency department nurses' notes (triage records from current visit), prior records. Electrocardiogram:Vent. Rate : 088 BPM Atrial Rate : 088 BPM P-R Int : 116 ms QRS Dur : 082 ms QT Int : 352 ms P-R-T Axes : 057 041 031 degrees QTc Int : 425 ms Normal sinus rhythm with sinus arrhythmia with short MS Otherwise normal ECG No previous ECGs available Referred By: KRYSTIN PEACOCK Confirmed By:JAVIER SUN MD. Results review:Lab results : Lab View 05/20/2016 20:16 CDT UA Color Yellow UA Clarity Clear UA Spec Grav 1.009 UA pH 7.0 UA Protein Negative UA Glucose Negative UA Ketones Negative UA Bili Negative UA Urobilinogen 0.2 mg/dL UA Blood Negative UA Nitrite Negative UA Leuk Est Negative UR WBC None Seen /HPF UR RBC None Seen /HPF UR Squamous Epi Cells Occ-3 /HPF U Beta-hCG Ql Negative . Impression and Plan Plan Condition: Stable. Counseled: Patient, Regarding diagnosis, Regarding diagnostic results, Regarding treatment plan, Patient indicated understanding of instructions. Sinus tachycardia in context of using new exercise supplement with thiamine/niacin and most notably,a large dose of caffeine. No CP / dyspnea / pleurisy. QTc fine. No infectious symptoms. no abd pain or tenderness. No thyroid hx. Story seems to well account for this presentation, with caffeine induced sinus tachy likely the case. Per this, pt was observed in ED for a period, and does feel like she is autonomously improving. Addendum I personally performed the services described in this documentation and as scribed in my presence; it is both accurate and complete. Electronically Signed By: KRYSTIN PEACOCK MD On: 05/20/2016 11:13 PM Modified by and Electronically Signed by: LUCAS QUINTERO On: 05/20/2016 07:52 PM Source: [facility] POWERCHART Document Id: [id number] Roxanne Mcdaniel, R.N. - 05/20/2016 7:36 PM CDT ED Primary Assessment Document Has Been Updated ED Primary Assessment Entered On: 05/20/2016 19:39 CDT Performed On: 05/20/2016 19:36 CDT by ROXANNE MCDANIEL RN Reason For Visit (As Of: 05/20/2016 19:39:53 CDT) Problems(Active) No Chronic Problems (Cerner :NKP ) Name of Problem: No Chronic Problems ; Recorder: JESSICA CARBAJAL MD;Confirmation: Confirmed ; Classification: Medical ; Code: NKP ; Last Updated: 06/13/2013 15:01 CDT ;Life Cycle Date: 06/13/2013 ; Life Cycle Status: Active ; Vocabulary: Cerner Diagnoses(Active) Rapid heart beat Date: 05/20/2016 ; Diagnosis Type: Reason For Visit ; Confirmation: Complaint of ; Clinical Dx: Rapid heart beat ; Classification: Medical ; Clinical Service: Emergency medicine ; Code: PNED ; Probability: 0 ; Diagnosis Code: [id number] Triage Information Given By : Patient Mode of Arrival ED : Private vehicle Track : Medical Languages : Botswanan Treatments Prior to Arrival : None Are you ? : No Is Patient Female and 13-50 no hysterectomy : Yes Status : Patient denies ROXANNE MCDANIEL RN - 05/20/2016 19:36 CDT Pain Assessment Pain Symptoms : No ROXANNE MCDANIEL RN - 05/20/2016 19:36 CDT Respiratory Airway : Patent Respirations : Unlabored Respiratory Pattern : Regular ROXANNE MCDANIEL RN - 05/20/2016 19:36 CDT Cardiovascular Heart Rhythm : Regular Skin Color : Normal for ethnicity Skin Description : Dry Skin Temperature : Warm Cardiovascular Detailed Assessment : Yes ROXANNE MCDANIEL RN - 05/20/2016 19:36 CDT CV Detailed CV Patient Stated Symptoms : Palpitations Nail Bed Color : Gonvick Capillary Refill : Less than 2 seconds Cardiac Rhythm : Sinus tachycardia Cardiovascular Note : pt c/o heart racing. pt took adrenalize for wgt loss at 1030am. states her heart feels fast since 1200 today. no chest pain. no sob. ROXANNE MCDANIEL RN - 05/20/2016 19:36 CDT Neurological Last Well Time Known : Not applicable Level of Consciousness : Alert Orientation : Oriented x 3 Characteristics of Speech : Appropriate for age ROXANNE MCDANIEL RN - 05/20/2016 19:36 CDT ED Psychosocial Affect/Behavior : Calm Domestic Abuse Concerns : None Behavioral Health Screen/Safety Assmt : No ROXANNE MCDANIEL RN - 05/20/2016 19:36 CDT Gastrointestinal Nutrition ED : Adequate ROXANNE MCDANIEL RN - 05/20/2016 19:36 CDT Musculoskeletal Fall Prevention Education Provided : ROXANNE RUEDA RN - 05/20/2016 19:36 CDT Social Habits Exposure to Tobacco Smoke : Care provider denies smoking in home Smoking Status : Never smoker Tobacco 2A : No Tobacco Use/Currently Using : No Tobacco Use/Last 30 Days : No Tobacco Use/Last 12 months : No ROXANNE MCDANIEL RN - 05/20/2016 19:36 CDT Source: [facility] Aivo Document Id: [id number] CDT!48 Ratna Kramer R.N. - 05/20/2016 7:20 PM CDT ED Triage Assessment Document Has Been Updated ED Triage Assessment Entered On: 05/20/2016 19:23 CDT Performed On: 05/20/2016 19:20 CDT by RATNA KRAMER RN Reason For Visit (As Of: 05/20/2016 19:23:25 CDT) Problems(Active) No Chronic Problems (Cerner :NKP ) Name of Problem: No Chronic Problems ; Recorder: JESSICA CARBAJAL MD;Confirmation: Confirmed ; Classification: Medical ; Code: NKP ; Last Updated: 06/13/2013 15:01 CDT ;Life Cycle Date: 06/13/2013 ; Life Cycle Status: Active ; Vocabulary: Cerner Diagnoses(Active) Rapid heart beat Date: 05/20/2016 ; Diagnosis Type: Reason For Visit ; Confirmation: Complaint of ; Clinical Dx: Rapid heart beat ; Classification: Medical ; Clinical Service: Emergency medicine ; Code: PNED ; Probability: 0 ; Diagnosis Code: [id number] Triage Chief Complaint Description : pt recently started taking a new pill to enhance workout and now feelsliker her heart is racing. heart rate upon arrival 110. EKG ordered. pt denies chest pain or sob, nodizziness/lightheadedness Information Given By : Patient Present in Room During Exam/Procedure : Alone Mode of Arrival ED : Private vehicle Track : Medical Languages : Botswanan Vital Signs Assessed : Yes GCS Assessed : Yes Treatments Prior to Arrival : None Are you ? : No Is Patient Female and 13-50 no hysterectomy : Yes Status : Patient denies NIA, RATNA Gaurav RN - 05/20/2016 19:20 CDT Vital Signs Temperature Core : 37 DegC(Converted to: 98.6 DegF) Peripheral Pulse Rate : 110 /min (HI) Respiratory Rate : 20 /min Systolic Blood Pressure : 168 mmHg (>HHI) Diastolic Blood Pressure : 75 mmHg NIBP Mean : 106 mmHg SpO2 : 98 % Oxygen Saturation Monitoring Frequency : Continuous Oxygen Therapy : Room air Actual Weight : 56.5 kg Actual Weight Conversion to Pounds : 124.3 lb NIA RATNA Gaurav RN - 05/20/2016 19:20 CDT Sheryl Coma Eye Opening Response Sheryl : Spontaneously Best Verbal Response [place] : Oriented Best Motor Response Sheryl : Obeys simple commands Sheryl Coma Score : 15 NIA RATNA Nolasco RN - 05/20/2016 19:20 CDT Pain Assessment Pain Symptoms : No RATNA KRAMER RN - 05/20/2016 19:20 CDT DENIS DENIS Level 1 : No DENIS Level 2 : No DENIS Level 3 : Many NIA, RATNA Nolasco RN - 05/20/2016 19:20 CDT DCP GENERIC CODE Tracking Acuity : 3 -Urgent Tracking Group : RATNA BOWERS ED RN - 05/20/2016 19:20 CDT Allergy (As Of: 05/20/2016 19:23:25 CDT) Allergies (Active) NKA Estimated Onset Date: Unspecified ; Created By: PARAM SALOMON; Reaction Status: Active ; Category: Drug ; Substance: NKA ; Type: Allergy ; Updated By: PARAM SALOMON; Reviewed Date: 05/20/2016 19:23 CDT ID Screen Drug Resistant Organism : No Travel Within Last 21 Days : No Contact with someone with Ebola : No RATNA KRAMER RN - 05/20/2016 19:20 CDT Source: LookStat Document Id: [id number] CDT!44 documented in this encounter Miscellaneous Notes Miscellaneous - Conversion, Historical Provider Ser - 05/20/2016 9:20 PM CDT Coding Summary-Paper Based CODING DATE: 05/29/2016 FINAL [facility] STATUS: * Discharged to Home or Self Care PAYOR: Medicaid ADMIT DX: R00.0 Tachycardia, unspecified REASON FOR VISIT DX: R00.0 Tachycardia, unspecified FINAL DX: PRINCIPAL: R00.0 Tachycardia, unspecified SECONDARY: PROCEDURES DOCTOR NAME DATE NOTE: The code number assigned matches the documented diagnosis and / or procedure in the patient's chart. However, the narrative phrase printed from the coding software may appear abbreviated, or result in slightly different terminology. Coded By: SUSANA THOMAS Date Saved: 05/29/2016 09:47 am Source: [facility] Aivo Document Id: [id number] Miscellaneous - Anayeli Bravo, R.N. - 05/20/2016 7:18 PM CDT Facility Charge Ticket 2.0 11.0 DX Facility Charge Ticket 2.0 11.0 DX Entered On: 05/20/2016 21:20 CDT Performed On: 05/20/2016 19:18 CDT by ANAYELI BRAVO RN Facility Charge Ticket 2.0 11.0 DX ED Other Charges : Standard ED Encounter TVL Level Translated RTF : Rapid heart beat TVL:5 TVL Level for Facility Charge Ticket : Level 5 Arrival Mode Calc : 1 Mode of Arrival ED : Private vehicle Lynx Mode of Arrival Interpreted : Standard Lynx Process Management : None Order Management RTF : Laboratory Urinalysis with Culture if Indicated,05/20/16 20:04,KRYSTIN PEACOCK MD Completed Test Urine,05/20/16 20:05,KRYSTIN PEACOCK MD Completed Notification Only,05/20/16 19:41,KRYSTIN PEACOCK MD Ordered [facility] Order Management : Lab tests 30 Minutes Critical Care : No Nursing Notes RTF : Triage Forms ED Triage Assessment,05/20/16 19:20,RATNA KRAMER RN Nursing Notes ED Primary Assessment,05/20/16 19:36,ROXANNE MCDANIEL RN ED Nurse Reassess,05/20/16 21:03,DAHL, ROXANNE BERET SURGERY CONSULTANT Pain Assessment,05/20/16 21:20,ANAYELI BRAVO RN [facility] Nursing Assessment : Triage and 1-2 nursing assessments [facility] Disposition : Discharge [facility] Total Points with Diagnosis Control : 12 Lynx Visit Level : 62981 Level 4 Treatments Prior to Arrival : None ANAYELI BRAVO RN - 05/20/2016 21:20 CDT Source: [facility] POWERCHART Document Id: [id number] documented in this encounter Plan of Treatment Not on filedocumented as of this encounter Procedures Procedure Name Priority Date/Time Associated Diagnosis Comme nts TEST, U Routine 05/20/2016 8:16 PM Resu lts for this CDT procedure are i n the results section. URINALYSIS, Routine 05/20/2016 8:16 PM Results f or this MIDSTREAM, WITH CDT procedure ar e in CULTURE IF the results INDICATED section. ECG Routine 05/20/2016 7:33 PM Results f or this CDT procedure are i n the results section. documented in this encounter Results Test, Qualitative, Urine (05/20/2016 8:16 PM CDT) setObject Method Time Signature HXBeta-hCG Negative Negative POWERCHART Qualitative Urine Specimen (Source) Anatomical Collection Method Collection Time Re ceived Time Location / / Volume Laterality Urine 05/20/2016 8:16 PM CDT Krystin Peacock M.D. LAB URINE ORDERABLES Performing Organization Address City/State/ZIP Code Phon e Number POWERCHART (ABNORMAL) Urinalysis, Midstream, with culture if indicated (05/20/2016 8:16 PM CDT) setObject Method Time Signature HXUr Color Yellow Yellow POWERCHART Clarity Clear Clear POWERCHART Glucose Negative Negative POWERCHART HXBILIRUBIN Negative Negative POWERCHART Ketones, QL(U) Negative Negative POWERCHART Specific 1.009 1.001 - POWERCHART [place], POCT, 1.035 U HXBLOOD Negative Negative POWERCHART pH, POCT, Urine 7.0 POWERCHART Comment: Reference Range pH: 5.0-8.0 Protein, Ur, Dip Negative Negative POWERCHART Urobilinogen 0.2 0.2 MGDL POWERCHART Comment: Reference Range Urobilinogen: 0.2-1.0 mg/dL HXNITRITE Negative Negative POWERCHART Leukocyte Esterase Negative Negative POWERCHART HXUR WBC. None Seen None Seen HPF POWERCHART HXUR RBC. None Seen None Seen HPF POWERCHART Squamous Epithelial Occ-3 (A) None Seen HPF POWERC SCHNEIDER Specimen (Source) Anatomical Collection Method Collection Time Re ceived Time Location / / Volume Laterality Urine, First 05/20/2016 8:16 PM Voided CDT Krystin Peacock M.D. LAB URINE ORDERABLES Performing Organization Address City/State/ZIP Code Phon e Number POWERCHART ECG 12 Lead (05/20/2016 7:33 PM CDT) Specimen (Source) Anatomical Collection Method Collection Time Re ceived Time Location / / Volume Laterality 05/20/2016 7:33 PM CDT [facility] [place] LAB SYSTEM - 05/20/2016 7:33 PM CDT Test Reason : EKG Blood Pressure : / mmHG Vent. Rate : 088 BPM ? Atrial Rate : 088 BPM ?? P-R Int : 116 ms ?QRS D ur : 082 ms ?QT Int : 352 ms ? P-R-T Axe s : 057 041 031 degrees ?? QTc Int : 425 ms Normal sinus rhythm with sinus arrhythmi a with short MS Otherwise normal ECG No previous ECGs available Referred By: KRYSTIN PEACOCK ? Confirmed By:JAVIER SUN MD Procedure Note Provider, Imani Goncalves - 01/17/2017F ormatting of this note might be different from the original. Test Reason : EKG Blood Pressure : / mmHG Vent. Rate : 088 BPM Atrial Rate : 088 B PM P-R Int : 116 ms QRS Dur : 082 ms QT Int : 352 ms P-R-T Axes : 057 041 03 1 degrees QTc Int : 425 ms Normal sinus rhythm with sinus arrhythmi a with short MS Otherwise normal ECG No previous ECGs available Referred By: KRYSTIN PEACOCK Confirmed By: JAVIER SUN MD Javier Sun M.D., M.B. ECG ORDERABLES Performing Organization Address City/State/ZIP Code Phon e Number [facility] [address] [place] [address] documented in this encounter Visit Diagnoses Not on filedocumented in this encounter
--- OUTSIDE RECORDS SUMMARY | 2022-06-19 16:18 | XMS_ITS | Encounter Summary ---
:1995 Demographics Address [address] [place] [address] Mobile Phone Home Phone Email Address Email Address Preferred Language ENG Marital Status Life Partnership Restorationist Affiliation Unknown Race White Ethnic Group Not or Author Organization [facility] Address [address] [place] [address] Care Team Providers Name Role Phone Alicia Phan P.A.-C. Primary Care Provider [phone] Encounter Details Date Type Department Care Team Description 11/26/2018 Orders Only Department of [facility], Preplacement [facility] Rich Ramirez .M.A. (Primary Dx) in [address] [id number] [phone] Social History Tobacco Use Types Packs/Day Years [...] 11/30/2021 relatives? How often do you attend mosque or jain Never 11/30/2021 services? Do you belong to any clubs or organizations such as No 11/30/2021 mosque groups, unions, fraternal or athletic groups, or [...] as of this encounter Visit Diagnoses Diagnosis Preplacement Exam - Primary documented in this encounter Care Teams Embroidery Finisher Relationship Specialty Start Date End Date Alicia Phan P.A.-C. PCP - General 02/14/17 08/31/19 documented as of this encounter
--- OUTSIDE RECORDS SUMMARY | 2022-06-19 16:18 | XMS_ITS | Encounter Summary ---
:1995 Demographics Address [address] [place] [address] Mobile Phone Home Phone Email Address Email Address Preferred Language ENG Marital Status Life Partnership Worship Affiliation Unknown Race White Ethnic Group Not or Author Organization [facility] Address [address] [place] [address] Care Team Providers Name Role Phone Unavailable Primary Care Provider Unavailable Encounter Details Date Type Department Care Team Description 10/22/2008 Hospital Encounter [facility]X [facility] LAMIN Villanueva Provider, Ulises rose Social History Tobacco Use Types Packs/Day Years [...] 11/30/2021 relatives? How often do you attend adventism or anabaptist Never 11/30/2021 services? Do you belong to any clubs or organizations such as No 11/30/2021 adventism groups, unions, fraternal or athletic groups, or [...] documented as of this encounter Progress Notes Conversion, Historical Provider Ser - 10/22/2008 12:00 AM CST [facility] [place] [address] [place] [address] Name: MITCHELL YANG : [birth year] Attending Provider: Aleks Krishna MD CLINIC NOTE FAMILY PRACTICE 10/22/2008 REASON FOR VISIT: Congestion with cough for last one week. HISTORY OF PRESENT ILLNESS: This 13-year-old female came in to the office with her mom with complaint of cough hurting her anterior chest for last nearly one week. She was seen previously in our office for her decrease in hearing on September 30. Later on she was seen in [facility] for removal of the wax with flushing. Patient denied for any problem with hearing or any ear pain. She mentioned that she had cough which comes forcefully and hurt badly on her sides of the chest and anterior chest. She had no trouble with eating, drinking. Denied for vomiting and nausea. Denied for abdominal pain, new rash or joint swelling. 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 Nobody smokes. No new pet at home. MEDICATIONS: Multivitamins over the counter. ALLERGIES: Not known. ROS: Denied for fever. Denied for nasal discharge, ear pain. Rest of the review of systems is as per HPI. EXAMINATION: Pulse 80 regular. Respirations 18. Temperature 97.9. Weight is 29.3. Oxygen saturation is 91% on room air. HEENT examination showed clear tympanic membrane, normal external ear and canal on left side. Clear tympanic membrane with very minimal wax and normal external ear on right side. Nasal mucosa showed slightly hypertrophied turbinate on the left side, normal nasal mucosa. Posterior pharyngeal exam showed slight redness, no congestion, exudates, no enlarged tonsils noticed. Rest of the oral exam is normal. Neck exam showed tender lymph nodes in the left submandibular and anterior cervical chain. Chest is clear on auscultation in anterior, posterior and lateral lung herrera. No wheezing, rales, crackles. No abnormal breath pattern or rib retraction noticed. Heart rate about 80 regular. IMPRESSION/REPORT/PLAN: Viral bronchitis. PLAN: Conservative treatment in the absence of fever, production of sputum, and no localized finding. I do not recommend any medication except antitussive. Mom was offered for Robitussin with codeine, but she refused as she does not like the codeine in her child. Patient was discharged with recommendation of Tylenol p.r.n. for pain, plenty of fluids and follow up if not improved in 7 to 10 days. Karo Doc#: [id number] Authenticated by Aleks Krishna M.D. on 11/01/2008 10:15:35 Authorized physician signature on file cc: [facility] NAME: MITCHELL YANG DT: [id number] Source: [facility] ISJHXDICTAPHONESYS Document Id: [id number] documented in this encounter Plan of Treatment Not on filedocumented as of this encounter Visit Diagnoses Not on filedocumented in this encounter
--- OUTSIDE RECORDS SUMMARY | 2022-06-19 16:18 | XMS_ITS | Encounter Summary ---
:1995 Demographics Address [address] [place] [address] Mobile Phone Home Phone Email Address Email Address Preferred Language ENG Marital Status Life Partnership Catholic Affiliation Unknown Race White Ethnic Group Not or Author Organization [facility] Address [address] [place] [address] Care Team Providers Name Role Phone Unavailable Primary Care Provider Unavailable Encounter Details Date Type Department Care Team Description 10/13/2008 Hospital Encounter HX [facility] Memo Ford, D.ONestor [address] [place], [place] [address] (Wo rk) Social History Tobacco Use Types [...] 11/30/2021 relatives? How often do you attend episcopalian or mormonism Never 11/30/2021 services? Do you belong to any clubs or organizations such as No 11/30/2021 episcopalian groups, unions, fraternal or athletic groups, or [...] place to sleep or slept in a group home (including now)? Sex Assigned at Date Recorded Female 05/15/2021 10:14 AM CDT documented as of this encounter Progress Notes Magdaleno House M.D. - 10/13/2008 12:00 AM CST [facility] [address] [address] Name: MITCHELL YANG : [birth year] Attending Provider:Keely Freeman PRECEPTOR NOTE FAMILY PRACTICE 10/13/2008 Mitchell is in to see Dr. Freeman today because of some decreased hearing. She had gone to another clinic and was told that she had some ear wax that was not able to be washed out and was given some ear drops. She returns here today for a recheck. I reviewed all the history and physical findings with Dr. Freeman. I agree with her assessment and plan of care to include ear irrigation and removal of cerumen. Authenticated by Magdaleno House M.D. on 10/14/2008 14:31:13 Authorized physician signature on file CMG:djh Doc#: [id number] cc: [facility] NAME: MITCHELL YANG DT: [id number] [facility] ISJHXDICTAPHONESYS Document Id: [id number] Keely Freeman D.O. - 10/13/2008 12:00 AM CST [facility] [address] [address] Name: MITCHELL YANG : [birth year] Attending Provider:Keely Freeman [facility] NOTE RESIDENT NOTE 10/13/[address] House REASON FOR VISIT: Cerumen impaction. HISTORY OF PRESENT ILLNESS: This is a very pleasant 13-year-old female who presents with her mother today for cerumen impaction. She said that she saw a provider last week and he was not able to remove it completely. Gave her eardrops and told her to followup in the next week. She says she has been having trouble hearing out of her left ear. She says it does not really hurt her. She has no history of recent upper respiratory tract infection or cough. She denied any dizziness or headache and is otherwise doing well. PFSH: Past Medical History - None MEDICATIONS: None except for ear drops for the past 2 weeks - name unknown. ALLERGIES: No known drug allergies. ROS: No nausea, vomiting, headache, cough or rhinorrhea. EXAMINATION: Vital signs: Temperature 91, blood pressure 104/66, weight 29.4 kg. Height 133 cm. General: This is a well appearing 13-year-old female in no acute distress. Examination of her right ear showed minimal wax with a clear tympanic membrane with a good light reflex. Examination of the left ear showed no visible tympanic membrane because of hard, black, dried wax in the external canal. External ears are nontender. Head normocephalic, atraumatic. Eyes: Pupils equally round and reactive to light. Extraocular muscle function intact. Mouth: Mucous membranes are moist. Posterior pharynx clear. Neck: Supple with no lymphadenopathy. Neuro: Gait is normal. Affect is normal. IMPRESSION/REPORT/PLAN: 1. Hearing loss. 2. Cerumen impaction. I removed her cerumen with irrigation and afterwards was able to visualize her tympanic membrane with good light reflex. There is minimal trauma to the external auditory canal from the wax. The patient and her mother were informed of the trauma to the ear canal and ensuing pain that might go in the next couple days. They were also educaated on the use of Q-tips. The patient was feeling fine and was sent home to follow up as needed. DARREN/anjelicaj Doc#: [id number] Authenticated by Keely Freeman D.O. on 10/28/2008 11:30:01 Authorized physician signature on file Authenticated by Magdaleno House M.D. on 10/28/2008 13:22:15 Authorized physician signature on file [facility] NAME: MITCHELL YANG DT: [id number] Source: [facility] ISJHXDICTAPHONESYS Document Id: [id number] documented in this encounter Plan of Treatment Not on filedocumented as of this encounter Visit Diagnoses Not on filedocumented in this encounter
--- OUTSIDE RECORDS SUMMARY | 2022-06-19 16:18 | XMS_ITS | Encounter Summary ---
:1995 Demographics Address [address] [place] [address] Mobile Phone Home Phone Email Address Email Address Preferred Language ENG Marital Status Life Partnership Jehovah'S Witness Affiliation Unknown Race White Ethnic Group Not or Author Organization [facility] Address [address] [place] [address] Care Team Providers Name Role Phone Unavailable Primary Care Provider Unavailable Encounter Details Date Type Department Care Team Description 11/10/2012 Hospital Encounter [facility]X [facility] Zachary Velasco, JAVA DEVELOPER CONSULTANT, C.N.P. [address] [place] [address] (Wo rk) Social History Tobacco Use Types [...] 11/30/2021 relatives? How often do you attend rastafarian or yazidism Never 11/30/2021 services? Do you belong to any clubs or organizations such as No 11/30/2021 rastafarian groups, unions, fraternal or athletic groups, or [...] Sign Reading Time Taken Comments Blood Pressure 96/60 11/10/2012 11:34 AM CDT Pulse 62 11/10/2012 11:34 AM CDT Temperature - - Respiratory Rate 16 11/10/2012 11:34 AM CDT Oxygen Saturation - - Inhaled Oxygen Concentration - - Weight 44.5 kg (98 lb 1.7 oz) 11/10/2012 11:34 AM CDT Height - - Body Mass Index - - documented in this encounter Progress Notes Zachary Watkins, FRANKY, CNestorNNestorP. - 11/10/2012 11:03 AM CDT NOTE DATE: 11/10/2012 CHIEF COMPLAINT/REASON FOR VISIT Sore throat, exposure to strep. HISTORY OF PRESENT ILLNESS Sadie is a 17-year-old female who comes into Urgent Care for evaluation of a sore throat that she has had for a few days now. Her sister was diagnosed with strep, but that was a couple of weeks ago and no one else in the family seemed to catch it from her, but Sadie now has been sick for a few days.She believes she has had a fever although she has not checked it. Her throat hurts and it hurts to swallow. She can tell that the glands in her neck are swollen. She does report a slight cough and runny nose as well. She has not taken any medications for this. PAST MEDICAL/SURGICAL HISTORY None are documented and patient denies. CURRENT MEDICATIONS None. ALLERGIES No known drug allergies. VITAL SIGNS She is afebrile right now with a temperature of 37. Her heart rate is 62. Her respiratory rate is 16. Her blood pressure is 96/60. She weighs 44.5 kg. She does rate the pain in her throat right now a 7on a 0 to 10 scale. PHYSICAL EXAMINATION GENERAL: Sadie is a 17-year-old female in no acute distress. HEENT: TMs are without erythema. There is no sinus tenderness at all. Her throat is really quite erythematous with some tonsillar exudate as well. NECK: She has a moderate amount of anterior cervical adenopathy. HEART: Her heart rate is regular. LUNGS: Her lungs are clear. A rapid strep was done and was negative. IMPRESSION/REPORT/PLAN Acute tonsillitis. PLAN: Prescribed amoxicillin 500 mg 3 times daily for the next 10 days. Suggested acetaminophen or ibuprofen, plenty of fluids, and follow up if symptoms worsen or do not resolve. DL/lsd Doc#: [id number] cc: Electronically Signed By: ZACHARY WATKINS MOLD FORMS BUILDER On: 11/13/2012 08:05 AM Source: [facility] ISJDICTAPHONESYS Document Id: [id number] documented in this encounter Miscellaneous Notes Miscellaneous - Zachary Watkins APRN, C.N.P. - 11/10/2012 12:52 PM CDT Ambulatory Patient Summary [place] [id number] Visit Information Name: SADIE YANG [facility] Number: [id number] Current Date: 11/10/2012 12:52:40 Physicians Attending Provider: UNKNOWN1, PROVIDER Primary Care Provider: SADIE MONTEJO DO Your Medications Here is a list of your medications. It is important to take your medications as directed. Use a pillbox or chart to help remind you to take your medications. Please let your doctor or nurse know if you have problems taking your medications. Medication/Strength Dose Route Frequency Indications/Special Instructions/Comments amoxicillin (amoxicillin 500 mg oral tablet) 500 mg Oral three times a day for 10 Days Attention: If you have any medications at home that are not on this list, DO NOT take them until youcontact your provider for clarification. Your Allergies & Intolerances Substance Reaction Symptoms Category Comments No Known Allergies Drug Your Problem List Problem Status Onset Comments No Problems found Your Upcoming Appointments Date Time Location Reason Provider No Appointments found Your Goals/Additional instructions: Source: [facility] POWERCHART Document Id: [id number] Daren - Zachary Watkins APRN CNestorN.P. - 11/10/2012 12:52 PM CDT Ambulatory Depart Summary [address] [address] Visit Information Name: SADIE YANG [facility] Number: [id number] Visit Date: 11/10/2012 12:52:39 Attending Provider: LUIS MIGUEL, PROVIDER Primary Care Provider: SADIE MONTEJO DO SADIE YANG NAEL has been given the following list of medications: Your Medications It is important to take your medications as directed. Use a pill box or chart to help remind you to take your medications. Please let your doctor or nurse know if you have problems taking your medications. Medication/Strength Dose Route Frequency Indications/Special Instructions/Comments amoxicillin (amoxicillin 500 mg oral tablet) 500 mg Oral three times a day for 10 Days Attention: If you have any medications at home that are not on this list, DO NOT take them until youcontact your provider for clarification. Additional Information: Source: [facility] POWERCHART Document Id: [id number] Daren - Pepito Stiles L.P.NNestor - 11/10/2012 11:34 AM CDT [facility] Intake/History [facility] Intake/History Entered On: 11/10/2012 11:37 CDT Performed On: 11/10/2012 11:34 CDT by PEPITO STILES Intake Chief Complaint : Sore throat, hurts to swallow, feels swollen in neck both sides Onset of Symptoms : Temperature Core : 37.0C(Converted to: 98.6DegF) Peripheral Pulse Rate : 62/min Respiratory Rate : 16/min Heart Rhythm : Regular Systolic Blood Pressure : 96mmHg Diastolic Blood Pressure : 60mmHg NIBP Mean : 72mmHg BP Location : Right upper extremity Blood Pressure Cuff Size : Regular Actual Weight : 44.5kg(Converted to: 98lb 2oz) Weight Source : Standing scale Dosing Weight Clinic : 44.50kg PEPITO STILES - 11/10/2012 11:34 CDT General Info Accompanied By : Sibling Information Given By : Patient Languages : Occitan PEPITO STILES Darryl - 11/10/2012 11:34 CDT Subjective Pain Symptoms : Yes PEPITO STILES - 11/10/2012 11:34 CDT Pain Pain Assessment Grid Pain 1 Location : Throat Laterality : Bilateral Intensity : 7 Time Pattern : Constant Quality : Aching PEPITO STILES - 11/10/2012 11:34 CDT Dependent Habits Tobacco Use/Currently Using : No Exposure to Tobacco Smoke : Care provider denies smoking in home Smoking Status : Never smoker PEPITO STILES - 11/10/2012 11:34 CDT Caffeine Use Grid Caffeine Use : None PEPITO STILES - 11/10/2012 11:34 CDT Allergy Allergies (Active) NKA Estimated Onset Date: Unspecified ; Created By: PARAM SALOMON; Reaction Status: Active ; Category: Drug ; Substance: NKA ; Type: Allergy ; Updated By: PARAM SALOMON; Reviewed Date: 11/10/2012 11:33 CDT Source: [facility] POWERCHART Document Id: [id number] Miscellaneous - Octavio Raymundo M.D. - 11/10/2012 11:03 AM CDT TIGRE November 11, 2012 SADIE YANG [address] [place] [address] : 1995 [facility] #: [id number] Dear Family of Sadie: At your recent visit to the urgent care center, a rapid strep test was done and was negative. Because of that, a throat culture was done as a more definitive study. There was no indication of a Streptococcus A infection on the culture. If you have any further questions or problems, please contact us or your primary care provider. Thank you for the opportunity to serve you. Sincerely, Octavio Raymundo M.D. SRH:ljg Doc# [id number] Electronically Signed By: OCTAVIO RAYMUNDO MD On: 11/12/2012 09:03 AM Source: [facility] ISJDICTAPHONESYS Document Id: [id number] documented in this encounter Plan of Treatment Not on filedocumented as of this encounter Procedures Procedure Name Priority Date/Time Associated Diagnosis Comme nts RAPID STREP A Routine 11/10/2012 11:52 AM Results for this SCREEN CDT procedure are i n the results section. RAPID STREP A Routine 11/10/2012 11:52 AM Results for this SCREEN CDT procedure are i n the results section. documented in this encounter Results Rapid Strep A Screen (11/10/2012 11:52 AM CDT) CloudPrime Method Time Signature HXRapid Strep POWERCHART Confirmation HXPre Negative for POWERCHART Group A Strep by culture. HXFinal Negative for POWERCHART Group A Strep by culture. Specimen Anatomical Collection Method Collection Time Receive d Time (Source) Location / / Volume Laterality Throat 11/10/2012 11:52 11/10/2012 AM CDT 11:52 AM CDT Octavio Raymundo M.D. LAB MICROBIOLOGY - GENERAL O [place] Performing Organization Address City/[facility] Code Phon e Number POWERCHART Rapid Strep A Screen (11/10/2012 11:52 AM CDT) CloudPrime Method Time Signature HXStrep A POWERCHART Screen Rapid HXFinal Negative for POWERCHART Strep Group A by rapid screen. HXFinal Culture POWERCHART confirmation to follow. Specimen (Source) Anatomical Collection Method Collection Time Re ceived Time Location / / Volume Laterality Throat 11/10/2012 11:52 AM CDT Octavio Raymundo M.D. LAB MICROBIOLOGY - GENERAL O [place] Performing Organization Address [facility]/State/ZIP Code Phon e Number POWERCHART documented in this encounter Visit Diagnoses Not on filedocumented in this encounter
--- OUTSIDE RECORDS SUMMARY | 2022-06-19 16:18 | XMS_ITS | Encounter Summary ---
:1995 Demographics Address [address] [place] [address] Mobile Phone Home Phone Email Address Email Address Preferred Language ENG Marital Status Life Partnership Scientology Affiliation Unknown Race White Ethnic Group Not or Author Organization [facility] Address [address] [place] [address] Care Team Providers Name Role Phone Unavailable Primary Care Provider Unavailable Encounter Details Date Type Department Care Team Description 04/16/2012 Hospital Encounter HX [facility] Yfn Montejo D.O. [address] [place], [place] [address] (Wo rk) Social History [...] 11/30/2021 relatives? How often do you attend uatsdin or presybeterian Never 11/30/2021 services? Do you belong to any clubs or organizations such as No 11/30/2021 uatsdin groups, unions, fraternal or athletic groups, or [...] Sign Reading Time Taken Comments Blood Pressure 100/64 04/16/2012 10:49 AM CDT Pulse 80 04/16/2012 10:49 AM CDT Temperature - - Respiratory Rate 18 04/16/2012 10:49 AM CDT Oxygen Saturation - - Inhaled Oxygen Concentration - - Weight 44.7 kg (98 lb 8.7 oz) 04/16/2012 10:49 AM CDT Height 151 cm (4' 11.45) 04/16/2012 10:49 AM CDT Body Mass Index 19.6 04/16/2012 10:49 AM CDT Body Mass Index Percentile 39.44 % 04/16/2012 10:49 AM C DT Growth Chart: [facility] (Girls, 2-20 Years) documented in this encounter Progress Notes Mitchell Montejo D.O. - 04/16/2012 10:31 AM CDT NOTE DATE: 04/16/2012 CHIEF COMPLAINT/REASON FOR VISIT Sports physical. PRECEPTOR: Dr. House. HISTORY OF PRESENT ILLNESS The patient is a 16-year-old who presents today with her mother wanting a sports physical. She is going to participate in cheerleading at [employer] in [employer].She has not participated in any sporting activity before as this is a new school for her. Prior to this she was attending a [employer] school. The patient's sports qualifying physical history form was reviewed as well. PAST MEDICAL/SURGICAL HISTORY MEDICAL: Negative, she has been a very healthy individual. SURGICAL: Negative. SOCIAL HISTORY The patient does not smoke. No alcohol. No drug use. She is going to be attending tenth grade at [employer]. She has plans to attend [employer] in [place] after finishing high school. FAMILY HISTORY No family history of sudden cardiac . No cardiac disease at a young age. No diabetes. No thyroid problems. CURRENT MEDICATIONS None. ALLERGIES None. SYSTEMS REVIEW A complete review of systems is obtained, is negative. VITAL SIGNS Blood pressure 100/64, pulse of 80, respiratory rate of 18, height of 151 cm, weight of 44.7 kg. BMIof 19.6. PHYSICAL EXAMINATION GENERAL: The patient is a very pleasant 16-year-old who is alert, cooperative, in no apparent distress. HEENT: Patient is normocephalic. Pupils are equal, round, and reactive to light. Extraocular musclesare intact. Funduscopic exam is negative. Mucous membranes are moist. Nares are patent. NECK: Supple with no cervical lymphadenopathy. CARDIOVASCULAR: She has a regular rate and rhythm without murmur. LUNGS: Clear to auscultation bilaterally. ABDOMEN: She has positive bowel sounds. She is soft, nontender, nondistended. EXTREMITIES: She has no edema. Peripheral pulses are equal and appropriate in all extremities. NEUROLOGICAL: Deep tendon reflexes are equal and appropriate. Strength is 5/5 in all extremities. MUSCULOSKELETAL: The patient is able to duck walk and single leg hop. She has full range of motion of all her extremities. IMPRESSION/REPORT/PLAN Routine general medical exam with sports physical. PLAN: At this time, the patient is cleared to play sports without restrictions. The patient is not up-to-date on immunizations. She has not gotten any immunizations secondary to what her mom describes as her other children have had severe reactions to immunizations. She states her one son almost ,and so she has elected not to immunize her children. She would like her to get a tetanus shot, but she does not want the other additives in them, including the diphtheria or pertussis, but she did say her son did get a tetanus shot a year or so ago. She is going to see what shot he got and see if we can give that to her daughter. We did have a long discussion about seatbelts, sexual activity, domestic violence, drugs, and alcohol. The patient understands the risks she takes with all of that, and momand her have no further questions. HARRIET/lissette Doc#: [id number] cc: Electronically Signed By: MITCHELL MONTEJO DO On: 05/13/2012 08:12 AM Co-Signed By: MAGDALENO HOUSE MD On: 05/15/2012 04:25 PM Source: [facility] Document Id: [id number] documented in this encounter Miscellaneous Notes Miscellaneous - Sylvester Cali, R.N. - 04/16/2012 10:49 AM CDT Pediatric Administration Manager Intake/History Pediatric Administration Manager Intake/History Entered On: 04/16/2012 10:51 CDT Performed On: 04/16/2012 10:49 CDT by SYLVESTER CALI Intake Chief Complaint : sports physcial Peripheral Pulse Rate : 80/min Respiratory Rate : 18/min Heart Rhythm : Regular Systolic Blood Pressure : 100mmHg Diastolic Blood Pressure : 64mmHg NIBP Mean : 76mmHg BP Location : Right upper extremity Blood Pressure Cuff Size : Regular Height : 151cm(Converted to: 4ft 11inch(es), 59.45inch(es)) Actual Weight : 44.7kg(Converted to: 98lb 9oz) Weight Source : Standing scale Dosing Weight Clinic : 44.70kg Clinic BSA : 1.37 Body Mass Index : 19.60kg/m2 SYLVESTER CALI - 04/16/2012 10:49 CDT General Info Mode of Arrival : Ambulatory Accompanied By : Mother Accompanied by Names : mom ca Information Given By : Mother SYLVESTER CALI - 04/16/2012 10:49 CDT Subjective Pain Symptoms : No SYLVESTER CALI - 04/16/2012 10:49 CDT Dependent Habits Tobacco Use/Currently Using : No Smoking Status : Never smoker Alcohol Use : No SYLVESTER CALI - 04/16/2012 10:49 CDT Caffeine Use Grid Caffeine Use : None SYLVESTER CALI 04/16/2012 10:49 CDT Allergy Allergies (Active) NKA Estimated Onset Date: Unspecified ; Created By: PARAM SALOMON; Reaction Status: Active ; Category: Drug ; Substance: NKA ; Type: Allergy ; Updated By: PARAM SALOMON; Reviewed Date: 04/16/2012 10:48 CDT Source: [facility] POWERCH[facility] Document Id: [id number] Miscellaneous - Magdaleno House M.D. - 04/16/2012 10:31 AM CDT PRCPT DATE: 04/16/2012 RESIDENT Mitchell Montejo D.O. CHIEF COMPLAINT/REASON FOR VISIT Mitchell is in today to see Dr. Montejo for a sports physical exam. HISTORY OF PRESENT ILLNESS I reviewed all the history and physical findings with Dr. Montejo. VITAL SIGNS Her pulse is 80 and regular. Respirations 18 and nonlabored. Blood pressure 100/64. Weight is 44.7 kg. PHYSICAL EXAMINATION GENERAL: I did go in and see Mitchell with Dr. Montejo. Mitchell is alert and oriented, in no acute distress. SKIN: Her skin is warm and dry. LUNGS: Are clear to auscultation. CARDIOVASCULAR: Heart is regular without murmur or gallop. IMPRESSION/REPORT/PLAN All the rest of the details of the history and physical are noted in Dr. Clarke dictated note. PLAN: I agree with her assessment and plan of care. CMG:jennifer Doc#: [id number] cc: Electronically Signed By: MAGDALENO HOUSE MD On: 04/28/2012 10:11 AM Source: [facility] Document Id: [id number] documented in this encounter Plan of Treatment Not on filedocumented as of this encounter Visit Diagnoses Not on filedocumented in this encounter
--- OUTSIDE RECORDS SUMMARY | 2022-06-19 16:18 | XMS_ITS | Encounter Summary ---
:1995 Demographics Address [address] [place] [address] Mobile Phone Home Phone Email Address Email Address Preferred Language ENG Marital Status Life Partnership Bahai Affiliation Unknown Race White Ethnic Group Not or Author Organization [facility] Address [address] [place] [address] Care Team Providers Name Role Phone Unavailable Primary Care Provider Unavailable Encounter Details Date Type Department Care Team Description 09/30/2008 Hospital Encounter HX [facility] LAMIN Villanueva Provider, [...] How often do you attend scientology or jainism Never 11/30/2021 services? Do you [...] place to sleep or slept in a halfway (including now)? Sex Assigned at Date Recorded Female 05/15/2021 10:14 AM CDT documented as of this encounter Progress Notes Conversion, Historical Provider Ser - 09/30/2008 12:00 AM CST [facility] [place] [address] [place] [id number] Name: MITCHELL YANG : [birth year] Attending Provider: Aleks Krishna MD CLINIC NOTE FAMILY PRACTICE 09/30/2008 REASON FOR VISIT: Left ear pain, cannot hear since this morning. HISTORY OF PRESENT ILLNESS: Feytlt-tcee-euy female came into the office not able to hear anything from the left ear since this morning. She described very minimal pain. She had no history of recent upper respiratory tract infection and no cough, runny nose, and no chest pain, no other complaint. She woke up this morning and feels that she is not able to hear anything from her left ear. She denied any dizziness, vertigo, any numbness on her face, denied any headache, or any other complaint. MEDICATIONS: None. ALLERGIES: Not known. ROS: No nausea, vomiting, no dizziness, and no headache. No chest pain, cough, or runny nose. EXAMINATION: Local exam - Pulse is 80. Respirations 18. Temperature 98.3. Weight is 29.5 kg. Examination of her right ear showed minimal wax. Clear tympanic membrane. Examination of the left ear showed no visible tympanic membrane because of her hard, black dried wax in the canal. I tried to remove with the plastic and steel speculum, but it removed only the partial part of the wax. It seems to me that this is rock hard wax in the left canal. External ears are nontender. I was not able to visualize the left tympanic membrane. Both nostrils - They were slightly red but not congested. Posterior pharynx is clear with slight redness. Neck examination did not show any tender lymph node. IMPRESSION/REPORT/PLAN: Wax on the left ear not able to be completely removed because of the dried, hard, solid wax. PLAN: Patient was discussed briefly and given drops for the wax softener. Mom agreed for the wax softener drops and they will return back in 4 to 5 days and then we will flush the left ear. Patient discharged in fairly stable condition. Josemanuel Doc#: [id number] Authenticated by Aleks Krishna M.D. on 10/06/2008 13:27:02 Authorized physician signature on file cc: [facility] NAME: MITCHELL NAYAK CELIA DT: [id number] Source[facility] Document Id: [id number] documented in this encounter Plan of Treatment Not on filedocumented as of this encounter Visit Diagnoses Not on filedocumented in this encounter
--- OUTSIDE RECORDS SUMMARY | 2022-06-19 16:18 | XMS_ITS | Encounter Summary ---
:1995 Demographics Address [address] [place] [address] Mobile Phone Home Phone Email Address Email Address Preferred Language ENG Marital Status Life Partnership Restorationism Affiliation Unknown Race White Ethnic Group Not or Author Organization [facility] Address [address] [place] [address] Care Team Providers Name Role Phone Unavailable Primary Care Provider Unavailable Encounter Details Date Type Department Care Team Description 08/28/2011 Hospital Encounter HX [facility] Memo Parks, DNestorONestor [address] [place], [place] [address] (Wo rk) Social History Tobacco [...] 11/30/2021 relatives? How often do you attend sikhism or latter day Never 11/30/2021 services? Do you belong to any clubs or organizations such as No 11/30/2021 sikhism groups, unions, fraternal or athletic groups, or [...] documented as of this encounter Progress Notes Jocelyn Blas D.O. - 08/28/2011 11:07 AM CST [facility] 08/28/2011 REASON FOR VISIT Congestion in chest, cough. HISTORY OF PRESENT ILLNESS This is a very pleasant, 16-year-old female, who comes in to clinic today with her mother with the above complaint. Pretty much she has been sick over the past four days with a slight cough, a lot of nasal congestion. Mom says she seemed to be doing better last night, did not cough at all throughout the night, but then woke up this morning and had quite a productive sounding cough, but was not actually producing any sputum. Sadie says that she was also exposed to strep via her friend, was diagnosedyesterday and she is not sure if she shared any beverages, et cetera with her recently. Mom has not noticed any fevers. The patient denies any specific ear pain, no headache. Moderate amount of nasal dr ainage, minimal sore throat just this morning. Been able to eat and drink okay. Sleep has been fine,as well. She is otherwise healthy. PAST MEDICAL, FAMILY, SOCIAL HISTORY Medical: Asthma or reactive airway disease in the past. EXAMINATION GENERAL: This a well-appearing, 16-year-old female, in no distress. She does not cough at all throughout my history and physical. VITALS: Temperature is 37.0, pulse is 88, respirations 20. Weight is 44.1 kg. HEENT: Head is normocephalic, atraumatic. Ears ?? External auditory canals are clear. Tympanic membranes are pearly rush with good light reflex. Nares are patent. A mild amount of nasal drainage is noted. Mouth ?? Oropharynx is clear. Mucous membranes are moist. NECK: Supple. No lymphadenopathy. HEART: Regular rate and rhythm. No murmur. LUNGS: Clear to auscultation bilaterally. ABDOMEN: Soft, nontender, and nondistended. Positive bowel sounds heard throughout. SKIN: No rashes or erythema seen. IMPRESSION/REPORT/PLAN Upper respiratory infection. PLAN Symptomatic cares. Re-evaluation if worsening, changing or not improving symptoms. The patient feelscomfortable with our plan, verbalizes agreement. DARREN/j luis Doc#: [id number] cc: Electronically Signed By: JOCELYN BLAS DO On: 08/31/2011 08:45 AM Source: [facility] Document Id: [id number] HEMODIALYSIS documented in this encounter Miscellaneous Notes Miscellaneous - Jocelyn Blas D.O. - 08/28/2011 11:25 AM CST Ambulatory Patient Summary [address] [id number] Visit Information Name: SADIE YANG Current Date: 08/28/2011 11:25:33 Primary Care Provider: PCP, UNASSIGNED Your Medications Here is a list of your medications. It is important to take your medications as directed. Use a pillbox or chart to help remind you to take your medications. Please let your doctor or nurse know if you have problems taking your medications. Medication/Strength Dose Route Frequency Indications/Special Instructions/Comments No Medications found Your Allergies & Intolerances Substance Reaction Symptoms Category Comments NKA Drug Your Problem List Problem Status Onset Comments No Problems found Your Recommendations We want to make sure you get the tests, immunizations, and guidance you need to stay healthy. Here is a customized list of recommendations, based on information we have in your medical record. Your doctor may have additional recommendations for you, based on your personal medical history and risk factors. You can help us by calling us to make an appointment when you are due for your tests. Additional information regarding recommendations: Test/Treatment Last Done Next Due Additional Information No Health Maintenance records were found Your Upcoming Appointments Date Time Location Reason Provider No Appointments found Your Goals/Additional instructions: Source: [facility] POWERCHART Document Id: [id number] HEMODIALYSIS Miscellaneous - Jocelyn Blas D.O. - 08/28/2011 11:25 AM CST Ambulatory Depart Summary Bianka Alvarez [address] [place] [address] Visit Information Name: CELIA, SADIEYAMILE NAYAK Current Date: 08/28/2011 11:25:32 Physicians Attending Physician: JOCELYN BLAS DO Primary Care Provider: PCP, UNASSIGNED SADIE YANG has been given the following list of medications: Your Medications It is important to take your medications as directed. Use a pill box or chart to help remind you to take your medications. Please let your doctor or nurse know if you have problems taking your medications. Medication/Strength Dose Route Frequency Indications/Special Instructions/Comments No Medications found Additional Information: Yes - Current list of reconciled medications is provided and explained to the patient and/or family, guardian/caregiver. Source: [facility] POWERCHART Document Id: [id number] HEMODIALYSIS Miscellaneous - Selene Salomon L.P.NNestor - 08/28/2011 11:12 AM CST Pediatric Veterinary Anatomist Intake/History Pediatric Veterinary Anatomist Intake/History Entered On: 08/28/2011 11:14 RN HEMODIALYSIS Performed On: 08/28/2011 11:12 RN HEMODIALYSIS by SELENE SALOMON Intake Chief Complaint : congested, chest cough Onset of Symptoms : 4 days Ambulatory Intake Additional Information : Mom...[place] Temperature Core : 37.0C(Converted to: 98.6DegF) Apical Heart Rate : 88/min Respiratory Rate : 20/min Actual Weight : 44.1kg(Converted to: 97lb 4oz) Dosing Weight Clinic : 44.10kg AIME SELENE Darryl - 08/28/2011 11:12 RN HEMODIALYSIS Subjective Pain Symptoms : No SELENE SALOMON - 08/28/2011 11:12 RN HEMODIALYSIS Dependent Habits Tobacco Use/Currently Using : No Smoking Status : Never smoker AIMESELENE - 08/28/2011 11:12 RN HEMODIALYSIS Caffeine Use Grid Caffeine Use : None SELENE SALOMON - 08/28/2011 11:12 RN HEMODIALYSIS Allergy Allergies (Active) NKA Estimated Onset Date: Unspecified ; Created By: SELENE SALOMON; Reaction Status: Active ; Category: Drug ; Substance: NKA ; Type: Allergy ; Updated By: SELENE SALOMON; Reviewed Date: 08/28/2011 11:12 RN HEMODIALYSIS Source: [facility] [employer] Document Id: [id number] RN HEMODIALYSIS!18 HEMODIALYSIS documented in this encounter Plan of Treatment Not on filedocumented as of this encounter Visit Diagnoses Not on filedocumented in this encounter
[2022-06-19 19:01] LABS: Chlamydia DNA Amplified* NOT DETECTED (No Detected); GC DNA Amplified* NOT DETECTED (No Detected)
== END 2022-06-19 16:10 | disposition home or self-care (01) ==
PROVIDERS: Visit Provider Registered Nurse
DX: Z39.2 Encounter for routine postpartum follow-up (principal); Z12.4 Encounter for screening for malignant neoplasm of cervix; Z11.3 Encounter for screening for infections with a predominantly sexual mode of transmission
CPT/HCPCS: 87491; 87591; 87624; 88175

== ENCOUNTER 2025-02-26 09:01 | Outpatient (CLI) | payer BC, SELFPAY ==
--- NOTE | 2025-02-26 09:15 | CRLHL7_ITS ---
For Patients: As a result of the Cures Act, medical imaging exams and procedure reports are released immediately into your electronic medical record. You may view this report before your referring provider. If you have questions, please contact your health care provider. OB ULTRASOUND LESS THAN 14 WEEKS, 02/26/2025 CLINICAL HISTORY: Dating. COMPARISON: None. TECHNIQUE: Real time rush scale imaging of the fetus was performed. Transabdominal imaging performed. FINDINGS: Imaging: Transabdominal. Patient refused transvaginal. LMP: 12/31/2024. LE by LMP: 10/07/2025. GA: 8 weeks 1 day. CRL: 1.7 cm, 8 weeks 1 day. LE: 10/07/2025. FHR: 165 bpm. GEST SAC: 3.7 cm, appears WNL. YOLK SAC: 4.7 mm, appears WNL. RIGHT OV: WNL 2.8 x 1.2 x 2.3 cm. LEFT OV: 4.3 x 4.1 x 5.5 cm IMPRESSION: 1. Single living intrauterine measuring 8 weeks 1 day and sonographic due date 10/07/2025. 2. Simple left ovarian cyst measures 4.0 x 3.6 x 3.3 cm. Aniceto Barraza M.D. Diagnostic Radiologist [email or web address] Transcribed: 11:14 am DW/Dictated by: Aniceto Barraza MD @ 02/26/2025 10:31:00 AM (Electronically Signed)
--- OUTSIDE RECORDS SUMMARY | 2025-02-27 00:29 | XMS_ITS | Clinical Summary ---
Author Organization [employer] Address [address] [address] Care Team Providers Care Network Relay Tester Name Role Phone Francisca Cunningham PA-C Primary Care Provider [phone] Source Comments You are receiving this document as you are listed as the primary care provider,follow-up provider, or the patient has been referred to you for consultation.This is in compliance with the Medicare and[facility] EHR Incentive Program,which states Providers who transition their patient to another setting of careor provider of care or refers their patient to another provider of care shouldprovide summary care record for each transition of care or referral. [employer] Allergies No known active allergies Medications * This document contains information received from the source organization and may not represent a complete record from that organization. traZODone (DESYREL) 50 MG tabletIndicatio ns:Chronic insomnia Take 1-2 Tablets by mouth daily at bedtime. 180 Tablet 3 08/25/2019 Active acetaminophen (TYLENOL) 325 MG tablet Take 325-650 mg by mouth every 4 hours as needed for Pain. Active ALPRAZolam (XANAX) 0.5 MG tablet Take 1 Tablet by mouth every 6 hours as needed for Anxiety. 20 Tablet 03/11/2020 Active sertraline (ZOLOFT) 50 MG tablet Take 1 Tablet by mouth daily. 30 Tablet 5 08/19/2020 Active Vit-DSS-Fe Cbn-FA ( AD OR) Active Active Problems Problem Noted Date Diagnosed Date ASHLEE (generalized anxiety disorder) 06/24/2019 Resolved Problems Problem Noted Date Diagnosed Date Resolved Date Careplan: [facility]nings 09/08/2020 11/25/2020 Overview (09/08/2020): This patient is enrolled in the Healthy Beginnings Program. The program provides patients with support, education, referrals and resources during their . Reason for enrollment: +THC, resources Next urine drug screen: 28w For more information, please contact Jennifer Pyle, Healthy Beginnings Specialist, at [phone]. Encounter for supervision of normal first in first trimester 08/31/2020 11/22/2020 Anxiety disorder affecting p regnancy, antepartum 08/31/2020 11/22/2020 Nausea and vomiting in 08/31/2020 11/22/2020 Nausea & vomiting 07/19/2019 08/31/2020 Epigastric pain 07/19/2019 08/31/2020 Immunizations Immunization Administration Dates Next Due 9vHPV (Gardasil 9) 01/24/2016,09/30/2015, 015 Influenza IIV4 (Quadrivalent) 0.5mL (22375) 08/04 Influenza, Unspecified Formulation 06/10/2019,,07/09/2016 MCV4 (Menactra) 07/21/2015,04/24/2012 Tdap 04/24/2012 Varicella 02/14/2016,01/13/2016 Family History Medical History Relation Name Comments Bipolar Disorder Mother Cancer, Lung Maternal Grandmother Cancer, Ovary Maternal Grandmother Bipolar Disorder Sister Cancer, Ovary Sister Relation Name Status Comments Father Alive Mother Alive Maternal Grandfather Alive Maternal Grandmother Sister Social History Tobacco Use Types Packs/Day Years Used Date Smoking Tobacco: Former Cigarettes Q uit: 02/16/2020 Smokeless Tobacco: Never Alcohol Use Standard Drinks/Week Comments Not Currently 0 (1 standard drink = 0.6 oz pur e alcohol) 1-2 drinks a month PHQ-2 Answer Date Recorded PHQ-2 Score 2 09/28/2020 Depression Answer Date Recor ded Last EPDS Total Score 17 03/03/2023 Last EPDS Self Harm Result 1-->hardly ever 03/03 Comments No Sex and Gender Information Value Date Recorded Sex Assigned at Not on file Legal Sex Female 11:47 AM CDT Gender Identity Not on file Sexual Orientation Not on file 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 Not on file Not on file Not on f ile Last Filed Vital Signs Vital Sign Reading Time Taken Comments Blood Pressure 118/70 08/31/2020 2:43 PM BASKET GRADER Pulse 80 11/10/2019 9:09 AM CDT Temperature 36.7 C (98.1 F) 08/03/2019 1:00 PM BASKET GRADER Respiratory Rate 16 08/20/2019 11:06 AM BASKET GRADER Oxygen Saturation 98% 07/10/2019 10:00 AM BASKET GRADER Inhaled Oxygen Concentration - - Weight 66.2 kg (146 lb) 08/31/2020 2:43 PM BASKET GRADER Height 152.4 cm (5') 08/31/2020 2:43 PM BASKET GRADER Body Mass Index 28.51 08/31/2020 2:43 PM BASKET GRADER Plan of Treatment Health Maintenance Due Date Last Done Comments Hep C Screening (Preventive Services) 1995 HepB Vaccine (1) 2015 Adult Preventive Visit 04/07/2021 04/07/2019 Cervical Cancer Screening 08/31/20232019, 08/08/2017 (Completed) COVID-19 Vaccine ( season) 2024 01/20/2021, 12/23/2020 Influenza Vaccine (Season Ended) 2025 08/31/2020, 06/10/2019, 05/24/2017, Additional history exists DTaP/Tdap/Td Vaccine (3 - Tdap) 03/31/2031 03/31/2021, 04/24/2012, 04/24/2012 Zoster/Shingles Vaccine (1 of 2) 2046 MCV4 Vaccine Aged Out 07/21/2015, 04/24/2012 No lo nger eligible based on patient's age to complete this topic HPV Vaccine Completed 01/24/2016, 09/03, 07/21/2015 Varicella Vaccine Completed 02/14/2016, 01/13/2016 HIV Screening (Preventive Services) Completed 11/01/2020, 08/31/2020 Chlamydia Discontinued 10/05/2021, 03/10/2020, 08/31/2020, Additional history exists HepA Vaccine Aged Out No longer eligi ble based on patient's age to complete this topic Hib Vaccine Aged Out No longer eligi ble based on patient's age to complete this topic IPV (Polio) Vaccine Aged Out No longe r eligible based on patient's age to complete this topic Meningococcal B Vaccine Aged Out No l onger eligible based on patient's age to complete this topic Pneumococcal Vaccine Aged Out No long er eligible based on patient's age to complete this topic Procedures Procedure Name Priority Date/Time Associated Diagnosis Comments HIV 1/2 AG/AB 4TH GEN Routine 08/31/2020 3:27 PM BASKET GRADER Screening examination for venereal disease CHLAMYDIA & GC (14 YEARS & OLDER) Routine 08/31/2020 3:27 PM BASKET GRADER Screening examination for venereal disease CYTOLOGY (PAP) Routine 08/31/2020 3:27 PM BASKET GRADER Screening for malignant neoplasm of cervix from Last 3 Months or Most Recently Relevant to Health Maintenance Results * PAP Test (08/31/2020 3:27 PM BASKET GRADER) Case Report Pap Case: [id number] Authorizing Provider: Jerica Vides MD Collected: 08/31/2020 1527 Ordering Location: [place] [address] Received: 08/31/2020 1629 Obstetrics/Gynec ology First Screen: Maryann Gomez CT (ASCP) Specimen: Pap Test, Routine, Cervix/Endocervix 09/05/2020 2:39 PM BASKET GRADER [facility] Pap Specimen Adequacy Satisfactory for evaluation, endocervical/brown sformation zone component present. 09/05/2020 2:39 PM BASKET GRADER [facility] Pap Interpretation Negative for intraepithelial lesion or malignancy (NILM). 09/05/2020 2:39 PM BASKET GRADER [facility] at 1439 BASKET GRADER Pap Disclaimer The Pap test is a screening test designed to aid in the detection of cervical cancer and its precursor lesions. It is not a diagnostic procedure and should not be used as the sole means of detecting cervical cancer. Both false-positive and false-negative results may occur. 09/05/2020 2:39 PM BASKET GRADER [facility] Gross Description The specimen is received in SurePath fixative and properly labeled. 1 Pap-stained SurePath slide is prepared. 09/05/2020 2:39 PM BASKET GRADER [facility] Embedded Images 2:39 PM BASKET GRADER [facility] Other Specimen Type ENTIRE ENDOCERVIX / Unknown 08/31/2020 3:27 PM BASKET GRADER 08/31/2020 4:29 PM BASKET GRADER Comment:LMP: Patient's last menstrual period was 06/18/2020 (exact date). Jerica Vides MD LAB PATHOLOGY Final Result Performing Organization Address City/[facility]/ZIP Co de Phone Number [facility] [address] [place] [address] * HIV 1/2 Ag/Ab 4th Generation (08/31/2020 3:27 PM BASKET GRADER) HIV 1/2 Antigen/Antib noah (4th generation) Negative (Non Reactive) Negative (Non Reactive) 08/31/2020 10:16 PM BASKET GRADER [facility] Comment:HIV-1 p24 Antigen an d HIV-1/HIV-2 Antibody not detected Blood Venipuncture / Unknown 08/31/2020 3:27 PM BASKET GRADER 08/31/2020 3:27 PM BASKET GRADER Jerica Vides MD LAB_1 Final Result Performing Organization Address City/[facility]/ZIP Co de Phone Number [facility] [address] [place] [address] * CHLAMYDIA & GC (08/31/2020 3:27 PM BASKET GRADER) Chlamydia Trachomatis STD Not Detected Not Detected 09/01/2020 12:14 PM BASKET GRADER [facility] N. gonorrhoeae STD Not Detected Not Detected 09/01/2020 12:14 PM BASKET GRADER [facility] Swab STD ENTIRE ENDOCERVIX / Unknown Non-blood Collection / Unknown 08/31/2020 3:27 PM BASKET GRADER 08/31/2020 4:29 PM BASKET GRADER Narrative [facility] - 09/01/2020 12:14 PM BASKET GRADER Test performed by Molecular Detection us Jerica Vides MD LAB_1 Final Result [facility] [address] [address], [facility] [phone] from Last 3 Months or Most Recently Relevant to Health Maintenance Care Teams Network Relay Tester Relationship Specialty Start Date End Date Francisca Cunningham, PA-C [address] [place], [place] [id number] PCP - General Physician Dance Choreographer 10/05/20
--- OUTSIDE RECORDS SUMMARY | 2025-02-27 00:29 | XMS_ITS | Clinical Summary ---
Demographics Address [address] [place] [address] Home Phone Phone Preferred Language Frisian Marital Status Unknown Spiritism Affiliation Does not wish to l ist Race White Ethnic Group Not or Lati no Author Organization [facility] Address [address] [place] [address] Care Team Providers Care Substitute School Nurse Name Role Phone Pcp, No Primary Care Provider Unavailabl e Allergies Active Allergy Reactions Criticality Noted Date Comments Metoclopramide Hives 01/17/2022 Medications sertraline (ZOLOFT) 50 mg tablet Take 75 mg by mouth once daily. 08/02/2020 Active aspirin chewable 81 mg chewable tablet Chew 81 mg by mouth once daily. Active PNV no.95/ferrous fum/folic ac ( ORAL) Take by mouth. Active Social History Tobacco Use Types Packs/Day Years Used Date Smoking Tobacco: Former Smokeless Tobacco: Never Alcohol Use Standard Drinks/Week Comments Yes 0 (1 standard drink = 0.6 oz pur e alcohol) 1-2 per month Comments Unknown Sex and Gender Information Value Date Recorded Sex Assigned at Not on file Legal Sex Female 8:45 AM LOOP SEWER Gender Identity Not on file Sexual Orientation Not on file Obstetrics History Para Term AB IAB SAB Ectopic Multiple Livin g Live Births 1 Date Outcome GA Total Labor Labor/2nd/3rd Weight Sex Type Anes PTL Leslee A1 A5 Name Clin Last Filed Vital Signs Vital Sign Reading Time Taken Comments Blood Pressure 115/71 01/17/2022 12:37 PM CDT Pulse 85 01/17/2022 12:37 PM CDT Temperature 36.7 C (98 F) 01/17/2022 11:04 AM CDT Respiratory Rate 16 01/17/2022 11:04 AM CDT Oxygen Saturation 99% 01/17/2022 12:37 PM CDT Inhaled Oxygen Concentration - - Weight 66.7 kg (147 lb) 01/17/2022 11:46 AM CDT Height 152.4 cm (5') 01/17/2022 11:46 AM CDT Body Mass Index 28.71 01/17/2022 11:46 AM CDT Plan of Treatment Health Maintenance Due Date Last Done Comments Tdap 2007 Depression screening for age 12+ 2008 BMI (ht and wt on same day) for age 18+ 2014 Hepatitis B series for 19+ ( 1 of 3 - 19+ 3-dose series) 2015 Tetanus booster 2016 COVID-19 vaccine series ( - 2023- season) 2024 01/20/2021, 12/23/2020 Influenza Vaccine (Season Ended) 2025 Pap test for age 21-65 06/19/2025 , 06/19/2022 HIV for age 15-65 Completed 11/01/2020 Hepatitis C screening for ag e 18-79 Completed 11/01/2020 Pneumococcal series for age 6-49 Aged Out No longer eligible b ased on patient's age to complete this topic Procedures Procedure Name Priority Date/Time Associated Diagnosis Comments HPV HIGH RISK Routine 06/19/2022 3:30 PM CDT ANTI HIV 1/2 Today 11/01/2020 9:24 AM LOOP SEWER Supervision of other normal (HC) ANTI HCV Today 11/01/2020 9:24 AM LOOP SEWER Supervision of other normal (HC) from Last 3 Months or Most Recently Relevant to Health Maintenance Results * HPV HIGH RISK (06/19/2022 3:30 PM CDT) TYPE 16 Negative Negative 06/25/2022 5:01 PM CDT [facility] TYPE 18 Negative Negative 06/25/2022 5:01 PM CDT [facility] OTHER HIGH RISK TYPES Negative Negative 06/25/2022 5:01 PM CDT [facility] Other (Cervical) 06/19/2022 3:30 PM CDT 06/21/2022 5:42 PM CDT Narrative [facility] - 06/25/2022 5:01 PM CDT HPV types 16, 18, 31, 33, 35, 39, 45, 51, 52, 56, 58, 59, 66 and 68 DNA were undetectable or below the pre-set threshold. Methodology: Eloisa Chas 4800 HPV Test Génesis Martinez NP MICROBIOLOGY Final Res ult [facility] [address] [place] [address], [place] * ANTI HCV (11/01/2020 9:24 AM LOOP SEWER) Pathologist [facility] HEPATITIS C ANTIBODY Non-Reacti ve Non-React dex 11/01/2020 10:41 AM [facility] Comment:Antibodies to HCV no t detected; does not exclude the possibility of exposure to HCV. Blood BLOOD SPECIMEN / Unknown Venipuncture / Unknown 11/01/2020 9:24 AM LOOP SEWER 11/01/2020 9:29 AM LOOP SEWER Margoth Newell CPM SEND OUTS Final Result Performing Organization Address [facility]/ZIP Co de Phone Number [facility] [address] [place] [address], [place] [phone] * ANTI HIV 1/2 (11/01/2020 9:24 AM LOOP SEWER) Pathologist [facility] HIV-1/HIV-2 ANTIBODY Nonreactive Nonreactive 11/01/2020 10:56 AM [facility] Blood BLOOD SPECIMEN / Unknown Venipuncture / Unknown 11/01/2020 9:24 AM LOOP SEWER 11/01/2020 9:29 AM LOOP SEWER Margoth Newell CPM SEND OUTS Final Result [facility] [address] [place] [address], [place] [phone] from Last 3 Months or Most Recently Relevant to Health Maintenance Insurance * Guarantor: Sadie Mart Account Type Relation to Patient Date of Phone Billing Address Personal/Family Self 1995 [address] [place] [address] [place] [address] [facility] [place] * Guarantor: Sadie Mart Account Type Relation to Patient Date of Phone Billing Address Personal/Family Self 1995 [address] [place] [address] [facility] [employer] CHOICE Advance Directives * Full Code (Latest Code Status on File) Date Activated Date Inactivated Comments 09/18/2019 7:09 AM 09/18/2019 1:25 PM Question Answer Comments Code Status Discussion: Not Discussed Care Teams Substitute School Nurse Relationship Specialty Start Date End Date Pcp, No . PCP - General 12/13/20
--- OUTSIDE RECORDS SUMMARY | 2025-02-27 00:29 | XMS_ITS | Clinical Summary ---
Author Organization [employer] Address [address] [place] [address] Care Team Providers Care Special Events Driver Name Role Phone Mik VAUGHN MD, Julie Primary Care Provider Allergies No known active allergies Medications DULoxetine (CYMBALTA) 30 MG capsule Take 60 mg by mouth 9 Active etonogestrel (IMPLANON/NEXPL ANON) 68 MG IMPL Inject 68 mg Subcutaneous Active hydrOXYzine (VISTARIL) 25 MG capsule 9 Active omeprazole (PRILOSEC) [address] capsule Take 1 hour before a meal. Take twice daily x 1 week then once daily 9 Active traZODone (DESYREL) 50 MG tablet Take 50-100 mg by mouth 9 Active Active Problems Problem Noted Date Diagnosed Date ASHLEE (generalized anxiety disorder) 06/24/2019 Social History Tobacco Use Types Packs/Day Years Used Date Smoking Tobacco: Never Assessed Adolescent Education Answer Date Record ed Getting School Help Needed Not on file 05/24 Comments Unknown Sex and Gender Information Value Date Recorded Sex Assigned at Not on file Legal Sex Female 4:11 PM HOME HOSPICE RN Gender Identity Not on file Sexual Orientation Not on file Last Filed Vital Signs Vital Sign Reading Time Taken Comments Blood Pressure 117/69 07/14/2019 6:55 PM HOME HOSPICE RN Pulse 86 07/14/2019 6:55 PM HOME HOSPICE RN Temperature 36.8 C (98.2 F) 07/14/2019 4:18 PM HOME HOSPICE RN Respiratory Rate 20 07/14/2019 4:18 PM HOME HOSPICE RN Oxygen Saturation 99% 07/14/2019 6:55 PM HOME HOSPICE RN Inhaled Oxygen Concentration - - Weight - - Height - - Body Mass Index - - Plan of Treatment Not on file Care Teams Special Events Driver Relationship Specialty Start Date End Date Nasrin Houser MD, MD [facility] [address] [place] [address] PCP - General 07/07/20
== END 2025-02-26 09:02 | disposition home or self-care (01) ==
LOC: US 09:02
PROVIDERS: Visit Provider Registered Nurse
DX: Z34.91 Encounter for supervision of normal pregnancy, unspecified, first trimester (principal); O34.81 Maternal care for other abnormalities of pelvic organs, first trimester; N83.292 Other ovarian cyst, left side; Z3A.08 8 weeks gestation of pregnancy; Z67.40 Type O blood, Rh positive
CPT/HCPCS: 76801

== ENCOUNTER 2025-02-26 09:45 | Outpatient (CLI) | payer BC, SELFPAY ==
[2025-02-26 14:04] LABS: Chlamydia DNA Amplified* NOT DETECTED (No Detected); GC DNA Amplified* NOT DETECTED (No Detected)
== END 2025-02-26 09:46 | disposition home or self-care (01) ==
PROVIDERS: Visit Provider Registered Nurse
DX: Z34.81 Encounter for supervision of other normal pregnancy, first trimester (principal); Z67.40 Type O blood, Rh positive
CPT/HCPCS: 76801; 82565; 82570; 83020; 83021; 84156; 84450; 84460; 84520; 85660; 86592; 86703; 86704; 86706; 86762; 86787; 86803; 86850; 86900; 86901; 87086; 87340; 87491; 87591

== ENCOUNTER 2025-05-21 09:10 | Outpatient (CLI) | payer BC, SELFPAY ==
--- NOTE | 2025-05-21 09:15 | CRLHL7_ITS ---
For Patients: As a result of the Century Cures Act, medical imaging exams and procedure reports are released immediately into your electronic medical record. You may view this report before your referring provider. If you have questions, please contact your health care provider. OB ULTRASOUND GREATER THAN 14 WEEKS, 05/21/2025 CLINICAL HISTORY: anatomy survey. COMPARISON: 02/26/2025. TECHNIQUE: Real time rush scale imaging of the fetus was performed. Evaluate anatomy. Transabdominal imaging performed. FINDINGS: LMP: 12/31/2024. GA: 20 weeks 1 day. Position: Multiple positions. Cervix: Visualized. Technique: TA. Length of closed cervix: 3.6 cm. Placenta/Cord: Placenta Position: Anterior. Technique: TA. Placenta tip to internal OS: 2.1 cm. Umbilical Cord: 3 vessel cord. Placental Insertion: Central. Amniotic Fluid: 6.7 cm SDP. OBSERVED STRUCTURES: Calvarium/Spine Cerebellum: 2.0 cm, 20 weeks 1 day Cisterna Magna: 3.7 mm Nuchal Fold: 3.4 mm Lateral ventricle: 6.4 mm CSP Choroid Plexus Midline Falx Spine Abdomen: Stomach Abd Cord Insert Urinary Bladder Kidneys Diaphragm Face: Nose/Lips Orbital view Profile Limbs: Upper extremities Lower extremities Hands Feet Vascular: 4 Ch Heart LVOT RVOT 3VV 3VTV BIOMETRY BPD: 5.0 cm, 21 weeks 0 days. 83.3% HC: 17.9 cm, 20 weeks 2 days. 50.4% AC: 15.5 cm, 20 weeks 5 days. 62.3% FL: 3.2 cm, 20 weeks 0 days. 39.3% FL/AC: 20.84% HC/AC Ratio: 1.15. Heart Rate: 150 bpm. Age by this US: 20 weeks 3 days. LE by this US: 10/05/2025. EFW: 352.31 grams, 0 lbs 12 oz. Percentile by LE: 61.2% IMPRESSION: 1. The edge of the anterior placenta is located 2.1 cm from the internal cervical os which is considered normal. 2. Concordance of clinical and sonographic dating. 3. Normal anatomic survey. Aniceto Barraza M.D. Diagnostic Radiologist [employer] [email or web address] Transcribed: 1:23 pm DW/Dictated by: Aniceto Barraza MD @ 05/21/2025 12:16:00 PM (Electronically Signed)
== END 2025-05-21 09:11 | disposition home or self-care (01) ==
LOC: US 09:11
PROVIDERS: Visit Provider Advanced Practice Midwife
DX: Z34.92 Encounter for supervision of normal pregnancy, unspecified, second trimester (principal); Z3A.20 20 weeks gestation of pregnancy
CPT/HCPCS: 76805

== ENCOUNTER 2025-07-15 10:10 | Outpatient (CLI) | payer BC, SELFPAY | END 2025-07-15 10:11 | disposition home or self-care (01) | LOC: NFLDREF 07-24 14:42 | PROVIDERS: Visit Provider Advanced Practice Midwife | DX: Z34.93 Encounter for supervision of normal pregnancy, unspecified, third trimester (principal) | CPT/HCPCS: 86592 ==